=== PATIENT | male | born 1940 | race Caucasian/White ===

== ENCOUNTER → 2018-06-08 | Outpatient (CLI) | payer MEDICARE ==
--- NOTE | 2018-06-08 15:07 | US ---
EXAMINATION TYPE: US kidneys/renal and bladder DATE OF EXAM: 06/08/2018 COMPARISON: CT 07/08/2015 CLINICAL HISTORY: N18.3 Chronic Kidney Stage 3. EXAM MEASUREMENTS: Right Kidney: 11.4 x 4.5 x 4.3 cm Left Kidney: 11.0 x 5.7 x 4.8 cm Right Kidney: No hydronephrosis. Loss of corticomedullary differentiation Left Kidney: Echogenic foci visualized measuring 0.9 cm. This has posterior shadowing. A cystlike are a may be within the mid left kidney. Bladder: Hyperechoic area visualized measuring 1.3 x 1.5 x 1.6 cm with vascularity within Bilateral Jets seen: No, right jet visualized IMPRESSION: 1. Echogenic foci within the urinary bladder. Additional workup for polypoid lesion or neoplasm is re commended. 2. Mid left renal stone
== END ==
LOC: RADUSWWP 10:57
PROVIDERS: ATTEND Internal Medicine
DX: N20.0 Calculus of kidney (principal)
CPT/HCPCS: 76770

== ENCOUNTER → 2018-10-19 | Outpatient (CLI) | payer MEDICARE ==
[2018-10-19 14:16] LABS: Calcium 9.6 mg/dL (8.4-10.2); Potassium 4.6 mmol/L (3.5-5.1)
[2018-10-19 14:40] LABS: Anisocytosis Slight; Basophils % (A) 1 %; Eosinophils # (A) 0.7 k/uL (0-0.7); Eosinophils % (A) 12 %; HCT 35.4 % (39.0-53.0); HGB 11.5 gm/dL (13.0-17.5); Lymphocytes # (A) 0.9 k/uL (1.0-4.8); Lymphocytes % (A) 15 %; MCH 27.8 pg (25.0-35.0); MCHC 32.5 g/dL (31.0-37.0); MCV 85.6 fL (80.0-100.0); Mean Platelet Volume 10.3; Monocytes # (A) 0.9 k/uL (0-1.0); Monocytes % (A) 15 %; Neutrophils # (A) 3.2 k/uL (1.3-7.7); Neutrophils % (A) 54 %; Platelet Count 181 k/uL (150-450); RBC 4.14 m/uL (4.30-5.90); RDW 17.4 % (11.5-15.5)
== END ==
LOC: LABPAT 11:37
PROVIDERS: ATTEND Urology
DX: Z01.818 Encounter for other preprocedural examination (principal); Z01.812 Encounter for preprocedural laboratory examination; D49.4 Neoplasm of unspecified behavior of bladder; R53.83 Other fatigue
CPT/HCPCS: 80048; 85025; 93005

== ENCOUNTER 2018-11-01 07:34 | Day surgery (SDC) | payer MEDICARE ==
[2018-10-26 12:38] VITALS: BMI 40.3
--- NOTE | 2018-10-31 12:44 | P.GSHP ---
History of Present Illness H&P Date: 10/31/18 Chief Complaint: Gross hematuria The patient is a 78-year-old white male recently evaluated for gross hematuria. A computed tomography scan in June 2015 showed 2 left renal calculi. A renal ultrasound in May 2018 showed a 9 mm left renal calculus as well as a bladder mass. Cystoscopy was performed, confirming the presence of multiple papillary tumors. He now comes for resection. - Genitourinary (Female) Genitourinary: Reports hematuria, Reports kidney stones Past Medical History Past Medical History: Atrial Fibrillation, Heart Failure, COPD, CVA/TIA, Diabetes Mellitus, Eye Disorder, Hearing Disorder / Deafness, Hyperlipidemia, Hypertension, Memory Impairment, Musculoskeletal Disorder, Renal Disease, Thyroid Disorder Additional Past Medical History / Comment(s): CA BLADDER TUMORS CURRENTLY. HX MILD CVA, RECOVERED. EARLY GLAUCOMA ADELA. MILD MEMORY CHANGES. 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 LT DROPPED FOOT. HX GOUT. LEGS WRAPPED OCC D/T EDEMA, MINOR NOW. History of Any Multi-Drug Resistant Organisms: None Reported Additional Past Surgical History / Comment(s): Finger surgery - TRAUMATIC AMPUTATIONS LT 2 FINGERS. COLONOSCOPY. Hemorrhoidectomy Past Anesthesia/Blood Transfusion Reactions: Family History of Problems w/ Anesthesia Additional Past Anesthesia/Blood Transfusion Reaction / Comment(s): SON HAD FLUID IN LUNGS WITH 1 SURGERY. Smoking Status: Former smoker - Past Family History Daughter(s) Family Medical History: Cancer Medications and Allergies Home Medications Medication Instructions Recorded Confirmed Type Atenolol [Tenormin] 50 mg PO DAILY 02/18/15 10/26/18 History Levothyroxine Sodium [Synthroid] 75 mcg PO DAILY 02/18/15 10/26/18 History Simvastatin [Zocor] 20 mg PO DAILY 02/18/15 10/26/18 History Warfarin [Coumadin] 2 tab PO DIRECTED 02/18/15 10/26/18 History glipiZIDE [Glucotrol] 10 mg PO DAILY 02/18/15 10/26/18 History Acetaminophen Tab [Tylenol Tab] 325 - 650 mg PO Q6H PRN 10/26/18 10/26/18 History Allopurinol [Zyloprim] 100 mg PO DAILY 10/26/18 10/26/18 History Ergocalciferol [Vitamin D2] 50,000 unit PO Q7D 10/26/18 10/26/18 History Ferrous Sulfate [Feosol] 325 mg PO DAILY 10/26/18 10/26/18 History Furosemide [Lasix] 20 mg PO HS 10/26/18 10/26/18 History Furosemide [Lasix] 40 mg PO DAILY 10/26/18 10/26/18 History Oxybutynin Chloride [Ditropan] 5 mg PO BID 10/26/18 10/26/18 History Potassium Chloride [Klor-Con 20 20 meq PO DAILY 10/26/18 10/26/18 History Packets] Spironolactone [Aldactone] 25 mg PO DAILY 10/26/18 10/26/18 History sitaGLIPtin [Januvia] 50 mg PO DAILY 10/26/18 10/26/18 History Allergies Allergy/AdvReac Type Severity Reaction Status Date / Time strawberry Allergy Swelling Verified 10/26/18 12:13 Surgical - Exam - General well developed, well nourished, no distress - Neck no masses, trachea midline - Respiratory normal respiratory effort, clear to auscultation - Cardiovascular Rhythm: regular Abnormal Heart Sounds: no systolic murmur, no diastolic murmur, no rub, no S3 Gallop, no S4 Gallop, no click, no other - Abdomen Abdomen: soft, non tender, no guarding, no rigid, no rebound - Genitourinary normal penis with no external lesions - Psychiatric oriented to time, oriented to person, oriented to place, speech is normal, memory intact Assessment and Plan (1) Neoplasm of unspecified behavior of bladder Status: Acute Code(s): D49.4 - NEOPLASM OF UNSPECIFIED BEHAVIOR OF BLADDER SNOMED Code(s): 745289857 Plan: Cystoscopy, transurethral resection of bladder tumor. The procedure has been reviewed in detail with the patient and his son. Potential risks were reviewed, which include anesthesia, bleeding, infection, and bladder perforation. Mitomycin C will be instilled into the bladder post resection to decrease the likelihood of recurrent tumors. However, this will not be administered if there is any concern of bladder perforation.
[2018-11-01 08:23] LABS: Glucose,Whole Blood 178 mg/dL (75-99)
[2018-11-01] MEDS ORDERED: LACTATED RINGERS 1,000 ML IV ONE (08:24)
[2018-11-01] MEDS ORDERED: LIDOCAINE 1% 20 ML VIAL (10MG/ML) FOR IV START INTRADERMA ONE (08:25)
[2018-11-01] MEDS ORDERED: ONDANSETRON 4 MG/2 ML VIAL IVP ONE (08:29)
[2018-11-01 08:52] LABS: Partial Thromboplastin Time 22.4 sec (22.0-30.0); Prothrombin Time 10.8 sec (9.0-12.0)
[2018-11-01] MEDS ORDERED: mitoMYcin 20 MG in EMPTY SYRINGE 1 SYR INTRAVESIC ONE (09:00)
[2018-11-01] MEDS ORDERED: LIDOCAINE 1% INJ 10MG/ML (20 ML MDV) ONE (09:54)
[2018-11-01] MEDS ORDERED: GLYCOPYRROLATE 0.2 MG/ML 2 ML VIAL ONE (09:54)
[2018-11-01] MEDS ORDERED: SUCCINYLCHOLINE CHLORIDE 100 MG/5 ML SYR IV ONE (09:54)
[2018-11-01] MEDS ORDERED: NEOSTIGMINE 1 MG/ML 10 ML VIAL ONE (09:54)
[2018-11-01] MEDS ORDERED: PHENYLEPHRINE-0.9% NACL SYG 1 MG/10 ML SYRINGE ONE (09:54)
[2018-11-01] MEDS ORDERED: VECURONIUM 10 MG VIAL IV ONE (09:54)
[2018-11-01] MEDS ORDERED: PROPOFOL 10 MG/ML 20 ML VIAL IV ONE (09:54)
[2018-11-01] MEDS ORDERED: fentaNYL (PF) 50 MCG/ML 2 ML AMP ONE (09:54)
--- NOTE | 2018-11-01 11:23 | P.OP ---
Date of Procedure: 11/01/18 Preoperative Diagnosis: Bladder tumors Postoperative Diagnosis: Same Procedure(s) Performed: Cystoscopy, transurethral resection of bladder tumors (medium), instillation of intravesical Mitomycin C Anesthesia: GABRIELA Surgeon: Len Carpenter Estimated Blood Loss (ml): 10 IV fluids (ml): 250 Condition: stable Disposition: PACU Indications for Procedure: The patient is a 78-year-old white male recently evaluated for gross hematuria. A computed tomography scan in June 2015 showed 2 left renal calculi. A renal ultrasound in May 2018 showed a 9 mm left renal calculus as well as a bladder mass. Cystoscopy was performed, confirming the presence of multiple papillary tumors. He now comes for resection. Operative Findings: Multiple tumors located on anterior bladder wall, bladder dome, and bladder trigone. The largest tumor measures 3-4 cm in diameter and is located on the left lateral bladder wall. All tumors have a papillary appearance. Description of Procedure: The patient was taken in the operating room and placed in the dorsal lithotomy position, with his legs supported in Benigno stirrups. The external genitalia was prepped and draped sterilely. The 24-[place] [employer] resectoscope sheath was introduced into the bladder under direct vision. The bladder was inspected. Both ureteral orifices were of normal anatomic location and configuration, and clear urine effluxed from both. The entire bladder was examined, revealing a 3- 4 cm tumor located on the left lateral bladder wall. Several small tumors were identified on the anterior bladder wall and bladder dome. A small tumor was identified on the inter-trigonal ridge in the midline. All tumors have a papillary appearance. The prostate was partially occluded, with a bilobar configuration. No tumors were seen within the prostatic urethra. Using the cutting loop, the tumors were resected down to the muscle. The resected tissue was saved and sent for pathologic examination. The resectoscope was used to obtain a biopsy from the right posterior prostatic urethra. Excellent hemostasis was attained. There was no evidence of bladder perforation. An 18- [place] Fong catheter was inserted. The return was clear. 20 mg of Mitomycin C was instilled into the bladder. The Fong catheter was plugged. The patient tolerated the procedure well. He was taken to the recovery room in stable condition.
[2018-11-01 11:37] VITALS: TEMP 97
[2018-11-01 11:40] LABS: Glucose,Whole Blood 133 mg/dL (75-99)
[2018-11-01 12:29] VITALS: BP 129/68; PULSE 55; RESP 18
[2018-11-01] MEDS ORDERED: fentaNYL (PF) 50 MCG/ML 2 ML AMP IV ONE (12:42)
[2018-11-01] MEDS ORDERED: HYDROcodone/APAP 5-325MG 1 EACH TAB PO ONE (13:28)
[2018-11-01 14:22] LABS: Glucose,Whole Blood 152 mg/dL (75-99)
== END 2018-11-01 14:44 | disposition home or self-care (01) ==
LOC: OR 07:34
PROVIDERS: ATTEND Urology
DX: C67.1 Malignant neoplasm of dome of bladder (principal); C67.0 Malignant neoplasm of trigone of bladder; C67.3 Malignant neoplasm of anterior wall of bladder; C67.2 Malignant neoplasm of lateral wall of bladder; I48.91 Unspecified atrial fibrillation; J44.9 Chronic obstructive pulmonary disease, unspecified; I13.0 Hypertensive heart and chronic kidney disease with heart failure and stage 1 through stage 4 chronic kidney disease, or unspecified chronic kidney disease; E11.22 Type 2 diabetes mellitus with diabetic chronic kidney disease; N18.3 Chronic kidney disease, stage 3 (moderate); I50.9 Heart failure, unspecified; N20.0 Calculus of kidney; Z86.73 Personal history of transient ischemic attack (TIA), and cerebral infarction without residual deficits; R60.0 Localized edema; E78.5 Hyperlipidemia, unspecified; E07.9 Disorder of thyroid, unspecified; R41.3 Other amnesia; M21.372 Foot drop, left foot; Z87.891 Personal history of nicotine dependence; M10.9 Gout, unspecified; Z79.01 Long term (current) use of anticoagulants; Z79.84 Long term (current) use of oral hypoglycemic drugs; Z79.83 Long term (current) use of bisphosphonates; Z79.890 Hormone replacement therapy; Z79.899 Other long term (current) drug therapy; Z91.018 Allergy to other foods
CPT/HCPCS: 88305; 85610; 85730; 88307; 52235; J2710; J2405; J2001; J9280; J3010; J2370; J0330; J2704

== ENCOUNTER 2018-12-10 23:52 | Emergency (ER) | payer MEDICARE ==
[2018-12-11] VITALS: TEMP 97.9
--- NOTE | 2018-12-11 00:35 | ED ---
Chest Pain HPI - General Chief Complaint: Chest Pain Stated Complaint: Chest Pain Time Seen by Provider: 12/10/18 23:59 Source: EMS, RN notes reviewed, old records reviewed Mode of arrival: EMS Limitations: no limitations - History of Present Illness Initial Comments: This is a 78-year-old male the ER for evaluation. This patient resents today for evaluation of chest pain. Patient has history of A. fib no history of heart disease. No prior history of chest pain. Patient has some chest pain during the rollover on his left side severe pain in his left side left chest wall and he was lying out in bed. Denies any trauma. He was doing some gardening earlier in the day. Pain is also worse with left arm movement. When he is laying still patient has no pain MD Complaint: chest pain (Left-sided chest wall) -: hour(s) Onset: during rest Pain Location: left chest Severity scale (1-10): 3 Quality: aching Consistency: now resolved (Patient remains still pain is resolved) Improves With: nothing Worsens With: nothing Treatments Prior to Arrival: none - Related Data Home Medications Medication Instructions Recorded Confirmed Atenolol [Tenormin] 50 mg PO DAILY 02/18/15 11/01/18 Levothyroxine Sodium [Synthroid] 75 mcg PO DAILY 02/18/15 11/01/18 Simvastatin [Zocor] 20 mg PO DAILY 02/18/15 11/01/18 Warfarin [Coumadin] 2 tab PO DIRECTED 02/18/15 11/01/18 glipiZIDE [Glucotrol] 10 mg PO DAILY 02/18/15 11/01/18 Acetaminophen Tab [Tylenol Tab] 325 - 650 mg PO Q6H PRN 10/26/18 11/01/18 Allopurinol [Zyloprim] 100 mg PO DAILY 10/26/18 11/01/18 Ergocalciferol [Vitamin D2] 50,000 unit PO Q7D 10/26/18 11/01/18 Ferrous Sulfate [Feosol] 325 mg PO DAILY 10/26/18 11/01/18 Furosemide [Lasix] 20 mg PO HS 10/26/18 11/01/18 Furosemide [Lasix] 40 mg PO DAILY 10/26/18 11/01/18 Oxybutynin Chloride [Ditropan] 5 mg PO BID 10/26/18 11/01/18 Potassium Chloride [Klor-Con 20 20 meq PO DAILY 10/26/18 11/01/18 Packets] Spironolactone [Aldactone] 25 mg PO DAILY 10/26/18 11/01/18 sitaGLIPtin [Januvia] 50 mg PO DAILY 10/26/18 11/01/18 Allergies Allergy/AdvReac Type Severity Reaction Status Date / Time strawberry Allergy Swelling Verified 12/11/18 00:00 Review of Systems ROS Statement: Those systems with pertinent positive or pertinent negative responses have been documented in the HPI. ROS Other: All systems not noted in ROS Statement are negative. EKG Findings - EKG Comments: EKG Findings:: EKG shows A. fib rate of 64, QRS 80, QTC 447 Past Medical History Past Medical History: Atrial Fibrillation, Heart Failure, COPD, CVA/TIA, Diabetes Mellitus, Eye Disorder, Hearing Disorder / Deafness, Hyperlipidemia, Hypertension, Memory Impairment, Musculoskeletal Disorder, Renal Disease, Thyroid Disorder Additional Past Medical History / Comment(s): CA BLADDER TUMORS CURRENTLY. HX MILD CVA, RECOVERED. EARLY GLAUCOMA ADELA. MILD MEMORY CHANGES. 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 LT DROPPED FOOT. HX GOUT. LEGS WRAPPED OCC D/T EDEMA, MINOR NOW. History of Any Multi-Drug Resistant Organisms: None Reported Additional Past Surgical History / Comment(s): Finger surgery - TRAUMATIC AMPUTATIONS LT 2 FINGERS. COLONOSCOPY. Hemorrhoidectomy Past Anesthesia/Blood Transfusion Reactions: Family History of Problems w/ Anesthesia Additional Past Anesthesia/Blood Transfusion Reaction / Comment(s): SON HAD FLUID IN LUNGS WITH 1 SURGERY. Past Psychological History: No Psychological Hx Reported Smoking Status: Former smoker Past Alcohol Use History: None Reported Past Drug Use History: None Reported - Past Family History Daughter(s) Family Medical History: Cancer General Exam - General Exam Comments Initial Comments: Left chest wall pain and tenderness Limitations: no limitations General appearance: alert, in no apparent distress Head exam: Present: atraumatic, normocephalic, normal inspection Eye exam: Present: normal appearance, PERRL, EOMI. Absent: scleral icterus, conjunctival injection, periorbital swelling ENT exam: Present: normal exam, mucous membranes moist Neck exam: Present: normal inspection. Absent: tenderness, meningismus, lymphadenopathy Respiratory exam: Present: normal lung sounds bilaterally. Absent: respiratory distress, wheezes, rales, rhonchi, stridor Cardiovascular Exam: Present: regular rate, normal rhythm, normal heart sounds. Absent: systolic murmur, diastolic murmur, rubs, gallop, clicks GI/Abdominal exam: Present: soft, normal bowel sounds. Absent: distended, tenderness, guarding, rebound, rigid Extremities exam: Present: normal inspection, full ROM, normal capillary refill. Absent: tenderness, pedal edema, joint swelling, calf tenderness Back exam: Present: normal inspection Neurological exam: Present: alert, oriented X3, CN II-XII intact Psychiatric exam: Present: normal affect, normal mood Skin exam: Present: warm, dry, intact, normal color. Absent: rash Course Vital Signs 12/10/18 23:57 Temperature 97.9 F Pulse Rate 68 Respiratory 18 Rate Blood Pressure 105/58 O2 Sat by Pulse 95 Oximetry - Reevaluation(s) Reevaluation #1: 12/11/18 01:16 Medical record is reviewed Reevaluation #2: 12/11/18 01:16 Patient's feeling better with pain control, we'll obtain second troponin Chest Pain MDM - MDM 78 male the ER with muscle strain. Symptoms reproducible left chest wall pain. Patient has some pain will try to roll over in bed, no current chest pain while sitting still and again is reproducible. Troponin is mildly elevated with renal failure. Second troponin is negative and change. Patient can be discharged home Disposition Clinical Impression: Chest pain, Muscle strain Disposition: HOME SELF-CARE Condition: Good Instructions (If sedation given, give patient instructions): Costochondritis (ED) Is patient prescribed a controlled substance at d/c from ED?: No Referrals: Rogelio Mitchell DO [Primary Care Provider] - 1-2 days
[2018-12-11 00:37] LABS: Basophils # (A) 0.1 k/uL (0-0.2); Basophils % (A) 1 %; Eosinophils # (A) 0.6 k/uL (0-0.7); Eosinophils % (A) 8 %; HCT 31.9 % (39.0-53.0); HGB 10.6 gm/dL (13.0-17.5); Hypochromasia Slight; Lymphocytes # (A) 1.1 k/uL (1.0-4.8); Lymphocytes % (A) 16 %; MCH 28.8 pg (25.0-35.0); MCHC 33.2 g/dL (31.0-37.0); MCV 86.9 fL (80.0-100.0); Mean Platelet Volume 8.4; Monocytes # (A) 1.1 k/uL (0-1.0); Monocytes % (A) 15 %; Neutrophils % (A) 56 %; Platelet Count 185 k/uL (150-450); Poikilocytosis Slight; RBC 3.67 m/uL (4.30-5.90); RDW 15.4 % (11.5-15.5); WBC 7.1 k/uL (3.8-10.6)
[2018-12-11 00:46] LABS: INR 1.2 (<1.2); Partial Thromboplastin Time 22.5 sec (22.0-30.0); Prothrombin Time 12.3 sec (9.0-12.0)
[2018-12-11 00:53] LABS: Albumin 3.6 g/dL (3.5-5.0); Calcium 9.1 mg/dL (8.4-10.2); Magnesium 2.2 mg/dL (1.6-2.3); Potassium 4.9 mmol/L (3.5-5.1); Total Bilirubin 0.5 mg/dL (0.2-1.3); Total Protein 6.5 g/dL (6.3-8.2)
--- NOTE | 2018-12-11 01:09 | XR ---
INDICATION: Chest pain COMPARISON: None FINDINGS: Frontal and lateral views of the chest are obtained. The heart is enlarged. Pulmonary vascularity is normal. The right lung is clear. There is blunting of the left costophrenic angle which may represent atelectasis and/or small effusion. There is no pneumothorax. Regional skeleton appears intact. 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 IMPRESSION: 1. Blunting of the left costophrenic angle which may represent atelectasis and/or small effusion. 2. Cardiomegaly.
[2018-12-11] MEDS ORDERED: ACETAMINOPHEN TAB 325 MG TAB PO STA (01:13)
[2018-12-11] MEDS ORDERED: MORPHINE SULFATE 4 MG/ML SYRINGE IVP STA (01:13)
[2018-12-11] MEDS ORDERED: SODIUM CHLORIDE 0.9% 1,000 ML IV STA (01:14)
[2018-12-11 05:05] VITALS: BP 106/74; PULSE 63; RESP 18
== END 2018-12-11 05:05 | disposition home or self-care (01) ==
LOC: EC 23:52
DX: S29.011A Strain of muscle and tendon of front wall of thorax, initial encounter (principal); R79.89 Other specified abnormal findings of blood chemistry; N19 Unspecified kidney failure; C67.9 Malignant neoplasm of bladder, unspecified; I48.91 Unspecified atrial fibrillation; I11.0 Hypertensive heart disease with heart failure; I50.9 Heart failure, unspecified; E11.9 Type 2 diabetes mellitus without complications; E78.5 Hyperlipidemia, unspecified; M10.9 Gout, unspecified; E07.9 Disorder of thyroid, unspecified; Z87.891 Personal history of nicotine dependence; Z91.018 Allergy to other foods; Z79.01 Long term (current) use of anticoagulants; Z79.84 Long term (current) use of oral hypoglycemic drugs; Z79.890 Hormone replacement therapy; Z79.899 Other long term (current) drug therapy; Z86.73 Personal history of transient ischemic attack (TIA), and cerebral infarction without residual deficits; Z53.20 Procedure and treatment not carried out because of patient's decision for unspecified reasons; X58.XXXA Exposure to other specified factors, initial encounter
CPT/HCPCS: 36415; 71046; 80053; 83690; 83735; 83880; 84484; 85025; 85610; 85730; 93005; 96360; 96361; 99285

== ENCOUNTER → 2018-12-28 | Outpatient (CLI) | payer MEDICARE | END | disposition home or self-care (01) | LOC: LABPAT 10:01 | PROVIDERS: ATTEND Urology | DX: Z01.812 Encounter for preprocedural laboratory examination (principal); C67.9 Malignant neoplasm of bladder, unspecified | CPT/HCPCS: 87086 ==

== ENCOUNTER 2019-01-03 09:18 | Day surgery (SDC) | payer MEDICARE ==
--- NOTE | 2018-12-27 17:03 | P.GSHP ---
History of Present Illness H&P Date: 12/27/18 Chief Complaint: Bladder cancer The patient is a 78-year-old white male recently evaluated for gross hematuria. A computed tomography scan in June 2015 showed 2 left renal calculi. A renal ultrasound in May 2018 showed a 9 mm left renal calculus as well as a bladder mass. Cystoscopy revealed multiple tumors located on anterior bladder wall, bladder dome, and bladder trigone. The largest tumor measured 3-4 cm in diameter and was located on the left lateral bladder wall. All tumors had a papillary appearance. He underwent transurethral resection of these tumors on 11/01/2018 revealing T1 grade 3 urothelial carcinoma. He has recovered well from surgery. He now comes for re-resection. - Constitutional Constitutional: Denies chills, Denies fever - Genitourinary (Female) Genitourinary: Denies dysuria, Denies hematuria Past Medical History Past Medical History: Atrial Fibrillation, Heart Failure, COPD, CVA/TIA, Diabetes Mellitus, Eye Disorder, Hearing Disorder / Deafness, Hyperlipidemia, Hypertension, Memory Impairment, Musculoskeletal Disorder, Renal Disease, Thyroid Disorder Additional Past Medical History / Comment(s): CA BLADDER TUMORS CURRENTLY. HX MILD CVA, RECOVERED. EARLY GLAUCOMA ADELA. MILD MEMORY CHANGES. 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 LT DROPPED FOOT. HX GOUT. LEGS WRAPPED OCC D/T EDEMA, MINOR NOW. History of Any Multi-Drug Resistant Organisms: None Reported Additional Past Surgical History / Comment(s): Finger surgery - TRAUMATIC AMPUTA TIONS LT 2 FINGERS. COLONOSCOPY. Hemorrhoidectomy Past Anesthesia/Blood Transfusion Reactions: Family History of Problems w/ Anesthesia Additional Past Anesthesia/Blood Transfusion Reaction / Comment(s): SON HAD FLUID IN LUNGS WITH 1 SURGERY. Past Psychological History: No Psychological Hx Reported Smoking Status: Former smoker Past Alcohol Use History: None Reported Past Drug Use History: None Reported - Past Family History Daughter(s) Family Medical History: Cancer Medications and Allergies Home Medications Medication Instructions Recorded Confirmed Type Atenolol [Tenormin] 50 mg PO DAILY 02/18/15 11/01/18 History Levothyroxine Sodium [Synthroid] 75 mcg PO DAILY 02/18/15 11/01/18 History Simvastatin [Zocor] 20 mg PO DAILY 02/18/15 11/01/18 History Warfarin [Coumadin] 2 tab PO DIRECTED 02/18/15 11/01/18 History glipiZIDE [Glucotrol] 10 mg PO DAILY 02/18/15 11/01/18 History Acetaminophen Tab [Tylenol Tab] 325 - 650 mg PO Q6H PRN 10/26/18 11/01/18 History Allopurinol [Zyloprim] 100 mg PO DAILY 10/26/18 11/01/18 History Ergocalciferol [Vitamin D2] 50,000 unit PO Q7D 10/26/18 11/01/18 History Ferrous Sulfate [Feosol] 325 mg PO DAILY 10/26/18 11/01/18 History Furosemide [Lasix] 20 mg PO HS 10/26/18 11/01/18 History Furosemide [Lasix] 40 mg PO DAILY 10/26/18 11/01/18 History Oxybutynin Chloride [Ditropan] 5 mg PO BID 10/26/18 11/01/18 History Potassium Chloride [Klor-Con 20 20 meq PO DAILY 10/26/18 11/01/18 History Packets] Spironolactone [Aldactone] 25 mg PO DAILY 10/26/18 11/01/18 History sitaGLIPtin [Januvia] 50 mg PO DAILY 10/26/18 11/01/18 History Allergies Allergy/AdvReac Type Severity Reaction Status Date / Time strawberry Allergy Swelling Verified 12/11/18 00:00 Surgical - Exam - General well developed, well nourished, no distress - Respiratory normal respiratory effort - Abdomen Abdomen: soft, non tender, no guarding, no rigid, no rebound Assessment and Plan (1) Malignant neoplasm of bladder Status: Acute Code(s): C67.9 - MALIGNANT NEOPLASM OF BLADDER, UNSPECIFIED SNOMED Code(s): 973081033 Plan: Cystoscopy, transurethral resection of recurrent bladder tumors. If no tumors are identified, the prior resection sites will be resected to confirm the absence of persistent urothelial carcinoma. She now for this procedure was reviewed with the patient and his son. Potential risks were discussed, which include anesthesia, bleeding, infection, postoperative urinary retention, and bladder perforation.
[2019-01-02 08:45] VITALS: BMI 32.5
[~2019-01-03 09:18] MED LIST: DEXAMETHASONE SOD PHOSPHATE 10 MG/ML 1 ML VIAL IV ONE; HYDROmorphone 0.5 MG/0.5 ML SYRINGE IVP PRN; LACTATED RINGERS 1,000 ML IV SCH; LIDOCAINE 1% 20 ML VIAL (10MG/ML) FOR IV START INTRADERMA PRN; MIDAZOLAM 2 MG/2 ML VIAL IV PRN; ONDANSETRON 4 MG/2 ML VIAL IVP ONE; SCOPOLAMINE 1.5MG/72HR PATCH TRANSDERM ONE; ceFAZolin IN SWFI 2 GM/20 ML SYRINGE IVP ONE
[2019-01-03 09:57] LABS: Glucose,Whole Blood 153 mg/dL (75-99)
[2019-01-03] MEDS ORDERED: PROPOFOL 10 MG/ML 20 ML VIAL IV ONE (12:13)
[2019-01-03] MEDS ORDERED: fentaNYL (PF) 50 MCG/ML 2 ML AMP ONE (12:13)
[2019-01-03] MEDS ORDERED: SUCCINYLCHOLINE CHLORIDE 100 MG/5 ML SYR IV ONE (12:13)
[2019-01-03] MEDS ORDERED: ePHEDrine SULFATE/0.9% NACL/PF 50 MG/5 ML SYRINGE IV ONE (12:13)
[2019-01-03] MEDS ORDERED: LIDOCAINE 1% INJ 10MG/ML (20 ML MDV) ONE (12:13)
--- NOTE | 2019-01-03 13:36 | P.OP ---
Date of Procedure: 01/03/19 Preoperative Diagnosis: Urothelial carcinoma of the bladder Postoperative Diagnosis: Same Procedure(s) Performed: Cystoscopy, TURBT (Medium) Anesthesia: GABRIELA Surgeon: Len Carpenter Estimated Blood Loss (ml): 10 IV fluids (ml): 500 Pathology: other (Bladder tumor fragments) Condition: stable Disposition: PACU Indications for Procedure: The patient is a 78-year-old white male recently evaluated for gross hematuria. A computed tomography scan in June 2015 showed 2 left renal calculi. A renal ultrasound in May 2018 showed a 9 mm left renal calculus as well as a bladder mass. Cystoscopy revealed multiple tumors located on anterior bladder w all, bladder dome, and bladder trigone. The largest tumor measured 3-4 cm in diameter and was located on the left lateral bladder wall. All tumors had a papillary appearance. He underwent transurethral resection of these tumors on 11/01/2018 revealing T1 grade 3 urothelial carcinoma. He has recovered well from surgery. He now comes for re-resection. Operative Findings: No recurrent tumors seen. Description of Procedure: The patient was taken in the operating room and placed in the dorsal lithotomy position, with his legs supported in Benigno stirrups. The external genitalia was prepped and draped sterilely. The 25-[place]izen [place] [employer] resectoscope sheath was introduced into the bladder. The bladder was inspected. The right ureteral orifice appeared normal. The left ureteral orifice was gaping due to prior resection. Clear urine effluxed from both. The entire bladder was examined, revealing several areas of incomplete healing due to prior resection. The prostate did not appear to be obstructed, and there were no tumors seen within the prostatic urethra. Using the bipolar cutting loop, the areas of prior tumor resection were resected down to the muscle. Excellent hemostasis was attained. The resected tissue was saved and sent for pathologic examination. A small amount of fat was seen within the anterior bladder wall resection, though the resection was not deep and perforation is not suspected. An 18-Citizen [place] Fong catheter was inserted. The return was clear. The patient tolerated the procedure well. He was taken to the recovery room in stable condition.
[2019-01-03 13:53] VITALS: TEMP 97.7
[2019-01-03 14:02] LABS: Glucose,Whole Blood 210 mg/dL (75-99)
[2019-01-03] MEDS ORDERED: INSULIN ASPART (NovoLOG) 100 UNIT/ML VIAL SQ ONE (14:12)
[2019-01-03] MEDS ORDERED: BELLADONNA-OPIUM 16.2-60 MG 1 EACH SUPP RECTAL ONE (14:54)
[2019-01-03 16:58] VITALS: BP 138/79; PULSE 74; RESP 16
== END 2019-01-03 16:45 | disposition home or self-care (01) ==
LOC: OR 09:18
PROVIDERS: ATTEND Urology
DX: C67.9 Malignant neoplasm of bladder, unspecified (principal); N20.0 Calculus of kidney; I48.91 Unspecified atrial fibrillation; I13.0 Hypertensive heart and chronic kidney disease with heart failure and stage 1 through stage 4 chronic kidney disease, or unspecified chronic kidney disease; E11.22 Type 2 diabetes mellitus with diabetic chronic kidney disease; N18.3 Chronic kidney disease, stage 3 (moderate); I50.9 Heart failure, unspecified; Z79.84 Long term (current) use of oral hypoglycemic drugs; J44.9 Chronic obstructive pulmonary disease, unspecified; H91.90 Unspecified hearing loss, unspecified ear; M10.9 Gout, unspecified; E78.5 Hyperlipidemia, unspecified; R41.3 Other amnesia; H40.9 Unspecified glaucoma; E07.9 Disorder of thyroid, unspecified; Z86.73 Personal history of transient ischemic attack (TIA), and cerebral infarction without residual deficits; Z87.891 Personal history of nicotine dependence; Z89.022 Acquired absence of left finger(s); Z79.01 Long term (current) use of anticoagulants; Z79.890 Hormone replacement therapy; Z79.899 Other long term (current) drug therapy; Z91.018 Allergy to other foods
CPT/HCPCS: 88307; 52235; J1100; J2405; J2001; J3010; J0330; J2704; J0690

== ENCOUNTER → 2019-02-13 | Outpatient (CLI) | payer MEDICARE ==
--- NOTE | 2019-02-13 12:10 | XR ---
EXAMINATION TYPE: XR abdomen 2V DATE OF EXAM: 02/13/2019 COMPARISON: 08/20/2012 HISTORY: Constipation TECHNIQUE: Single frontal upright abdominal radiograph was obtained FINDINGS: Moderate multilevel degenerative changes of the spine are seen. Left mid abdominal 1 cm rou nded calcification is unchanged from 2012. No dilated large or small bowel although prominent loops o f air-filled small bowel are clustered in the left abdomen measuring up to 2.9 cm. Mild degree coloni c fecal stasis. Lung bases appear well aerated. No gross evidence of pneumoperitoneum. IMPRESSION: 1. Nonobstructive bowel gas pattern with mild degree colonic fecal stasis. Clustered loops of upper l imits normal size small bowel in the left mid abdomen are seen. Ileus is suspected. 2. Stable 1 cm left mid abdominal calculus from 2012, possible nephrolithiasis.
== END | disposition home or self-care (01) ==
LOC: RADXRYALE 10:59
PROVIDERS: ATTEND Physician Assistant Medical
DX: K59.8 Other specified functional intestinal disorders (principal)
CPT/HCPCS: 74019

== ENCOUNTER 2019-02-15 19:15 | Emergency (ER) | payer MEDICARE ==
[2019-02-15] MEDS ORDERED: SODIUM CHLORIDE 0.9% 500 ML 500 ML IV STA (20:16)
[2019-02-15] MEDS ORDERED: Magnesium Replacement Protocol 1 EACH MISC MISCELLANE PRN (20:16)
--- NOTE | 2019-02-15 20:44 | ED ---
General Adult HPI - General Chief complaint: Recheck/Abnormal Lab/Rx Stated complaint: no bowel movement/blood in urine Time Seen by Provider: 02/15/19 19:53 Source: family Mode of arrival: ambulatory Limitations: no limitations - History of Present Illness Initial comments: 78-year-old male patient presents to the emergency department today for evaluati on of constipation. Patient states his been 7 or 8 days since he has had a bowel movement. Patient states he is not having any stool output at all. Patient states he has been having some suprapubic abdominal discomfort. Patient denies any significant history of constipation. Patient states he has been taking MiraLAX, fiber supplement, and did do an enema today without relief of symptoms. He was in to see his primary care physician 2 days ago for this. Patient states today he did have some hematuria. He is status post transurethral resection of a bladder tumor a few weeks ago. He has been having intermittent hematuria. He denies any fever or chills. He is currently taking antibiotics for possible bladder infection. Denies any nausea or vomiting. States he does have an appetite. Patient denies any recent rash, shortness breath, chest pain, back pain, numbness, tingling, dizziness, weakness, hematuria, dysuria, urinary urgency, urinary frequency, headache, visual changes, or any other complaints. - Related Data Home Medications Medication Instructions Recorded Confirmed Atenolol [Tenormin] 50 mg PO DAILY 02/18/15 02/15/19 Levothyroxine Sodium [Synthroid] 75 mcg PO DAILY 02/18/15 02/15/19 Simvastatin [Zocor] 20 mg PO DAILY 02/18/15 02/15/19 Allopurinol [Zyloprim] 100 mg PO DAILY 10/26/18 02/15/19 Ergocalciferol [Vitamin D2] 50,000 unit PO WE 10/26/18 02/15/19 Oxybutynin Chloride [Ditropan] 5 mg PO BID 10/26/18 02/15/19 Spironolactone [Aldactone] 25 mg PO DAILY 10/26/18 02/15/19 sitaGLIPtin [Januvia] 50 mg PO DAILY 10/26/18 02/15/19 Docusate [Colace] 100 mg PO DAILY PRN 02/15/19 02/15/19 Furosemide [Lasix] 40 mg PO DAILY@00 02/15/19 02/15/19 Furosemide [Lasix] 40 mg PO TUTHSA@2100 02/15/19 02/15/19 Mupirocin 2% Oint [Bactroban 2% 1 applic TOPICAL BID 02/15/19 02/15/19 Oint] Na Phos,M-B/Na Phos,Di-Ba [Fleet 133 ml RECTAL ONCE 02/15/19 02/15/19 Adult] Nitrofurantoin Monohyd/M-Cryst 100 mg PO Q12HR 02/15/19 02/15/19 [Macrobid] Polyethylene Glycol 3350 [Miralax] 17 gm PO DAILY PRN 02/15/19 02/15/19 Psyllium Husk 100% [Metamucil 6 gm PO DAILY PRN 02/15/19 02/15/19 Packet] Tetrahydrozoline 0.05% Ophth 1 drop BOTH EYES QID PRN 02/15/19 02/15/19 [Visine Eye Drops] Triamcinolone 0.1% Ointment 1 applic TOPICAL TID 02/15/19 02/15/19 [Kenalog 0.1% Ointment] Warfarin [Coumadin] 4 mg PO SA 02/15/19 02/15/19 Warfarin [Coumadin] 6 mg PO SUMOTUWETHFR 02/15/19 02/15/19 glipiZIDE [Glucotrol] 10 mg PO AC-BID 02/15/19 02/15/19 Previous Rx's Medication Instructions Recorded Cephalexin [Keflex] 500 mg PO Q6HR #40 cap 02/16/19 Allergies Allergy/AdvReac Type Severity Reaction Status Date / Time strawberry Allergy Swelling Verified 02/15/19 20:05 Review of Systems ROS Statement: Those systems with pertinent positive or pertinent negative responses have been documented in the HPI. ROS Other: All systems not noted in ROS Statement are negative. Past Medical History Past Medical History: Atrial Fibrillation, Cancer, Heart Failure, CVA/TIA, Diabetes Mellitus, Eye Disorder, Hearing Disorder / Deafness, Hyperlipidemia, Hypertension, Memory Impairment, Musculoskeletal Disorder, Renal Disease, Thyroid Disorder Additional Past Medical History / Comment(s): CA BLADDER TUMORS . HX MILD CVA, EARLY GLAUCOMA ADELA. MILD MEMORY CHANGES. 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 LT DROPPED FOOT. HX GOUT. , OCCASIONAL SORES ON LEGS DUE TO EDEMA., SOB WITH ACTIVITY., HEMATURIA., URGENCY TO URINATE., PATIENTS SON TAKES CARE OF MEDICATIONS FOR HIM., HEARING AID, USES WALKER. History of Any Multi-Drug Resistant Organisms: None Reported Additional Past Surgical History / Comment(s): Finger surgery - TRAUMATIC AMPUTATIONS LT 2 FINGERS. COLONOSCOPY. Hemorrhoidectomy, REMOVAL BLADDER TUMORS (11/01/18) Past Anesthesia/Blood Transfusion Reactions: No Reported Reaction, Family History of Problems w/ Anesthesia Additional Past Anesthesia/Blood Transfusion Reaction / Comment(s): SON HAD FLUID IN LUNGS WITH 1 SURGERY. Past Psychological History: No Psychological Hx Reported Smoking Status: Former smoker Past Alcohol Use History: None Reported Past Drug Use History: None Reported - Past Family History Daughter(s) Family Medical History: Cancer General Exam Limitations: no limitations General appearance: alert, in no apparent distress, other (This is a well- developed, well-nourished elderly male patient in no acute distress. Vital signs upon presentation are temperature 97.9F, pulse 65, respirations 18, blood pressure 111/70, pulse ox 97% on room air.) Eye exam: Present: normal appearance, PERRL, EOMI. Absent: scleral icterus, conjunctival injection, periorbital swelling ENT exam: Present: normal exam, normal oropharynx, mucous membranes moist Respiratory exam: Present: normal lung sounds bilaterally. Absent: respiratory distress, wheezes, rales, rhonchi, stridor Cardiovascular Exam: Present: regular rate, normal rhythm, normal heart sounds. Absent: systolic murmur, diastolic murmur, rubs, gallop, clicks GI/Abdominal exam: Present: soft, tenderness (Suprapubic tenderness), normal bowel sounds. Absent: distended, guarding, rebound, rigid Neurological exam: Present: alert, oriented X3, CN II-XII intact Psychiatric exam: Present: normal affect, normal mood Skin exam: Present: warm, dry, intact, normal color. Absent: rash Course Vital Signs 02/15/19 02/15/19 02/16/19 19:23 21:26 00:16 Temperature 97.9 F 98 F 98 F Pulse Rate 65 69 52 L Respiratory 18 18 16 Rate Blood Pressure 111/70 120/75 125/80 O2 Sat by Pulse 97 94 L 97 Oximetry 02/16/19 01:51 Temperature 97.9 F Pulse Rate 55 L Respiratory 18 Rate Blood Pressure 122/78 O2 Sat by Pulse 97 Oximetry Medical Decision Making - Medical Decision Making 78-year-old male patient presented to the emergency department today for eval uation due to not having a bowel movement for the last 7-8 days. He is reporting some mild suprapubic abdominal pain. Physical examination did reveal some suprapubic tenderness. Labs reviewed and did reveal hemoglobin 11.2, sodium 131, potassium 5.5, BUN 84, creatinine 3.16, magnesium 2.4. He is given 500 mL of normal saline. Urinalysis showed evidence for UTI with trace protein, moderate blood, large leukocyte esterase, greater than 182 white blood cells, many white blood cell clumps, and many bacteria. X-ray was obtained and showed overall nonobstructive bowel gas pattern. Patient is currently taking Macrobid for urinary tract infection, he has been taking this for 3 days. We will switch this to Keflex and send urine for culture. We did administer enema. Patient had several large bowel movements. Upon reevaluation he does report improvement of symptoms and feels much better. He will be discharged home at this time to follow-up with his primary care physician. He has been given prescription for repeat CMP in 2-3 days. He is instructed to return immediately for any new, worsening, or concerning symptoms. He verbalizes understanding and agrees with this plan. - Lab Data Result diagrams: 02/15/19 21:25 02/15/19 21:25 Lab Results 02/15/19 02/15/19 02/15/19 Range/Units 21:25 21:25 23:47 WBC 10.3 (3.8-10.6) k/uL RBC 4.09 L (4.30-5.90) m/uL Hgb 11.2 L (13.0-17.5) gm/dL Hct 34.4 L (39.0-53.0) % MCV 84.2 (80.0-100.0) fL MCH 27.5 (25.0-35.0) pg MCHC 32.7 (31.0-37.0) g/dL RDW 17.8 H (11.5-15.5) % Plt Count 185 (150-450) k/uL Neutrophils % 73 % Lymphocytes % 10 % Monocytes % 9 % Eosinophils % 4 % Basophils % 1 % Neutrophils # 7.5 (1.3-7.7) k/uL Lymphocytes # 1.0 (1.0-4.8) k/uL Monocytes # 1.0 (0-1.0) k/uL Eosinophils # 0.4 (0-0.7) k/uL Basophils # 0.1 (0-0.2) k/uL Poikilocytosis Slight Anisocytosis Slight Sodium 131 L (137-145) mmol/L Potassium 5.5 H (3.5-5.1) mmol/L Chloride 93 L (98-107) mmol/L Carbon Dioxide 22 (22-30) mmol/L Anion Gap 16 mmol/L BUN 84 H (9-20) mg/dL Creatinine 3.16 H (0.66-1.25) mg/dL Est GFR (CKD-EPI)AfAm 21 (>60 ml/min/1.73 sqM) Est GFR (CKD-EPI)NonAf 18 (>60 ml/min/1.73 sqM) Glucose 106 H (74-99) mg/dL Calcium 9.1 (8.4-10.2) mg/dL Magnesium 2.4 H (1.6-2.3) mg/dL Total Bilirubin 0.6 (0.2-1.3) mg/dL AST 53 (17-59) U/L ALT 35 (21-72) U/L Alkaline Phosphatase 158 H (38-126) U/L Total Protein 7.2 (6.3-8.2) g/dL Albumin 4.0 (3.5-5.0) g/dL Amylase 58 (30-110) U/L Lipase 103 (23-300) U/L Urine Color Light Yellow Urine Appearance Cloudy (Clear) Urine pH 5.5 (5.0-8.0) Ur Specific [place] 1.003 (1.001-1.035) Urine Protein Trace H (Negative) Urine Glucose (UA) Negative (Negative) Urine Ketones Negative (Negative) Urine Blood Moderate H (Negative) Urine Nitrite Negative (Negative) Urine Bilirubin Negative (Negative) Urine Urobilinogen <2.0 (<2.0) mg/dL Ur Leukocyte Esterase Large H (Negative) Urine RBC 4 (0-5) /hpf Urine WBC >182 H (0-5) /hpf Urine WBC Clumps Many H (None) /hpf Urine Bacteria Many H (None) /hpf - Radiology Data Radiology results: report reviewed, image reviewed KUB x-ray was obtained. Report was reviewed in its entirety. Impression by Dr. Pickard shows nonobstructive bowel gas pattern. Similar calculus overlying the left renal shadow in comparison to the prior in 2013. Disposition Clinical Impression: Urinary tract infection, Abdominal pain Disposition: HOME SELF-CARE Condition: Good Instructions (If sedation given, give patient instructions): Constipation (ED), Urinary Tract Infection in Men (ED), Abdominal Pain (ED) Additional Instructions: Increase fluids. Complete antibiotic prescription in full. Follow-up with her primary care physician and her urologist for recheck as soon as possible. Return to the emergency department immediately for any new, worsening, or concerning symptoms. Prescriptions: Cephalexin [Keflex] 500 mg PO Q6HR #40 cap Is patient prescribed a controlled substance at d/c from ED?: No Referrals: Rogelio Mitchell DO [Primary Care Provider] - 1-2 days Time of Disposition: 01:39
[2019-02-15 21:31] LABS: Anisocytosis Slight; Basophils # (A) 0.1 k/uL (0-0.2); Basophils % (A) 1 %; Eosinophils # (A) 0.4 k/uL (0-0.7); Eosinophils % (A) 4 %; HCT 34.4 % (39.0-53.0); HGB 11.2 gm/dL (13.0-17.5); Lymphocytes % (A) 10 %; MCH 27.5 pg (25.0-35.0); MCHC 32.7 g/dL (31.0-37.0); MCV 84.2 fL (80.0-100.0); Monocytes % (A) 9 %; Neutrophils # (A) 7.5 k/uL (1.3-7.7); Neutrophils % (A) 73 %; Platelet Count 185 k/uL (150-450); Poikilocytosis Slight; RBC 4.09 m/uL (4.30-5.90); RDW 17.8 % (11.5-15.5); WBC 10.3 k/uL (3.8-10.6)
[2019-02-15 21:50] LABS: Calcium 9.1 mg/dL (8.4-10.2); Magnesium 2.4 mg/dL (1.6-2.3); Potassium 5.5 mmol/L (3.5-5.1); Total Bilirubin 0.6 mg/dL (0.2-1.3); Total Protein 7.2 g/dL (6.3-8.2)
--- NOTE | 2019-02-15 21:54 | XR ---
EXAMINATION TYPE: XR KUB DATE OF EXAM: 02/15/2019 9:40 PM CLINICAL HISTORY: Abdominal pain. Hematuria. TECHNIQUE: Single supine KUB image of the abdomen is obtained. COMPARISON: 08/20/2012. FINDINGS: Left renal calculus is similar to the prior 2012 measuring 9 mm. Multiple phleboliths are s een within the pelvis. Moderate degenerative changes of the spine. No dilated large or small bowel. N o gross evidence of pneumoperitoneum although this limited on supine imaging. Lung bases are well aer ated.. IMPRESSION: 1. Nonobstructive bowel gas pattern. 2. Similar calculus overlying the left renal shadow in comparison the prior 2012.
[2019-02-15 23:57] LABS: Appearance,Urine Cloudy (Clear); Bacteria,Urine Many /hpf; Bilirubin,Urine Negative (Negative); Blood,Urine Moderate (Negative); Color,Urine Light Yellow; Glucose,Urine (UA) Negative (Negative); Ketones,Urine Negative (Negative); Leukocyte Esterase,Urine Large (Negative); Nitrite,Urine Negative (Negative); PH, Urine 5.5 (5.0-8.0); Protein,Urine Trace (Negative); RBC,Urine 4 /hpf (0-5); Specific Gravity,Urine 1.003 (1.001-1.035); Urobilinogen,Urine <2.0 mg/dL (<2.0); WBC,Urine >182 /hpf (0-5)
[2019-02-16] MEDS ORDERED: cefTRIAXone IN SWFI 1,000 MG/10 ML SYRINGE IVP STA (01:38)
[2019-02-16] MEDS ORDERED: cefTRIAXone 1,000 MG VIAL (IM USE) IM STA (01:41)
[2019-02-16 01:52] VITALS: BP 122/78; PULSE 55; RESP 18; TEMP 97.9
== END 2019-02-16 02:12 | disposition home or self-care (01) ==
LOC: EC 19:15
DX: N39.0 Urinary tract infection, site not specified (principal); K59.00 Constipation, unspecified; I48.91 Unspecified atrial fibrillation; I13.0 Hypertensive heart and chronic kidney disease with heart failure and stage 1 through stage 4 chronic kidney disease, or unspecified chronic kidney disease; I50.9 Heart failure, unspecified; H91.90 Unspecified hearing loss, unspecified ear; E78.5 Hyperlipidemia, unspecified; E07.9 Disorder of thyroid, unspecified; H40.9 Unspecified glaucoma; M10.9 Gout, unspecified; N18.4 Chronic kidney disease, stage 4 (severe); E11.22 Type 2 diabetes mellitus with diabetic chronic kidney disease; Z87.891 Personal history of nicotine dependence; Z91.018 Allergy to other foods; Z79.01 Long term (current) use of anticoagulants; Z79.52 Long term (current) use of systemic steroids; Z79.84 Long term (current) use of oral hypoglycemic drugs; Z79.890 Hormone replacement therapy; Z79.899 Other long term (current) drug therapy; Z86.73 Personal history of transient ischemic attack (TIA), and cerebral infarction without residual deficits; Z97.4 Presence of external hearing-aid; Z85.51 Personal history of malignant neoplasm of bladder; Z98.890 Other specified postprocedural states; Z53.8 Procedure and treatment not carried out for other reasons
CPT/HCPCS: 36415; 74018; 80053; 81001; 82150; 83690; 83735; 85025; 87077; 87086; 87186; 99283

== ENCOUNTER 2019-02-18 17:07 | Emergency (ER) | payer MEDICARE ==
--- NOTE | 2019-02-18 17:32 | ED ---
General Adult HPI - General Source: patient, EMS, RN notes reviewed Mode of arrival: EMS Limitations: no limitations <James Baltazar - Last Filed: 02/18/19 21:11> <Stephane Vanessa - Last Filed: 02/18/19 23:54> - General Chief complaint: Abdominal Pain Stated complaint: Constipation Time Seen by Provider: 02/18/19 17:22 - History of Present Illness Initial comments: Patient is a pleasant 78-year-old male presenting to the emergency Department with complaints of constipation. Patient was in the emergency department 2 days ago with similar problems. Patient received an enema which made him feel better however has not had a bowel movement again since that time. Patient complains of some fullness of the abdomen, mild. No significant pain. No nausea vomiting. No fevers. Patient does have previous history of constipation and has previously had enemas. (James Baltazar) - Related Data Home Medications Medication Instructions Recorded Confirmed Atenolol [Tenormin] 50 mg PO DAILY 02/18/15 02/18/19 Levothyroxine Sodium [Synthroid] 75 mcg PO DAILY 02/18/15 02/18/19 Simvastatin [Zocor] 20 mg PO DAILY 02/18/15 02/18/19 Allopurinol [Zyloprim] 100 mg PO DAILY 10/26/18 02/18/19 Ergocalciferol [Vitamin D2] 50,000 unit PO WE 10/26/18 02/18/19 Oxybutynin Chloride [Ditropan] 5 mg PO BID 10/26/18 02/18/19 Spironolactone [Aldactone] 25 mg PO DAILY 10/26/18 02/18/19 sitaGLIPtin [Januvia] 50 mg PO DAILY 10/26/18 02/18/19 Docusate [Colace] 100 mg PO DAILY PRN 02/15/19 02/18/19 Furosemide [Lasix] 40 mg PO DAILY@0900 02/15/19 02/18/19 Furosemide [Lasix] 40 mg PO TUTHSA@2100 02/15/19 02/18/19 Mupirocin 2% Oint [Bactroban 2% 1 applic TOPICAL BID 02/15/19 02/18/19 Oint] Na Phos,M-B/Na Phos,Di-Ba [Fleet 133 ml RECTAL ONCE PRN 02/15/19 02/18/19 Adult] Polyethylene Glycol 3350 [Miralax] 17 gm PO DAILY PRN 02/15/19 02/18/19 Psyllium Husk 100% [Metamucil 6 gm PO DAILY PRN 02/15/19 02/18/19 Packet] Tetrahydrozoline 0.05% Ophth 1 drop BOTH EYES QID PRN 02/15/19 02/18/19 [Visine Eye Drops] Triamcinolone 0.1% Ointment 1 applic TOPICAL TID 02/15/19 02/18/19 [Kenalog 0.1% Ointment] Warfarin [Coumadin] 4 mg PO SA 02/15/19 02/18/19 Warfarin [Coumadin] 6 mg PO SUMOTUWETHFR 02/15/19 02/18/19 glipiZIDE [Glucotrol] 10 mg PO AC-BID 02/15/19 02/18/19 Previous Rx's Medication Instructions Recorded Cephalexin [Keflex] 500 mg PO Q6HR #40 cap 02/16/19 Allergies Allergy/AdvReac Type Severity Reaction Status Date / Time strawberry Allergy Swelling Verified 02/18/19 17:44 Review of Systems ROS Other: All systems not noted in ROS Statement are negative. Constitutional: Denies: fever Eyes: Denies: eye pain ENT: Denies: ear pain Respiratory: Denies: cough Cardiovascular: Denies: chest pain Endocrine: Denies: fatigue Gastrointestinal: Reports: as per HPI, constipation Genitourinary: Denies: dysuria Musculoskeletal: Denies: back pain Skin: Denies: rash Neurological: Denies: weakness <James Baltazar - Last Filed: 02/18/19 21:11> ROS Other: All systems not noted in ROS Statement are negative. <Stephane Vanessa - Last Filed: 02/18/19 23:54> ROS Statement: Those systems with pertinent positive or pertinent negative responses have been documented in the HPI. Past Medical History Past Medical History: Atrial Fibrillation, Cancer, Heart Failure, CVA/TIA, Diabetes Mellitus, Eye Disorder, Hearing Disorder / Deafness, Hyperlipidemia, Hypertension, Memory Impairment, Musculoskeletal Disorder, Renal Disease, Thyroid Disorder Additional Past Medical History / Comment(s): CA BLADDER TUMORS . HX MILD CVA, EARLY GLAUCOMA ADELA. MILD MEMORY CHANGES. 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 LT DROPPED FOOT. HX GOUT. , OCCASIONAL SORES ON LEGS DUE TO EDEMA., SOB WITH ACTIVITY., HEMATURIA., URGENCY TO URINATE., PATIENTS SON TAKES CARE OF MEDICATIONS FOR HIM., HEARING AID, USES WALKER. History of Any Multi-Drug Resistant Organisms: None Reported Additional Past Surgical History / Comment(s): Finger surgery - TRAUMATIC AMPUTATIONS LT 2 FINGERS. COLONOSCOPY. Hemorrhoidectomy, REMOVAL BLADDER TUMORS (11/01/18) Past Anesthesia/Blood Transfusion Reactions: No Reported Reaction, Family History of Problems w/ Anesthesia Additional Past Anesthesia/Blood Transfusion Reaction / Comment(s): SON HAD FLUID IN LUNGS WITH 1 SURGERY. Past Psychological History: No Psychological Hx Reported Smoking Status: Former smoker Past Alcohol Use History: None Reported Past Drug Use History: None Reported - Past Family History Daughter(s) Family Medical History: Cancer <James Baltazar - Last Filed: 02/18/19 21:11> General Exam Limitations: no limitations General appearance: alert, in no apparent distress Head exam: Present: atraumatic Eye exam: Present: normal appearance Neck exam: Present: normal inspection Respiratory exam: Present: normal lung sounds bilaterally Cardiovascular Exam: Present: regular rate, normal rhythm Expanded Peripheral pulses: 2+: Dorsalis Pedis (R), Dorsalis Pedis (L) GI/Abdominal exam: Present: soft. Absent: tenderness Rectal exam: Present: normal inspection Extremities exam: Present: pedal edema. Absent: calf tenderness Neurological exam: Present: alert Psychiatric exam: Present: normal affect, normal mood Skin exam: Present: normal color <James Baltazar - Last Filed: 02/18/19 21:11> Course Vital Signs 02/18/19 17:08 Temperature 96.5 F L Pulse Rate 60 Respiratory 17 Rate Blood Pressure 110/64 O2 Sat by Pulse 94 L Oximetry Medical Decision Making - Radiology Data Radiology results: image reviewed (X-ray findings consistent with constipation) <James Baltazar - Last Filed: 02/18/19 21:11> <Stephane Vanessa - Last Filed: 02/18/19 23:54> - Medical Decision Making Patient care sign out to me by previous shift physician. Briefly, patient is 78-year-old male with problems with constipation over the last several weeks. Multiple enemas were divided to the patient however he has not had significant relief. He did have some bowel movement with some improvement. Continues to endorse no vomiting or nausea. States that his abdominal pain is improved. Patient given some GoLYTELY he wants to be discharge. He is told that the GoLYTELY should help him clear his constipation. Advised follow-up with primary care physician. Return parameters discussed. Patient clear for discharge. (Stephane Vanessa) Disposition <James Baltazar - Last Filed: 02/18/19 21:11> Is patient prescribed a controlled substance at d/c from ED?: No Time of Disposition: 23:54 <Stephane Vanessa - Last Filed: 02/18/19 23:54> Clinical Impression: Constipation Disposition: HOME SELF-CARE Condition: Good Instructions (If sedation given, give patient instructions): Constipation (ED) Referrals: None,Stated [REFERRING] - 1-2 days
--- NOTE | 2019-02-18 19:44 | XR ---
EXAMINATION TYPE: XR abdomen 2V DATE OF EXAM: 02/18/2019 COMPARISON: 02/15/2019 HISTORY: Pain and constipation for several days TECHNIQUE: 2 supine views FINDINGS: There is a marked volume of stool throughout the colon, consistent with constipation. No bowel obstruction. No definite skeletal or soft tissue acute findings. Note: Supine radiography cannot exclude abnormal gas collections. IMPRESSION: CONSTIPATION PATTERN.
[2019-02-18] MEDS ORDERED: LACTULOSE 20 GM/30 ML CUP PO ONE (21:04)
[2019-02-19] MEDS ORDERED: PEG 3350-NA SULF,BICARB,CL/KCL 4,000 ML BOTTLE PO ONE
[2019-02-19 00:44] VITALS: BP 122/80; PULSE 70; RESP 18; TEMP 98
== END 2019-02-19 00:44 | disposition home or self-care (01) ==
LOC: EC 17:07
DX: K59.00 Constipation, unspecified (principal); I48.91 Unspecified atrial fibrillation; E11.22 Type 2 diabetes mellitus with diabetic chronic kidney disease; I13.0 Hypertensive heart and chronic kidney disease with heart failure and stage 1 through stage 4 chronic kidney disease, or unspecified chronic kidney disease; I50.9 Heart failure, unspecified; N18.4 Chronic kidney disease, stage 4 (severe); E78.5 Hyperlipidemia, unspecified; E07.9 Disorder of thyroid, unspecified; M10.9 Gout, unspecified; H40.9 Unspecified glaucoma; H91.90 Unspecified hearing loss, unspecified ear; Z79.890 Hormone replacement therapy; Z79.84 Long term (current) use of oral hypoglycemic drugs; Z79.01 Long term (current) use of anticoagulants; Z79.899 Other long term (current) drug therapy; Z91.018 Allergy to other foods; Z87.891 Personal history of nicotine dependence; Z90.49 Acquired absence of other specified parts of digestive tract; Z98.890 Other specified postprocedural states; Z85.51 Personal history of malignant neoplasm of bladder; Z86.73 Personal history of transient ischemic attack (TIA), and cerebral infarction without residual deficits; Z97.4 Presence of external hearing-aid; Z99.89 Dependence on other enabling machines and devices
CPT/HCPCS: 74018; 99284

== ENCOUNTER 2019-03-27 18:33 | Inpatient (IN) | payer MEDICARE ==
[2019-03-27] MEDS ORDERED: SODIUM CHLORIDE 0.9% 1,000 ML IV ONE (20:04)
--- NOTE | 2019-03-27 20:18 | ED ---
Altered Mental Status HPI - General Chief Complaint: Altered Mental Status Stated Complaint: Male /Altered Mental Time Seen by Provider: 03/27/19 19:04 Source: family, EMS, RN notes reviewed, old records reviewed Mode of arrival: EMS Limitations: altered mental status - History of Present Illness Initial Comments: This is a 78-year-old male presenting for evaluation under altered mental status. Patient is from home, EMS called by patient's home care nurse. Patient was noted to be altered today. Patient recently had a fall last night with some weakness unable to get up off for maybe around 7-8 hours. Today patient was amateur at which is having increasing altered mentation. Patient sent ER for evaluation. Patient's poor historian unable to answer questions questions are taken from EMS and patient's family. Patient himself denies any complaints MD Complaint: altered mental status, confusion, weakness -: days(s) Severity: moderate Consistency of Symptoms: getting worse Context: history of similar presentation, recent fever Associated Symptoms: denies other symptoms - Related Data Home Medications Medication Instructions Recorded Confirmed Atenolol [Tenormin] 50 mg PO DAILY 02/18/15 03/27/19 Levothyroxine Sodium [Synthroid] 75 mcg PO DAILY 02/18/15 03/27/19 Simvastatin [Zocor] 20 mg PO DAILY 02/18/15 03/27/19 Allopurinol [Zyloprim] 100 mg PO DAILY 10/26/18 03/27/19 Ergocalciferol [Vitamin D2] 50,000 unit PO WE 10/26/18 03/27/19 Oxybutynin Chloride [Ditropan] 5 mg PO BID 10/26/18 03/27/19 Spironolactone [Aldactone] 25 mg PO DAILY 10/26/18 03/27/19 sitaGLIPtin [Januvia] 50 mg PO DAILY 10/26/18 03/27/19 Mupirocin 2% Oint [Bactroban 2% 1 applic TOPICAL BID 02/15/19 03/27/19 Oint] Tetrahydrozoline 0.05% Ophth 1 drop BOTH EYES QID PRN 02/15/19 03/27/19 [Visine Eye Drops] Triamcinolone 0.1% Ointment 1 applic TOPICAL TID 02/15/19 03/27/19 [Kenalog 0.1% Ointment] Warfarin [Coumadin] 4 mg PO SUSA 02/15/19 03/27/19 Warfarin [Coumadin] 6 mg PO DIRECTED 02/15/19 03/27/19 glipiZIDE [Glucotrol] 10 mg PO AC-BID 02/15/19 03/27/19 Albuterol Sulfate [Proair Hfa] 2 puff INHALATION RT-Q4H PRN 03/27/19 03/27/19 Furosemide [Lasix] 20 mg PO HS 03/27/19 03/27/19 Furosemide [Lasix] 40 mg PO QAM 03/27/19 03/27/19 Previous Rx's Medication Instructions Recorded Cephalexin [Keflex] 500 mg PO Q6HR #40 cap 02/16/19 Allergies Allergy/AdvReac Type Severity Reaction Status Date / Time strawberry Allergy Swelling Verified 03/27/19 18:56 Review of Systems ROS Statement: Those systems with pertinent positive or pertinent negative responses have been documented in the HPI. ROS Other: All systems not noted in ROS Statement are negative. Past Medical History Past Medical History: Atrial Fibrillation, Cancer, Heart Failure, CVA/TIA, Diabetes Mellitus, Eye Disorder, Hearing Disorder / Deafness, Hyperlipidemia, Hypertension, Memory Impairment, Musculoskeletal Disorder, Renal Disease, Thyroid Disorder Additional Past Medical History / Comment(s): CA BLADDER TUMORS . HX MILD CVA, EARLY GLAUCOMA ADELA. MILD MEMORY CHANGES. 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 LT DROPPED FOOT. HX GOUT. , OCCASIONAL SORES ON LEGS DUE TO EDEMA., SOB WITH ACTIVITY., HEMATURIA., URGENCY TO URINATE., PATIENTS SON TAKES CARE OF MEDICATIONS FOR HIM., HEARING AID, USES WALKER. History of Any Multi-Drug Resistant Organisms: None Reported Additional Past Surgical History / Comment(s): Finger surgery - TRAUMATIC AMPUTATIONS LT 2 FINGERS. COLONOSCOPY. Hemorrhoidectomy, REMOVAL BLADDER TUMORS (11/01/18) Past Anesthesia/Blood Transfusion Reactions: No Reported Reaction, Family History of Problems w/ Anesthesia Additional Past Anesthesia/Blood Transfusion Reaction / Comment(s): SON HAD FLUID IN LUNGS WITH 1 SURGERY. Past Psychological History: No Psychological Hx Reported Smoking Status: Former smoker Past Alcohol Use History: None Reported Past Drug Use History: None Reported - Past Family History Daughter(s) Family Medical History: Cancer General Exam Limitations: altered mental status General appearance: alert, in no apparent distress Head exam: Present: atraumatic, normocephalic, normal inspection Eye exam: Present: normal appearance, PERRL, EOMI. Absent: scleral icterus, conjunctival injection, periorbital swelling ENT exam: Present: normal exam, mucous membranes moist Neck exam: Present: normal inspection. Absent: tenderness, meningismus, lymphadenopathy Respiratory exam: Present: normal lung sounds bilaterally. Absent: respiratory distress, wheezes, rales, rhonchi, stridor Cardiovascular Exam: Present: regular rate, normal rhythm, normal heart sounds. Absent: systolic murmur, diastolic murmur, rubs, gallop, clicks GI/Abdominal exam: Present: soft, normal bowel sounds. Absent: distended, tenderness, guarding, rebound, rigid Extremities exam: Present: normal inspection, full ROM, normal capillary refill. Absent: tenderness, pedal edema, joint swelling, calf tenderness Back exam: Present: normal inspection Neurological exam: Present: alert, oriented X3, CN II-XII intact Psychiatric exam: Present: normal affect, normal mood Skin exam: Present: warm, dry, intact, normal color. Absent: rash Course Vital Signs 03/27/19 03/27/19 18:35 21:27 Temperature 100.0 F H 98.6 F Pulse Rate 85 79 Respiratory 20 20 Rate Blood Pressure 133/63 144/97 O2 Sat by Pulse 100 95 Oximetry - Reevaluation(s) Reevaluation #1: 03/27/19 20:18 Medical records reviewed Medical Decision Making - Medical Decision Making 78 male the ER for evaluation. Patient coming in for evaluation of altered mental status, positive for fever. Patient is positive for UTI, will admit for hydration and fever control. - Lab Data Result diagrams: 03/28/19 07:48 03/28/19 07:48 Lab Results 03/27/19 03/27/19 03/27/19 Range/Units 20:17 20:17 20:17 WBC (3.8-10.6) k/uL RBC (4.30-5.90) m/uL Hgb (13.0-17.5) gm/dL Hct (39.0-53.0) % MCV (80.0-100.0) fL MCH (25.0-35.0) pg MCHC (31.0-37.0) g/dL RDW (11.5-15.5) % Plt Count (150-450) k/uL Neutrophils % % Lymphocytes % % Monocytes % % Eosinophils % % Basophils % % Neutrophils # (1.3-7.7) k/uL Lymphocytes # (1.0-4.8) k/uL Monocytes # (0-1.0) k/uL Eosinophils # (0-0.7) k/uL Basophils # (0-0.2) k/uL Anisocytosis PT 29.1 H (9.0-12.0) sec INR 3.0 H (<1.2) APTT 33.0 H (22.0-30.0) sec Sodium 133 L (137-145) mmol/L Potassium 5.2 H (3.5-5.1) mmol/L Chloride 96 L (98-107) mmol/L Carbon Dioxide 22 (22-30) mmol/L Anion Gap 15 mmol/L BUN 86 H (9-20) mg/dL Creatinine 4.13 H (0.66-1.25) mg/dL Est GFR (CKD-EPI)AfAm 15 (>60 ml/min/1.73 sqM) Est GFR (CKD-EPI)NonAf 13 (>60 ml/min/1.73 sqM) Glucose 89 (74-99) mg/dL POC Glucose (mg/dL) (75-99) mg/dL POC Glu Project Lead ID Plasma Lactic Acid Jitendra 1.1 (0.7-2.0) mmol/L Calcium 9.0 (8.4-10.2) mg/dL Total Bilirubin 0.8 (0.2-1.3) mg/dL AST 52 (17-59) U/L ALT 39 (21-72) U/L Alkaline Phosphatase 146 H (38-126) U/L Ammonia <9 (<30) umol/L Creatine Kinase 242 H (55-170) U/L Troponin I (0.000-0.034) ng/mL Total Protein 6.7 (6.3-8.2) g/dL Albumin 3.6 (3.5-5.0) g/dL Urine Color Urine Appearance Urine pH Ur Specific [place] Urine Protein Ur Protein Confirm Urine Glucose (UA) Urine Ketones Urine Blood Urine Nitrite Urine Bilirubin Ur Bilirubin Confirm Urine Urobilinogen Ur Leukocyte Esterase Urine RBC Urine Red Cell Clumps Urine WBC Urine WBC Clumps Ur Squamous Epith Cells Ur Transition Epith Cell Ur Renal Epithelial Cell Calcium Carbonate Cryst Calcium Phosphate Cryst Calcium Oxalate Crystal Leucine Crystals Cystine Crystals Uric Acid Crystals Triple Phos Crystals Tyrosine Crystals Other Crystals Amorphous Sediment Urine Bacteria Cellular Casts Epithelial Casts Fatty Casts Hyaline Casts Granular Casts Waxy Casts Broad Casts RBC Casts WBC Casts Other Casts Urine Mucus Urine Trichomonas Ur Yeast w Hyphae Urine Yeast (Budding) Urine Sperm Ur Oval Fat Bodies Urine Opiates Screen (NotDetected) Ur Oxycodone Screen (NotDetected) Urine Methadone Screen (NotDetected) Ur Propoxyphene Screen (NotDetected) Ur Barbiturates Screen (NotDetected) U Tricyclic Antidepress (NotDetected) Ur Phencyclidine Scrn (NotDetected) Ur Amphetamines Screen (NotDetected) U Methamphetamines Scrn (NotDetected) U Benzodiazepines Scrn (NotDetected) Urine Cocaine Screen (NotDetected) U Marijuana (THC) Screen (NotDetected) Influenza Type A RNA (Not Detectd) Influenza Type B (PCR) (Not Detectd) 03/27/19 03/27/19 03/27/19 Range/Units 20:17 20:25 20:30 WBC 8.7 (3.8-10.6) k/uL RBC 4.23 L (4.30-5.90) m/uL Hgb 11.6 L (13.0-17.5) gm/dL Hct 36.1 L (39.0-53.0) % MCV 85.4 (80.0-100.0) fL MCH 27.3 (25.0-35.0) pg MCHC 32.0 (31.0-37.0) g/dL RDW 17.4 H (11.5-15.5) % Plt Count 157 (150-450) k/uL Neutrophils % 70 % Lymphocytes % 7 % Monocytes % 15 % Eosinophils % 2 % Basophils % 2 % Neutrophils # 6.1 (1.3-7.7) k/uL Lymphocytes # 0.6 L (1.0-4.8) k/uL Monocytes # 1.3 H (0-1.0) k/uL Eosinophils # 0.2 (0-0.7) k/uL Basophils # 0.2 (0-0.2) k/uL Anisocytosis Slight PT (9.0-12.0) sec INR (<1.2) APTT (22.0-30.0) sec Sodium (137-145) mmol/L Potassium (3.5-5.1) mmol/L Chloride (98-107) mmol/L Carbon Dioxide (22-30) mmol/L Anion Gap mmol/L BUN (9-20) mg/dL Creatinine (0.66-1.25) mg/dL Est GFR (CKD-EPI)AfAm (>60 ml/min/1.73 sqM) Est GFR (CKD-EPI)NonAf (>60 ml/min/1.73 sqM) Glucose (74-99) mg/dL POC Glucose (mg/dL) (75-99) mg/dL POC Glu Project Lead ID Plasma Lactic Acid Jitendra (0.7-2.0) mmol/L Calcium (8.4-10.2) mg/dL Total Bilirubin (0.2-1.3) mg/dL AST (17-59) U/L ALT (21-72) U/L Alkaline Phosphatase (38-126) U/L Ammonia (<30) umol/L Creatine Kinase (55-170) U/L Troponin I 0.040 H* (0.000-0.034) ng/mL Total Protein (6.3-8.2) g/dL Albumin (3.5-5.0) g/dL Urine Color Urine Appearance Urine pH Ur Specific [place] Urine Protein Ur Protein Confirm Urine Glucose (UA) Urine Ketones Urine Blood Urine Nitrite Urine Bilirubin Ur Bilirubin Confirm Urine Urobilinogen Ur Leukocyte Esterase Urine RBC Urine Red Cell Clumps Urine WBC Urine WBC Clumps Ur Squamous Epith Cells Ur Transition Epith Cell Ur Renal Epithelial Cell Calcium Carbonate Cryst Calcium Phosphate Cryst Calcium Oxalate Crystal Leucine Crystals Cystine Crystals Uric Acid Crystals Triple Phos Crystals Tyrosine Crystals Other Crystals Amorphous Sediment Urine Bacteria Cellular Casts Epithelial Casts Fatty Casts Hyaline Casts Granular Casts Waxy Casts Broad Casts RBC Casts WBC Casts Other Casts Urine Mucus Urine Trichomonas Ur Yeast w Hyphae Urine Yeast (Budding) Urine Sperm Ur Oval Fat Bodies Urine Opiates Screen (NotDetected) Ur Oxycodone Screen (NotDetected) Urine Methadone Screen (NotDetected) Ur Propoxyphene Screen (NotDetected) Ur Barbiturates Screen (NotDetected) U Tricyclic Antidepress (NotDetected) Ur Phencyclidine Scrn (NotDetected) Ur Amphetamines Screen (NotDetected) U Methamphetamines Scrn (NotDetected) U Benzodiazepines Scrn (NotDetected) Urine Cocaine Screen (NotDetected) U Marijuana (THC) Screen (NotDetected) Influenza Type A RNA Not Detected (Not Detectd) Influenza Type B (PCR) Not Detected (Not Detectd) 03/27/19 03/27/19 03/27/19 Range/Units 20:46 21:21 21:21 WBC (3.8-10.6) k/uL RBC (4.30-5.90) m/uL Hgb (13.0-17.5) gm/dL Hct (39.0-53.0) % MCV (80.0-100.0) fL MCH (25.0-35.0) pg MCHC (31.0-37.0) g/dL RDW (11.5-15.5) % Plt Count (150-450) k/uL Neutrophils % % Lymphocytes % % Monocytes % % Eosinophils % % Basophils % % Neutrophils # (1.3-7.7) k/uL Lymphocytes # (1.0-4.8) k/uL Monocytes # (0-1.0) k/uL Eosinophils # (0-0.7) k/uL Basophils # (0-0.2) k/uL Anisocytosis PT (9.0-12.0) sec INR (<1.2) APTT (22.0-30.0) sec Sodium (137-145) mmol/L Potassium (3.5-5.1) mmol/L Chloride (98-107) mmol/L Carbon Dioxide (22-30) mmol/L Anion Gap mmol/L BUN (9-20) mg/dL Creatinine (0.66-1.25) mg/dL Est GFR (CKD-EPI)AfAm (>60 ml/min/1.73 sqM) Est GFR (CKD-EPI)NonAf (>60 ml/min/1.73 sqM) Glucose (74-99) mg/dL POC Glucose (mg/dL) 94 (75-99) mg/dL POC Glu Project Lead ID Lovely Roberts Plasma Lactic Acid Jitendra (0.7-2.0) mmol/L Calcium (8.4-10.2) mg/dL Total Bilirubin (0.2-1.3) mg/dL AST (17-59) U/L ALT (21-72) U/L Alkaline Phosphatase (38-126) U/L Ammonia (<30) umol/L Creatine Kinase (55-170) U/L Troponin I (0.000-0.034) ng/mL Total Protein (6.3-8.2) g/dL Albumin (3.5-5.0) g/dL Urine Color Cancelled Yellow Urine Appearance Cancelled Turbid Urine pH Cancelled 5.5 Ur Specific [place] Cancelled 1.017 Urine Protein Cancelled 1+ H Ur Protein Confirm Cancelled Urine Glucose (UA) Cancelled Negative Urine Ketones Cancelled Negative Urine Blood Cancelled Moderate H Urine Nitrite Cancelled Positive Urine Bilirubin Cancelled Negative Ur Bilirubin Confirm Cancelled Urine Urobilinogen Cancelled <2.0 Ur Leukocyte Esterase Cancelled Large H Urine RBC Cancelled 12 H Urine Red Cell Clumps Cancelled Urine WBC Cancelled >182 H Urine WBC Clumps Cancelled Many H Ur Squamous Epith Cells Cancelled Ur Transition Epith Cell Cancelled Ur Renal Epithelial Cell Cancelled Calcium Carbonate Cryst Cancelled Calcium Phosphate Cryst Cancelled Calcium Oxalate Crystal Cancelled Leucine Crystals Cancelled Cystine Crystals Cancelled Uric Acid Crystals Cancelled Triple Phos Crystals Cancelled Tyrosine Crystals Cancelled Other Crystals Cancelled Amorphous Sediment Cancelled Urine Bacteria Cancelled Cellular Casts Cancelled Epithelial Casts Cancelled Fatty Casts Cancelled Hyaline Casts Cancelled Granular Casts Cancelled Waxy Casts Cancelled Broad Casts Cancelled RBC Casts Cancelled WBC Casts Cancelled Other Casts Cancelled Urine Mucus Cancelled Urine Trichomonas Cancelled Ur Yeast w Hyphae Cancelled Urine Yeast (Budding) Cancelled Urine Sperm Cancelled Ur Oval Fat Bodies Cancelled Urine Opiates Screen Not Detected (NotDetected) Ur Oxycodone Screen Not Detected (NotDetected) Urine Methadone Screen Not Detected (NotDetected) Ur Propoxyphene Screen Not Detected (NotDetected) Ur Barbiturates Screen Not Detected (NotDetected) U Tricyclic Antidepress Not Detected (NotDetected) Ur Phencyclidine Scrn Not Detected (NotDetected) Ur Amphetamines Screen Not Detected (NotDetected) U Methamphetamines Scrn Not Detected (NotDetected) U Benzodiazepines Scrn Not Detected (NotDetected) Urine Cocaine Screen Not Detected (NotDetected) U Marijuana (THC) Screen Not Detected (NotDetected) Influenza Type A RNA (Not Detectd) Influenza Type B (PCR) (Not Detectd) - EKG Data -: EKG Interpreted by Me (EKG shows A. fib rate of 82, QRS 90, QTc 432) - Radiology Data Radiology results: report reviewed (CT brain and CXR is negative for acute disease), image reviewed Disposition Clinical Impression: UTI (urinary tract infection), Altered mental status, Fever, ARF (acute renal failure), Dehydration Disposition: ADMITTED IP TO THIS HOSP Condition: Fair Is patient prescribed a controlled substance at d/c from ED?: No
[2019-03-27 20:47] LABS: Glucose,Whole Blood 94 mg/dL (75-99)
[2019-03-27 20:54] LABS: Prothrombin Time 29.1 sec (9.0-12.0)
[2019-03-27 20:59] LABS: Albumin 3.6 g/dL (3.5-5.0); Ammonia <9 umol/L (<30); Lactic Acid, Venous 1.1 mmol/L (0.7-2.0); Potassium 5.2 mmol/L (3.5-5.1); Total Bilirubin 0.8 mg/dL (0.2-1.3); Total Protein 6.7 g/dL (6.3-8.2)
[2019-03-27 21:02] LABS: Anisocytosis Slight; Basophils # (A) 0.2 k/uL (0-0.2); Basophils % (A) 2 %; Eosinophils # (A) 0.2 k/uL (0-0.7); Eosinophils % (A) 2 %; HCT 36.1 % (39.0-53.0); HGB 11.6 gm/dL (13.0-17.5); Lymphocytes # (A) 0.6 k/uL (1.0-4.8); Lymphocytes % (A) 7 %; MCH 27.3 pg (25.0-35.0); MCV 85.4 fL (80.0-100.0); Mean Platelet Volume 8.2; Monocytes # (A) 1.3 k/uL (0-1.0); Monocytes % (A) 15 %; Neutrophils # (A) 6.1 k/uL (1.3-7.7); Neutrophils % (A) 70 %; Platelet Count 157 k/uL (150-450); RBC 4.23 m/uL (4.30-5.90); RDW 17.4 % (11.5-15.5); WBC 8.7 k/uL (3.8-10.6)
--- NOTE | 2019-03-27 21:16 | XR ---
EXAMINATION TYPE: XR chest 2V DATE OF EXAM: 03/27/2019 COMPARISON: 12/03/2018 HISTORY: Altered mental status. TECHNIQUE: Frontal and lateral views of the chest are obtained. FINDINGS: Heart is enlarged. There is no heart failure. Lungs are clear of consolidation. There are chest leads. IMPRESSION: Mild cardiomegaly. No acute lung disease. There is clearing of mild pleural reaction lef t lung base compared to old exam.
--- NOTE | 2019-03-27 21:17 | CT ---
EXAMINATION TYPE: CT brain wo con DATE OF EXAM: 03/27/2019 COMPARISON: None HISTORY: AMS CT DLP: 1142.4 mGycm Automated exposure control for dose reduction was used. FINDINGS: There is cerebral cortical atrophy. There is no mass effect nor midline shift. There is no sign of in tracranial hemorrhage. There is cortical hypodensity right posterior frontal lobe consistent with old infarct. Calvarium is intact. IMPRESSION: CEREBRAL ATROPHY. 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 NO ACUTE INTRACRANIAL ABNORMALITY.
[2019-03-27 21:35] LABS: Appearance,Urine Turbid (Clear); Bilirubin,Urine Negative (Negative); Blood,Urine Moderate (Negative); Color,Urine Yellow; Glucose,Urine (UA) Negative (Negative); Ketones,Urine Negative (Negative); Leukocyte Esterase,Urine Large (Negative); Nitrite,Urine Positive (Negative); PH, Urine 5.5 (5.0-8.0); Protein,Urine 1+ (Negative); RBC,Urine 12 /hpf (0-5); Specific Gravity,Urine 1.017 (1.001-1.035); Urobilinogen,Urine <2.0 mg/dL (<2.0)
[2019-03-27 21:40] LABS: Amphetamine Screen,Urine Not Detected (NotDetected); Barbiturate Screen,Urine Not Detected (NotDetected); Benzodiazepines Screen,Urine Not Detected (NotDetected); Cocaine Screen,Urine Not Detected (NotDetected); Methadone Screen, Urine Not Detected (NotDetected); Opiate Screen,Urine Not Detected (NotDetected); Oxycodone Screen, Urine Not Detected (NotDetected); Phencyclidine Screen,Urine Not Detected (NotDetected); Tricyclic Antidepressant,Urine Not Detected (NotDetected); Urn Cannabinoid Scrn Not Detected (NotDetected)
[2019-03-27] MEDS ORDERED: SODIUM CHLORIDE 0.9% 1,000 ML IV STA ×2 (21:46)
[2019-03-28 07:31] LABS: Glucose,Whole Blood 97 mg/dL (75-99)
[2019-03-28 09:05] LABS: Anisocytosis Slight; HCT 33.9 % (39.0-53.0); HGB 10.7 gm/dL (13.0-17.5); MCH 27.4 pg (25.0-35.0); MCHC 31.5 g/dL (31.0-37.0); MCV 87.1 fL (80.0-100.0); Mean Platelet Volume 8.1; Platelet Count 144 k/uL (150-450); RBC 3.89 m/uL (4.30-5.90); RDW 17.8 % (11.5-15.5); WBC 8.3 k/uL (3.8-10.6)
[2019-03-28 09:11] LABS: Albumin 2.9 g/dL (3.5-5.0); Calcium 8.4 mg/dL (8.4-10.2); Total Protein 5.9 g/dL (6.3-8.2)
[2019-03-28 09:33] LABS: Band Neutrophils % 1 %; Lymphocytes # (M) 0.33 k/uL (1.0-4.8); Monocytes # (M) 1.74 k/uL (0-1.0); Neutrophils % (M) 74 %; Nucleated Red Blood Cells 0 /100 WBC (0-0); Total Cells Counted 100
[2019-03-28] MEDS ORDERED: ALBUTEROL NEBULIZED 2.5 MG/3 ML INHALATION PRN (10:16)
[2019-03-28] MEDS ORDERED: TETRAHYDROZOLINE 0.05% OPHTH DROPS 15 ML BTL BOTH EYES PRN (10:16)
[2019-03-28 11:22] LABS: Glucose,Whole Blood 147 mg/dL (75-99)
[2019-03-28] MEDS ORDERED: POLYETHYLENE GLYCOL 3350 17 GM POWD.PACK PO PRN (12:07)
--- NOTE | 2019-03-28 12:12 | P.HPIM ---
History of Present Illness 78-year-old male was born with the family members because of fall to the status and delusions. Patient had a fall day before and the patient was not acting normal by home care nurse. Patient denied any dysuria patient is mildly doing much better patient is alert oriented 2. 3 today although he is unable to give me the exact date. Patient is found to have normal urine was admitted for urinary tract infection with Rocephin. Patient was treated for urinary tract infections in the past and the patient had E. coli in the recent past since 2 to multiple antibiotics patient will be can you on Rocephin. Patient had low-grade fever. There is no other appreciable source of infection because of which I'll consider this is urinary tract infection although infectious disease will be consultative as he is high risk for Clostridium difficile colitis patient had C. diff colitis last year after he was treated for urinary tract infection. Patient had stable and elevated troponin of 0.40 and 0.44 probably secondary to sepsis and acute renal failure although I believe patient's confusion and altered mental status is mostly metabolic secondary to acute renal failure severe intravascular depletion patient does have history of congestive heart failure and atrial fibrillation on Coumadin INR is 3.0 because of antibiotics on hold off Coumadin today will be resumed tomorrow on Coumadin and recheck the INR tomorrow. Patient is hyponatremic with hyperkalemia. Patient appears to have history of Diastolic dysfunction had a normal systolic function in the past patient has enlarged left atrium because of which patient is receiving diuretic therapy as an outpatient. Diuretic therapy will be dyspnea and patient was started on IV fluids. I'll also obtain urine tests looking for causes of acute renal failure which is most probably prerenal azotemia from intravascular depletion. Patient has a hyperchloremic acidosis non-anion gap metabolic acidosis secondary to IV fluids which presently will be continued.. Patient is an any chest pain or significant changes in the EKG. Review of Systems REVIEW OF SYSTEMS: CONSTITUTIONAL: no malaise, no fatigue. HEENT: No recent visual problems or hearing problems. Denied any sore throat. CARDIOVASCULAR: No chest pain, orthopnea, PND, no palpitations, no syncope. PULMONARY: No shortness of breath, no cough, no hemoptysis. GASTROINTESTINAL: No diarrhea, no nausea, no vomiting, no abdominal pain. NEUROLOGICAL: No headaches, no weakness, no numbness. HEMATOLOGICAL: Denies any bleeding or petechiae. GENITOURINARY: Denies any burning micturition, frequency, or urgency. MUSCULOSKELETAL/RHEUMATOLOGICAL: Denies any joint pain, swelling, or any muscle pain. ENDOCRINE: Denies any polyuria or polydipsia. The rest of the 14-point review of systems is negative. Past Medical History Past Medical History: Atrial Fibrillation, Cancer, Heart Failure, CVA/TIA, Diabetes Mellitus, Eye Disorder, Hearing Disorder / Deafness, Hyperlipidemia, Hypertension, Memory Impairment, Musculoskeletal Disorder, Renal Disease, Thyroid Disorder Additional Past Medical History / Comment(s): CA BLADDER TUMORS . HX MILD CVA, EARLY GLAUCOMA ADELA. MILD MEMORY CHANGES. 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 LT DROPPED FOOT. HX GOUT. , OCCASIONAL SORES ON LEGS DUE TO EDEMA., SOB WITH ACTIVITY., HEMATURIA., URGENCY TO URINATE., PATIENTS SON TAKES CARE OF MEDICATIONS FOR HIM., HEARING AID, USES WALKER. History of Any Multi-Drug Resistant Organisms: None Reported Additional Past Surgical History / Comment(s): Finger surgery - TRAUMATIC AMPUTATIONS LT 2 FINGERS. COLONOSCOPY. Hemorrhoidectomy, REMOVAL BLADDER TUMORS (11/01/18) Past Anesthesia/Blood Transfusion Reactions: No Reported Reaction, Family History of Problems w/ Anesthesia Additional Past Anesthesia/Blood Transfusion Reaction / Comment(s): SON HAD FLUID IN LUNGS WITH 1 SURGERY. Past Psychological History: No Psychological Hx Reported Smoking Status: Former smoker Past Alcohol Use History: None Reported Additional Past Alcohol Use History / Comment(s): former smoker.Quit 2001. Past Drug Use History: None Reported - Past Family History Daughter(s) Family Medical History: Cancer Medications and Allergies Home Medications Medication Instructions Recorded Confirmed Type Atenolol [Tenormin] 50 mg PO DAILY 02/18/15 03/27/19 History Levothyroxine Sodium [Synthroid] 75 mcg PO DAILY 02/18/15 03/27/19 History Simvastatin [Zocor] 20 mg PO DAILY 02/18/15 03/27/19 History Allopurinol [Zyloprim] 100 mg PO DAILY 10/26/18 03/27/19 History Ergocalciferol [Vitamin D2] 50,000 unit PO WE 10/26/18 03/27/19 History Oxybutynin Chloride [Ditropan] 5 mg PO BID 10/26/18 03/27/19 History Spironolactone [Aldactone] 25 mg PO DAILY 10/26/18 03/27/19 History sitaGLIPtin [Januvia] 50 mg PO DAILY 10/26/18 03/27/19 History Mupirocin 2% Oint [Bactroban 2% 1 applic TOPICAL BID 02/15/19 03/27/19 History Oint] Tetrahydrozoline 0.05% Ophth 1 drop BOTH EYES QID PRN 02/15/19 03/27/19 History [Visine Eye Drops] Triamcinolone 0.1% Ointment 1 applic TOPICAL TID 02/15/19 03/27/19 History [Kenalog 0.1% Ointment] Warfarin [Coumadin] 4 mg PO SUSA 02/15/19 03/27/19 History Warfarin [Coumadin] 6 mg PO DIRECTED 02/15/19 03/27/19 History glipiZIDE [Glucotrol] 10 mg PO AC-BID 02/15/19 03/27/19 History Cephalexin [Keflex] 500 mg PO Q6HR #40 cap 02/16/19 03/27/19 Rx Albuterol Sulfate [Proair Hfa] 2 puff INHALATION RT-Q4H PRN 03/27/19 03/27/19 History Furosemide [Lasix] 20 mg PO HS 03/27/19 03/27/19 History Furosemide [Lasix] 40 mg PO QAM 03/27/19 03/27/19 History Allergies Allergy/AdvReac Type Severity Reaction Status Date / Time strawberry Allergy Swelling Verified 03/27/19 18:56 Physical Exam Vitals: Vital Signs Temp Pulse Pulse Resp BP BP Pulse Ox 03/28/19 09:30 18 03/28/19 03:59 99.3 F 79 20 110/63 96 03/27/19 23:45 98.8 F 83 16 101/58 95 03/27/19 21:27 98.6 F 79 20 144/97 95 03/27/19 18:35 100.0 F H 85 20 133/63 100 Intake and Output 03/27/19 03/28/19 03/28/19 22:59 06:59 14:59 Intake Total 2900 Balance 2900 Intake: Amount of Fluid Infused ( 2100 ml) Intake, IV Titration 800 Amount Sodium Chloride 0.9% 1, 800 000 ml @ 100 mls/hr IV . Q10H STA Rx#:[id number] Other: Voiding Method Urinal Urinal Diaper Diaper Incontinent Incontinent Weight 113.398 kg PHYSICAL EXAMINATION: GENERAL: The patient is alert and oriented x3, not in any acute distress. Obese HEENT: Pupils are round and equally reacting to light. EOMI. No scleral icterus. No conjunctival pallor. Normocephalic, atraumatic. No pharyngeal erythema. No thyromegaly. CARDIOVASCULAR: S1 and S2 present. No murmurs, rubs, or gallops. PULMONARY: Chest is clear to auscultation, no wheezing or crackles. ABDOMEN: Soft, nontender, nondistended, normoactive bowel sounds. No palpable organomegaly. MUSCULOSKELETAL: No joint swelling or deformity. EXTREMITIES: No cyanosis, clubbing, or pedal edema. NEUROLOGICAL: Gross neurological examination did not reveal any focal deficits. SKIN: No rashes. Results CBC & Chem 7: 03/28/19 07:48 03/28/19 07:48 Labs: Abnormal Lab Results - Last 24 Hours (Table) 03/27/19 03/27/19 03/27/19 Range/Units 20:17 20:17 20:17 RBC (4.30-5.90) m/uL Hgb (13.0-17.5) gm/dL Hct (39.0-53.0) % RDW (11.5-15.5) % Plt Count (150-450) k/uL Lymphocytes # (1.0-4.8) k/uL Lymphocytes # (Manual) (1.0-4.8) k/uL Monocytes # (0-1.0) k/uL Monocytes # (Manual) (0-1.0) k/uL PT 29.1 H (9.0-12.0) sec INR 3.0 H (<1.2) APTT 33.0 H (22.0-30.0) sec Sodium 133 L (137-145) mmol/L Potassium 5.2 H (3.5-5.1) mmol/L Chloride 96 L (98-107) mmol/L Carbon Dioxide (22-30) mmol/L BUN 86 H (9-20) mg/dL Creatinine 4.13 H (0.66-1.25) mg/dL POC Glucose (mg/dL) (75-99) mg/dL Alkaline Phosphatase 146 H (38-126) U/L Creatine Kinase 242 H (55-170) U/L Troponin I 0.040 H* (0.000-0.034) ng/mL Total Protein (6.3-8.2) g/dL Albumin (3.5-5.0) g/dL Urine Protein (Negative) Urine Blood (Negative) Ur Leukocyte Esterase (Negative) Urine RBC (0-5) /hpf Urine WBC (0-5) /hpf Urine WBC Clumps (None) /hpf 03/27/19 03/27/19 03/28/19 Range/Units 20:25 21:21 07:48 RBC 4.23 L 3.89 L (4.30-5.90) m/uL Hgb 11.6 L 10.7 L (13.0-17.5) gm/dL Hct 36.1 L 33.9 L (39.0-53.0) % RDW 17.4 H 17.8 H (11.5-15.5) % Plt Count 144 L (150-450) k/uL Lymphocytes # 0.6 L (1.0-4.8) k/uL Lymphocytes # (Manual) 0.33 L (1.0-4.8) k/uL Monocytes # 1.3 H (0-1.0) k/uL Monocytes # (Manual) 1.74 H (0-1.0) k/uL PT (9.0-12.0) sec INR (<1.2) APTT (22.0-30.0) sec Sodium (137-145) mmol/L Potassium (3.5-5.1) mmol/L Chloride (98-107) mmol/L Carbon Dioxide (22-30) mmol/L BUN (9-20) mg/dL Creatinine (0.66-1.25) mg/dL POC Glucose (mg/dL) (75-99) mg/dL Alkaline Phosphatase (38-126) U/L Creatine Kinase (55-170) U/L Troponin I (0.000-0.034) ng/mL Total Protein (6.3-8.2) g/dL Albumin (3.5-5.0) g/dL Urine Protein 1+ H (Negative) Urine Blood Moderate H (Negative) Ur Leukocyte Esterase Large H (Negative) Urine RBC 12 H (0-5) /hpf Urine WBC >182 H (0-5) /hpf Urine WBC Clumps Many H (None) /hpf 03/28/19 03/28/19 03/28/19 Range/Units 07:48 07:48 11:21 RBC (4.30-5.90) m/uL Hgb (13.0-17.5) gm/dL Hct (39.0-53.0) % RDW (11.5-15.5) % Plt Count (150-450) k/uL Lymphocytes # (1.0-4.8) k/uL Lymphocytes # (Manual) (1.0-4.8) k/uL Monocytes # (0-1.0) k/uL Monocytes # (Manual) (0-1.0) k/uL PT (9.0-12.0) sec INR (<1.2) APTT (22.0-30.0) sec Sodium 134 L (137-145) mmol/L Potassium (3.5-5.1) mmol/L Chloride (98-107) mmol/L Carbon Dioxide 18 L (22-30) mmol/L BUN 81 H (9-20) mg/dL Creatinine 3.84 H (0.66-1.25) mg/dL POC Glucose (mg/dL) 147 H (75-99) mg/dL Alkaline Phosphatase (38-126) U/L Creatine Kinase (55-170) U/L Troponin I 0.044 H* (0.000-0.034) ng/mL Total Protein 5.9 L (6.3-8.2) g/dL Albumin 2.9 L (3.5-5.0) g/dL Urine Protein (Negative) Urine Blood (Negative) Ur Leukocyte Esterase (Negative) Urine RBC (0-5) /hpf Urine WBC (0-5) /hpf Urine WBC Clumps (None) /hpf Microbiology - Last 24 Hours (Table) 03/27/19 21:21 Urine Culture - Preliminary Urine,Voided Thrombosis Risk Factor Assmnt - Choose All That Apply Any of the Below Risk Factors Present?: Yes Each Factor Represents 1 point: Obesity (BMI >25), Swollen legs (current) Other Risk Factors: Yes Each Risk Factor Represents 3 Points: Age 75 years or older Other congenital or acquired thrombophilia - If yes, enter type in comment: No Thrombosis Risk Factor Assessment Total Risk Factor Score: 5 Thrombosis Risk Factor Assessment Level: High Risk Assessment and Plan Plan: -Altered mental status mostly metabolic metabolic encephalopathy is contributing to that from acute renal failure and severe intravascular depletion and dehydration and diuretic therapy. Although toxic encephalopathy from UTI cannot be ruled out crusting his fever. Possibly of urinary tract infection Rocephin will be continued infectious disease was counseled that -Acute renal failure due to secondary to intravascular depletion although nephrotoxic agents will be discontinued patient will continued on IV fluids to check the kidney function tomorrow -Atrial fibrillation rate controlled at this time patient will be started on Coumadin tomorrow hold off Coumadin today because of her antibiotics as his INR is already borderline high normal and concerned that it may go up again. -Hypoglycemia secondary to acute renal failure expected to improve with the improvement in kidney function -Type 2 diabetes mellitus sliding scale insulin will hold off on oral hypoglycemic agents because of his hypoglycemia at home -Generalized weakness secondary to H and multiple medical problems physical therapy and occupational therapy consultation -Congestive heart failure chronic diastolic dysfunction not in acute exacerbation patient is hypovolemic patient was started on IV fluids -Hypervolemic hyponatremia expected to improve with IV fluids -Elevated troponin secondary to acute renal failure Hyperkalemia secondary to acute renal failure -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 GI prophylaxis
[2019-03-28 17:23] LABS: Glucose,Whole Blood 144 mg/dL (75-99)
[2019-03-28] MEDS: TRIAMCINOLONE ACET 0.1% OINTMENT 15 GM TUBE TOPICAL SCH ×2 (17:24→20:09)
[2019-03-28] MEDS: SODIUM CHLORIDE 0.9% 1,000 ML IV SCH (17:25)
[2019-03-28] MEDS: MUPIROCIN 2% OINT 22 GM TUBE TOPICAL SCH (20:09)
[2019-03-28] MEDS: LACTOBACILLUS ACIDOPH & BULGAR 1 EACH PACKET PO SCH (20:10)
[2019-03-28] MEDS: OXYBUTYNIN CHLORIDE 5 MG TAB PO SCH (20:10)
[2019-03-28 20:17] LABS: Glucose,Whole Blood 173 mg/dL (75-99)
--- NOTE | 2019-03-29 00:21 | P.CONS ---
History of Present Illness - Reason for Consult Consult date: 03/28/19 Urinary tract infection Requesting physician: Macario Lopez - Chief Complaint Mental status changes 1 day - History of Present Illness Patient is a 78-year-old male who has been brought into the ER for evaluation of mental status changes 1 day currently the patient did have a fall and was on the ground from 78 hour unable to get up by himself patient was noticed to be confused and unaware of his surrounding on arrival to the ER the patient was noticed to have low fever 100 patient white count was normal, urine test was negative UA was positive chest x-ray was negative for any pneumonia the patient noticed to have elevated creatinine 3.48 he has been started on IV Rocephin however the patient did have a history of C. diff colitis after getting antibiotic for UTI about a year ago with no recurrences afterwards hence infectious disease was consulted today for further recommendation regarding antibiotics patient himself denies any headache he noted that his hospital no chest pain shortness of breath or cough no abdominal pain and he currently no diarrhea the patient himself denies having any urinary symptoms though family member did mention he did have problem with urinary retention and apparently the patient was supposed to be seen by Dr. Benjamin in the outpatient setting Review of Systems Positive points has been mentioned in HPI rest of the systems are negative Past Medical History Past Medical History: Atrial Fibrillation, Cancer, Heart Failure, CVA/TIA, Diabetes Mellitus, Eye Disorder, Hearing Disorder / Deafness, Hyperlipidemia, Hypertension, Memory Impairment, Musculoskeletal Disorder, Renal Disease, Thyroid Disorder Additional Past Medical History / Comment(s): CA BLADDER TUMORS . HX MILD CVA, EARLY GLAUCOMA ADELA. MILD MEMORY CHANGES. 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 LT DROPPED FOOT. HX GOUT. , OCCASIONAL SORES ON LEGS DUE TO EDEMA., SOB WITH ACTIVITY., HEMATURIA., URGENCY TO URINATE., PATIENTS SON TAKES CARE OF MEDICATIONS FOR HIM., HEARING AID, USES WALKER. History of Any Multi-Drug Resistant Organisms: None Reported Additional Past Surgical History / Comment(s): Finger surgery - TRAUMATIC AMPUTATIONS LT 2 FINGERS. COLONOSCOPY. Hemorrhoidectomy, REMOVAL BLADDER TUMOR S (11/01/18) Past Anesthesia/Blood Transfusion Reactions: No Reported Reaction, Family History of Problems w/ Anesthesia Additional Past Anesthesia/Blood Transfusion Reaction / Comm: SON HAD FLUID IN LUNGS WITH 1 SURGERY. Past Psychological History: No Psychological Hx Reported Smoking Status: Former smoker Past Alcohol Use History: None Reported Additional Past Alcohol Use History / Comment(s): former smoker.Quit 2001. Past Drug Use History: None Reported - Past Family History Daughter(s) Family Medical History: Cancer Medications and Allergies Home Medications Medication Instructions Recorded Confirmed Type Atenolol [Tenormin] 50 mg PO DAILY 02/18/15 03/27/19 History Levothyroxine Sodium [Synthroid] 75 mcg PO DAILY 02/18/15 03/27/19 History Simvastatin [Zocor] 20 mg PO DAILY 02/18/15 03/27/19 History Allopurinol [Zyloprim] 100 mg PO DAILY 10/26/18 03/27/19 History Ergocalciferol [Vitamin D2] 50,000 unit PO WE 10/26/18 03/27/19 History Oxybutynin Chloride [Ditropan] 5 mg PO BID 10/26/18 03/27/19 History Spironolactone [Aldactone] 25 mg PO DAILY 10/26/18 03/27/19 History sitaGLIPtin [Januvia] 50 mg PO DAILY 10/26/18 03/27/19 History Mupirocin 2% Oint [Bactroban 2% 1 applic TOPICAL BID 02/15/19 03/27/19 History Oint] Tetrahydrozoline 0.05% Ophth 1 drop BOTH EYES QID PRN 02/15/19 03/27/19 History [Visine Eye Drops] Triamcinolone 0.1% Ointment 1 applic TOPICAL TID 02/15/19 03/27/19 History [Kenalog 0.1% Ointment] Warfarin [Coumadin] 4 mg PO SUSA 02/15/19 03/27/19 History Warfarin [Coumadin] 6 mg PO DIRECTED 02/15/19 03/27/19 History glipiZIDE [Glucotrol] 10 mg PO AC-BID 02/15/19 03/27/19 History Cephalexin [Keflex] 500 mg PO Q6HR #40 cap 02/16/19 03/27/19 Rx Albuterol Sulfate [Proair Hfa] 2 puff INHALATION RT-Q4H PRN 03/27/19 03/27/19 History Furosemide [Lasix] 20 mg PO HS 03/27/19 03/27/19 History Furosemide [Lasix] 40 mg PO QAM 03/27/19 03/27/19 History Allergies Allergy/AdvReac Type Severity Reaction Status Date / Time strawberry Allergy Swelling Verified 03/27/19 18:56 Physical Exam Vitals: Vital Signs Temp Pulse Pulse Resp BP BP Pulse Ox 03/28/19 12:06 99.4 F 68 16 120/74 96 03/28/19 09:30 18 03/28/19 03:59 99.3 F 79 20 110/63 96 03/27/19 23:45 98.8 F 83 16 101/58 95 03/27/19 21:27 98.6 F 79 20 144/97 95 03/27/19 18:35 100.0 F H 85 20 133/63 100 Intake and Output 03/27/19 03/28/19 03/28/19 22:59 06:59 14:59 Intake Total 2900 Balance 2900 Intake: Amount of Fluid Infused ( 2100 ml) Intake, IV Titration 800 Amount Sodium Chloride 0.9% 1, 800 000 ml @ 100 mls/hr IV . Q10H STA Rx#:[id number] Other: Voiding Method Urinal Urinal Diaper Diaper Incontinent Incontinent Weight 113.398 kg GENERAL DESCRIPTION: Elderly male lying in bed, no distress. No tachypnea or accessory muscle of respiration use. HEENT: Shows Pallor , no scleral icterus. Oral mucous membrane is dry. No pharyngeal erythema or thrush NECK: Trachea central, no thyromegaly. LUNGS: Unlabored breathing. Clear to auscultation anteriorly. No wheeze or crackle. HEART: S1, S2, regular rate and rhythm. No loud murmur ABDOMEN: Soft, no tenderness , guarding or rigidity, no organomegaly EXTREMITIES: No edema of feet. SKIN: No rash, no masses palpable. NEUROLOGICAL: The patient is awake, alert, oriented x2, mood and affect normal. Results CBC & Chem 7: 03/28/19 07:48 03/28/19 07:48 Labs: Abnormal Lab Results - Last 24 Hours (Table) 03/27/19 03/27/19 03/27/19 Range/Units 20:17 20:17 20:17 RBC (4.30-5.90) m/uL Hgb (13.0-17.5) gm/dL Hct (39.0-53.0) % RDW (11.5-15.5) % Plt Count (150-450) k/uL Lymphocytes # (1.0-4.8) k/uL Lymphocytes # (Manual) (1.0-4.8) k/uL Monocytes # (0-1.0) k/uL Monocytes # (Manual) (0-1.0) k/uL PT 29.1 H (9.0-12.0) sec INR 3.0 H (<1.2) APTT 33.0 H (22.0-30.0) sec Sodium 133 L (137-145) mmol/L Potassium 5.2 H (3.5-5.1) mmol/L Chloride 96 L (98-107) mmol/L Carbon Dioxide (22-30) mmol/L BUN 86 H (9-20) mg/dL Creatinine 4.13 H (0.66-1.25) mg/dL POC Glucose (mg/dL) (75-99) mg/dL Alkaline Phosphatase 146 H (38-126) U/L Creatine Kinase 242 H (55-170) U/L Troponin I 0.040 H* (0.000-0.034) ng/mL Total Protein (6.3-8.2) g/dL Albumin (3.5-5.0) g/dL Urine Protein (Negative) Urine Blood (Negative) Ur Leukocyte Esterase (Negative) Urine RBC (0-5) /hpf Urine WBC (0-5) /hpf Urine WBC Clumps (None) /hpf 03/27/19 03/27/19 03/28/19 Range/Units 20:25 21:21 07:48 RBC 4.23 L 3.89 L (4.30-5.90) m/uL Hgb 11.6 L 10.7 L (13.0-17.5) gm/dL Hct 36.1 L 33.9 L (39.0-53.0) % RDW 17.4 H 17.8 H (11.5-15.5) % Plt Count 144 L (150-450) k/uL Lymphocytes # 0.6 L (1.0-4.8) k/uL Lymphocytes # (Manual) 0.33 L (1.0-4.8) k/uL Monocytes # 1.3 H (0-1.0) k/uL Monocytes # (Manual) 1.74 H (0-1.0) k/uL PT (9.0-12.0) sec INR (<1.2) APTT (22.0-30.0) sec Sodium (137-145) mmol/L Potassium (3.5-5.1) mmol/L Chloride (98-107) mmol/L Carbon Dioxide (22-30) mmol/L BUN (9-20) mg/dL Creatinine (0.66-1.25) mg/dL POC Glucose (mg/dL) (75-99) mg/dL Alkaline Phosphatase (38-126) U/L Creatine Kinase (55-170) U/L Troponin I (0.000-0.034) ng/mL Total Protein (6.3-8.2) g/dL Albumin (3.5-5.0) g/dL Urine Protein 1+ H (Negative) Urine Blood Moderate H (Negative) Ur Leukocyte Esterase Large H (Negative) Urine RBC 12 H (0-5) /hpf Urine WBC >182 H (0-5) /hpf Urine WBC Clumps Many H (None) /hpf 03/28/19 03/28/19 03/28/19 Range/Units 07:48 07:48 11:21 RBC (4.30-5.90) m/uL Hgb (13.0-17.5) gm/dL Hct (39.0-53.0) % RDW (11.5-15.5) % Plt Count (150-450) k/uL Lymphocytes # (1.0-4.8) k/uL Lymphocytes # (Manual) (1.0-4.8) k/uL Monocytes # (0-1.0) k/uL Monocytes # (Manual) (0-1.0) k/uL PT (9.0-12.0) sec INR (<1.2) APTT (22.0-30.0) sec Sodium 134 L (137-145) mmol/L Potassium (3.5-5.1) mmol/L Chloride (98-107) mmol/L Carbon Dioxide 18 L (22-30) mmol/L BUN 81 H (9-20) mg/dL Creatinine 3.84 H (0.66-1.25) mg/dL POC Glucose (mg/dL) 147 H (75-99) mg/dL Alkaline Phosphatase (38-126) U/L Creatine Kinase (55-170) U/L Troponin I 0.044 H* (0.000-0.034) ng/mL Total Protein 5.9 L (6.3-8.2) g/dL Albumin 2.9 L (3.5-5.0) g/dL Urine Protein (Negative) Urine Blood (Negative) Ur Leukocyte Esterase (Negative) Urine RBC (0-5) /hpf Urine WBC (0-5) /hpf Urine WBC Clumps (None) /hpf Microbiology - Last 24 Hours (Table) 03/27/19 21:21 Urine Culture - Preliminary Urine,Voided Assessment and Plan Assessment: 1-patient presented to hospital with mental status changes low-grade fever significantly positive UA and elevated creatinine likely concerning for a complicated UTI and possible urinary outflow obstruction leading to this elevated creatinine and incomplete emptying of the planter putting him at risk of further UTIs 2-patient with a previous history of C. diff colitis and concern for possible recurrence (1) UTI (urinary tract infection) Current Visit: Yes Status: Acute Code(s): N39.0 - URINARY TRACT INFECTION, SITE NOT SPECIFIED SNOMED Code(s): 17291674 Plan: 1-Rocephin 1 g daily while waiting for the cultures to finalize and will keep the antibiotic exposure to minimal 2-patient has been advised to eat yogurt with each meal and will add robotics twice a day 3-check ultrasound of the kidney and the bladder area Will follow on a clinical condition and cultures to further adjust medication if needed Thank you for this consultation will follow this patient along with you Time with Patient: Greater than 30
[2019-03-29] MEDS: SODIUM CHLORIDE 0.9% 1,000 ML IV SCH ×2 (01:03→17:28)
[2019-03-29] MEDS: LEVOTHYROXINE 75 MCG TAB PO SCH (06:09)
[2019-03-29 07:16] LABS: Glucose,Whole Blood 139 mg/dL (75-99)
[2019-03-29] MEDS: ATORVASTATIN 10 MG TAB PO SCH (08:05)
[2019-03-29] MEDS: OXYBUTYNIN CHLORIDE 5 MG TAB PO SCH ×2 (08:05→20:11)
[2019-03-29] MEDS: LACTOBACILLUS ACIDOPH & BULGAR 1 EACH PACKET PO SCH ×2 (08:05→20:11)
[2019-03-29] MEDS: MUPIROCIN 2% OINT 22 GM TUBE TOPICAL SCH ×2 (08:05→20:15)
[2019-03-29] MEDS: TRIAMCINOLONE ACET 0.1% OINTMENT 15 GM TUBE TOPICAL SCH ×3 (08:06→20:15)
--- NOTE | 2019-03-29 08:06 | US ---
EXAMINATION TYPE: US kidneys/renal and bladder DATE OF EXAM: 03/29/2019 COMPARISON: NONE CLINICAL HISTORY: Recurrent UTI and elevated creatinine. UTI elevated creatine. Exam limitations due to body habitus unable to roll on side. EXAM MEASUREMENTS: Right Kidney: 13.0 x 4.6 x 4.2 cm Left Kidney: 11.5 x 4.9 x 4.0 cm Right Kidney: No hydronephrosis or masses seen. Left Kidney: Mild left-sided hydronephrosis. Echogenic calculus in the lower pole measures 1.3cm. Bladder: Anechoic Bilateral Jets seen: No No suspicious renal masses are seen. Urinary bladder is anechoic. Bilateral urinary bladder jets are not visualized. IMPRESSION: Mild left-sided hydronephrosis and nonobstructing calculus in the lower pole measuring 1.3 cm.
[2019-03-29 09:00] LABS: Anisocytosis Slight; HCT 33.9 % (39.0-53.0); HGB 11.1 gm/dL (13.0-17.5); MCH 28.3 pg (25.0-35.0); MCHC 32.6 g/dL (31.0-37.0); MCV 86.7 fL (80.0-100.0); Mean Platelet Volume 8.1; Platelet Count 150 k/uL (150-450); RBC 3.92 m/uL (4.30-5.90); RDW 17.7 % (11.5-15.5); WBC 8.5 k/uL (3.8-10.6)
[2019-03-29 09:04] LABS: INR 2.8 (<1.2); Prothrombin Time 27.3 sec (9.0-12.0)
[2019-03-29 10:51] LABS: Calcium 8.4 mg/dL (8.4-10.2); Magnesium 2.4 mg/dL (1.6-2.3)
[2019-03-29 11:04] LABS: Glucose,Whole Blood 247 mg/dL (75-99)
--- NOTE | 2019-03-29 13:50 | CDI ---
Documentation Clarification Form Date: 03/29/2019 1:43:19 PM From: Altagracia ZamudioLaraONDINA conner, CCDS Admit Date: 03/27/2019 9:47:00 PM Patient Name: Artie Monterroso Visit Number: [id number] Discharge Date: ATTENTION: The Clinical Documentation Specialists (CDI) and [facility] Coding Staff appreciate your assistance in clarifying documentation. Please respond to the clarification below the line at the bottom and electronically sign. The CDI & [facility] Coding staff will review the response and follow-up if needed. Please note: Queries are made part of the Legal Health Record. If you have any questions, please contact the author of this message via ITS. Dr. Macario Lopez or Dr. Conrad Davidson: Per the 03/28 History & Physical: "Atrial fibrillation rate controlled at this time patient will be started on Coumadin tomorrow hold off Coumadin today because of her antibiotics as his INR is already borderline high normal and concerned that it may go up again." History/Risk Factors: Atrial fibrillation on Coumadin, Chronic diastolic CHF, Hypertension, CKD 2-3, Hyperlipidemia, Hypothyroidism, Prostate CA sp TURP. Clinical Indicators: Presented with altered mental status, diagnosed with UTI, acute renal failure & metabolic encephalopathy. EKG/telemetry: R 82 Atrial fibrillation with PVCs, Incomplete RBBB, nonspecific ST abnormality. Treatment: IV fluid bolus, IV Rocephin, IV fluid rate 75, INH Ventolin. In your professional opinion, can you please clarify the type of Atrial Fibrillation, if known? Chronic/Permanent Paroxysmal Persistent Other, please specify Unable to determine (Last Revision: October 2017) MTDD
--- NOTE | 2019-03-29 15:58 | PN ---
PROGRESS NOTE DATE OF SERVICE: 03/29/2019 REASON FOR FOLLOWUP: Urinary tract infection. INTERVAL HISTORY: The patient is currently afebrile. The patient is more awake and alert. He is breathing comfortably. Denies having any chest pain, shortness of breath or cough. No nausea, no vomiting, no abdominal pain or any diarrhea. PHYSICAL EXAMINATION: Blood pressure 122/80 with a pulse of 85, temperature 98. He is 99% on room air. General description is an elderly male up in the bed in no distress. RESPIRATORY SYSTEM: Unlabored breathing. Clear to auscultation anteriorly. HEART: S1, S2. Regular rate and rhythm. ABDOMEN: Soft. No tenderness. LABS/IMAGING: Creatinine is down to 3.5, hemoglobin 11.1, white count 8.5. Urine is showing a gram- negative with sensitivities pending. Ultrasound of the abdomen shows mild left-sided hydronephrosis. DIAGNOSTIC IMPRESSION AND PLAN: Patient admitted to hospital with mental status changes. Source is likely urinary tract infection, with urine showing a gram-negative. Patient to continue with the Rocephin while waiting to finalize has been encouraged to increase yogurt and probiotic intake. Will monitor his clinical course closely. MMODL / IJN: [id number] /
--- NOTE | 2019-03-29 16:36 | P.PN ---
Subjective Progress Note Date: 03/29/19 Principal diagnosis: 78-year-old male was born with the family members because of fall to the status and delusions. Patient had a fall day before and the patient was not acting no rmal by home care nurse. Patient denied any dysuria patient is mildly doing much better patient is alert oriented 2. 3 today although he is unable to give me the exact date. Patient is found to have normal urine was admitted for urinary tract infection with Rocephin. Patient was treated for urinary tract infections in the past and the patient had E. coli in the recent past since 2 to multiple antibiotics patient will be can you on Rocephin. Patient had low-grade fever. There is no other appreciable source of infection because of which I'll consider this is urinary tract infection although infectious disease will be consultative as he is high risk for Clostridium difficile colitis patient had C. diff colitis last year after he was treated for urinary tract infection. Patient had stable and elevated troponin of 0.40 and 0.44 probably secondary to sepsis and acute renal failure although I believe patient's confusion and altered mental status is mostly metabolic secondary to acute renal failure severe intravascular depletion patient does have history of congestive heart failure and atrial fibrillation on Coumadin INR is 3.0 because of antibiotics on hold off Coumadin today will be resumed tomorrow on Coumadin and recheck the INR tomorrow. Patient is hyponatremic with hyperkalemia. Patient appears to have history of Diastolic dysfunction had a normal systolic function in the past patient has enlarged left atrium because of which patient is receiving diuretic therapy as an outpatient. Diuretic therapy will be dyspnea and patient was started on IV fluids. I'll also obtain urine tests looking for causes of acute renal failure which is most probably prerenal azotemia from intravascular depletion. Patient has a hyperchloremic acidosis non-anion gap metabolic acidosis secondary to IV fluids which presently will be continued.. Patient denies any chest pain or significant changes in the EKG. 03/29/2019 Patient is sitting up in bed in no acute distress. Patient is able to respond appropriately to questions and commands. Will decrease IV hydration to 75 ML per hour. Denies any acute overnight issues. Patient states that he normally lives at home alone and Homecare visits and would like to go home. Currently awaiting urology and nephrology consults. Infectious disease is following. Patient denies any chest pain, shortness of breath, or palpitations at this time. Patient denies any nausea or vomiting and has been tolerating diet. Patient encouraged to work with PT/OT. Guarded prognosis. Objective - Vital Signs Vital signs: Vital Signs Temp 98 F 03/29/19 14:33 Pulse 85 03/29/19 14:33 Resp 20 03/29/19 14:33 BP 122/80 03/29/19 14:33 Pulse Ox 99 03/29/19 14:33 Intake & Output 03/28/19 03/29/19 03/29/19 18:59 06:59 18:59 Intake Total 1450 400 Balance 1450 400 Intake: Intake, IV Titration 800 400 Amount Sodium Chloride 0.9% 1, 800 400 000 ml @ 75 mls/hr IV . [id number] [facility] Rx#:[id number] Oral 650 Other: Voiding Method Urinal Diaper Diaper Diaper Incontinent Incontinent Incontinent # Voids 3 3 2 - Exam GENERAL: The patient is alert and oriented x3, not in any acute distress. Obese vital signs are stable. Temp is 98.9 oral, pulse is 88, respirations are 18, blood pressure is 119/65, oxygen saturation is 95% on room air. HEENT: Pupils are round and equally reacting to light. EOMI. No scleral icterus. No conjunctival pallor. Normocephalic, atraumatic. No pharyngeal erythema. No thyromegaly. CARDIOVASCULAR: S1 and S2 present. No murmurs, rubs, or gallops. PULMONARY: Chest is clear to auscultation, no wheezing or crackles. ABDOMEN: Soft, nontender, nondistended, normoactive bowel sounds. No palpable organomegaly. MUSCULOSKELETAL: No joint swelling or deformity. EXTREMITIES: No cyanosis, clubbing, or pedal edema. NEUROLOGICAL: Gross neurological examination did not reveal any focal deficits. SKIN: No rashes. - Labs CBC & Chem 7: 03/29/19 08:30 03/29/19 08:30 Labs: Abnormal Lab Results - Last 24 Hours (Table) 03/28/19 03/28/19 03/28/19 Range/Units 15:54 17:21 20:16 RBC (4.30-5.90) m/uL Hgb (13.0-17.5) gm/dL Hct (39.0-53.0) % RDW (11.5-15.5) % PT (9.0-12.0) sec INR (<1.2) Chloride (98-107) mmol/L Carbon Dioxide (22-30) mmol/L BUN (9-20) mg/dL Creatinine (0.66-1.25) mg/dL Glucose (74-99) mg/dL POC Glucose (mg/dL) 144 H 173 H (75-99) mg/dL Magnesium (1.6-2.3) mg/dL Troponin I 0.035 H* (0.000-0.034) ng/mL 03/29/19 03/29/19 03/29/19 Range/Units 07:04 08:30 08:30 RBC 3.92 L (4.30-5.90) m/uL Hgb 11.1 L (13.0-17.5) gm/dL Hct 33.9 L (39.0-53.0) % RDW 17.7 H (11.5-15.5) % PT (9.0-12.0) sec INR (<1.2) Chloride 110 H (98-107) mmol/L Carbon Dioxide 18 L (22-30) mmol/L BUN 70 H (9-20) mg/dL Creatinine 3.54 H (0.66-1.25) mg/dL Glucose 167 H (74-99) mg/dL POC Glucose (mg/dL) 139 H (75-99) mg/dL Magnesium 2.4 H (1.6-2.3) mg/dL Troponin I (0.000-0.034) ng/mL 03/29/19 03/29/19 Range/Units 08:30 11:03 RBC (4.30-5.90) m/uL Hgb (13.0-17.5) gm/dL Hct (39.0-53.0) % RDW (11.5-15.5) % PT 27.3 H (9.0-12.0) sec INR 2.8 H (<1.2) Chloride (98-107) mmol/L Carbon Dioxide (22-30) mmol/L BUN (9-20) mg/dL Creatinine (0.66-1.25) mg/dL Glucose (74-99) mg/dL POC Glucose (mg/dL) 247 H (75-99) mg/dL Magnesium (1.6-2.3) mg/dL Troponin I (0.000-0.034) ng/mL Microbiology - Last 24 Hours (Table) 03/27/19 21:21 Urine Culture - Preliminary Urine,Voided Gram Neg Bacilli 03/27/19 20:25 Blood Culture - Preliminary Blood No Growth after 24 hours Assessment and Plan Assessment: -Altered mental status mostly metabolic metabolic encephalopathy is contributing to that from acute renal failure and severe intravascular depletion and dehydration and diuretic therapy. Although toxic encephalopathy from UTI cannot be ruled out causing his fever. Possibly of urinary tract infection. Rocephin will be continued infectious disease was consulted -Mild left-sided hydronephrosis and nonobstructing calculus in the lower pole measuring 1.3 cm. Urology and nephrology were consulted -Acute renal failure secondary to intravascular depletion although nephrotoxic agents will be discontinued. patient will continued on IV fluids -Atrial fibrillation rate controlled at this time patient will be started on Coumadin tomorrow hold off Coumadin today because of his INR is already bor derline high normal and concerned that it may go up again. Today's INR is 2.8 -Hypoglycemia secondary to acute renal failure expected to improve with the improvement in kidney function -Type 2 diabetes mellitus sliding scale insulin will hold off on oral hypoglycemic agents because of his hypoglycemia at home -Generalized weakness secondary to age and multiple medical problems. 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 GI prophylaxis Recommendations and discussion: Recommend to continue current medications, management, and symptomatically treatment. Patient will continue on IV antibiotics in the form of Rocephin until cultures are finalized per infectious disease recommendations. Urology and nephrology have been consulted as the ultrasound of the abdomen and bladder shows a non-obstructing calculus as well as mild hydro-nephrosis of the left kidney. Will continue to monitor labs and vital signs closely. Guarded prognosis. Further recommendations to follow. Possible discharge in 24-48 hours.
[2019-03-29 17:16] LABS: Glucose,Whole Blood 202 mg/dL (75-99)
--- NOTE | 2019-03-29 17:20 | P.GSCN ---
History of Present Illness Consult date: 03/29/19 Reason for Consult: Left hydronephrosis and bladder cancer History of present illness: The patient is a 78-year-old male admitted through the emergency room on 03/27 for evaluation of weakness and altered mental status. The patient lives at home and apparently had fallen earlier in the day and was unable to get up. It's unclear how long the patient was down. He was taken to the emergency room where he was evaluated and noted to have evidence of a urinary tract infection associated with a fever. He was started on ceftriaxone and has remained afebrile since he was admitted. BUN/creatinine at the time of admission was 86/4.13. BUN/creatinine today have improved to 70/3.54. Patient's creatinine in 11/02 was 2.94 and 3.16 in 03/04. Due to the elevated creatinine renal ultrasound was obtained. This showed a 13 mm calculus in the lower pole left kidney and mild left hydronephrosis. The patient was discovered to have bladder cancer by Dr. Carpenter in October of this year following evaluation of gross hematuria and a bladder mass. Multiple tumors were noted and were resected at that time. The tumors were grade 3 stage TI. The patient underwent repeat transurethral resection on 01/03/2019 and at that time no residual cancer was noted. Dr. Carpenter discussed possible BCG or mitomycin C to reduce the likelihood of future tumors but due to the patient's or incontinence it was elected to not proceed with this. The patient is amanda eduled to undergo cystoscopy in the office on 04/19. It was treated for a E. coli urinary tract infection in mid January. Patient apparently wears depends due to intermittent urge incontinence. He says he usually voids every 2-3 hours during the day and 3 times at night. He has had no recent gross hematuria. Review of Systems - Constitutional Reports lethargy, Denies chills - Cardiovascular Denies chest pain, Denies shortness of breath - Respiratory Denies cough - Gastrointestinal Denies abdominal pain - Genitourinary Reports as per HPI Past Medical History Past Medical History: Atrial Fibrillation, Cancer, Heart Failure, CVA/TIA, Diabetes Mellitus, Eye Disorder, Hearing Disorder / Deafness, Hyperlipidemia, Hypertension, Memory Impairment, Musculoskeletal Disorder, Renal Disease, Thyroid Disorder Additional Past Medical History / Comment(s): CA BLADDER TUMORS . HX MILD CVA, EARLY GLAUCOMA ADELA. MILD MEMORY CHANGES. 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 LT DROPPED FOOT. HX GOUT. , OCCASIONAL SORES ON LEGS DUE TO EDEMA., SOB WITH ACTIVITY., HEMATURIA., URGENCY TO URINATE., PATIENTS SON TAKES CARE OF MEDICATIONS FOR HIM., HEARING AID, USES WALKER. History of Any Multi-Drug Resistant Organisms: None Reported Additional Past Surgical History / Comment(s): Finger surgery - TRAUMATIC AMPUTATIONS LT 2 FINGERS. COLONOSCOPY. Hemorrhoidectomy, transurethral resection of bladder tumors (11/01/18), TUR of bladder tumor scars 12/2018 Past Anesthesia/Blood Transfusion Reactions: No Reported Reaction, Family History of Problems w/ Anesthesia Additional Past Anesthesia/Blood Transfusion Reaction / Comm: SON HAD FLUID IN LUNGS WITH 1 SURGERY. Past Psychological History: No Psychological Hx Reported Smoking Status: Former smoker Past Alcohol Use History: None Reported Additional Past Alcohol Use History / Comment(s): former smoker.Quit 2001. Past Drug Use History: None Reported - Past Family History Daughter(s) Family Medical History: Cancer Medications and Allergies Home Medications Medication Instructions Recorded Confirmed Type Atenolol [Tenormin] 50 mg PO DAILY 02/18/15 03/27/19 History Levothyroxine Sodium [Synthroid] 75 mcg PO DAILY 02/18/15 03/27/19 History Simvastatin [Zocor] 20 mg PO DAILY 02/18/15 03/27/19 History Allopurinol [Zyloprim] 100 mg PO DAILY 10/26/18 03/27/19 History Ergocalciferol [Vitamin D2] 50,000 unit PO WE 10/26/18 03/27/19 History Oxybutynin Chloride [Ditropan] 5 mg PO BID 10/26/18 03/27/19 History Spironolactone [Aldactone] 25 mg PO DAILY 10/26/18 03/27/19 History sitaGLIPtin [Januvia] 50 mg PO DAILY 10/26/18 03/27/19 History Mupirocin 2% Oint [Bactroban 2% 1 applic TOPICAL BID 02/15/19 03/27/19 History Oint] Tetrahydrozoline 0.05% Ophth 1 drop BOTH EYES QID PRN 02/15/19 03/27/19 History [Visine Eye Drops] Triamcinolone 0.1% Ointment 1 applic TOPICAL TID 02/15/19 03/27/19 History [Kenalog 0.1% Ointment] Warfarin [Coumadin] 4 mg PO SUSA 02/15/19 03/27/19 History Warfarin [Coumadin] 6 mg PO DIRECTED 02/15/19 03/27/19 History glipiZIDE [Glucotrol] 10 mg PO AC-BID 02/15/19 03/27/19 History Cephalexin [Keflex] 500 mg PO Q6HR #40 cap 02/16/19 03/27/19 Rx Albuterol Sulfate [Proair Hfa] 2 puff INHALATION RT-Q4H PRN 03/27/19 03/27/19 History Furosemide [Lasix] 20 mg PO HS 03/27/19 03/27/19 History Furosemide [Lasix] 40 mg PO QAM 03/27/19 03/27/19 History Allergies Allergy/AdvReac Type Severity Reaction Status Date / Time strawberry Allergy Swelling Verified 03/27/19 18:56 Surgical - Exam Vital Signs Temp Pulse Resp BP Pulse Ox 100.0 F H 85 20 133/63 100 03/27/19 18:35 03/27/19 18:35 03/27/19 18:35 03/27/19 18:35 03/27/19 18:35 - General well developed, well nourished, no distress - Neck no masses, no lymphadectomy - Respiratory normal respiratory effort - Abdomen Abdomen: soft, non tender, no organomegaly - Genitourinary normal penis with no external lesions, testicles non-tender - Musculoskeletal other (Patient is unable to stand without assistance.) - Psychiatric oriented to time, oriented to person, oriented to place (Memory is relatively good), speech is normal, other Results - Labs 03/29/19 08:30 03/29/19 08:30 Abnormal Lab Results - Last 24 Hours (Table) 03/28/19 03/28/19 03/29/19 Range/Units 17:21 20:16 07:04 RBC (4.30-5.90) m/uL Hgb (13.0-17.5) gm/dL Hct (39.0-53.0) % RDW (11.5-15.5) % PT (9.0-12.0) sec INR (<1.2) Chloride (98-107) mmol/L Carbon Dioxide (22-30) mmol/L BUN (9-20) mg/dL Creatinine (0.66-1.25) mg/dL Glucose (74-99) mg/dL POC Glucose (mg/dL) 144 H 173 H 139 H (75-99) mg/dL Magnesium (1.6-2.3) mg/dL 03/29/19 03/29/19 03/29/19 Range/Units 08:30 08:30 08:30 RBC 3.92 L (4.30-5.90) m/uL Hgb 11.1 L (13.0-17.5) gm/dL Hct 33.9 L (39.0-53.0) % RDW 17.7 H (11.5-15.5) % PT 27.3 H (9.0-12.0) sec INR 2.8 H (<1.2) Chloride 110 H (98-107) mmol/L Carbon Dioxide 18 L (22-30) mmol/L BUN 70 H (9-20) mg/dL Creatinine 3.54 H (0.66-1.25) mg/dL Glucose 167 H (74-99) mg/dL POC Glucose (mg/dL) (75-99) mg/dL Magnesium 2.4 H (1.6-2.3) mg/dL 03/29/19 Range/Units 11:03 RBC (4.30-5.90) m/uL Hgb (13.0-17.5) gm/dL Hct (39.0-53.0) % RDW (11.5-15.5) % PT (9.0-12.0) sec INR (<1.2) Chloride (98-107) mmol/L Carbon Dioxide (22-30) mmol/L BUN (9-20) mg/dL Creatinine (0.66-1.25) mg/dL Glucose (74-99) mg/dL POC Glucose (mg/dL) 247 H (75-99) mg/dL Magnesium (1.6-2.3) mg/dL Microbiology - Last 24 Hours (Table) 03/27/19 21:21 Urine Culture - Preliminary Urine,Voided Gram Neg Bacilli 03/27/19 20:25 Blood Culture - Preliminary Blood No Growth after 24 hours Diabetes panel 03/29/19 Range/Units 08:30 Sodium 142 (137-145) mmol/L Potassium 5.0 (3.5-5.1) mmol/L Chloride 110 H (98-107) mmol/L Carbon Dioxide 18 L (22-30) mmol/L BUN 70 H (9-20) mg/dL Creatinine 3.54 H (0.66-1.25) mg/dL Glucose 167 H (74-99) mg/dL Calcium 8.4 (8.4-10.2) mg/dL Calcium panel 03/29/19 Range/Units 08:30 Calcium 8.4 (8.4-10.2) mg/dL Pituitary panel 03/29/19 Range/Units 08:30 Sodium 142 (137-145) mmol/L Potassium 5.0 (3.5-5.1) mmol/L Chloride 110 H (98-107) mmol/L Carbon Dioxide 18 L (22-30) mmol/L BUN 70 H (9-20) mg/dL Creatinine 3.54 H (0.66-1.25) mg/dL Glucose 167 H (74-99) mg/dL Calcium 8.4 (8.4-10.2) mg/dL Adrenal panel 03/29/19 Range/Units 08:30 Sodium 142 (137-145) mmol/L Potassium 5.0 (3.5-5.1) mmol/L Chloride 110 H (98-107) mmol/L Carbon Dioxide 18 L (22-30) mmol/L BUN 70 H (9-20) mg/dL Creatinine 3.54 H (0.66-1.25) mg/dL Glucose 167 H (74-99) mg/dL Calcium 8.4 (8.4-10.2) mg/dL Assessment and Plan (1) Hydronephrosis Narrative/Plan: I reviewed the patient's renal ultrasound and compared with a previous ultrasound from 06/08/2018. I'm not sure if there is any significant difference in the appearance of the left intrarenal collecting system. The patient does have an 11-13 mm nonobstructive calculus in the lower pole of the left kidney which had previously been noted on a computed tomography scan. His recent elevated BUN and creatinine may have been related to some element of hypovolemia on the date of admission as he was unable to eat or drink once he fell. It has improved with hydration and antibiotics. Bladder scan will be done to ensure the patient is emptying his bladder adequately. If his BUN and creatinine continued to improve back to his baseline level then no further evaluation will be necessary at this time. Renal ultrasound could be repeated in [address] Carpenter. The patient should keep his appointment in April for cystoscopy. Current Visit: Yes Status: Acute Code(s): N13.30 - UNSPECIFIED HYDRONEPHROSIS SNOMED Code(s): 44814380
[2019-03-29 20:39] LABS: Glucose,Whole Blood 192 mg/dL (75-99)
[2019-03-30] MEDS: SODIUM CHLORIDE 0.9% 1,000 ML IV SCH ×3 (01:15→17:21)
[2019-03-30] MEDS: LEVOTHYROXINE 75 MCG TAB PO SCH (05:42)
[2019-03-30 07:02] LABS: INR 2.7 (<1.2); Prothrombin Time 26.5 sec (9.0-12.0)
[2019-03-30 07:14] LABS: Glucose,Whole Blood 161 mg/dL (75-99)
[2019-03-30] MEDS: ATORVASTATIN 10 MG TAB PO SCH (07:29)
[2019-03-30] MEDS: TRIAMCINOLONE ACET 0.1% OINTMENT 15 GM TUBE TOPICAL SCH ×3 (07:30→20:36)
[2019-03-30] MEDS: LACTOBACILLUS ACIDOPH & BULGAR 1 EACH PACKET PO SCH ×2 (07:30→20:36)
[2019-03-30] MEDS: MUPIROCIN 2% OINT 22 GM TUBE TOPICAL SCH ×2 (07:30→20:36)
[2019-03-30] MEDS: OXYBUTYNIN CHLORIDE 5 MG TAB PO SCH ×2 (07:30→20:36)
[2019-03-30 11:14] LABS: Glucose,Whole Blood 191 mg/dL (75-99)
--- NOTE | 2019-03-30 12:40 | P.NPCON ---
History of Present Illness - Reason for Consult Consult date: 03/30/19 acute renal failure - Chief Complaint Acute kidney injury and chronic kidney disease - History of Present Illness This is 78-year-old male seen in consultation because of acute kidney injury and chronic kidney disease. He came in because of fall after tripping and unable to move for about 4-6 ho urs. He did not lose consciousness. Does not have any pain aches. He had generalized weakness for which reason he was unable to move. Denies any fever chills cough nausea vomiting shortness of breath no abdominal pain no dysuria frequency Past history significant for recurrent kidney stone the past. He does have an ultrasound of the suggestive of left hydronephrosis which is mild Past Medical History Past Medical History: Atrial Fibrillation, Cancer, Heart Failure, CVA/TIA, Diabetes Mellitus, Eye Disorder, Hearing Disorder / Deafness, Hyperlipidemia, Hypertension, Memory Impairment, Musculoskeletal Disorder, Renal Disease, Thyroid Disorder Additional Past Medical History / Comment(s): CA BLADDER TUMORS . HX MILD CVA, EARLY GLAUCOMA ADELA. MILD MEMORY CHANGES. 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 LT DROPPED FOOT. HX GOUT. , OCCASIONAL SORES ON LEGS DUE TO EDEMA., SOB WITH ACTIVITY., HEMATURIA., URGENCY TO URINATE., PATIENTS SON TAKES CARE OF MEDICATIONS FOR HIM., HEARING AID, USES WALKER. History of Any Multi-Drug Resistant Organisms: None Reported Additional Past Surgical History / Comment(s): Finger surgery - TRAUMATIC AMPUTATIONS LT 2 FINGERS. COLONOSCOPY. Hemorrhoidectomy, transurethral resection of bladder tumors (11/01/18), TUR of bladder tumor scars 12/2018 Past Anesthesia/Blood Transfusion Reactions: No Reported Reaction, Family Hi story of Problems w/ Anesthesia Additional Past Anesthesia/Blood Transfusion Reaction / Comment(s): SON HAD FLUID IN LUNGS WITH 1 SURGERY. Past Psychological History: No Psychological Hx Reported Smoking Status: Former smoker Past Alcohol Use History: None Reported Additional Past Alcohol Use History / Comment(s): former smoker.Quit 2001. Past Drug Use History: None Reported - Past Family History Daughter(s) Family Medical History: Cancer Medications and Allergies Home Medications Medication Instructions Recorded Confirmed Type Atenolol [Tenormin] 50 mg PO DAILY 02/18/15 03/27/19 History Levothyroxine Sodium [Synthroid] 75 mcg PO DAILY 02/18/15 03/27/19 History Simvastatin [Zocor] 20 mg PO DAILY 02/18/15 03/27/19 History Allopurinol [Zyloprim] 100 mg PO DAILY 10/26/18 03/27/19 History Ergocalciferol [Vitamin D2] 50,000 unit PO WE 10/26/18 03/27/19 History Oxybutynin Chloride [Ditropan] 5 mg PO BID 10/26/18 03/27/19 History Spironolactone [Aldactone] 25 mg PO DAILY 10/26/18 03/27/19 History sitaGLIPtin [Januvia] 50 mg PO DAILY 10/26/18 03/27/19 History Mupirocin 2% Oint [Bactroban 2% 1 applic TOPICAL BID 02/15/19 03/27/19 History Oint] Tetrahydrozoline 0.05% Ophth 1 drop BOTH EYES QID PRN 02/15/19 03/27/19 History [Visine Eye Drops] Triamcinolone 0.1% Ointment 1 applic TOPICAL TID 02/15/19 03/27/19 History [Kenalog 0.1% Ointment] Warfarin [Coumadin] 4 mg PO SUSA 02/15/19 03/27/19 History Warfarin [Coumadin] 6 mg PO DIRECTED 02/15/19 03/27/19 History glipiZIDE [Glucotrol] 10 mg PO AC-BID 02/15/19 03/27/19 History Cephalexin [Keflex] 500 mg PO Q6HR #40 cap 02/16/19 03/27/19 Rx Albuterol Sulfate [Proair Hfa] 2 puff INHALATION RT-Q4H PRN 03/27/19 03/27/19 History Furosemide [Lasix] 20 mg PO HS 03/27/19 03/27/19 History Furosemide [Lasix] 40 mg PO QAM 03/27/19 03/27/19 History Allergies Allergy/AdvReac Type Severity Reaction Status Date / Time strawberry Allergy Swelling Verified 03/27/19 18:56 Physical Exam Vitals: Vital Signs Temp Pulse Pulse Resp BP Pulse Ox 03/30/19 08:50 88 85 18 03/30/19 04:37 97.9 F 88 18 107/72 96 03/29/19 21:17 98.6 F 79 20 120/78 95 03/29/19 14:33 98 F 85 20 122/80 99 Intake and Output 03/29/19 03/30/19 03/30/19 22:59 06:59 14:59 Other: Voiding Method Diaper Diaper Incontinent Incontinent # Voids 1 3 On examination is awake alert oriented comfortable. HEENT exam no JVP neck is supple no facial asymmetry Lungs are clear to auscultation good air entry bilaterally Heart sounds are unremarkable for any murmur rub gallop Abdomen is soft nontender no organomegaly ascites masses Extremity exam mild edema more on the left than on the right which is chronic per patient Neurologically awake alert oriented. He does have generalized weakness Results - Lab Results Most recent lab results Calcium 8.4 mg/dL (8.4-10.2) 03/29/19 08:30 Magnesium 2.4 mg/dL (1.6-2.3) H 03/29/19 08:30 03/29/19 08:30 03/29/19 08:30 Assessment and Plan Plan: Impression 1. Acute kidney injury from prerenal. Outlet obstruction and hydronephrosis on the left seen on ultrasound. 2. Chronic kidney disease, stage III with GFR in the 30s secondary to nephrosclerosis, baseline creatinine is 2.94 as of 10/19/2018 3. Urinary tract infection with E. coli 4. Nonobstructive Was in the lower poor measuring 1.3 cm on the left side 5. Mild degree of non-gap acidosis with bicarb of 18 and gap of 14, etiology is chronic kidney disease 5. History of bladder CA with 2 surgeries in October 2018 in December 2018 possible involvement of ureteral orifices Recommendation 1. Continue IV fluids normal saline at 75 an hour. 2. start sodium bicarb 6 and 50 twice a day 3. Monitor labs and urine output 4. Urology is on the case regarding the mild left hydronephrosis 5. Later when he is stable needs workup for frequent and recurrent nephrolithiasis
--- NOTE | 2019-03-30 13:09 | P.PN ---
Subjective 78-year-old male was born with the family members because of fall to the status and delusions. Patient had a fall day before and the patient was not acting normal by home care nurse. Patient denied any dysuria patient is mildly doing much better patient is alert oriented 2. 3 today although he is unable to give me the exact date. Patient is found to have normal urine was admitted for urinary tract infection with Rocephin. Patient was treated for urinary tract infections in the past and the patient had E. coli in the recent past since 2 to multiple antibiotics patient will be can you on Rocephin. Patient had low-grade fever. There is no other appreciable source of infection because of which I'll consider this is urinary tract infection although infectious disease will be consultative as he is high risk for Clostridium difficile colitis patient had C. diff colitis last year after he was treated for urinary tract infection. Ct ent had stable and elevated troponin of 0.40 and 0.44 probably secondary to sepsis and acute renal failure although I believe patient's confusion and altered mental status is mostly metabolic secondary to acute renal failure severe intravascular depletion patient does have history of congestive heart failure and atrial fibrillation on Coumadin INR is 3.0 because of antibiotics on hold off Coumadin today will be resumed tomorrow on Coumadin and recheck the INR tomorrow. Patient is hyponatremic with hyperkalemia. Patient appears to have history of Diastolic dysfunction had a normal systolic function in the past patient has enlarged left atrium because of which patient is receiving diuretic therapy as an outpatient. Diuretic therapy will be dyspnea and patient was started on IV fluids. I'll also obtain urine tests looking for causes of acute renal failure which is most probably prerenal azotemia from intravascular depletion. Patient has a hyperchloremic acidosis non-anion gap metabolic acidosis secondary to IV fluids which presently will be continued.. Patient denies any chest pain or significant changes in the EKG. 03/29/2019 Patient is sitting up in bed in no acute distress. Patient is able to respond appropriately to questions and commands. Will decrease IV hydration to 75 ML per hour. Denies any acute overnight issues. Patient states that he normally lives at home alone and Homecare visits and would like to go home. Currently awaiting urology and nephrology consults. Infectious disease is following. Patient denies any chest pain, shortness of breath, or palpitations at this time. Patient denies any nausea or vomiting and has been tolerating diet. Patient encouraged to work with PT/OT. Guarded prognosis. 03/30/2019 Patient has a pansensitive E. coli continue with Rocephin patient creatinine minimally improved patient probably has acute tubular necrosis from sepsis. Nephrology is recommending continuation of IV fluids. Acute tubular necrosis can be from sepsis as well as hypotension which she had when he came in. Urology valid to the patient for because of nephrolithiasis intervention is being planned at this time but they're following the patient if needed intervention will be done if his kidney function doesn't improve patient has a 1.5 cm renal calculi. Constitutional: Denied any fatigue denied any fever. Cardio vascular: denied any chest pain, palpitations Gastrointestinal denied any nausea vomiting Pulmonary: Denied any shortness of breath cough Neurologic denied any new focal deficits All inpatient medications were reviewed and appropriate changes in these medications as dictated in the interval history and assessment and plan. Objective - Vital Signs Vital signs: Vital Signs Temp 97.4 F L 03/30/19 12:09 Pulse 72 03/30/19 12:09 Resp 16 03/30/19 12:09 BP 125/76 03/30/19 12:09 Pulse Ox 98 03/30/19 12:09 Intake & Output 03/29/19 03/30/19 03/30/19 18:59 06:59 18:59 Other: Voiding Method Diaper Diaper Diaper Incontinent Incontinent Incontinent # Voids 2 3 - Exam PHYSICAL EXAMINATION: GENERAL: The patient is alert and oriented x3, not in any acute distress. Well developed, well nourished. HEENT: Pupils are round and equally reacting to light. EOMI. No scleral icterus. No conjunctival pallor. Normocephalic, atraumatic. No pharyngeal erythema. No thyromegaly. CARDIOVASCULAR: S1 and S2 present. No murmurs, rubs, or gallops. PULMONARY: Chest is clear to auscultation, no wheezing or crackles. ABDOMEN: Soft, nontender, nondistended, normoactive bowel sounds. No palpable organomegaly. MUSCULOSKELETAL: No joint swelling or deformity. EXTREMITIES: No cyanosis, clubbing, or pedal edema. NEUROLOGICAL: Gross neurological examination did not reveal any focal deficits. SKIN: No rashes. - Labs CBC & Chem 7: 03/29/19 08:30 03/29/19 08:30 Labs: Abnormal Lab Results - Last 24 Hours (Table) 03/29/19 03/29/19 03/30/19 Range/Units 17:15 20:39 06:26 PT 26.5 H (9.0-12.0) sec INR 2.7 H (<1.2) POC Glucose (mg/dL) 202 H 192 H (75-99) mg/dL 03/30/19 03/30/19 Range/Units 07:13 11:13 PT (9.0-12.0) sec INR (<1.2) POC Glucose (mg/dL) 161 H 191 H (75-99) mg/dL Microbiology - Last 24 Hours (Table) 03/27/19 20:25 Blood Culture - Preliminary Blood No Growth after 48 hours 03/27/19 21:21 Urine Culture - Final Urine,Voided Escherichia coli Assessment and Plan Plan: -Altered mental status mostly metabolic metabolic encephalopathy is contributing to that from acute renal failure and severe intravascular depletion and dehydration and diuretic therapy. Although toxic encephalopathy from UTI the contributing factor to - urinary tract infection Rocephin , patient has pansensitive E. 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 GI prophylaxis
[2019-03-30 17:08] LABS: Glucose,Whole Blood 212 mg/dL (75-99)
[2019-03-30] MEDS: INSULIN ASPART (NovoLOG) 100 UNIT/ML VIAL SQ SCH ×2 (17:21→20:35)
[2019-03-30] MEDS ORDERED: WARFARIN 3 MG TAB PO ONE (18:00)
[2019-03-30 20:24] LABS: Glucose,Whole Blood 154 mg/dL (75-99)
--- NOTE | 2019-03-30 23:28 | PN ---
PROGRESS NOTE DATE OF SERVICE: 03/30/2019. REASON FOR FOLLOWUP: E. coli urinary tract infection. INTERVAL HISTORY: The patient is currently afebrile. The patient has been breathing comfortably. The patient already feeling better and is insisting on going home. No chest pain. No cough. No nausea, no vomiting. No abdominal pain. No diarrhea. PHYSICAL EXAMINATION: Blood pressure is 132/73 with a pulse of 67, temperature 98.2. He is 95% on room air. General description is an elderly male up in the room in no distress. Respiratory system: Unlabored breathing. Clear to auscultation anteriorly. Heart S1, S2. Regular rate and rhythm. Abdomen soft. No tenderness. LABS: No new labs have been obtained. has been finalized with E. coli that is sensitive pathogen. Blood culture has been negative. DIAGNOSTIC IMPRESSION AND PLAN: Patient with an E coli urinary tract infection in this patient clinically responding to the Rocephin. Plan for short course of amoxicillin on discharge. Questions and concerns were answered. MMODL / IJN: [id number] /
[2019-03-31] MEDS: LEVOTHYROXINE 75 MCG TAB PO SCH (05:44)
[2019-03-31 06:52] LABS: INR 2.6 (<1.2); Prothrombin Time 25.1 sec (9.0-12.0)
[2019-03-31 07:08] LABS: Albumin 2.8 g/dL (3.5-5.0); Calcium 8.7 mg/dL (8.4-10.2); Potassium 4.9 mmol/L (3.5-5.1); Total Bilirubin 0.8 mg/dL (0.2-1.3); Total Protein 5.9 g/dL (6.3-8.2)
[2019-03-31 07:11] LABS: Anisocytosis Slight; Basophils # (A) 0.1 k/uL (0-0.2); Basophils % (A) 1 %; Eosinophils # (A) 0.9 k/uL (0-0.7); Eosinophils % (A) 8 %; HGB 10.9 gm/dL (13.0-17.5); Lymphocytes # (A) 0.7 k/uL (1.0-4.8); Lymphocytes % (A) 6 %; MCH 28.3 pg (25.0-35.0); MCHC 32.1 g/dL (31.0-37.0); Mean Platelet Volume 7.9; Monocytes # (A) 0.7 k/uL (0-1.0); Monocytes % (A) 6 %; Neutrophils # (A) 8.2 k/uL (1.3-7.7); Neutrophils % (A) 75 %; Platelet Count 198 k/uL (150-450); RBC 3.86 m/uL (4.30-5.90); RDW 17.4 % (11.5-15.5); WBC 10.9 k/uL (3.8-10.6)
[2019-03-31 07:20] LABS: Glucose,Whole Blood 163 mg/dL (75-99)
[2019-03-31] MEDS: INSULIN ASPART (NovoLOG) 100 UNIT/ML VIAL SQ SCH ×4 (07:31→21:03)
[2019-03-31] MEDS: LACTOBACILLUS ACIDOPH & BULGAR 1 EACH PACKET PO SCH ×2 (07:32→20:47)
[2019-03-31] MEDS: ATORVASTATIN 10 MG TAB PO SCH (07:33)
[2019-03-31] MEDS: OXYBUTYNIN CHLORIDE 5 MG TAB PO SCH ×2 (07:34→20:47)
[2019-03-31] MEDS: TRIAMCINOLONE ACET 0.1% OINTMENT 15 GM TUBE TOPICAL SCH ×3 (07:35→20:58)
[2019-03-31] MEDS: MUPIROCIN 2% OINT 22 GM TUBE TOPICAL SCH ×2 (07:35→20:56)
[2019-03-31] MEDS: SODIUM CHLORIDE 0.9% 1,000 ML IV SCH (07:36)
[2019-03-31 11:19] LABS: Glucose,Whole Blood 179 mg/dL (75-99)
--- NOTE | 2019-03-31 11:52 | P.PN ---
Subjective 78-year-old male was born with the family members because of fall to the status and delusions. Patient had a fall day before and the patient was not acting normal by home care nurse. Patient denied any dysuria patient is mildly doing much better patient is alert oriented 2. 3 today although he is unable to give me the exact date. Patient is found to have normal urine was admitted for urinary tract infection with Rocephin. Patient was treated for urinary tract infections in the past and the patient had E. coli in the recent past since 2 to multiple antibiotics patient will be can you on Rocephin. Patient had low-grade fever. There is no other appreciable source of infection because of which I'll consider this is urinary tract infection although infectious disease will be consultative as he is high risk for Clostridium difficile colitis patient had C. diff colitis last year after he was treated for urinary tract infection. Ct ent had stable and elevated troponin of 0.40 and 0.44 probably secondary to sepsis and acute renal failure although I believe patient's confusion and altered mental status is mostly metabolic secondary to acute renal failure severe intravascular depletion patient does have history of congestive heart failure and atrial fibrillation on Coumadin INR is 3.0 because of antibiotics on hold off Coumadin today will be resumed tomorrow on Coumadin and recheck the INR tomorrow. Patient is hyponatremic with hyperkalemia. Patient appears to have history of Diastolic dysfunction had a normal systolic function in the past patient has enlarged left atrium because of which patient is receiving diuretic therapy as an outpatient. Diuretic therapy will be dyspnea and patient was started on IV fluids. I'll also obtain urine tests looking for causes of acute renal failure which is most probably prerenal azotemia from intravascular depletion. Patient has a hyperchloremic acidosis non-anion gap metabolic acidosis secondary to IV fluids which presently will be continued.. Patient denies any chest pain or significant changes in the EKG. 03/29/2019 Patient is sitting up in bed in no acute distress. Patient is able to respond appropriately to questions and commands. Will decrease IV hydration to 75 ML per hour. Denies any acute overnight issues. Patient states that he normally lives at home alone and Homecare visits and would like to go home. Currently awaiting urology and nephrology consults. Infectious disease is following. Patient denies any chest pain, shortness of breath, or palpitations at this time. Patient denies any nausea or vomiting and has been tolerating diet. Patient encouraged to work with PT/OT. Guarded prognosis. 03/30/2019 Patient has a pansensitive E. coli continue with Rocephin patient creatinine minimally improved patient probably has acute tubular necrosis from sepsis. Nephrology is recommending continuation of IV fluids. Acute tubular necrosis can be from sepsis as well as hypotension which she had when he came in. Urology valid to the patient for because of nephrolithiasis intervention is being planned at this time but they're following the patient if needed intervention will be done if his kidney function doesn't improve patient has a 1.5 cm renal calculi. 03/31/2019 Patient is doing better continue present antibiotics and the kidney function is improving presently 2.98 serum creatinine as opposed to 4.1. Patient remains on IV fluids and nephrology is managing these IV fluids. Constitutional: Denied any fatigue denied any fever. Cardio vascular: denied any chest pain, palpitations Gastrointestinal denied any nausea vomiting Pulmonary: Denied any shortness of breath cough Neurologic denied any new focal deficits All inpatient medications were reviewed and appropriate changes in these medications as dictated in the interval history and assessment and plan. Objective - Vital Signs Vital signs: Vital Signs Temp 98 F 03/31/19 04:51 Pulse 72 03/31/19 07:43 Resp 20 03/31/19 07:43 BP 145/88 03/31/19 04:51 Pulse Ox 97 03/31/19 04:51 Intake & Output 03/30/19 03/31/19 03/31/19 18:59 06:59 18:59 Intake Total 240 225 200 Balance 240 225 200 Intake: Intake, IV Titration 225 Amount Sodium Chloride 0.9% 1, 225 000 ml @ 75 mls/hr IV . [id number] [facility] Rx#:[id number] Oral 240 200 Other: Voiding Method Diaper Diaper Toilet Incontinent Incontinent # Voids 3 4 - Exam PHYSICAL EXAMINATION: GENERAL: The patient is alert and oriented x3, not in any acute distress. Well developed, well nourished. HEENT: Pupils are round and equally reacting to light. EOMI. No scleral icterus. No conjunctival pallor. Normocephalic, atraumatic. No pharyngeal erythema. No thyromegaly. CARDIOVASCULAR: S1 and S2 present. No murmurs, rubs, or gallops. PULMONARY: Chest is clear to auscultation, no wheezing or crackles. ABDOMEN: Soft, nontender, nondistended, normoactive bowel sounds. No palpable organomegaly. MUSCULOSKELETAL: No joint swelling or deformity. EXTREMITIES: No cyanosis, clubbing, or pedal edema. NEUROLOGICAL: Gross neurological examination did not reveal any focal deficits. SKIN: No rashes. - Labs CBC & Chem 7: 03/31/19 06:19 03/31/19 06:19 Labs: Abnormal Lab Results - Last 24 Hours (Table) 03/30/19 03/30/19 03/31/19 Range/Units 17:06 20:23 06:19 WBC (3.8-10.6) k/uL RBC (4.30-5.90) m/uL Hgb (13.0-17.5) gm/dL Hct (39.0-53.0) % RDW (11.5-15.5) % Neutrophils # (1.3-7.7) k/uL Lymphocytes # (1.0-4.8) k/uL Eosinophils # (0-0.7) k/uL PT 25.1 H (9.0-12.0) sec INR 2.6 H (<1.2) Carbon Dioxide (22-30) mmol/L BUN (9-20) mg/dL Creatinine (0.66-1.25) mg/dL Glucose (74-99) mg/dL POC Glucose (mg/dL) 212 H 154 H (75-99) mg/dL AST (17-59) U/L ALT (21-72) U/L Alkaline Phosphatase (38-126) U/L Total Protein (6.3-8.2) g/dL Albumin (3.5-5.0) g/dL 03/31/19 03/31/19 03/31/19 Range/Units 06:19 06:19 07:14 WBC 10.9 H (3.8-10.6) k/uL RBC 3.86 L (4.30-5.90) m/uL Hgb 10.9 L (13.0-17.5) gm/dL Hct 34.0 L (39.0-53.0) % RDW 17.4 H (11.5-15.5) % Neutrophils # 8.2 H (1.3-7.7) k/uL Lymphocytes # 0.7 L (1.0-4.8) k/uL Eosinophils # 0.9 H (0-0.7) k/uL PT (9.0-12.0) sec INR (<1.2) Carbon Dioxide 19 L (22-30) mmol/L BUN 61 H (9-20) mg/dL Creatinine 2.98 H (0.66-1.25) mg/dL Glucose 156 H (74-99) mg/dL POC Glucose (mg/dL) 163 H (75-99) mg/dL AST 105 H (17-59) U/L ALT 87 H (21-72) U/L Alkaline Phosphatase 262 H (38-126) U/L Total Protein 5.9 L (6.3-8.2) g/dL Albumin 2.8 L (3.5-5.0) g/dL 03/31/19 Range/Units 11:15 WBC (3.8-10.6) k/uL RBC (4.30-5.90) m/uL Hgb (13.0-17.5) gm/dL Hct (39.0-53.0) % RDW (11.5-15.5) % Neutrophils # (1.3-7.7) k/uL Lymphocytes # (1.0-4.8) k/uL Eosinophils # (0-0.7) k/uL PT (9.0-12.0) sec INR (<1.2) Carbon Dioxide (22-30) mmol/L BUN (9-20) mg/dL Creatinine (0.66-1.25) mg/dL Glucose (74-99) mg/dL POC Glucose (mg/dL) 179 H (75-99) mg/dL AST (17-59) U/L ALT (21-72) U/L Alkaline Phosphatase (38-126) U/L Total Protein (6.3-8.2) g/dL Albumin (3.5-5.0) g/dL Microbiology - Last 24 Hours (Table) 03/27/19 20:25 Blood Culture - Preliminary Blood No Growth after 72 hours Assessment and Plan Plan: -Altered mental status mostly metabolic metabolic encephalopathy is contributing to that from acute renal failure and severe intravascular depletion and dehydration and diuretic therapy. Although toxic encephalopathy from UTI the contributing factor to - urinary tract infection Rocephin , patient has pansensitive E. coli in the urine -acute renal failure due twas probably acute tubular necrosis from above- mentioned reasons, there may be a competent to prerenal azotemia as well patient is improving with IV fluids arial fibrillation rate controlled at this time patient will be started on Coumadin patient is on Coumadin at 4 mg , INR is therapeutic -HypoglycemiResolved nowType 2 diabetes mellitus sliding scale insulin will hold off on oral hypoglycemic agents because of his hypoglycemia at home -Generalized weakness secondary to H and multiple medical problems physical therapy and occupational therapy evaluated the patient is recommending subacute rehabilitation. 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 GI prophylaxis
--- NOTE | 2019-03-31 14:07 | P.PN ---
Subjective Progress Note Date: 03/31/19 Principal diagnosis: This is 78-year-old male seen in consultation because of acute kidney injury and chronic kidney disease. His acute kidney injury deemed to be from decreased intake and prerenal state. He was started on IV fluids. His creatinine was repeat that for 0.13 on 03/27/2019 and is down to 2.98 this morning. His baseline creatinine is about 2 dated 07/13/2018 He came in because of fall after tripping and unable to move for about 4-6 hours. He did not lose consciousness. Does not have any pain aches. He had generalized weakness for which reason he was unable to move. His total CK was Denies any fever chills cough nausea vomiting shortness of breath no abdominal pain no dysuria frequency Past history significant for recurrent kidney stone the past. He does have an ultrasound of the suggestive of left hydronephrosis which is mild Objective - Vital Signs Vital signs: Vital Signs Temp 98.2 F 03/31/19 13:00 Pulse 88 03/31/19 13:00 Resp 17 03/31/19 13:00 BP 127/74 03/31/19 13:00 Pulse Ox 98 03/31/19 13:00 Intake & Output 03/30/19 03/31/19 03/31/19 18:59 06:59 18:59 Intake Total 240 225 200 Balance 240 225 200 Intake: Intake, IV Titration 225 Amount Sodium Chloride 0.9% 1, 225 000 ml @ 75 mls/hr IV . [id number] [facility] Rx#:[id number] Oral 240 200 Other: Voiding Method Diaper Diaper Toilet Incontinent Incontinent # Voids 3 4 On examination is awake alert oriented comfortable. HEENT exam no JVP neck is supple no facial asymmetry Lungs are clear to auscultation good air entry bilaterally Heart sounds are unremarkable for any murmur rub gallop Abdomen is soft nontender no organomegaly ascites masses Extremity exam mild edema more on the left than on the right which is chronic per patient Neurologically awake alert oriented. He does have generalized weakness - Labs CBC & Chem 7: 03/31/19 06:19 03/31/19 06:19 Labs: Abnormal Lab Results - Last 24 Hours (Table) 03/30/19 03/30/19 03/31/19 Range/Units 17:06 20:23 06:19 WBC (3.8-10.6) k/uL RBC (4.30-5.90) m/uL Hgb (13.0-17.5) gm/dL Hct (39.0-53.0) % RDW (11.5-15.5) % Neutrophils # (1.3-7.7) k/uL Lymphocytes # (1.0-4.8) k/uL Eosinophils # (0-0.7) k/uL PT 25.1 H (9.0-12.0) sec INR 2.6 H (<1.2) Carbon Dioxide (22-30) mmol/L BUN (9-20) mg/dL Creatinine (0.66-1.25) mg/dL Glucose (74-99) mg/dL POC Glucose (mg/dL) 212 H 154 H (75-99) mg/dL AST (17-59) U/L ALT (21-72) U/L Alkaline Phosphatase (38-126) U/L Total Protein (6.3-8.2) g/dL Albumin (3.5-5.0) g/dL 03/31/19 03/31/19 03/31/19 Range/Units 06:19 06:19 07:14 WBC 10.9 H (3.8-10.6) k/uL RBC 3.86 L (4.30-5.90) m/uL Hgb 10.9 L (13.0-17.5) gm/dL Hct 34.0 L (39.0-53.0) % RDW 17.4 H (11.5-15.5) % Neutrophils # 8.2 H (1.3-7.7) k/uL Lymphocytes # 0.7 L (1.0-4.8) k/uL Eosinophils # 0.9 H (0-0.7) k/uL PT (9.0-12.0) sec INR (<1.2) Carbon Dioxide 19 L (22-30) mmol/L BUN 61 H (9-20) mg/dL Creatinine 2.98 H (0.66-1.25) mg/dL Glucose 156 H (74-99) mg/dL POC Glucose (mg/dL) 163 H (75-99) mg/dL AST 105 H (17-59) U/L ALT 87 H (21-72) U/L Alkaline Phosphatase 262 H (38-126) U/L Total Protein 5.9 L (6.3-8.2) g/dL Albumin 2.8 L (3.5-5.0) g/dL 03/31/19 Range/Units 11:15 WBC (3.8-10.6) k/uL RBC (4.30-5.90) m/uL Hgb (13.0-17.5) gm/dL Hct (39.0-53.0) % RDW (11.5-15.5) % Neutrophils # (1.3-7.7) k/uL Lymphocytes # (1.0-4.8) k/uL Eosinophils # (0-0.7) k/uL PT (9.0-12.0) sec INR (<1.2) Carbon Dioxide (22-30) mmol/L BUN (9-20) mg/dL Creatinine (0.66-1.25) mg/dL Glucose (74-99) mg/dL POC Glucose (mg/dL) 179 H (75-99) mg/dL AST (17-59) U/L ALT (21-72) U/L Alkaline Phosphatase (38-126) U/L Total Protein (6.3-8.2) g/dL Albumin (3.5-5.0) g/dL Microbiology - Last 24 Hours (Table) 03/27/19 20:25 Blood Culture - Preliminary Blood No Growth after 72 hours Assessment and Plan Plan: Impression 1. Acute kidney injury from prerenal. Creatinine improved from 4.1-2.9 with hydration. Additionally he has hydronephrosis on the left seen on ultrasound. 2. Chronic kidney disease, stage III with GFR in the 30s secondary to nephrosclerosis, baseline creatinine is 2.0 on 07/13/2018 and more recently 2.94 as of 10/19/2018. There may be an element of obstructive hydronephrosis which is seen on the left by ultrasound that's adding to the chronic kidney disease. 3. Urinary tract infection with E. coli 4. Nonobstructive Was in the lower poor measuring 1.3 cm on the left side 5. Mild degree of non-gap acidosis with bicarb of 18 and gap of 14, etiology is chronic kidney disease. Bicarb is 19 this morning with gap of 11 5. History of bladder CA with 2 surgeries in October 2018 in December 2018 possible involvement of ureteral orifices Recommendation 1. Continue IV fluids normal saline at 75 an hour. continueodium bicarb 6 and 50 twice a day 3. Monitor labs and urine output 4. Urology is on the case regarding the mild left hydronephrosis 5. Later when he is stable and in the outpatient, he needs needs workup for frequent and recurrent nephrolithiasis
[2019-03-31 17:16] LABS: Glucose,Whole Blood 215 mg/dL (75-99)
[2019-03-31] MEDS ORDERED: WARFARIN 3 MG TAB PO ONE (18:00)
[2019-03-31 21:00] LABS: Glucose,Whole Blood 136 mg/dL (75-99)
--- NOTE | 2019-03-31 23:16 | PN ---
PROGRESS NOTE DATE OF SERVICE: 03/31/2019. REASON FOR FOLLOWUP: E coli urinary tract infection. INTERVAL HISTORY: The patient is currently afebrile, has been breathing comfortably. Denies having any chest pain. No cough. No nausea, no vomiting. No abdominal pain. No diarrhea. PHYSICAL EXAMINATION: Blood pressure is 127/74 with a pulse of 88, temperature 98.2. He is 98% on room air. General description is an elderly male lying in bed in no distress. Respiratory system: Unlabored breathing. Clear to auscultation anteriorly. Heart S1, S2. Regular rate and rhythm. Abdomen soft, no tenderness. LABS: Hemoglobin is 10.8, white count 10.9, BUN of 61, creatinine is 2.98. DIAGNOSTIC IMPRESSION AND PLAN: Patient with E coli urinary tract infection currently responded to Rocephin, sensitive pathogen. Will finish therapy with short course of oral amoxicillin and monitor clinical course closely. Continue supportive care. MMODL / ALIYAN: [id number] /
[2019-04-01] MEDS: LEVOTHYROXINE 75 MCG TAB PO SCH (05:38)
[2019-04-01] MEDS: SODIUM CHLORIDE 0.9% 1,000 ML IV SCH ×2 (05:39→12:07)
[2019-04-01 07:11] LABS: Glucose,Whole Blood 148 mg/dL (75-99)
[2019-04-01 07:44] LABS: INR 2.9 (<1.2); Prothrombin Time 27.8 sec (9.0-12.0)
[2019-04-01] MEDS: INSULIN ASPART (NovoLOG) 100 UNIT/ML VIAL SQ SCH ×4 (07:49→21:24)
[2019-04-01] MEDS: LACTOBACILLUS ACIDOPH & BULGAR 1 EACH PACKET PO SCH ×2 (07:49→21:24)
[2019-04-01] MEDS: ATORVASTATIN 10 MG TAB PO SCH (07:49)
[2019-04-01] MEDS: OXYBUTYNIN CHLORIDE 5 MG TAB PO SCH ×2 (07:50→21:24)
[2019-04-01] MEDS: TRIAMCINOLONE ACET 0.1% OINTMENT 15 GM TUBE TOPICAL SCH ×3 (07:53→21:35)
[2019-04-01] MEDS: MUPIROCIN 2% OINT 22 GM TUBE TOPICAL SCH ×2 (07:53→21:35)
[2019-04-01 07:57] LABS: Calcium 8.7 mg/dL (8.4-10.2)
[2019-04-01 10:54] LABS: Glucose,Whole Blood 223 mg/dL (75-99)
--- NOTE | 2019-04-01 11:35 | P.PN ---
Subjective Patient is seen in follow-up for acute kidney injury on chronic kidney disease. Renal function is improved since admission. Creatinine 2.73 today. Currently maintained on normal saline at 75 mL an hour. Oral intake is good. No vomiting or diarrhea. Vital signs are stable. General: The patient appeared well nourished and normally developed. HEENT: Head exam is unremarkable. Neck is without jugular venous distension. LUNGS: Lungs are clear to auscultation and percussion. Breath sounds decreased. HEART: Rate and Rhythm are regular. First and second heart sounds normal. No murmurs, rubs or gallops. ABDOMEN: Abdominal exam reveals normal bowel sounds. Non-tender and non- distended. No evidence of peritonitis. EXTREMITITES: 1+ edema. Objective - Vital Signs Vital signs: Vital Signs Temp 97.7 F 04/01/19 05:00 Pulse 95 04/01/19 05:00 Resp 18 04/01/19 07:20 BP 117/71 04/01/19 05:00 Pulse Ox 96 04/01/19 05:00 Intake & Output 03/31/19 04/01/19 04/01/19 18:59 06:59 18:59 Intake Total 440 225 Balance 440 225 Intake: Intake, IV Titration 225 Amount Sodium Chloride 0.9% 1, 225 000 ml @ 75 mls/hr IV . [id number] [facility] Rx#:[id number] Oral 440 Other: Voiding Method Toilet Toilet Toilet Diaper Diaper # Voids 4 4 - Labs CBC & Chem 7: 03/31/19 06:19 04/01/19 07:28 Labs: Abnormal Lab Results - Last 24 Hours (Table) 03/31/19 03/31/19 04/01/19 Range/Units 17:13 20:59 07:07 PT (9.0-12.0) sec INR (<1.2) Chloride (98-107) mmol/L Carbon Dioxide (22-30) mmol/L BUN (9-20) mg/dL Creatinine (0.66-1.25) mg/dL Glucose (74-99) mg/dL POC Glucose (mg/dL) 215 H 136 H 148 H (75-99) mg/dL 04/01/19 04/01/19 04/01/19 Range/Units 07:27 07:28 10:53 PT 27.8 H (9.0-12.0) sec INR 2.9 H (<1.2) Chloride 111 H (98-107) mmol/L Carbon Dioxide 17 L (22-30) mmol/L BUN 57 H (9-20) mg/dL Creatinine 2.73 H (0.66-1.25) mg/dL Glucose 152 H (74-99) mg/dL POC Glucose (mg/dL) 223 H (75-99) mg/dL Microbiology - Last 24 Hours (Table) 03/27/19 20:25 Blood Culture - Preliminary Blood No Growth after 96 hours Assessment and Plan Plan: Assessment: 1. Acute kidney injury mostly prerenal improved with IV hydration. Creatinine 2.73 today. He is also noted to have left-sided hydronephrosis on kidney ultrasound. 2. Chronic kidney disease stage IIIB/4 secondary to nephrosclerosis. Patient's creatinine in June 2018 was 2 and was near 3 in November 2018. 3. E. coli UTI maintain on antibiotics. 4. Metabolic acidosis secondary to chronic kidney disease. Plan: Hep-Lock IV fluids.. Add oral sodium bicarbonate. Potential discharge today. Follow up outpatient in the next 2 weeks.
[2019-04-01] MEDS: SODIUM BICARBONATE TAB 650 MG TAB PO SCH ×2 (12:13→21:24)
[2019-04-01 17:03] LABS: Glucose,Whole Blood 222 mg/dL (75-99)
--- NOTE | 2019-04-01 17:53 | PN ---
PROGRESS NOTE DATE OF SERVICE: 04/01/2019 REASON FOR FOLLOWUP: E coli urinary tract infection. INTERVAL HISTORY: The patient is currently afebrile. The patient has been breathing comfortably. The patient denies having any chest pain or any cough. No nausea, no vomiting, no abdominal pain and no diarrhea. PHYSICAL EXAMINATION: Blood pressure 123/64 with a pulse of 82, temperature 97.7. He is 98% on room air. General description is an elderly male up in the chair in no distress. RESPIRATORY SYSTEM: Unlabored breathing. Clear to auscultation anteriorly. HEART: S1, S2. Regular rate and rhythm. ABDOMEN: Soft. No tenderness. LABS: BUN of 57, creatinine 2.73. INR of 2.9. DIAGNOSTIC IMPRESSION AND PLAN: Patient with Escherichia coli urinary tract infection. Patient is currently covered with Rocephin; to continue. Hopefully finish therapy with a short course of oral antibiotics. Continue supportive care. MMODL / IJN: [id number] /
[2019-04-01] MEDS ORDERED: WARFARIN 3 MG TAB PO ONE (18:00)
[2019-04-01 20:45] LABS: Glucose,Whole Blood 235 mg/dL (75-99)
[2019-04-02] MEDS: LEVOTHYROXINE 75 MCG TAB PO SCH (06:11)
[2019-04-02 07:05] LABS: Glucose,Whole Blood 143 mg/dL (75-99)
[2019-04-02 08:31] LABS: Prothrombin Time 28.6 sec (9.0-12.0)
[2019-04-02] MEDS: TRIAMCINOLONE ACET 0.1% OINTMENT 15 GM TUBE TOPICAL SCH ×2 (09:04→18:04)
[2019-04-02] MEDS: OXYBUTYNIN CHLORIDE 5 MG TAB PO SCH (09:04)
[2019-04-02] MEDS: ATORVASTATIN 10 MG TAB PO SCH (09:04)
[2019-04-02] MEDS: LACTOBACILLUS ACIDOPH & BULGAR 1 EACH PACKET PO SCH (09:04)
[2019-04-02] MEDS: MUPIROCIN 2% OINT 22 GM TUBE TOPICAL SCH (09:04)
[2019-04-02] MEDS: SODIUM BICARBONATE TAB 650 MG TAB PO SCH (09:04)
[2019-04-02] MEDS: INSULIN ASPART (NovoLOG) 100 UNIT/ML VIAL SQ SCH ×3 (09:05→18:06)
[2019-04-02 09:07] LABS: Calcium 9.2 mg/dL (8.4-10.2); Potassium 5.3 mmol/L (3.5-5.1)
[2019-04-02 11:44] LABS: Glucose,Whole Blood 241 mg/dL (75-99)
--- NOTE | 2019-04-02 11:44 | P.PN ---
Subjective Patient is seen in follow-up for acute kidney injury on chronic kidney disease. Renal function is improved since admission. Creatinine 2.55 today. Off IVFs. Oral intake is good. No vomiting or diarrhea. Wants to go home. Vital signs are stable. General: The patient appeared well nourished and normally developed. HEENT: Head exam is unremarkable. Neck is without jugular venous distension. LUNGS: Lungs are clear to auscultation and percussion. Breath sounds decreased. HEART: Rate and Rhythm are regular. First and second heart sounds normal. No murmurs, rubs or gallops. ABDOMEN: Abdominal exam reveals normal bowel sounds. Non-tender and non- distended. No evidence of peritonitis. EXTREMITITES: 1+ edema. Objective - Vital Signs Vital signs: Vital Signs Temp 98 F 04/02/19 05:00 Pulse 81 04/02/19 05:00 Resp 18 04/02/19 08:23 BP 107/73 04/02/19 05:00 Pulse Ox 98 04/02/19 05:00 Intake & Output 04/01/19 04/02/19 04/02/19 18:59 06:59 18:59 Intake Total 750 110 Balance 750 110 Intake: Intake, IV Titration 150 50 Amount Sodium Chloride 0.9% 1, 150 000 ml @ 75 mls/hr IV . [id number] [facility] Rx#:[id number] cefTRIAXone 1 gm In 50 Sodium Chloride 0.9% 50 ml @ 100 mls/hr IVPB Q24H [facility] Rx#:[id number] Oral 600 60 Other: Voiding Method Toilet Toilet Toilet Diaper Diaper Diaper Incontinent Incontinent # Voids 3 4 1 - Labs CBC & Chem 7: 03/31/19 06:19 04/02/19 07:38 Labs: Abnormal Lab Results - Last 24 Hours (Table) 04/01/19 04/01/19 04/02/19 Range/Units 17:00 20:44 07:02 PT (9.0-12.0) sec INR (<1.2) Potassium (3.5-5.1) mmol/L Chloride (98-107) mmol/L Carbon Dioxide (22-30) mmol/L BUN (9-20) mg/dL Creatinine (0.66-1.25) mg/dL Glucose (74-99) mg/dL POC Glucose (mg/dL) 222 H 235 H 143 H (75-99) mg/dL 04/02/19 04/02/19 Range/Units 07:38 07:38 PT 28.6 H (9.0-12.0) sec INR 3.0 H (<1.2) Potassium 5.3 H (3.5-5.1) mmol/L Chloride 111 H (98-107) mmol/L Carbon Dioxide 18 L (22-30) mmol/L BUN 54 H (9-20) mg/dL Creatinine 2.55 H (0.66-1.25) mg/dL Glucose 146 H (74-99) mg/dL POC Glucose (mg/dL) (75-99) mg/dL Microbiology - Last 24 Hours (Table) 03/27/19 20:25 Blood Culture - Preliminary Blood No Growth after 120 hours Assessment and Plan Plan: Assessment: 1. Acute kidney injury mostly prerenal improved with IV hydration. Creatinine 2.55 today. He is also noted to have left-sided hydronephrosis on kidney ultrasound. 2. Chronic kidney disease stage IIIB/4 secondary to nephrosclerosis. Patient's creatinine in June 2018 was 2 and was near 3 in November 2018. 3. E. coli UTI maintain on antibiotics. 4. Metabolic acidosis secondary to chronic kidney disease. Plan: Maintain oral sodium bicarbonate. Potential discharge today. Follow up outpatient in the next 2 weeks.
[2019-04-02 14:07] VITALS: BP 117/63; PULSE 84; TEMP 97.9
--- NOTE | 2019-04-02 15:01 | P.DS ---
Providers Date of admission: 03/27/19 21:47 Expected date of discharge: 04/02/19 Attending physician: Terry Muñoz Consults: 03/28/19 11:49 Consult Physician Routine Consulting Provider: Omar Gotti Consult Reason/Comments: cellulitis Do you want consulting provider notified?: Already Contacted 03/29/19 12:11 Consult Physician Stat Consulting Provider: Ani Eldridge Consult Reason/Comments: left hydronephrosis, non-obstructing calculus Do you want consulting provider notified?: Yes 03/29/19 12:13 Consult Physician Stat Consulting Provider: Efrem Ji Consult Reason/Comments: hydronephrosis, non-obstructing calculus, uti Do you want consulting provider notified?: Yes Primary care physician: Rogelio Mitchell Hospital Course: Discharge diagnosis -Altered mental status mostly metabolic metabolic encephalopathy is contributing to that from acute renal failure and severe intravascular depletion and dehydration and diuretic therapy. Although toxic encephalopathy from UTI the contributing factor too. Improving at this time back to baseline. Currently awake alert and oriented 3. - urinary tract infection Rocephin , patient has pansensitive E. coli in the u rine. Complete with oral antibiotic course with Ceftin. -acute renal failure due twas probably acute tubular necrosis from above- mentioned reasons, there may be a competent to prerenal azotemia as well patient is improving with IV fluids arial fibrillation rate controlled at this time patient will be started on Coumadin patient is on Coumadin at 4 mg , INR is therapeutic -HypoglycemiResolved nowType 2 diabetes mellitus sliding scale insulin will hold off on oral hypoglycemic agents because of his hypoglycemia at home -Generalized weakness secondary to H and multiple medical problems physical therapy and occupational therapy evaluated the patient is recommending subacute rehabilitation. -Congestive heart failure chronic diastolic dysfunction not in acute exacerbation patient is hypovolemic patien on IV fluids -hypovolemic hyponatremia improved with IV fluids Elevated troponin secondary to acute renal failure -Unilateral 1.5 cm nephrolithiasis urology evaluated the patient no further i mpression is being planus his creatinine is improving and this appears to be nonobstructive -Chronic kidney disease stage 3 from type 2 diabetes mellitus -Hypertension -Hyperlipidemia -Hypothyroidism -History of prostate cancer status post transurethral resection of prostate. GI prophylaxis Hospital course 78-year-old male was born with the family members because of fall to the status and delusions. Patient had a fall day before and the patient was not acting normal by home care nurse. Patient denied any dysuria patient is mildly doing much better patient is alert oriented 2. 3 today although he is unable to give me the exact date. Patient is found to have normal urine was admitted for urinary tract infection with Rocephin. Patient was treated for urinary tract infections in the past and the patient had E. coli in the recent past since 2 to multiple antibiotics patient will be can you on Rocephin. Patient had low-grade fever. There is no other appreciable source of infection because of which I'll consider this is urinary tract infection although infectious disease will be consultative as he is high risk for Clostridium difficile colitis patient had C. diff colitis last year after he was treated for urinary tract infection. Patient had stable and elevated troponin of 0.40 and 0.44 probably secondary to sepsis and acute renal failure although I believe patient's confusion and altered mental status is mostly metabolic secondary to acute renal failure severe intravascular depletion patient does have history of congestive heart failure and atrial fibrillation on Coumadin INR is 3.0 because of antibiotics on hold off Coumadin today will be resumed tomorrow on Coumadin and recheck the INR tomorrow. Patient is hyponatremic with hyperkalemia. Patient appears to have history of Diastolic dysfunction had a normal systolic function in the past patient has enlarged left atrium because of which patient is receiving diuretic therapy as an outpatient. Diuretic therapy will be dyspnea and patient was started on IV fluids. I'll also obtain urine tests looking for causes of acute renal failure which is most probably prerenal azotemia from intravascular depletion. Patient has a hyperchloremic acidosis non-anion gap metabolic acidosis secondary to IV fluids which presently will be continued.. Patient denies any chest pain or significant changes in the EKG. 03/29/2019 Patient is sitting up in bed in no acute distress. Patient is able to respond appropriately to questions and commands. Will decrease IV hydration to 75 ML per hour. Denies any acute overnight issues. Patient states that he normally lives at home alone and Homecare visits and would like to go home. Currently awaiting urology and nephrology consults. Infectious disease is following. Holly chase denies any chest pain, shortness of breath, or palpitations at this time. Patient denies any nausea or vomiting and has been tolerating diet. Patient encouraged to work with PT/OT. Guarded prognosis. 03/30/2019 Patient has a pansensitive E. coli continue with Rocephin patient creatinine minimally improved patient probably has acute tubular necrosis from sepsis. Nephrology is recommending continuation of IV fluids. Acute tubular necrosis can be from sepsis as well as hypotension which she had when he came in. Urology valid to the patient for because of nephrolithiasis intervention is being planned at this time but they're following the patient if needed intervention will be done if his kidney function doesn't improve patient has a 1.5 cm renal calculi. 03/31/2019 Patient is doing better continue present antibiotics and the kidney function is improving presently 2.98 serum creatinine as opposed to 4.1. Patient remains on IV fluids and nephrology is managing these IV fluids. 04/01/2019 Patient is being continued on antibiotics in the form of ceftriaxone. Renal function is stable. No continence abdominal pain. No nausea vomiting or diarrhea. No fever no chills. Patient wants to be discharged. Awaiting authorization at this time. 04/02/2019 Patient is able to sit in the chair comfortably. No commerce of fever or chills. No nausea vomiting or abdominal pain. No chest pain or shortness of breath. Patient is being discharged to rehab today. Patient will complete antibiotic course for urinary tract infection with E. coli. Otherwise patient is stable to be discharged. Vital Signs 04/02/19 04/02/19 08:23 11:33 Temperature 97.9 F Pulse Rate [ 84 Pulse Oximetery ] Respiratory 18 16 Rate Blood Pressure 117/63 [Left Arm] O2 Sat by Pulse 96 Oximetry PHYSICAL EXAMINATION: GENERAL: The patient is alert and oriented x3, not in any acute distress. Well developed, well nourished. HEENT: Pupils are round and equally reacting to light. EOMI. No scleral icterus. No conjunctival pallor. Normocephalic, atraumatic. No pharyngeal erythema. No thyromegaly. CARDIOVASCULAR: S1 and S2 present. No murmurs, rubs, or gallops. PULMONARY: Chest is clear to auscultation, no wheezing or crackles. ABDOMEN: Soft, nontender, nondistended, normoactive bowel sounds. No palpable organomegaly. MUSCULOSKELETAL: No joint swelling or deformity. EXTREMITIES: No cyanosis, clubbing, or pedal edema. NEUROLOGICAL: Gross neurological examination did not reveal any focal deficits. SKIN: No rashes. Total time taken greater than 35 minutes including 18 minutes for counseling and coordination of care. Patient Condition at Discharge: Fair Plan - Discharge Summary Discharge Rx Participant: No New Discharge Prescriptions: New Sodium Bicarbonate Tab 650 mg PO BID 14 Days #28 tab Cefuroxime Axetil [Ceftin] 500 mg PO BID 3 Days #6 tab Furosemide [Lasix] 20 mg PO DAILY #30 tab Continue Levothyroxine Sodium [Synthroid] 75 mcg PO DAILY Simvastatin [Zocor] 20 mg PO DAILY Atenolol [Tenormin] 50 mg PO DAILY sitaGLIPtin [Januvia] 50 mg PO DAILY Oxybutynin Chloride [Ditropan] 5 mg PO BID Ergocalciferol [Vitamin D2 (DRISDOL)] 50,000 unit PO WE Allopurinol [Zyloprim] 100 mg PO DAILY Warfarin [Coumadin] 6 mg PO DIRECTED Warfarin [Coumadin] 4 mg PO SUSA Triamcinolone 0.1% Ointment [Kenalog 0.1% Ointment] 1 applic TOPICAL TID Mupirocin 2% Oint [Bactroban 2% Oint] 1 applic TOPICAL BID glipiZIDE [Glucotrol] 10 mg PO AC-BID Tetrahydrozoline 0.05% Ophth [Visine Eye Drops] 1 drop BOTH EYES QID PRN PRN Reason: Dry Eye(S) Albuterol Sulfate [Proair Hfa] 2 puff INHALATION RT-Q4H PRN PRN Reason: Shortness Of Breath Discontinued Spironolactone [Aldactone] 25 mg PO DAILY Cephalexin [Keflex] 500 mg PO Q6HR #40 cap Furosemide [Lasix] 20 mg PO HS Furosemide [Lasix] 40 mg PO QAM Discharge Medication List Atenolol [Tenormin] 50 mg PO DAILY 02/18/15 [History] Levothyroxine Sodium [Synthroid] 75 mcg PO DAILY 02/18/15 [History] Simvastatin [Zocor] 20 mg PO DAILY 02/18/15 [History] Allopurinol [Zyloprim] 100 mg PO DAILY 10/26/18 [History] Ergocalciferol [Vitamin D2 (DRISDOL)] 50,000 unit PO WE 10/26/18 [History] Oxybutynin Chloride [Ditropan] 5 mg PO BID 10/26/18 [History] sitaGLIPtin [Januvia] 50 mg PO DAILY 10/26/18 [History] Mupirocin 2% Oint [Bactroban 2% Oint] 1 applic TOPICAL BID 02/15/19 [History] Tetrahydrozoline 0.05% Ophth [Visine Eye Drops] 1 drop BOTH EYES QID PRN 02/15/19 [History] Triamcinolone 0.1% Ointment [Kenalog 0.1% Ointment] 1 applic TOPICAL TID 02/15/19 [History] Warfarin [Coumadin] 4 mg PO SUSA 02/15/19 [History] Warfarin [Coumadin] 6 mg PO DIRECTED 02/15/19 [History] glipiZIDE [Glucotrol] 10 mg PO AC-BID 02/15/19 [History] Albuterol Sulfate [Proair Hfa] 2 puff INHALATION RT-Q4H PRN 03/27/19 [History] Cefuroxime Axetil [Ceftin] 500 mg PO BID 3 Days #6 tab 04/01/19 [Rx] Furosemide [Lasix] 20 mg PO DAILY #30 tab 04/01/19 [Rx] Sodium Bicarbonate Tab 650 mg PO BID 14 Days #28 tab 04/01/19 [Rx] Follow up Appointment(s)/Referral(s): Rogelio Mitchell DO [Primary Care Provider] - 1-2 days Omar Gotti MD [STAFF PHYSICIAN] - 1 Week Discharge Disposition: HOME WITH HOME HEALTH SERVICES
--- NOTE | 2019-04-02 15:01 | P.PN ---
Subjective Progress Note Date: 04/01/19 Principal diagnosis: Altered mental status Acute urinary tract infection with E. coli 78-year-old male was born with the family members because of fall to the status and delusions. Patient had a fall day before and the patient was not acting normal by home care nurse. Patient denied any dysuria patient is mildly doing much better patient is alert oriented 2. 3 today although he is unable to give me the exact date. Patient is found to have normal urine was admitted for u rinary tract infection with Rocephin. Patient was treated for urinary tract infections in the past and the patient had E. coli in the recent past since 2 to multiple antibiotics patient will be can you on Rocephin. Patient had low-grade fever. There is no other appreciable source of infection because of which I'll consider this is urinary tract infection although infectious disease will be consultative as he is high risk for Clostridium difficile colitis patient had C. diff colitis last year after he was treated for urinary tract infection. Patient had stable and elevated troponin of 0.40 and 0.44 probably secondary to sepsis and acute renal failure although I believe patient's confusion and altered mental status is mostly metabolic secondary to acute renal failure severe intravascular depletion patient does have history of congestive heart failure and atrial fibrillation on Coumadin INR is 3.0 because of antibiotics on hold off Coumadin today will be resumed tomorrow on Coumadin and recheck the INR tomorrow. Patient is hyponatremic with hyperkalemia. Patient appears to have history of Diastolic dysfunction had a normal systolic function in the past patient has enlarged left atrium because of which patient is receiving diuretic therapy as an outpatient. Diuretic therapy will be dyspnea and patient was started on IV fluids. I'll also obtain urine tests looking for causes of acute renal failure which is most probably prerenal azotemia from intravascular depletion. Patient has a hyperchloremic acidosis non-anion gap metabolic acidosis secondary to IV fluids which presently will be continued.. Patient denies any chest pain or significant changes in the EKG. 03/29/2019 Patient is sitting up in bed in no acute distress. Patient is able to respond appropriately to questions and commands. Will decrease IV hydration to 75 ML per hour. Denies any acute overnight issues. Patient states that he normally lives at home alone and Homecare visits and would like to go home. Currently awaiting urology and nephrology consults. Infectious disease is following. Patient denies any chest pain, shortness of breath, or palpitations at this time. Patient denies any nausea or vomiting and has been tolerating diet. Patient encouraged to work with PT/OT. Guarded prognosis. 03/30/2019 Patient has a pansensitive E. coli continue with Rocephin patient creatinine minimally improved patient probably has acute tubular necrosis from sepsis. Nephrology is recommending continuation of IV fluids. Acute tubular necrosis can be from sepsis as well as hypotension which she had when he came in. Urology valid to the patient for because of nephrolithiasis intervention is b eing planned at this time but they're following the patient if needed intervention will be done if his kidney function doesn't improve patient has a 1.5 cm renal calculi. 03/31/2019 Patient is doing better continue present antibiotics and the kidney function is improving presently 2.98 serum creatinine as opposed to 4.1. Patient remains on IV fluids and nephrology is managing these IV fluids. 04/01/2019 Patient is being continued on antibiotics in the form of ceftriaxone. Renal function is stable. No continence abdominal pain. No nausea vomiting or diarrhea. No fever no chills. Patient wants to be discharged. Awaiting authorization at this time. Constitutional: Denied any fatigue denied any fever. Cardio vascular: denied any chest pain, palpitations Gastrointestinal denied any nausea vomiting Pulmonary: Denied any shortness of breath cough Neurologic denied any new focal deficits All inpatient medications were reviewed and appropriate changes in these medications as dictated in the interval history and assessment and plan. Objective - Vital Signs Vital signs: Vital Signs Temp 98 F 04/01/19 21:00 Pulse 84 04/01/19 21:00 Resp 18 04/01/19 21:00 BP 120/79 04/01/19 21:00 Pulse Ox 97 04/01/19 21:00 Intake & Output 04/01/19 04/01/19 04/02/19 06:59 18:59 06:59 Intake Total 225 750 Balance 225 750 Intake: Intake, IV Titration 225 150 Amount Sodium Chloride 0.9% 1, 225 150 000 ml @ 75 mls/hr IV . [id number] [facility] Rx#:[id number] Oral 600 Other: Voiding Method Toilet Toilet Diaper Diaper # Voids 4 3 - Exam PHYSICAL EXAMINATION: GENERAL: The patient is alert and oriented x3, not in any acute distress. Well developed, well nourished. HEENT: Pupils are round and equally reacting to light. EOMI. No scleral icterus. No conjunctival pallor. Normocephalic, atraumatic. No pharyngeal erythema. No thyromegaly. CARDIOVASCULAR: S1 and S2 present. No murmurs, rubs, or gallops. PULMONARY: Chest is clear to auscultation, no wheezing or crackles. ABDOMEN: Soft, nontender, nondistended, normoactive bowel sounds. No palpable organomegaly. MUSCULOSKELETAL: No joint swelling or deformity. EXTREMITIES: No cyanosis, clubbing, or pedal edema. NEUROLOGICAL: Gross neurological examination did not reveal any focal deficits. SKIN: No rashes. - Labs CBC & Chem 7: 03/31/19 06:19 04/02/19 07:38 Labs: Abnormal Lab Results - Last 24 Hours (Table) 04/01/19 04/01/19 04/01/19 Range/Units 07:07 07:27 07:28 PT 27.8 H (9.0-12.0) sec INR 2.9 H (<1.2) Chloride 111 H (98-107) mmol/L Carbon Dioxide 17 L (22-30) mmol/L BUN 57 H (9-20) mg/dL Creatinine 2.73 H (0.66-1.25) mg/dL Glucose 152 H (74-99) mg/dL POC Glucose (mg/dL) 148 H (75-99) mg/dL 04/01/19 04/01/19 04/01/19 Range/Units 10:53 17:00 20:44 PT (9.0-12.0) sec INR (<1.2) Chloride (98-107) mmol/L Carbon Dioxide (22-30) mmol/L BUN (9-20) mg/dL Creatinine (0.66-1.25) mg/dL Glucose (74-99) mg/dL POC Glucose (mg/dL) 223 H 222 H 235 H (75-99) mg/dL Microbiology - Last 24 Hours (Table) 03/27/19 20:25 Blood Culture - Preliminary Blood No Growth after 120 hours Assessment and Plan Assessment: -Altered mental status mostly metabolic metabolic encephalopathy is contributing to that from acute renal failure and severe intravascular depletion and de hydration and diuretic therapy. Although toxic encephalopathy from UTI the contributing factor to - urinary tract infection Rocephin , patient has pansensitive E. coli in the urine -acute renal failure due twas probably acute tubular necrosis from above- mentioned reasons, there may be a competent to prerenal azotemia as well patient is improving with IV fluids arial fibrillation rate controlled at this time patient will be started on Coumadin patient is on Coumadin at 4 mg , INR is therapeutic -HypoglycemiResolved nowType 2 diabetes mellitus sliding scale insulin will hold off on oral hypoglycemic agents because of his hypoglycemia at home -Generalized weakness secondary to H and multiple medical problems physical therapy and occupational therapy evaluated the patient is recommending subacute rehabilitation. 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 GI prophylaxis Time with Patient: Greater than 30
[2019-04-02 16:42] VITALS: RESP 17
[2019-04-02 17:02] LABS: Glucose,Whole Blood 234 mg/dL (75-99)
[2019-04-02] MEDS ORDERED: WARFARIN 1 MG TAB PO ONE (18:00)
--- NOTE | 2019-04-02 19:42 | PN ---
PROGRESS NOTE DATE OF SERVICE: 04/02/2019 REASON FOR FOLLOWUP: Urinary tract infection, E coli. INTERVAL HISTORY: The patient is currently afebrile. The patient has been breathing comfortably. The patient denies having any chest pain or cough. No nausea or vomiting has been reported, or any diarrhea. PHYSICAL EXAMINATION: Blood pressure is 117/63 with a pulse of 84, temperature 97.9. He is 96% on room air. General description is an elderly male up in the chair in no distress. RESPIRATORY SYSTEM: Unlabored breathing. Clear to auscultation anteriorly. HEART: S1, S2. Regular rate and rhythm. ABDOMEN: Soft. No tenderness. LABS: BUN of 54, creatinine 2.55. Blood culture has been negative. DIAGNOSTIC IMPRESSION AND PLAN: Patient with Escherichia coli urinary tract infection. The patient's underlying UTI has been adequately treated. Rocephin to be discontinued on discharge. No need for antibiotic on discharge. He has been instructed to continue with increased yogurt and probiotic intake to prevent development of C difficile colitis. Continue with supportive care. MMODL / IJN: [id number] /
[2019-04-02 20:00] LABS: Hemoglobin A1C 6.8 % (4.0-6.0)
== END 2019-04-02 18:25 | DRG 871 ==
LOC: EC 18:33 → 3NMEDONC 21:47
PROVIDERS: ADMIT Hospitalist; ATTEND Hospitalist
DX: A41.9 Sepsis, unspecified organism (principal); G92 Toxic encephalopathy; N17.0 Acute kidney failure with tubular necrosis; E87.1 Hypo-osmolality and hyponatremia; E87.2 Acidosis; I13.0 Hypertensive heart and chronic kidney disease with heart failure and stage 1 through stage 4 chronic kidney disease, or unspecified chronic kidney disease; I50.32 Chronic diastolic (congestive) heart failure; N13.6 Pyonephrosis; B96.20 Unspecified Escherichia coli [E. coli] as the cause of diseases classified elsewhere; C67.9 Malignant neoplasm of bladder, unspecified; E03.9 Hypothyroidism, unspecified; E11.22 Type 2 diabetes mellitus with diabetic chronic kidney disease; E11.649 Type 2 diabetes mellitus with hypoglycemia without coma; E78.5 Hyperlipidemia, unspecified; E86.0 Dehydration; E86.1 Hypovolemia; E87.5 Hyperkalemia; F22 Delusional disorders; H40.9 Unspecified glaucoma; H91.90 Unspecified hearing loss, unspecified ear; I48.91 Unspecified atrial fibrillation; N18.3 Chronic kidney disease, stage 3 (moderate); N39.41 Urge incontinence; W01.0XXA Fall on same level from slipping, tripping and stumbling without subsequent striking against object, initial encounter; Z79.01 Long term (current) use of anticoagulants; Z79.84 Long term (current) use of oral hypoglycemic drugs; Z79.890 Hormone replacement therapy; Z79.899 Other long term (current) drug therapy; Z85.46 Personal history of malignant neoplasm of prostate; Z85.51 Personal history of malignant neoplasm of bladder; Z86.19 Personal history of other infectious and parasitic diseases; Z86.73 Personal history of transient ischemic attack (TIA), and cerebral infarction without residual deficits; Z87.440 Personal history of urinary (tract) infections; Z87.442 Personal history of urinary calculi; Z87.891 Personal history of nicotine dependence; Z90.79 Acquired absence of other genital organ(s); Z91.018 Allergy to other foods
CPT/HCPCS: 36415; 70450; 71046; 76770; 80048; 80053; 80306; 81001; 82140; 82550; 83036; 83605; 83735; 84484; 85025; 85027; 85610; 85730; 87040; 87077; 87086; 87186; 87502; 93005; 94640; 96365; 99285

== ENCOUNTER 2019-04-30 22:09 | Inpatient (IN) | payer MEDICARE ==
[2019-04-30] MEDS ORDERED: IBUPROFEN 600 MG TAB PO STA (22:28)
[2019-04-30] MEDS ORDERED: SODIUM CHLORIDE 0.9% 1,000 ML IV STA (22:28)
[2019-04-30] MEDS ORDERED: ACETAMINOPHEN TAB 500 MG TAB PO STA (22:28)
[2019-04-30] MEDS ORDERED: SODIUM CHLORIDE 0.9% 500 ML 500 ML IV STA (22:28)
--- NOTE | 2019-04-30 22:35 | ED ---
Extremity Problem HPI - General Chief complaint: Extremity Problem,Nontraumatic Stated complaint: Poss Sepsis Time Seen by Provider: 04/30/19 22:19 Source: EMS, RN notes reviewed, old records reviewed Mode of arrival: EMS Limitations: no limitations - History of Present Illness Initial comments: This is a 78-year-old male presenting from home for evaluation. Patient's today for evaluation of fever weakness and per EMS increasing lower extremity with redness and erythema, concern for sialitis and sepsis. Patient was sent in by home care. Patient himself is poor strain unable to give history but really has no complaints currently. MD Complaint: extremity swelling (BL LE), other (erema, erythema) Location: left, right, lower extremity, bilateral lower extremity History of Same: Yes -: Yes fever Radiation: proximal Severity scale (1-10): 7 Quality: aching Consistency: constant Improves with: nothing Worsens with: nothing Associated Symptoms: fever - Related Data Home Medications Medication Instructions Recorded Confirmed Atenolol [Tenormin] 50 mg PO DAILY 02/18/15 05/01/19 Levothyroxine Sodium [Synthroid] 75 mcg PO DAILY 02/18/15 05/01/19 Simvastatin [Zocor] 20 mg PO HS 02/18/15 05/01/19 Allopurinol [Zyloprim] 100 mg PO HS 10/26/18 05/01/19 Ergocalciferol [Vitamin D2 50,000 unit PO WE 10/26/18 05/01/19 (DRISDOL)] Oxybutynin Chloride [Ditropan] 5 mg PO BID 10/26/18 05/01/19 sitaGLIPtin [Januvia] 50 mg PO HS 10/26/18 05/01/19 Triamcinolone 0.1% Ointment 1 applic TOPICAL TID 02/15/19 05/01/19 [Kenalog 0.1% Ointment] Warfarin [Coumadin] 4 - 6 mg PO DIRECTED 02/15/19 05/01/19 glipiZIDE [Glucotrol] 10 mg PO AC-BID 02/15/19 05/01/19 Albuterol Sulfate [Proair Hfa] 2 puff INHALATION RT-Q4H PRN 03/27/19 05/01/19 Furosemide [Lasix] 40 mg PO BID 05/01/19 05/01/19 Polyethylene Glycol 3350 [Miralax] 17 gm PO DAILY@1200 05/01/19 05/01/19 Potassium Chloride [Klor-Con 20 20 meq PO TID 05/01/19 05/01/19 Packets] Allergies Allergy/AdvReac Type Severity Reaction Status Date / Time strawberry Allergy Swelling Verified 05/01/19 07:56 Review of Systems ROS Statement: Those systems with pertinent positive or pertinent negative responses have been documented in the HPI. ROS Other: All systems not noted in ROS Statement are negative. Past Medical History Past Medical History: Atrial Fibrillation, Cancer, Heart Failure, CVA/TIA, Diabetes Mellitus, Eye Disorder, Hearing Disorder / Deafness, Hyperlipidemia, Hypertension, Memory Impairment, Musculoskeletal Disorder, Renal Disease, Thyroid Disorder Additional Past Medical History / Comment(s): CA BLADDER TUMORS . HX MILD CVA, EARLY GLAUCOMA ADELA. MILD MEMORY CHANGES. 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 LT DROPPED FOOT. HX GOUT. , OCCASIONAL SORES ON LEGS DUE TO EDEMA., SOB WITH ACTIVITY., HEMATURIA., URGENCY TO URINATE., PATIENTS SON TAKES CARE OF MEDICATIONS FOR HIM., HEARING AID, USES WALKER. History of Any Multi-Drug Resistant Organisms: None Reported Additional Past Surgical History / Comment(s): Finger surgery - TRAUMATIC AMPUTATIONS LT 2 FINGERS. COLONOSCOPY. Hemorrhoidectomy, transurethral resection of bladder tumors (11/01/18), TUR of bladder tumor scars 12/2018 Past Anesthesia/Blood Transfusion Reactions: No Reported Reaction, Family History of Problems w/ Anesthesia Additional Past Anesthesia/Blood Transfusion Reaction / Comment(s): SON HAD FLUID IN LUNGS WITH 1 SURGERY. Past Psychological History: No Psychological Hx Reported Smoking Status: Former smoker Past Alcohol Use History: None Reported Past Drug Use History: None Reported - Past Family History Daughter(s) Family Medical History: Cancer General Exam Limitations: no limitations General appearance: alert, lethargic, in distress, obese Head exam: Present: atraumatic, normocephalic, normal inspection Eye exam: Present: normal appearance, PERRL, EOMI. Absent: scleral icterus, conjunctival injection, periorbital swelling ENT exam: Present: normal exam, mucous membranes moist Neck exam: Present: normal inspection. Absent: tenderness, meningismus, lymphadenopathy Respiratory exam: Present: normal lung sounds bilaterally. Absent: respiratory distress, wheezes, rales, rhonchi, stridor Cardiovascular Exam: Present: regular rate, normal rhythm, normal heart sounds. Absent: systolic murmur, diastolic murmur, rubs, gallop, clicks GI/Abdominal exam: Present: soft, normal bowel sounds. Absent: distended, tenderness, guarding, rebound, rigid Extremities exam: Present: other (BL LE edema, Cellulitis, warmth). Absent: tenderness, pedal edema, joint swelling, calf tenderness Back exam: Present: normal inspection Neurological exam: Present: alert, oriented X3, CN II-XII intact Psychiatric exam: Present: normal affect, normal mood Skin exam: Present: warm, dry, intact, normal color. Absent: rash Course Vital Signs 04/30/19 22:19 Temperature 102.7 F H Pulse Rate 97 Respiratory 20 Rate Blood Pressure 121/69 O2 Sat by Pulse 97 Oximetry - Reevaluation(s) Reevaluation #1: 04/30/19 22:33 Medical record is reviewed Reevaluation #2: 04/30/19 22:33 Symptoms improving with fever control [id number] 23:33 patient continuing to deteriorate re BP control, central line placed and will be started on levophed - Consultations Consultation #1: Spoke with Dr. Stuart olvera for admission Procedures - Central Line Placement Right IJ Consent Obtained: verbal consent Patient Placed on Monitor/Pulse Ox: Yes MD Prep: mask, gown, gloves Central Line Prep: Chlorhexidine scrub, sterile drapes applied Local Anesthesia Used: Lidocaine 1% Ultrasound Used for Placement: Yes Central Line Lumen Inserted: triple Central Line Position: good blood return, all ports aspirated, flushed, capped Dressing Applied: Tegaderm Post Procedure X-Ray: tip of catheter in good position (RA) Patient Tolerated Procedure: well Complications: none - Sepsis Sepsis Focused Exam #1 Time Sepsis Criteria Met: 01:00 Sepsis Focused Exam Date: 04/30/19 Sepsis Focused Exam Time: 02:15 Sepsis Focused Exam Complete: Yes Vital Signs & RN Notes Reviewed: Yes Capillary Refill: > 2 Seconds: Fingers, Toes Peripheral Pulses: Normal: Radial (R), Radial (L), Posterior Tibialis (R), Posterior Tibialis (L), Dorsalis Pedis (R), Dorsalis Pedis (L) Skin Color: Flushed Respiratory Exam: rales, decreased breath sounds Cardiovascular Exam: regular rate Medical Decision Making - Medical Decision Making 78 male the ER for evaluation comes from home with 103 fever. Patient is increasing swelling of bilateral lower extremities on Coumadin, patient has significant erythema and warmth those both legs. Patient be admitted for IV antibiotics - Lab Data Result diagrams: 05/02/19 04:35 05/02/19 04:35 Lab Results 04/30/19 04/30/19 04/30/19 Range/Units 22:12 22:12 22:12 WBC 7.3 (3.8-10.6) k/uL RBC 3.28 L (4.30-5.90) m/uL Hgb 9.6 L (13.0-17.5) gm/dL Hct 29.3 L (39.0-53.0) % MCV 89.4 (80.0-100.0) fL MCH 29.1 (25.0-35.0) pg MCHC 32.6 (31.0-37.0) g/dL RDW 16.2 H (11.5-15.5) % Plt Count 157 (150-450) k/uL Neutrophils % 86 % Lymphocytes % 6 % Monocytes % 5 % Eosinophils % 0 % Basophils % 1 % Neutrophils # 6.3 (1.3-7.7) k/uL Lymphocytes # 0.4 L (1.0-4.8) k/uL Monocytes # 0.4 (0-1.0) k/uL Eosinophils # 0.0 (0-0.7) k/uL Basophils # 0.1 (0-0.2) k/uL Hypochromasia Slight Anisocytosis Slight PT (9.0-12.0) sec INR (<1.2) APTT (22.0-30.0) sec Sodium 136 L (137-145) mmol/L Potassium 4.9 (3.5-5.1) mmol/L Chloride 103 (98-107) mmol/L Carbon Dioxide 24 (22-30) mmol/L Anion Gap 9 mmol/L BUN 47 H (9-20) mg/dL Creatinine 3.19 H (0.66-1.25) mg/dL Est GFR (CKD-EPI)AfAm 21 (>60 ml/min/1.73 sqM) Est GFR (CKD-EPI)NonAf 18 (>60 ml/min/1.73 sqM) Glucose 72 L (74-99) mg/dL Plasma Lactic Acid Jitendra 1.2 (0.7-2.0) mmol/L Calcium 8.4 (8.4-10.2) mg/dL Phosphorus 3.0 (2.5-4.5) mg/dL Magnesium 1.9 (1.6-2.3) mg/dL Total Bilirubin 1.6 H (0.2-1.3) mg/dL AST 34 (17-59) U/L ALT 28 (21-72) U/L Alkaline Phosphatase 105 (38-126) U/L Creatine Kinase 102 (55-170) U/L Troponin I (0.000-0.034) ng/mL Total Protein 5.9 L (6.3-8.2) g/dL Albumin 3.0 L (3.5-5.0) g/dL 04/30/19 04/30/19 Range/Units 22:12 22:12 WBC (3.8-10.6) k/uL RBC (4.30-5.90) m/uL Hgb (13.0-17.5) gm/dL Hct (39.0-53.0) % MCV (80.0-100.0) fL MCH (25.0-35.0) pg MCHC (31.0-37.0) g/dL RDW (11.5-15.5) % Plt Count (150-450) k/uL Neutrophils % % Lymphocytes % % Monocytes % % Eosinophils % % Basophils % % Neutrophils # (1.3-7.7) k/uL Lymphocytes # (1.0-4.8) k/uL Monocytes # (0-1.0) k/uL Eosinophils # (0-0.7) k/uL Basophils # (0-0.2) k/uL Hypochromasia Anisocytosis PT 22.2 H (9.0-12.0) sec INR 2.3 H (<1.2) APTT 30.2 H (22.0-30.0) sec Sodium (137-145) mmol/L Potassium (3.5-5.1) mmol/L Chloride (98-107) mmol/L Carbon Dioxide (22-30) mmol/L Anion Gap mmol/L BUN (9-20) mg/dL Creatinine (0.66-1.25) mg/dL Est GFR (CKD-EPI)AfAm (>60 ml/min/1.73 sqM) Est GFR (CKD-EPI)NonAf (>60 ml/min/1.73 sqM) Glucose (74-99) mg/dL Plasma Lactic Acid Jitendra (0.7-2.0) mmol/L Calcium (8.4-10.2) mg/dL Phosphorus (2.5-4.5) mg/dL Magnesium (1.6-2.3) mg/dL Total Bilirubin (0.2-1.3) mg/dL AST (17-59) U/L ALT (21-72) U/L Alkaline Phosphatase (38-126) U/L Creatine Kinase (55-170) U/L Troponin I 0.049 H* (0.000-0.034) ng/mL Total Protein (6.3-8.2) g/dL Albumin (3.5-5.0) g/dL - Radiology Data Radiology results: report reviewed (Chest x-ray shows superinposed CHF), image reviewed Critical Care Time Critical Care Time: Yes Total Critical Care Time: 31 Disposition Clinical Impression: Altered mental status, Fever, Bilateral lower leg cellulitis, Sepsis, ARF (acute renal failure), Neoplasm of unspecified behavior of bladder Disposition: ADMITTED IP TO THIS HOSP Condition: Fair Is patient prescribed a controlled substance at d/c from ED?: No
[2019-04-30 22:51] LABS: INR 2.3 (<1.2); Partial Thromboplastin Time 30.2 sec (22.0-30.0); Prothrombin Time 22.2 sec (9.0-12.0)
[2019-04-30 22:55] LABS: Anisocytosis Slight; Basophils # (A) 0.1 k/uL (0-0.2); Basophils % (A) 1 %; Eosinophils % (A) 0 %; HCT 29.3 % (39.0-53.0); HGB 9.6 gm/dL (13.0-17.5); Hypochromasia Slight; Lymphocytes # (A) 0.4 k/uL (1.0-4.8); Lymphocytes % (A) 6 %; MCH 29.1 pg (25.0-35.0); MCHC 32.6 g/dL (31.0-37.0); MCV 89.4 fL (80.0-100.0); Mean Platelet Volume 6.8; Monocytes # (A) 0.4 k/uL (0-1.0); Monocytes % (A) 5 %; Neutrophils # (A) 6.3 k/uL (1.3-7.7); Neutrophils % (A) 86 %; Platelet Count 157 k/uL (150-450); RBC 3.28 m/uL (4.30-5.90); RDW 16.2 % (11.5-15.5); WBC 7.3 k/uL (3.8-10.6)
[2019-04-30 23:00] LABS: Calcium 8.4 mg/dL (8.4-10.2); Magnesium 1.9 mg/dL (1.6-2.3); Potassium 4.9 mmol/L (3.5-5.1); Total Bilirubin 1.6 mg/dL (0.2-1.3); Total Protein 5.9 g/dL (6.3-8.2)
[2019-05-01] MEDS ORDERED: SODIUM CHLORIDE 0.9% 250 ML BAG ONE (01:28)
[2019-05-01] MEDS ORDERED: SODIUM CHLORIDE 0.9% 100 ML BAG ONE (01:28)
[2019-05-01] MEDS ORDERED: VANCOMYCIN 1,000 MG VIAL ONE (01:28)
[2019-05-01] MEDS ORDERED: DEXTROSE 5% IN WATER 250 ML BAG IV ONE (01:28)
[2019-05-01] MEDS ORDERED: LORazepam 2 MG/ML INJ ONE (01:28)
[2019-05-01] MEDS ORDERED: VANCOMYCIN 500 MG VIAL IVPB ONE (01:28)
[2019-05-01] MEDS ORDERED: NOREPINEPHRINE 1 MG/ML 4 ML VIAL IV ONE (01:28)
[2019-05-01] MEDS ORDERED: fentaNYL (PF) 50 MCG/ML 2 ML AMP ONE (01:28)
[2019-05-01] MEDS ORDERED: cefTRIAXone 2 GM VIAL ONE (01:28)
[2019-05-01] MEDS ORDERED: MIDAZOLAM 1 MG/ML 5 ML VIAL ONE (01:28)
[2019-05-01] MEDS ORDERED: SODIUM CHLORIDE 0.9% 1,000 ML BAG ONE ×2 (01:28)
[2019-05-01] MEDS ORDERED: SUCCINYLCHOLINE CHLORIDE VIAL 200 MG/10 ML VIAL IV ONE (03:00)
[2019-05-01] MEDS ORDERED: CHLORHEXIDINE GLUCONATE 15 ML CUP MUCOUS MEM ONE (03:00)
[2019-05-01] MEDS ORDERED: ETOMIDATE 2 MG/ML 10 ML VIAL ONE (03:00)
[2019-05-01] MEDS ORDERED: fentaNYL (PF) 50 MCG/ML 2 ML AMP IVP PRN (04:00)
[2019-05-01] MEDS ORDERED: CISATRACURIUM 200 MG in SODIUM CHLORIDE 0.9% 180 ML IV ONE (04:30)
[2019-05-01] MEDS: NOREPINEPHRINE 32 MG in SODIUM CHLORIDE 0.9% 218 ML IV SCH ×2 (05:07→10:33)
[2019-05-01] MEDS: PROPOFOL 1,000 MG in EMPTY BAG 1 BAG IV SCH ×3 (05:10→21:39)
[2019-05-01 07:18] LABS: Glucose,Whole Blood 96 mg/dL (75-99)
[2019-05-01] MEDS ORDERED: IPRATROPIUM-ALBUTEROL 3 ML NEB INHALATION PRN (07:57)
[2019-05-01] MEDS ORDERED: NALOXONE 0.4 MG/ML 1 ML VIAL IV PRN (07:57)
[2019-05-01] MEDS ORDERED: ACETAMINOPHEN TAB 325 MG TAB PO PRN (07:57)
[2019-05-01] MEDS ORDERED: IPRATROPIUM-ALBUTEROL 3 ML NEB INHALATION SCH (08:00)
[2019-05-01] MEDS ORDERED: SODIUM CHLORIDE 0.9% 2,000 ML IV ONE (08:14)
--- NOTE | 2019-05-01 08:14 | P.CNPUL ---
History of Present Illness Consult date: 05/01/19 Chief complaint: Altered mentation, acute respiratory failure History of present illness: This is a 78-year-old male patient who was brought into the hospital because of an altered mental status. The patient was in the hospital back in March 2019 he came in for altered mentation and ultimately was diagnosed having an E. coli urinary tract infection. During his last admission he was treated with IV Rocephin and he was treated for an acute on top of chronic renal failure and he gradually improved and he was sent to [facility] for further rehabilitation. According to the son, the patient had an excellent recovery and he was in the point where he was ambulating a walk-in and he was becoming independent. He has a visiting nurse comes and checks on him on a daily basis. Yesterday, the patient was having altered mentation. He was found naked in his house and feces and based on his altered mentation he was brought into the hospital. Initial concern was her lites of the lower extremities and the patient was started on IV fluids and antibiotics. Subsequently, the patient became hypotensive. He was started on norepinephrine infusion in the emergency department. Unfortunately megadoses was given and the patient was having runs of V. tach. At that point was decided to intubate the patient and put him on a mechanical ventilator. He got transferred to the intensive care unit and he was restarted on pressors and norepinephrine infusion currently is running at 0.35 g per KG per minute. He received a total of 2.5 L of IV fluids and currently is on a maintenance of 100 mL an hour of normal saline. He is currently sedated with propofol at 50 g per KG per minute. His urine output is order of 10 mL an hour. His CVP is around 18 and the patient has a right IJ triple-lumen catheter in place and not like B also inserted. His urine output is diminished in its very dirty and cloudy and purulent. Note that the patient has history of bladder cancer. He has some erythema in lower extremities however according to the family this was chronic. There is also some swelling lower extremity is bilaterally which has been a chr onic finding. The patient has also history of stage III chronic kidney disease, the patient also has Nephrolithiasis 1.5 cm kidney stone followed up by urology, nonobstructive, he has hypertension and hyperlipidemia hypothyroidism and previous history of bladder cancer post resection. His previous ultrasound of the kidneys at shown a mild left-sided hydronephrosis and nonobstructive calculus in the lower pole of the kidney measuring 1.3 cm. As far as his bladder tumor,t he patient was discovered to have bladder cancer by Dr. Carpenter in October of this year following evaluation of gross hematuria and a bladder mass. Multiple tumors were noted and were resected at that time. The tumors were grade 3 stage TI. The patient underwent repeat transurethral resection on 01/03/2019 and at that time no residual cancer was noted. Dr. Carpenter discussed possible BCG or mitomycin C to reduce the likelihood of future tumors but due to the patient's or incontinence it was elected to not proceed with this. The patient is scheduled to undergo cystoscopy in the office on 04/19. It was treated for a E. coli urinary tract infection in mid January. Patient apparently wears depends due to intermittent urge incontinence. He says he usually voids every 2-3 hours during the day and 3 times at night. He has had no recent gross hematuria. He also has history of chronic atrial fibrillation maintained on long-term articulation with warfarin. INR was 2.3 Review of Systems Constitutional: Reports fever (The patient a fever of 103), Reports poor appetite, Reports weakness Eyes: denies blurred vision, denies bulging eye, denies decreased vision Ears: bilateral: decreased hearing, deny: ear discharge, earache, tinnitus Ears, nose, mouth and throat: Denies headache, Denies sore throat Cardiovascular: Reports decreased exercise tolerance, Reports dyspnea on exe rtion Respiratory: Reports dyspnea Gastrointestinal: Denies abdominal pain, Denies diarrhea, Denies nausea, Denies vomiting Genitourinary: Reports as per HPI (Previous history of hematuria. Previous history of recurrent UTIs), Reports incontinence Musculoskeletal: Reports muscle weakness (The patient has a left foot drop) Musculoskeletal: bilateral: ankle swelling, absent: ankle pain, ankle stiffness Integumentary: Reports color changes, Reports darkening of skin Neurological: Reports confusion, Reports gait dysfunction, Reports weakness Psychiatric: Reports as per HPI Endocrine: Reports as per HPI Hematologic/Lymphatic: Reports as per HPI Allergic/Immunologic: Reports as per HPI Past Medical History Past Medical History: Atrial Fibrillation, Cancer, Heart Failure, CVA/TIA, Diabetes Mellitus, Eye Disorder, Hearing Disorder / Deafness, Hyperlipidemia, Hypertension, Memory Impairment, Musculoskeletal Disorder, Renal Disease, Thyroid Disorder Additional Past Medical History / Comment(s): Chronic stage III kidney disease, history of bladder cancer stage III underwent transurethral resection on 01/03/2019 with subsequent intravesicular chemotherapy, recurrent UTIs with E. coli, gout, chronic atrial fibrillation hypertension, hyperlipidemia, diabetes mellitus, CVA, congestion heart failure, glaucoma, chronic lower extremity edema, moves around without walker and he has also used hearing aids. History of left drop foot History of Any Multi-Drug Resistant Organisms: None Reported Additional Past Surgical History / Comment(s): Finger surgery - TRAUMATIC AMPUTATIONS LT 2 FINGERS. COLONOSCOPY. Hemorrhoidectomy, transurethral resection of bladder tumors (11/01/18), TUR of bladder tumor scars 12/2018 Past Anesthesia/Blood Transfusion Reactions: No Reported Reaction, Family History of Problems w/ Anesthesia Additional Past Anesthesia/Blood Transfusion Reaction / Comment(s): SON HAD FLUID IN LUNGS WITH 1 SURGERY. Past Psychological History: No Psychological Hx Reported Smoking Status: Former smoker Past Alcohol Use History: None Reported Past Drug Use History: None Reported - Past Family History Daughter(s) Family Medical History: Cancer Medications and Allergies Home Medications Medication Instructions Recorded Confirmed Type Atenolol [Tenormin] 50 mg PO DAILY 02/18/15 03/27/19 History Levothyroxine Sodium [Synthroid] 75 mcg PO DAILY 02/18/15 03/27/19 History Simvastatin [Zocor] 20 mg PO DAILY 02/18/15 03/27/19 History Allopurinol [Zyloprim] 100 mg PO DAILY 10/26/18 03/27/19 History Ergocalciferol [Vitamin D2 50,000 unit PO WE 10/26/18 03/27/19 History (DRISDOL)] Oxybutynin Chloride [Ditropan] 5 mg PO BID 10/26/18 03/27/19 History sitaGLIPtin [Januvia] 50 mg PO DAILY 10/26/18 03/27/19 History Triamcinolone 0.1% Ointment 1 applic TOPICAL TID 02/15/19 03/27/19 History [Kenalog 0.1% Ointment] Warfarin [Coumadin] 4 mg PO SUSA 02/15/19 03/27/19 History glipiZIDE [Glucotrol] 10 mg PO AC-BID 02/15/19 03/27/19 History Albuterol Sulfate [Proair Hfa] 2 puff INHALATION RT-Q4H PRN 03/27/19 03/27/19 History Furosemide [Lasix] 40 mg PO BID 05/01/19 05/01/19 History Polyethylene Glycol 3350 [Miralax] 17 gm PO DAILY@1200 05/01/19 05/01/19 History Potassium Chloride [Klor-Con 20 20 meq PO TID 05/01/19 05/01/19 History Packets] Allergies Allergy/AdvReac Type Severity Reaction Status Date / Time strawberry Allergy Swelling Verified 05/01/19 07:56 Physical Exam Vitals: Vital Signs Temp Pulse Resp BP Pulse Ox 04/30/19 22:19 102.7 F H 97 20 121/69 97 Intake and Output 04/30/19 05/01/19 05/01/19 22:59 06:59 14:59 Other: Weight 113.398 kg Gen. appearance, comfortable sedated nonacute distress intubated on a mechanical ventilator. Head exam was generally normal. There was no scleral icterus or corneal arcus. Mucous membranes were moist Neck was supple and without jugular venous distension, thyromegaly, or carotid bruits. Carotids were easily palpable bilaterally. There was no adenopathy. The patient has a right IJ triple lumen catheter in place and the patient has an orogastric and orotracheal tube are both in place Lungs were clear to auscultation and percussion, and with normal diaphragmatic excursion. No wheezes or rales were noted. Cardiac exam revealed the PMI to be normally situated and sized. The rhythm was regular consistent with atrial fibrillation and no extrasystoles were noted during several minutes of auscultation. The first and second heart sounds were normal and physiologic splitting of the second heart sound was noted. There were no murmurs, rubs, clicks, or gallops. Abdominal exam revealed normal bowel sounds. The abdomen was soft, non-tender, and without masses, organomegaly, or appreciable enlargement of the abdominal aorta. Extremities are swollen and the patient is +1 pitting edema bilaterally and the edema is left more than right. No warmth. There is some limited erythema. There is apparently chronic. No open wounds or sores. No cyanosis or clubbing. Examination of the skin revealed no evidence of significant rashes, suspicious appearing nevi or other concerning lesions. For the lower extremity description please refer to above Neurologically the patient is sedated and he withdraws to painful establish all 4 extremities. Results - Laboratory Findings CBC and BMP: 04/30/19 22:12 04/30/19 22:12 PT/INR, D-dimer PT 22.2 sec (9.0-12.0) H 04/30/19 22:12 INR 2.3 (<1.2) H 04/30/19 22:12 Abnormal lab findings: Abnormal Labs 04/30/19 04/30/19 04/30/19 22:12 22:12 22:12 RBC 3.28 L Hgb 9.6 L Hct 29.3 L RDW 16.2 H Lymphocytes # 0.4 L PT 22.2 H INR 2.3 H APTT 30.2 H Sodium 136 L BUN 47 H Creatinine 3.19 H Glucose 72 L Total Bilirubin 1.6 H Total Protein 5.9 L Albumin 3.0 L - Diagnostic Findings Chest x-ray: image reviewed Assessment and Plan Plan: 1 septic shock likely secondary to a urine infection. Cellulitis is felt to be less likely. Superimposed pneumonia cannot be completely ruled out. The patient is in profound shock and the patient's hypotensive resuscitated IV fluids and pressors and antibiotics. Cultures have been sent and results are still pending. The patient was febrile at time of admission currently he is afebrile. He is requiring pressors and levo fed is running at 0.35 g per KG per minute. He has triple lumen catheter in place. 2 hypotension secondary to above 3 acute respiratory failure secondary to septic shock. The patient was in acute hypoxic respiratory failure and the patient developed some vague bilateral pulmonary infiltrates. Superimposed pneumonia cannot be completely excluded. 4 history of bladder cancer 5 chronic atrial fibrillation again is therapeutic and the patient rates under good control 6 history of congestion heart failure with systolic dysfunction 7 history of recurrent UTIs and recent hospitalization for a gram-negative UTI secondary to E. coli 8 chronic stage III kidney disease 9 hypertension 10 hyperlipidemia 11 diabetes mellitus 12 history of CVA 13 glucoma 14 chronic low-dose of edema 15 difficulty with mobility and the patient walks around with output a walker and the patient has also a left foot drop 16 nephrolithiasis with a nonobstructive circumflex disease involving the left kidney lower pole and the patient has mild chronic left-sided hydronephrosis Plan Continue vent support. Drop the FiO2 down to 80% and gradually wean down the FiO2 to maintain a saturation above 90%. Obtain sputum Gram stain and culture. Obtain urine culture. Obtain blood culture. Give the patient another bolus of normal saline 1 L and continue the maintenance at 100 mL an hour. Continue pressors and gradually wean it off. Maintain mean artery pressure above 65. Cover the patient with a combination of Zosyn and vancomycin. His antibiotic coverage will be continued until cultures are available. Check serum cortisol level. Obtain echocardiogram. This will be needed to assess the patient's LV function. Monitor the renal function. Obtain another ultrasound of the kidneys to reevaluate the left-sided hydronephrosis and nephrolithiasis. Hold Coumadin for now and monitor daily PT/INR's. Keep the patient sedated. Keep the patient on a mechanical ventilator. Monitor CVP. Condition is critical. An arterial line Catheter will be inserted. We'll continue to follow. Family has been discussed and updated on his condition.
[2019-05-01] MEDS: PHENYLEPHRINE 40 MG in SODIUM CHLORIDE 0.9% 250 ML IV SCH ×4 (08:22→20:31)
[2019-05-01] MEDS ORDERED: VANCOMYCIN IV PER PHARMACY 1 EACH MISC MISCELLANE PRN (08:23)
--- NOTE | 2019-05-01 08:43 | XR ---
EXAMINATION TYPE: XR chest 1V portable DATE OF EXAM: 05/01/2019 COMPARISON: 04/30/2019 INDICATION: Tube placement, difficulty breathing TECHNIQUE: Single frontal view of the chest is obtained. FINDINGS: The heart size is enlarged. The pulmonary vasculature is normal. The lungs are clear. There is interval placement of an endotracheal tube with the tip above cece. Nasogastric tube trans verses the thorax. Right central venous catheter is been placed with tip in the proximal right atrium . No pneumothorax is evident. Note is made of degenerative changes at the left shoulder. Milder degenerative changes are at the rig ht shoulder. IMPRESSION: 1. Lines and catheters discussed above. 2. Right central venous catheter tip is in the proximal right atrium. No pneumothorax is evident. 3. Cardiomegaly
[2019-05-01] MEDS ORDERED: FAMOTIDINE 20 MG TAB PO SCH (09:00)
[2019-05-01] MEDS: CHLORHEXIDINE GLUCONATE 15 ML CUP MUCOUS MEM SCH ×2 (09:07→21:38)
[2019-05-01] MEDS: PIPERACILLIN-TAZOBACTAM 3.375 GM in SODIUM CHLORIDE 0.9% 100 ML IVPB SCH ×2 (09:07→21:38)
[2019-05-01] MEDS: OXYBUTYNIN CHLORIDE 5 MG TAB PO SCH ×2 (09:08→21:38)
--- NOTE | 2019-05-01 09:58 | XR ---
EXAM: XR Chest, 2 Views CLINICAL HISTORY: Weakness. TECHNIQUE: Frontal and lateral views of the chest. COMPARISON: 03/27/2019. FINDINGS: Lungs: There is prominence of central pulmonary vasculature. There is minimal interstitial prominence. Pleural space: No pneumothorax. No pleural effusions. Heart: There is cardiomegaly. Mediastinum: Unremarkable. Bones/joints: Osteopenia. Other findings: There is hypoaeration. IMPRESSION: Cardiomegaly. Clinical correlation is advised to assess for the possibility of incipient congestive heart failure.
[2019-05-01] MEDS ORDERED: SODIUM CHLORIDE 0.9% 150 ML with VASOPRESSIN 60 UNIT IV SCH ×2 (10:00)
--- NOTE | 2019-05-01 10:25 | XR ---
EXAM: XR Chest, 1 View CLINICAL HISTORY: central line placement TECHNIQUE: Frontal view of the chest. COMPARISON: 04/30/19 IMPRESSION: Right central line terminates in the atrium.
--- NOTE | 2019-05-01 10:27 | XR ---
EXAM: XR Chest, 1 View CLINICAL HISTORY: central line placement TECHNIQUE: Frontal view of the chest. COMPARISON: 04/30/19 IMPRESSION: Right central line terminates in the cavoatrial junction. ET tube terminates 4.3 cm from the cece. Tip of the NG tube is not well characterized after the mid esophagus due to overlapping structures.
[2019-05-01 10:54] LABS: Anisocytosis Slight; Basophils # (A) 0.1 k/uL (0-0.2); Basophils % (A) 1 %; Eosinophils # (A) 0.1 k/uL (0-0.7); Eosinophils % (A) 0 %; HCT 34.6 % (39.0-53.0); HGB 10.7 gm/dL (13.0-17.5); Hypochromasia Marked; Lymphocytes # (A) 1.6 k/uL (1.0-4.8); Lymphocytes % (A) 9 %; MCV 93.4 fL (80.0-100.0); Mean Platelet Volume 6.8; Monocytes # (A) 1.6 k/uL (0-1.0); Monocytes % (A) 10 %; Neutrophils # (A) 12.7 k/uL (1.3-7.7); Neutrophils % (A) 76 %; Platelet Count 235 k/uL (150-450); Poikilocytosis Slight; RDW 16.2 % (11.5-15.5); WBC 16.7 k/uL (3.8-10.6)
[2019-05-01 10:59] LABS: Albumin 2.4 g/dL (3.5-5.0); Calcium 7.1 mg/dL (8.4-10.2); Potassium 5.6 mmol/L (3.5-5.1); Total Bilirubin 1.7 mg/dL (0.2-1.3); Total Protein 5.1 g/dL (6.3-8.2)
[2019-05-01 11:30] LABS: Glucose,Whole Blood 102 mg/dL (75-99)
[2019-05-01] MEDS: IPRATROPIUM-ALBUTEROL 3 ML NEB INHALATION SCH ×3 (11:41→20:00)
[2019-05-01 12:14] LABS: Bacteria,Urine Occasional /hpf; RBC,Urine >182 /hpf (0-5); WBC,Urine >182 /hpf (0-5)
[2019-05-01 12:16] LABS: Appearance,Urine Turbid (Clear); Color,Urine Red
[2019-05-01] MEDS: INSULIN ASPART (NovoLOG) 100 UNIT/ML VIAL SQ SCH ×3 (12:16→19:07)
[2019-05-01] MEDS: SODIUM CHLORIDE 0.9% 1,000 ML IV SCH ×3 (12:33→21:39)
[2019-05-01 14:20] LABS: ABG Base Excess -7.5 mmol/L; ABG HCO3 19 mmol/L (21-25); ABG Oxygen Saturation 98.8 % (94-97); ABG PCO2 39 mmHg (35-45); ABG PO2 136 mmHg (83-108); ABG TCO2 20 mmol/L (19-24); Allen Test Performed? Yes
--- NOTE | 2019-05-01 15:54 | P.HPIM ---
History of Present Illness 78-year-old male was brought to the hospital with the altered mental status found to be septic with possible source of infection being urinary tract infection patient was treated with the cephalosporins in the past for the same urinary tract infection where he had E. coli which was pansensitive to multiple antibiotics. Patient had chronic kidney disease with baseline creatinine around 0.8-3 patient had minimal urine output which is improving at this time patient is presently intubated sedated and is on 2 pressers norepinephrine and vasopressin. Patient is in septic shock. Patient is on broad-spectrum antibiotics Zosyn and vancomycin urine cultures were obtained a chest x-ray not clearly evident for pneumonia. Although as per pulmonology pneumonia cannot be ruled out. Patient is presently receiving IV fluids had a triple lumen IJ now patient previous ultrasound of the kidney showed mild left-sided hydronephrosis nonobstructive renal calculus patient was diagnosed with bladder cancer in October of this year multiple tumors were resected at that time patient had TURP procedure in month of December this year and is scheduled to undergo cystoscopy this month. Patient's INR is 2.3 patient does have atrial fibrillation and is on long-term anti-correlation for that and the patient will be resumed and continued on 40 mg of Coumadin. Review of Systems Unable to obtain due to his clinical condition. Past Medical History Past Medical History: Atrial Fibrillation, Cancer, Heart Failure, CVA/TIA, Diabetes Mellitus, Eye Disorder, Hearing Disorder / Deafness, Hyperlipidemia, Hypertension, Memory Impairment, Musculoskeletal Disorder, Renal Disease, Thyr oid Disorder Additional Past Medical History / Comment(s): Chronic stage III kidney disease, history of bladder cancer stage III underwent transurethral resection on 01/03/2019 with subsequent intravesicular chemotherapy, recurrent UTIs with E. coli, gout, chronic atrial fibrillation hypertension, hyperlipidemia, diabetes mellitus, CVA, congestion heart failure, glaucoma, chronic lower extremity edema, moves around without walker and he has also used hearing aids. History of left drop foot History of Any Multi-Drug Resistant Organisms: None Reported Date of last positivie culture/infection: 2017 MDRO Source:: stool Additional Past Surgical History / Comment(s): Finger surgery - TRAUMATIC AMPUTATIONS LT 2 FINGERS. COLONOSCOPY. Hemorrhoidectomy, transurethral rese ction of bladder tumors (11/01/18), TUR of bladder tumor scars 12/2018 Past Anesthesia/Blood Transfusion Reactions: No Reported Reaction, Family History of Problems w/ Anesthesia Additional Past Anesthesia/Blood Transfusion Reaction / Comment(s): SON HAD FLUID IN LUNGS WITH 1 SURGERY. Past Psychological History: No Psychological Hx Reported Smoking Status: Former smoker Past Alcohol Use History: None Reported Past Drug Use History: None Reported - Past Family History Daughter(s) Family Medical History: Cancer Medications and Allergies Home Medications Medication Instructions Recorded Confirmed Type Atenolol [Tenormin] 50 mg PO DAILY 02/18/15 05/01/19 History Levothyroxine Sodium [Synthroid] 75 mcg PO DAILY 02/18/15 05/01/19 History Simvastatin [Zocor] 20 mg PO HS 02/18/15 05/01/19 History Allopurinol [Zyloprim] 100 mg PO HS 10/26/18 05/01/19 History Ergocalciferol [Vitamin D2 50,000 unit PO WE 10/26/18 05/01/19 History (DRISDOL)] Oxybutynin Chloride [Ditropan] 5 mg PO BID 10/26/18 05/01/19 History sitaGLIPtin [Januvia] 50 mg PO HS 10/26/18 05/01/19 History Triamcinolone 0.1% Ointment 1 applic TOPICAL TID 02/15/19 05/01/19 History [Kenalog 0.1% Ointment] Warfarin [Coumadin] 4 - 6 mg PO DIRECTED 02/15/19 05/01/19 History glipiZIDE [Glucotrol] 10 mg PO AC-BID 02/15/19 05/01/19 History Albuterol Sulfate [Proair Hfa] 2 puff INHALATION RT-Q4H PRN 03/27/19 05/01/19 History Furosemide [Lasix] 40 mg PO BID 05/01/19 05/01/19 History Polyethylene Glycol 3350 [Miralax] 17 gm PO DAILY@1200 05/01/19 05/01/19 History Potassium Chloride [Klor-Con 20 20 meq PO TID 05/01/19 05/01/19 History Packets] Allergies Allergy/AdvReac Type Severity Reaction Status Date / Time strawberry Allergy Swelling Verified 05/01/19 07:56 Physical Exam Vitals: Vital Signs Temp Pulse Resp BP Pulse Ox 05/01/19 15:40 83 05/01/19 15:25 76 05/01/19 14:45 79 20 123/86 98 05/01/19 14:30 75 19 126/93 98 05/01/19 14:15 79 23 128/90 98 05/01/19 14:00 69 10 L 122/86 98 05/01/19 13:45 72 12 127/84 98 05/01/19 13:30 73 12 131/95 98 05/01/19 13:15 75 11 L 131/96 98 05/01/19 13:00 74 16 124/95 98 05/01/19 12:45 73 9 L 129/95 97 05/01/19 12:30 76 11 L 130/96 05/01/19 12:15 73 19 125/81 05/01/19 12:00 97.5 F L 70 17 126/85 98 05/01/19 11:51 66 05/01/19 11:45 71 14 125/87 05/01/19 11:41 74 05/01/19 11:30 69 19 127/90 95 05/01/19 11:15 71 19 121/79 98 05/01/19 11:00 66 16 126/69 05/01/19 10:45 68 15 109/72 05/01/19 10:30 71 30 H 108/83 98 05/01/19 10:15 70 11 L 100/54 05/01/19 10:00 66 19 107/84 98 05/01/19 09:45 71 20 107/84 97 05/01/19 09:30 75 19 108/61 93 L 05/01/19 09:15 68 18 113/82 93 L 05/01/19 09:00 74 21 97/63 97 05/01/19 08:45 71 14 98/72 05/01/19 08:30 75 19 96/73 05/01/19 08:15 73 21 95/71 99 05/01/19 08:00 97.3 F L 82 16 100/64 99 05/01/19 07:45 75 21 92/57 99 05/01/19 07:30 76 21 99/57 97 05/01/19 07:15 77 18 98/61 97 05/01/19 07:00 77 19 102/67 89 L 05/01/19 06:45 76 20 102/67 97 05/01/19 06:30 73 20 92/68 97 05/01/19 06:15 80 20 104/68 100 05/01/19 06:00 75 19 111/77 99 05/01/19 05:45 73 19 114/78 100 05/01/19 05:30 77 14 107/80 99 05/01/19 05:15 98.1 F 72 20 111/74 100 04/30/19 22:19 102.7 F H 97 20 121/69 97 Intake and Output 05/01/19 05/01/19 05/01/19 06:59 14:59 22:59 Intake Total 168.384 7878.353 150 Output Total 65 170 35 Balance 114.680 2176.353 115 Intake: IV 200 1000 150 Sodium Chloride 0.9% 1, 200 1000 150 000 ml @ 100 mls/hr IV . Q10H [facility] Rx#:[id number] Intake, IV Titration 20.819 263.353 Amount Norepinephrine 32 mg In 20.819 163.353 Sodium Chloride 0.9% 218 ml @ 0.05 MCG/KG/MIN 2. 658 mls/hr IV .Q24H [facility] Rx#:[id number] Piperacillin-Tazobactam 3 100 .375 gm In Sodium Chloride 0.9% 100 ml @ 25 mls/hr IVPB Q12HR [facility] Rx #:[id number] Output: Urine 65 170 35 Other: Voiding Method Indwelling Catheter Indwelling Catheter PHYSICAL EXAMINATION: GENERAL: The patient is alert and oriented x3, not in any acute distress. Intubated sedated, on pressor support HEENT: Pupils are round and equally reacting to light. EOMI. No scleral icterus. No conjunctival pallor. Normocephalic, atraumatic. No pharyngeal erythema. No thyromegaly. CARDIOVASCULAR: S1 and S2 present. No murmurs, rubs, or gallops. PULMONARY: Chest is clear to auscultation, no wheezing or crackles. ABDOMEN: Soft, nontender, nondistended, normoactive bowel sounds. No palpable organomegaly. MUSCULOSKELETAL: No joint swelling or deformity. EXTREMITIES: No cyanosis, clubbing, or pedal edema. NEUROLOGICAL: Patient's RASS score -1-2 SKIN: No rashes. Results CBC & Chem 7: 05/01/19 10:25 05/01/19 10:25 Labs: Abnormal Lab Results - Last 24 Hours (Table) 04/30/19 04/30/19 04/30/19 Range/Units 22:12 22:12 22:12 WBC (3.8-10.6) k/uL RBC 3.28 L (4.30-5.90) m/uL Hgb 9.6 L (13.0-17.5) gm/dL Hct 29.3 L (39.0-53.0) % RDW 16.2 H (11.5-15.5) % Neutrophils # (1.3-7.7) k/uL Lymphocytes # 0.4 L (1.0-4.8) k/uL Monocytes # (0-1.0) k/uL PT 22.2 H (9.0-12.0) sec INR 2.3 H (<1.2) APTT 30.2 H (22.0-30.0) sec ABG pH (7.35-7.45) ABG pO2 (83-108) mmHg ABG HCO3 (21-25) mmol/L ABG O2 Saturation (94-97) % Sodium 136 L (137-145) mmol/L Potassium (3.5-5.1) mmol/L Chloride (98-107) mmol/L Carbon Dioxide (22-30) mmol/L BUN 47 H (9-20) mg/dL Creatinine 3.19 H (0.66-1.25) mg/dL Glucose 72 L (74-99) mg/dL POC Glucose (mg/dL) (75-99) mg/dL Calcium (8.4-10.2) mg/dL Total Bilirubin 1.6 H (0.2-1.3) mg/dL Troponin I (0.000-0.034) ng/mL Total Protein 5.9 L (6.3-8.2) g/dL Albumin 3.0 L (3.5-5.0) g/dL Urine RBC (0-5) /hpf Urine WBC (0-5) /hpf Urine WBC Clumps (None) /hpf Urine Bacteria (None) /hpf 04/30/19 05/01/19 05/01/19 Range/Units 22:12 04:26 06:45 WBC (3.8-10.6) k/uL RBC (4.30-5.90) m/uL Hgb (13.0-17.5) gm/dL Hct (39.0-53.0) % RDW (11.5-15.5) % Neutrophils # (1.3-7.7) k/uL Lymphocytes # (1.0-4.8) k/uL Monocytes # (0-1.0) k/uL PT (9.0-12.0) sec INR (<1.2) APTT (22.0-30.0) sec ABG pH 7.30 L (7.35-7.45) ABG pO2 136 H (83-108) mmHg ABG HCO3 19 L (21-25) mmol/L ABG O2 Saturation 98.8 H (94-97) % Sodium (137-145) mmol/L Potassium (3.5-5.1) mmol/L Chloride (98-107) mmol/L Carbon Dioxide (22-30) mmol/L BUN (9-20) mg/dL Creatinine (0.66-1.25) mg/dL Glucose (74-99) mg/dL POC Glucose (mg/dL) (75-99) mg/dL Calcium (8.4-10.2) mg/dL Total Bilirubin (0.2-1.3) mg/dL Troponin I 0.049 H* (0.000-0.034) ng/mL Total Protein (6.3-8.2) g/dL Albumin (3.5-5.0) g/dL Urine RBC >182 H (0-5) /hpf Urine WBC >182 H (0-5) /hpf Urine WBC Clumps Many H (None) /hpf Urine Bacteria Occasional H (None) /hpf 05/01/19 05/01/19 05/01/19 Range/Units 10:25 10:25 11:16 WBC 16.7 H (3.8-10.6) k/uL RBC 3.70 L (4.30-5.90) m/uL Hgb 10.7 L (13.0-17.5) gm/dL Hct 34.6 L (39.0-53.0) % RDW 16.2 H (11.5-15.5) % Neutrophils # 12.7 H (1.3-7.7) k/uL Lymphocytes # (1.0-4.8) k/uL Monocytes # 1.6 H (0-1.0) k/uL PT (9.0-12.0) sec INR (<1.2) APTT (22.0-30.0) sec ABG pH (7.35-7.45) ABG pO2 (83-108) mmHg ABG HCO3 (21-25) mmol/L ABG O2 Saturation (94-97) % Sodium (137-145) mmol/L Potassium 5.6 H (3.5-5.1) mmol/L Chloride 109 H (98-107) mmol/L Carbon Dioxide 17 L (22-30) mmol/L BUN 48 H (9-20) mg/dL Creatinine 3.49 H (0.66-1.25) mg/dL Glucose 109 H (74-99) mg/dL POC Glucose (mg/dL) 102 H (75-99) mg/dL Calcium 7.1 L (8.4-10.2) mg/dL Total Bilirubin 1.7 H (0.2-1.3) mg/dL Troponin I (0.000-0.034) ng/mL Total Protein 5.1 L (6.3-8.2) g/dL Albumin 2.4 L (3.5-5.0) g/dL Urine RBC (0-5) /hpf Urine WBC (0-5) /hpf Urine WBC Clumps (None) /hpf Urine Bacteria (None) /hpf Thrombosis Risk Factor Assmnt - Choose All That Apply Each Factor Represents 1 point: Heart failure (<1month), Obesity (BMI >25), Sepsis (< 1month), Swollen legs (current) Other Risk Factors: Yes Each Risk Factor Represents 2 Points: Central venous access Each Risk Factor Represents 3 Points: Age 75 years or older Other congenital or acquired thrombophilia - If yes, enter type in comment: No Thrombosis Risk Factor Assessment Total Risk Factor Score: 9 Thrombosis Risk Factor Assessment Level: High Risk Assessment and Plan Plan: -Septic shock: Possible source of infection being urinary tract infection patient is on pressor support IV fluids marginal urine output -Acute renal failure probably secondary to acute tubular necrosis continue with IV fluids and pressor support -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 -History of bladder cancer -Chronic A. fib ration is presently rate controlled continue with Coumadin INR of 2. 3 repeat INR tomorrow -Congestive heart failure chronic diastolic dysfunction without any acute exacerbation at this time -Hypertension -Hyperlipidemia -Type 2 diabetes mellitus -History of CVA in the past -Generalized deconditioning at baseline. Patient will need GI prophylaxis patient is already on Coumadin will not require any additional DVT prophylaxis
[2019-05-01 16:02] LABS: Glucose,Whole Blood 113 mg/dL (75-99)
--- NOTE | 2019-05-01 17:02 | US ---
EXAMINATION TYPE: US kidneys/renal and bladder DATE OF EXAM: 05/01/2019 COMPARISON: NONE CLINICAL HISTORY: hydronephrosis. History of hydronephrosis EXAM MEASUREMENTS: Right Kidney: 11.8 x 5.1 x 5.0 cm Left Kidney: 11.3 x 5.2 x 4.7 cm Technical limitations - unresponsive ICU patient with large amount of overlying bowel content Right Kidney: no evidence of hydronephrosis Left Kidney: possible stone mid = 1.1cm Bladder: Fong Catheter IMPRESSION: Bladder was empty during the exam. Fong catheter present. There is possible 1 cm calculus at the lef t renal hilum. No hydronephrosis. No evidence of a solid renal mass.
--- NOTE | 2019-05-01 17:45 | CT ---
EXAMINATION TYPE: CT brain wo con DATE OF EXAM: 05/01/2019 COMPARISON: None HISTORY: Altered mental staus. CT DLP: 1261.4 mGycm Automated exposure control for dose reduction was used. FINDINGS: There is cerebral and diffuse cortical atrophy. There is no mass effect nor midline shift. There is n o evidence of intracranial hemorrhage. There is old right parietal cortical ischemic infarct. There i s mucosal thickening in the posterior ethmoid air cells. IMPRESSION: ETHMOID MILD SINUSITIS APPEARS NEW COMPARED TO OLD EXAM. . 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 DIFFUSE CEREBRAL ATROPHY. NO CHANGE COMPARED TO LAST EXAM.
--- NOTE | 2019-05-01 19:04 | ECHOF ---
Referral Reason:shock MEASUREMENTS -------- HEIGHT: 167.6 cm WEIGHT: 113.4 kg BP: 121/69 RVIDd: 4.5 cm (< 3.3) IVSd: 1.7 cm (0.6 - 1.1) LVIDd: 4.3 cm (3.9 - 5.3) LVPWd: 2.0 cm (0.6 - 1.1) IVSs: 2.8 cm LVIDs: 3.0 cm LVPWs: 2.0 cm LAESV Index (A-L): 90.16 ml/m Ao Diam: 3.5 cm (2.0 - 3.7) AV Cusp: 1.9 cm (1.5 - 2.6) LA Diam: 5.8 cm (2.7 - 3.8) RAP: 15.00 mmHg RVSP: 48.98 mmHg FINDINGS -------- Atrial fibrillation. This was a technically difficult study with suboptimal views. Pt. on a vent. This was a techncall y difficult study with suboptimal views, Lumason utilized for enhancement of images. The left ventricular size is normal. There is severe concentric left ventricular hypertrophy. Ove rall left ventricular systolic function is mildly impaired with, an EF between 45 - 50 %. Left vent ricular fillimg pressure cannot be estimated due to Atrial fibrillation.Difficult to assess segmental wall motion defects, because of suboptimal study The right ventricle is severely enlarged. LA is severely dilated >40 ml/m2 The right atrium is moderately enlarged. Interatrial and interventricular septum intact. There is moderate aortic valve sclerosis. There is no evidence of aortic regurgitation. There is no evidence of aortic stenosis. The mitral valve was not well visualized. Mild mitral annular calcification present. Jfba-iv-jwcv rate mitral regurgitation is present. The tricuspid valve was not well visualized. Moderate to severe tricuspid regurgitation present. There is moderate pulmonary hypertension. The right ventricular systolic pressure, as measured by D oppler, is 48.98mmHg. The pulmonic valve was not well visualized. There is no pulmonic regurgitation present. The aortic root size is normal. IVC Not well visulized. There is no pericardial effusion. CONCLUSIONS -------- 1. Atrial fibrillation. 2. This was a technically difficult study with suboptimal views. 3. Pt. on a vent. 4. This was a techncally difficult study with suboptimal views, Lumason utilized for enhancement of i mages. 5. The left ventricular size is normal. 6. There is severe concentric left ventricular hypertrophy. 7. Left ventricular fillimg pressure cannot be estimated due to Atrial fibrillation. 8. The right ventricle is severely enlarged. 9. LA is severely dilated >40 ml/m2 10. The right atrium is moderately enlarged. 11. Interatrial and interventricular septum intact. 12. There is moderate aortic valve sclerosis. 13. There is no evidence of aortic regurgitation. 14. There is no evidence of aortic stenosis. 15. The mitral valve was not well visualized. 16. Mild mitral annular calcification present. 17. Ralu-pq-[id number] mitral regurgitation is present. 18. The tricuspid valve was not well visualized. 19. Moderate to severe tricuspid regurgitation present. 20. There is moderate pulmonary hypertension. 21. The right ventricular systolic pressure, as measured by Doppler, is 48.98mmHg. 22. The pulmonic valve was not well visualized. 23. There is no pulmonic regurgitation present. 24. The aortic root size is normal. 25. IVC Not well visulized. 26. There is no pericardial effusion. SKEIN STRAIGHTENER: Nena Nieto RDCS
[2019-05-01 19:16] LABS: Glucose,Whole Blood 139 mg/dL (75-99)
--- NOTE | 2019-05-01 19:42 | PCN ---
PROCEDURE NOTE ARTERIAL LINE PLACEMENT: PREOP DIAGNOSIS: Septic shock. POSTOP DIAGNOSIS: Septic shock. Indications: Hemodynamic monitoring. A time-out was completed verifying correct patient, procedure, site, positioning, and implant(s) or special equipment if applicable. Benigno's test was performed to ensure adequate perfusion. The patient's left wrist was prepped and draped in sterile fashion. 1% Lidocaine was used to anesthetize the area. An 18G Arrow arterial line was introduced into the radial artery. The catheter was threaded over the guide wire and the needle was removed with appropriate pulsatile blood return. Blood loss was minimal. The catheter was then sutured in place to the skin and a sterile dressing applied. Perfusion to the extremity distal to the point of catheter insertion was checked and found to be adequate. The patient tolerated the procedure well and there were no complications. No bedside complications or bleeding. MMODL / IJN: [id number] /
[2019-05-01] MEDS: ATORVASTATIN 10 MG TAB PO SCH (21:38)
[2019-05-01] MEDS: ALLOPURINOL 100 MG TAB PO SCH (21:38)
[2019-05-02] MEDS: SODIUM CHLORIDE 0.9% 150 ML with VASOPRESSIN 60 UNIT IV SCH ×2 (00:23)
[2019-05-02] MEDS: INSULIN ASPART (NovoLOG) 100 UNIT/ML VIAL SQ SCH ×7 (00:38→23:33)
[2019-05-02 00:42] LABS: Glucose,Whole Blood 163 mg/dL (75-99)
[2019-05-02 04:40] LABS: ABG HCO3 14 mmol/L (21-25); ABG Oxygen Saturation 96.9 % (94-97); ABG PCO2 27 mmHg (35-45); ABG PH 7.32 (7.35-7.45); ABG PO2 91 mmHg (83-108); ABG TCO2 15 mmol/L (19-24); Allen Test Performed? Yes
[2019-05-02 04:47] LABS: Glucose,Whole Blood 180 mg/dL (75-99)
[2019-05-02] MEDS: SODIUM CHLORIDE 0.9% 1,000 ML IV SCH ×2 (04:49→12:46)
[2019-05-02 04:56] LABS: Anisocytosis Slight; Basophils # (A) 0.1 k/uL (0-0.2); Basophils % (A) 1 %; Eosinophils # (A) 0.1 k/uL (0-0.7); Eosinophils % (A) 1 %; HCT 34.3 % (39.0-53.0); HGB 10.4 gm/dL (13.0-17.5); Hypochromasia Moderate; Lymphocytes % (A) 7 %; MCH 27.7 pg (25.0-35.0); MCHC 30.2 g/dL (31.0-37.0); MCV 91.8 fL (80.0-100.0); Mean Platelet Volume 8.1; Monocytes # (A) 1.2 k/uL (0-1.0); Monocytes % (A) 9 %; Neutrophils # (A) 10.9 k/uL (1.3-7.7); Neutrophils % (A) 79 %; Platelet Count 200 k/uL (150-450); Poikilocytosis Slight; RBC 3.74 m/uL (4.30-5.90); RDW 16.6 % (11.5-15.5); WBC 13.8 k/uL (3.8-10.6)
[2019-05-02 05:00] LABS: INR 4.2 (<1.2); Prothrombin Time 40.9 sec (9.0-12.0)
[2019-05-02 05:36] LABS: Calcium 7.2 mg/dL (8.4-10.2)
[2019-05-02] MEDS: LEVOTHYROXINE 75 MCG TAB PO SCH (05:40)
[2019-05-02] MEDS: PROPOFOL 1,000 MG in EMPTY BAG 1 BAG IV SCH ×2 (05:42→23:33)
[2019-05-02] MEDS ORDERED: VANCOMYCIN 1,750 MG in SODIUM CHLORIDE 0.9% 500 ML 500 ML IVPB ONE (06:00)
[2019-05-02] MEDS: NOREPINEPHRINE 32 MG in SODIUM CHLORIDE 0.9% 218 ML IV SCH (07:04)
--- NOTE | 2019-05-02 07:08 | XR ---
EXAMINATION TYPE: XR chest 1V portable DATE OF EXAM: 05/02/2019 COMPARISON: 05/01/2019 HISTORY: Ventilatory dependent respiratory failure. Shortness of breath. TECHNIQUE: Single frontal view of the chest is obtained. FINDINGS: Right internal jugular central venous catheter is appropriately placed in the cavoatrial j unction. Enteric and endotracheal tube are similar in position to the prior. There are new bilateral pleural effusions, right greater than left. Small with associated bibasilar airspace disease. New mil d pulmonary vascular congestion. Cardiomediastinal silhouette remains enlarged. The osseous structure s are intact. IMPRESSION: New fluid overload with small pleural effusions and bibasilar airspace disease, likely a telectasis as well as pulmonary vascular congestion.
[2019-05-02] MEDS: IPRATROPIUM-ALBUTEROL 3 ML NEB INHALATION SCH ×4 (07:37→19:24)
[2019-05-02] MEDS: PIPERACILLIN-TAZOBACTAM 3.375 GM in SODIUM CHLORIDE 0.9% 100 ML IVPB SCH ×2 (08:16→20:00)
[2019-05-02] MEDS: CHLORHEXIDINE GLUCONATE 15 ML CUP MUCOUS MEM SCH ×2 (08:16→20:00)
[2019-05-02] MEDS: OXYBUTYNIN CHLORIDE 5 MG TAB PO SCH ×2 (08:17→20:00)
[2019-05-02] MEDS: FAMOTIDINE 20 MG TAB PO SCH (08:17)
--- NOTE | 2019-05-02 10:40 | CDI ---
Documentation Clarification Form Date: 05/02/2019 10:16:27 AM From: Blanca Parson RN CCDS Admit Date: 04/30/2019 10:32:00 PM Patient Name: Artie Monterroso Visit Number: [id number] Discharge Date: ATTENTION: The Clinical Documentation Specialists (CDI) and [facility] Coding Staff appreciate your assistance in clarifying documentation. Please respond to the clarification below the line at the bottom and electronically sign. The CDI & [facility] Coding staff will review the response and follow-up if needed. Please note: Queries are made part of the Legal Health Record. If you have any questions, please contact the author of this message via ITS. 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 From you H & P 05/01/2019 History/Risk Factors: 78-year-old male presents to the ED for Altered Mental Status. Medical History Atrial Fib; Bladder Ca, Heart Failure; CVA/ Tia; DM; Deafness; Hyperlipidemia, Renal disease stage 3; Clinical Indicators: HP 05/01/2019 diagnosis septic shock: possible source of infection being urinary tract infection Labs: 04/30/2019 Wbc 7.3 05/01/19 increased to 16.7; Hbg 9.6; INR 22.2; Na 136; cr 3.19; Troponin -0.049; UA Wbc> 182. ; bacteria occasional H UA culture pending Sputum pending Troponin -0.049; UA Wbc> CX Ray:04/30/19 possibility of incipient congestive heart failure CT Brain 05/01/2019 Old right frontal cortical infarct diffuse cerebral atrophy. Treatment: Vancomycin ivpb; Zosyn ivp In your professional opinion, please clarify the etiology of the Altered Mental Status, if known. * Acute Metabolic Encephalopathy due to Septic shock and possible urinary infection. * Acute Metabolic Encephalopathy due to * Other condition (please specify) * Unable to determine (Last Revision: October 2017) Toxic encephalopathy from sepsis MTDD
[2019-05-02 12:33] LABS: Glucose,Whole Blood 146 mg/dL (75-99)
[2019-05-02] MEDS: DEXTROSE 5% IN WATER 1,000 ML with SODIUM BICARB (1 MEQ/ML) 150 ML IV SCH ×2 (12:42→23:40)
--- NOTE | 2019-05-02 14:21 | P.PN ---
Subjective Patient is admitted with septic shock possibly possible source being urinary tract infection. Patient is still on norepinephrine still intubated. Patient is almost off of vasopressin. Patient's vancomycin probably can be discontinued. Patient has gram-negative bacilli in the urine patient is presently receiving Zosyn. Infectious disease will be consulted to de-escalate antibiotic therapy. Objective - Vital Signs Vital signs: Vital Signs Temp 98.3 F 05/02/19 12:00 Pulse 92 05/02/19 12:15 Resp 22 05/02/19 12:15 BP 90/64 05/02/19 12:15 Pulse Ox 97 05/02/19 12:15 Intake & Output 05/01/19 05/02/19 05/02/19 18:59 06:59 18:59 Intake Total 9650.160 7449.323 936.543 Output Total 310 965 465 Balance 5420.717 9783.323 471.543 Weight 113.398 kg Intake: IV 1600 2550 Piperacillin-Tazobactam 3 100 .375 gm In Sodium Chloride 0.9% 100 ml @ 25 mls/hr IVPB Q12HR [facility] Rx #:[id number] Sodium Chloride 0.9% 1, 1600 1950 000 ml @ 100 mls/hr IV . Q10H [facility] Rx#:[id number] Vancomycin 1,750 mg In 500 Sodium Chloride 0.9% 500 ml 500 ml @ 167 mls/hr IVPB ONCE ONE Rx#: [id number] Intake, IV Titration 363.353 321.323 936.543 Amount Norepinephrine 32 mg In 163.353 171.295 25.665 Sodium Chloride 0.9% 218 ml @ 0.05 MCG/KG/MIN 2. 658 mls/hr IV .Q24H [facility] Rx#:[id number] Piperacillin-Tazobactam 3 100 .375 gm In Sodium Chloride 0.9% 100 ml @ 25 mls/hr IVPB Q12HR [facility] Rx #:[id number] Propofol 1,000 mg In 100 150.028 30.278 Empty Bag 1 bag @ Titrate IV .Q0M [facility] Rx#: [id number] Sodium Chloride 0.9% 150 750 ml @ 0.03 UNITS/MIN 4.59 mls/hr IV .Q24H [facility] with Vasopressin 60 unit Rx#: [id number] Sodium Chloride 0.9% 150 30.6 ml @ 0.03 UNITS/MIN 4.59 mls/hr IV .Q24H [facility] with Vasopressin 60 unit Rx#: [id number] Sodium Chloride 0.9% 2, 100 000 ml @ 999 mls/hr IV . Q2H1M [facility] Rx#:[id number] Output: Urine 310 965 465 Other: Voiding Method Indwelling Catheter Indwelling Catheter Indwelling Catheter # Bowel Movements 1 1 ABP, PAP, CO, CI - Last Documented Arterial Blood Pressure 123/61 - Exam PHYSICAL EXAMINATION: GENERAL: The patient is alert and oriented x3, not in any acute distress. Intubated sedated, on pressor support HEENT: Pupils are round and equally reacting to light. EOMI. No scleral icterus. No conjunctival pallor. Normocephalic, atraumatic. No pharyngeal erythema. No th yromegaly. CARDIOVASCULAR: S1 and S2 present. No murmurs, rubs, or gallops. PULMONARY: Chest is clear to auscultation, no wheezing or crackles. ABDOMEN: Soft, nontender, nondistended, normoactive bowel sounds. No palpable organomegaly. MUSCULOSKELETAL: No joint swelling or deformity. EXTREMITIES: No cyanosis, clubbing, or pedal edema. NEUROLOGICAL: Patient's RASS score 0 to -1 SKIN: No rashes. - Labs CBC & Chem 7: 05/02/19 04:35 05/02/19 04:35 Labs: Abnormal Lab Results - Last 24 Hours (Table) 05/01/19 05/01/19 05/01/19 Range/Units 04:26 15:50 19:05 WBC (3.8-10.6) k/uL RBC (4.30-5.90) m/uL Hgb (13.0-17.5) gm/dL Hct (39.0-53.0) % MCHC (31.0-37.0) g/dL RDW (11.5-15.5) % Neutrophils # (1.3-7.7) k/uL Monocytes # (0-1.0) k/uL PT (9.0-12.0) sec INR (<1.2) ABG pH 7.30 L (7.35-7.45) ABG pCO2 (35-45) mmHg ABG pO2 136 H (83-108) mmHg ABG HCO3 19 L (21-25) mmol/L ABG Total CO2 (19-24) mmol/L ABG O2 Saturation 98.8 H (94-97) % Sodium (137-145) mmol/L Chloride (98-107) mmol/L Carbon Dioxide (22-30) mmol/L BUN (9-20) mg/dL Creatinine (0.66-1.25) mg/dL Glucose (74-99) mg/dL POC Glucose (mg/dL) 113 H 139 H (75-99) mg/dL Calcium (8.4-10.2) mg/dL 05/02/19 05/02/19 05/02/19 Range/Units 00:29 04:35 04:35 WBC (3.8-10.6) k/uL RBC (4.30-5.90) m/uL Hgb (13.0-17.5) gm/dL Hct (39.0-53.0) % MCHC (31.0-37.0) g/dL RDW (11.5-15.5) % Neutrophils # (1.3-7.7) k/uL Monocytes # (0-1.0) k/uL PT 40.9 H (9.0-12.0) sec INR 4.2 H (<1.2) ABG pH (7.35-7.45) ABG pCO2 (35-45) mmHg ABG pO2 (83-108) mmHg ABG HCO3 (21-25) mmol/L ABG Total CO2 (19-24) mmol/L ABG O2 Saturation (94-97) % Sodium 136 L (137-145) mmol/L Chloride 110 H (98-107) mmol/L Carbon Dioxide 14 L (22-30) mmol/L BUN 53 H (9-20) mg/dL Creatinine 3.27 H (0.66-1.25) mg/dL Glucose 176 H (74-99) mg/dL POC Glucose (mg/dL) 163 H (75-99) mg/dL Calcium 7.2 L (8.4-10.2) mg/dL 05/02/19 05/02/19 05/02/19 Range/Units 04:35 04:36 04:37 WBC 13.8 H (3.8-10.6) k/uL RBC 3.74 L (4.30-5.90) m/uL Hgb 10.4 L (13.0-17.5) gm/dL Hct 34.3 L (39.0-53.0) % MCHC 30.2 L (31.0-37.0) g/dL RDW 16.6 H (11.5-15.5) % Neutrophils # 10.9 H (1.3-7.7) k/uL Monocytes # 1.2 H (0-1.0) k/uL PT (9.0-12.0) sec INR (<1.2) ABG pH 7.32 L (7.35-7.45) ABG pCO2 27 L (35-45) mmHg ABG pO2 (83-108) mmHg ABG HCO3 14 L (21-25) mmol/L ABG Total CO2 15 L (19-24) mmol/L ABG O2 Saturation (94-97) % Sodium (137-145) mmol/L Chloride (98-107) mmol/L Carbon Dioxide (22-30) mmol/L BUN (9-20) mg/dL Creatinine (0.66-1.25) mg/dL Glucose (74-99) mg/dL POC Glucose (mg/dL) 180 H (75-99) mg/dL Calcium (8.4-10.2) mg/dL 05/02/19 Range/Units 12:21 WBC (3.8-10.6) k/uL RBC (4.30-5.90) m/uL Hgb (13.0-17.5) gm/dL Hct (39.0-53.0) % MCHC (31.0-37.0) g/dL RDW (11.5-15.5) % Neutrophils # (1.3-7.7) k/uL Monocytes # (0-1.0) k/uL PT (9.0-12.0) sec INR (<1.2) ABG pH (7.35-7.45) ABG pCO2 (35-45) mmHg ABG pO2 (83-108) mmHg ABG HCO3 (21-25) mmol/L ABG Total CO2 (19-24) mmol/L ABG O2 Saturation (94-97) % Sodium (137-145) mmol/L Chloride (98-107) mmol/L Carbon Dioxide (22-30) mmol/L BUN (9-20) mg/dL Creatinine (0.66-1.25) mg/dL Glucose (74-99) mg/dL POC Glucose (mg/dL) 146 H (75-99) mg/dL Calcium (8.4-10.2) mg/dL Microbiology - Last 24 Hours (Table) 05/01/19 06:45 Urine Culture - Preliminary Urine,Voided Gram Neg Bacilli 04/30/19 22:12 Blood Culture - Preliminary Blood No Growth after 24 hours 05/01/19 08:35 Gram Stain - Preliminary Sputum Sputum Culture - Preliminary Assessment and Plan Plan: -Septic shock: Possible source of infection being urinary tract infection patient is on pressor support IV fluids, urine output improved -Acute renal failure probably secondary to acute tubular necrosis continue with IV fluids and pressor support -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 Patient's urine cultures are showing gram-negative bacilli although less than 100,000 infections disease was consulted -History of bladder cancer -Chronic A. fib ration is presently rate controlled continue with Coumadin INR is therapeutic repeat INR tomorrow -Congestive heart failure chronic diastolic dysfunction without any acute exacerbation at this time -Hypertension -Hyperlipidemia -Type 2 diabetes mellitus -History of CVA in the past -Generalized deconditioning at baseline. Patient will need GI prophylaxis patient is already on Coumadin will not require any additional DVT prophylaxis
--- NOTE | 2019-05-02 15:14 | P.PN ---
Subjective Progress Note Date: 05/02/19 This is a 78-year-old male patient who was brought into the hospital because of an altered mental status. The patient was in the hospital back in March 2019 he came in for altered mentation and ultimately was diagnosed having an E. coli urinary tract infection. During his last admission he was treated with IV Rocephin and he was treated for an acute on top of chronic renal failure and he gradually improved and he was sent to [facility] for further rehabilitation. According to the son, the patient had an excellent recovery and he was in the point where he was ambulating a walk-in and he was becoming independent. He has a visiting nurse comes and checks on him on a daily basis. Yesterday, the patient was having altered mentation. He was found naked in his house and feces and based on his altered mentation he was brought into the hospital. Initial concern was her lites of the lower extremities and the patient was started on IV fluids and antibiotics. Subsequently, the patient became hypotensive. He was started on norepinephrine infusion in the emergency department. Unfortunately megadoses was given and the patient was having runs of V. tach. At that point was decided to intubate the patient and put him on a mechanical ventilator. He got transferred to the intensive care unit and he was restarted on pressors and norepinephrine infusion currently is running at 0.35 g per KG per minute. He received a total of 2.5 L of IV fluids and currently is on a maintenance of 100 mL an hour of normal saline. He is currently sedated with propofol at 50 g per KG per minute. His urine output is order of 10 mL an hour. His CVP is around 18 and the patient has a right IJ triple-lumen catheter in place and not like B also inserted. His urine output is diminished in its very dirty and cloudy and purulent. Note that the patient has history of bladder cancer. He has some erythema in lower extremities however according to the family this was chronic. There is also some swelling lower extremity is bilaterally which has been a chronic finding. The patient has also history of stage III chronic kidney disease, the patient also has Nephrolithiasis 1.5 cm kidney stone followed up by urology, nonobstructive, he has hypertension and hyperlipidemia hypothyroidism and previous history of bladder cancer post resection. His previous ultrasound of the kidneys at shown a mild left-sided hydronephrosis and nonobstructive calculus in the lower pole of the kidney measuring 1.3 cm. As far as his bladder tumor,t he patient was discovered to have bladder cancer by Dr. Carpenter in October of this year following evaluation of gross hematuria and a bladder mass. Multiple tumors were noted and were resected at that time. The tumors were grade 3 stage TI. The patient underwent repeat transurethral resection on 01/03/2019 and at that time no residual cancer was noted. Dr. Carpenter discussed possible BCG or mitomycin C to reduce the likelihood of future tumors but due to the patient's or incontinence it was elected to not proceed with this. The patient is scheduled to undergo cystoscopy in the office on 04/19. It was treated for a E. coli urinary tract infection in mid January. Patient apparently wears depends due to intermittent urge incontinence. He says he usually voids every 2-3 hours during the day and 3 times at night. He has had no recent gross hematuria. He also has history of chronic atrial fibrillation maintained on long-term articulation with warfarin. INR was 2.3 On 05/02/2019 I'm seeing this patient for a follow-up in the intensive care unit. The patient is admitted to the hospital because of a septic shock and hemodynamic instability. The source is felt to be the urine. On today's evaluation urine output is adequate and the urine color has normalized. Noted the previous urine infections related to E. coli. The patient is covered with broad-spectrum antibiotics and is currently receiving a combination of Zosyn and vancomycin. No concerns for lower extremity cellulitis in the legs are wrapped with Aris wraps for now. He remains on a mechanical ventilator. This morning, the patient is an assist-control mode of ventilation with an FiO2 of 40% and the fever 5 and a tidal volume of 450 and the rate of 16. He has developed a component of non-anion gap metabolic acidosis and based on that his meds ventilation is noted to be elevated compared to yesterday. His morning blood gases showed a pH of 7.32 with a pCO2 of 27 and pO2 of 91. Chest x-ray from this morning shows some small bilateral pleural effusion and bibasilar airspace disease/atelectasis along with a component of pulmonary vessel congestion. The patient has a right IJ triple catheter in place. Hemodynamically, he is still being resuscitated IV fluids. He is also on examination a vasopressin physiologic dose of 0.03 units per minute and the patient is also on propofol at 0.15 g per KG per minute. Echocardiogram showed severe concentric LVH, moderate aortic sclerosis, no regurgitation or stenosis and moderate degree of pulmonary hypertension with a PA pressure of 49. His ejection fraction is estimated to be around 45-50%. CAT scan of the brain was done and showed old cortical stroke and [employer] atrophy. There is no acute abnormalities. The patient's INR today is at 4.2 and the Coumadin is on hold. He remains in atrial fibrillation. Ultrasound the kidneys was done and showed no evidence of an hydronephrosis.. He described kidney stone was again described on the current ultrasound. Objective - Vital Signs Vital signs: Vital Signs Temp 98.3 F 05/02/19 12:00 Pulse 92 05/02/19 12:15 Resp 22 05/02/19 12:15 BP 90/64 05/02/19 12:15 Pulse Ox 97 05/02/19 12:15 Intake & Output 05/01/19 05/02/19 05/02/19 18:59 06:59 18:59 Intake Total 8200.150 3795.323 936.543 Output Total 310 965 465 Balance 8052.642 2902.323 471.543 Weight 113.398 kg Intake: IV 1600 2550 Piperacillin-Tazobactam 3 100 .375 gm In Sodium Chloride 0.9% 100 ml @ 25 mls/hr IVPB Q12HR [facility] Rx #:[id number] Sodium Chloride 0.9% 1, 1600 1950 000 ml @ 100 mls/hr IV . Q10H [facility] Rx#:[id number] Vancomycin 1,750 mg In 500 Sodium Chloride 0.9% 500 ml 500 ml @ 167 mls/hr IVPB ONCE ONE Rx#: [id number] Intake, IV Titration 363.353 321.323 936.543 Amount Norepinephrine 32 mg In 163.353 171.295 25.665 Sodium Chloride 0.9% 218 ml @ 0.05 MCG/KG/MIN 2. 658 mls/hr IV .Q24H [facility] Rx#:[id number] Piperacillin-Tazobactam 3 100 .375 gm In Sodium Chloride 0.9% 100 ml @ 25 mls/hr IVPB Q12HR [facility] Rx #:[id number] Propofol 1,000 mg In 100 150.028 30.278 Empty Bag 1 bag @ Titrate IV .Q0M [facility] Rx#: [id number] Sodium Chloride 0.9% 150 750 ml @ 0.03 UNITS/MIN 4.59 mls/hr IV .Q24H [facility] with Vasopressin 60 unit Rx#: [id number] Sodium Chloride 0.9% 150 30.6 ml @ 0.03 UNITS/MIN 4.59 mls/hr IV .Q24H [facility] with Vasopressin 60 unit Rx#: [id number] Sodium Chloride 0.9% 2, 100 000 ml @ 999 mls/hr IV . Q2H1M [facility] Rx#:[id number] Output: Urine 310 965 465 Other: Voiding Method Indwelling Catheter Indwelling Catheter Indwelling Catheter # Bowel Movements 1 1 ABP, PAP, CO, CI - Last Documented Arterial Blood Pressure 123/61 - Exam Gen. appearance, comfortable sedated nonacute distress intubated on a mechanical ventilator. Head exam was generally normal. There was no scleral icterus or corneal arcus. Mucous membranes were moist Neck was supple and without jugular venous distension, thyromegaly, or carotid bruits. Carotids were easily palpable bilaterally. There was no adenopathy. The patient has a right IJ triple lumen catheter in place and the patient has an orogastric and orotracheal tube are both in place Lungs were clear to auscultation and percussion, and with normal diaphragmatic excursion. No wheezes or rales were noted. Cardiac exam revealed the PMI to be normally situated and sized. The rhythm was regular consistent with atrial fibrillation and no extrasystoles were noted during several minutes of auscultation. The first and second heart sounds were normal and physiologic splitting of the second heart sound was noted. There were no murmurs, rubs, clicks, or gallops. Abdominal exam revealed normal bowel sounds. The abdomen was soft, non-tender, and without masses, organomegaly, or appreciable enlargement of the abdominal aorta. Extremities are swollen and the patient is +1 pitting edema bilaterally and the edema is left more than right. No warmth. There is some limited erythema. There is apparently chronic. No open wounds or sores. No cyanosis or clubbing. Examination of the skin revealed no evidence of significant rashes, suspicious appearing nevi or other concerning lesions. For the lower extremity description please refer to above Neurologically the patient is sedated and he withdraws to painful establish all 4 extremities. - Labs CBC & Chem 7: 05/02/19 04:35 05/02/19 04:35 Labs: Abnormal Lab Results - Last 24 Hours (Table) 05/01/19 05/01/19 05/02/19 Range/Units 15:50 19:05 00:29 WBC (3.8-10.6) k/uL RBC (4.30-5.90) m/uL Hgb (13.0-17.5) gm/dL Hct (39.0-53.0) % MCHC (31.0-37.0) g/dL RDW (11.5-15.5) % Neutrophils # (1.3-7.7) k/uL Monocytes # (0-1.0) k/uL PT (9.0-12.0) sec INR (<1.2) ABG pH (7.35-7.45) ABG pCO2 (35-45) mmHg ABG HCO3 (21-25) mmol/L ABG Total CO2 (19-24) mmol/L Sodium (137-145) mmol/L Chloride (98-107) mmol/L Carbon Dioxide (22-30) mmol/L BUN (9-20) mg/dL Creatinine (0.66-1.25) mg/dL Glucose (74-99) mg/dL POC Glucose (mg/dL) 113 H 139 H 163 H (75-99) mg/dL Calcium (8.4-10.2) mg/dL 05/02/19 05/02/19 05/02/19 Range/Units 04:35 04:35 04:35 WBC 13.8 H (3.8-10.6) k/uL RBC 3.74 L (4.30-5.90) m/uL Hgb 10.4 L (13.0-17.5) gm/dL Hct 34.3 L (39.0-53.0) % MCHC 30.2 L (31.0-37.0) g/dL RDW 16.6 H (11.5-15.5) % Neutrophils # 10.9 H (1.3-7.7) k/uL Monocytes # 1.2 H (0-1.0) k/uL PT 40.9 H (9.0-12.0) sec INR 4.2 H (<1.2) ABG pH (7.35-7.45) ABG pCO2 (35-45) mmHg ABG HCO3 (21-25) mmol/L ABG Total CO2 (19-24) mmol/L Sodium 136 L (137-145) mmol/L Chloride 110 H (98-107) mmol/L Carbon Dioxide 14 L (22-30) mmol/L BUN 53 H (9-20) mg/dL Creatinine 3.27 H (0.66-1.25) mg/dL Glucose 176 H (74-99) mg/dL POC Glucose (mg/dL) (75-99) mg/dL Calcium 7.2 L (8.4-10.2) mg/dL 05/02/19 05/02/19 05/02/19 Range/Units 04:36 04:37 12:21 WBC (3.8-10.6) k/uL RBC (4.30-5.90) m/uL Hgb (13.0-17.5) gm/dL Hct (39.0-53.0) % MCHC (31.0-37.0) g/dL RDW (11.5-15.5) % Neutrophils # (1.3-7.7) k/uL Monocytes # (0-1.0) k/uL PT (9.0-12.0) sec INR (<1.2) ABG pH 7.32 L (7.35-7.45) ABG pCO2 27 L (35-45) mmHg ABG HCO3 14 L (21-25) mmol/L ABG Total CO2 15 L (19-24) mmol/L Sodium (137-145) mmol/L Chloride (98-107) mmol/L Carbon Dioxide (22-30) mmol/L BUN (9-20) mg/dL Creatinine (0.66-1.25) mg/dL Glucose (74-99) mg/dL POC Glucose (mg/dL) 180 H 146 H (75-99) mg/dL Calcium (8.4-10.2) mg/dL Microbiology - Last 24 Hours (Table) 05/01/19 06:45 Urine Culture - Preliminary Urine,Voided Gram Neg Bacilli 04/30/19 22:12 Blood Culture - Preliminary Blood No Growth after 24 hours 05/01/19 08:35 Gram Stain - Preliminary Sputum Sputum Culture - Preliminary Assessment and Plan Plan: 1 septic shock likely secondary to a urine infection. Cellulitis is felt to be less likely. The patient has a gram-negative bacillus growing in the urine and the blood cultures still pending for now. Meanwhile the patient and accommodation of Zosyn and vancomycin. He remains pressor dependent. He is on accommodation vasopressin and norepinephrine infusion regarding septic shock. He is been in a significant positive fluid balance. He is to IV fluids with normal saline at the rate of 150 mL an hour. 2 hypotension secondary to above 3 acute respiratory failure secondary to septic shock. The patient was in acute hypoxic respiratory failure and the patient developed some vague bilateral pulmonary infiltrates. Superimposed pneumonia cannot be completely excluded. 4 history of bladder cancer 5 chronic atrial fibrillation again is therapeutic and the patient rates under good control 6 history of congestion heart failure with systolic dysfunction 7 history of recurrent UTIs and recent hospitalization for a gram-negative UTI secondary to E. 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 Continue fluids. Continue pressors. Continue same antibiotic coverage. Awaiting final cultures and sensitivities. Meanwhile, the patient will be started on a bicarb infusion. The patient has developed a component of non-anion gap metabolic acidosis and he is having increased minute ventilation and correction of his metabolic alkalosis will be helpful as the patient may wean within next 24-48 hours. Renal function is stable. This will be monitored. Ultrasound the kidneys was noted. Echo was noted. Hold Coumadin as the patient's PT/INR is supratherapeutic at this stage. Daily PT/INR monitoring. Continue to follow and make further recommendations based on his progress. His condition is critical and this evaluation was done and more than 30 minutes. Family was updated on his condition. Time with Patient: Greater than 30
[2019-05-02 16:20] LABS: Glucose,Whole Blood 199 mg/dL (75-99)
[2019-05-02 19:23] LABS: Glucose,Whole Blood 207 mg/dL (75-99)
[2019-05-02] MEDS: ATORVASTATIN 10 MG TAB PO SCH (20:00)
[2019-05-02] MEDS: ALLOPURINOL 100 MG TAB PO SCH (20:00)
--- NOTE | 2019-05-02 23:19 | P.CONS ---
History of Present Illness - Reason for Consult Consult date: 05/02/19 Possible sepsis and antibiotic combination Requesting physician: Macario Lopez - Chief Complaint Mental status changes and weakness x 1 day - History of Present Illness Patient is a 78-year-old male who was sent to the ER by the home care nurse the day of admission to the hospital after the patient was noticed to be confused make it and covered in feces at his home by the home care nurse patient was brought into the ER on arrival to the ER the patient was febrile with temperature 102 100 Fahrenheit patient initial white count was normal subsequent white count of 16,000 patient chest x-ray with mostly congestion and fluid overload but no different constellation while in the ER the patient become hypotensive requiring pressor support subsequently did have a ventricular tachycardia patient has been intubated and has been transferred to the ICU currently being treated with the vancomycin and Zosyn the patient did have a chronic swelling in lower extremity currently did have Aris wraps on however on admission there are no wounds or any redness on his legs the patient did not have any purulence drainage through his CT as per the nursing staff patient is currently nothing by mouth and to be started on tube feeds and no diarrhea has been noticed most of this information has been obtained from review the chart and talking to the nursing staff as the patient is currently intubated on the vent and unable to provide any history no family member at the bedside Review of Systems Positive points has been mentioned in HPI complete review could not be obtained because of his underlying mental status Past Medical History Past Medical History: Atrial Fibrillation, Cancer, Heart Failure, CVA/TIA, Diabetes Mellitus, Eye Disorder, Hearing Disorder / Deafness, Hyperlipidemia, Hypertension, Memory Impairment, Musculoskeletal Disorder, Renal Disease, Thyroid Disorder Additional Past Medical History / Comment(s): Chronic stage III kidney disease, history of bladder cancer stage III underwent transurethral resection on 01/03/2019 with subsequent intravesicular chemotherapy, recurrent UTIs with E. coli, gout, chronic atrial fibrillation hypertension, hyperlipidemia, diabetes mellitus, CVA, congestion heart failure, glaucoma, chronic lower extremity edema , moves around without walker and he has also used hearing aids. History of left drop foot History of Any Multi-Drug Resistant Organisms: None Reported Year Discovered:: 2018 MDRO Source:: stool Additional Past Surgical History / Comment(s): Finger surgery - TRAUMATIC AMPUTATIONS LT 2 FINGERS. COLONOSCOPY. Hemorrhoidectomy, transurethral resection of bladder tumors (11/01/18), TUR of bladder tumor scars 12/2018 Past Anesthesia/Blood Transfusion Reactions: No Reported Reaction, Family History of Problems w/ Anesthesia Additional Past Anesthesia/Blood Transfusion Reaction / Comm: SON HAD FLUID IN LUNGS WITH 1 SURGERY. Past Psychological History: No Psychological Hx Reported Smoking Status: Former smoker Past Alcohol Use History: None Reported Past Drug Use History: None Reported - Past Family History Daughter(s) Family Medical History: Cancer Medications and Allergies Home Medications Medication Instructions Recorded Confirmed Type Atenolol [Tenormin] 50 mg PO DAILY 02/18/15 05/01/19 History Levothyroxine Sodium [Synthroid] 75 mcg PO DAILY 02/18/15 05/01/19 History Simvastatin [Zocor] 20 mg PO HS 02/18/15 05/01/19 History Allopurinol [Zyloprim] 100 mg PO HS 10/26/18 05/01/19 History Ergocalciferol [Vitamin D2 50,000 unit PO WE 10/26/18 05/01/19 History (DRISDOL)] Oxybutynin Chloride [Ditropan] 5 mg PO BID 10/26/18 05/01/19 History sitaGLIPtin [Januvia] 50 mg PO HS 10/26/18 05/01/19 History Triamcinolone 0.1% Ointment 1 applic TOPICAL TID 02/15/19 05/01/19 History [Kenalog 0.1% Ointment] Warfarin [Coumadin] 4 - 6 mg PO DIRECTED 02/15/19 05/01/19 History glipiZIDE [Glucotrol] 10 mg PO AC-BID 02/15/19 05/01/19 History Albuterol Sulfate [Proair Hfa] 2 puff INHALATION RT-Q4H PRN 03/27/19 05/01/19 History Furosemide [Lasix] 40 mg PO BID 05/01/19 05/01/19 History Polyethylene Glycol 3350 [Miralax] 17 gm PO DAILY@1200 05/01/19 05/01/19 History Potassium Chloride [Klor-Con 20 20 meq PO TID 05/01/19 05/01/19 History Packets] Allergies Allergy/AdvReac Type Severity Reaction Status Date / Time strawberry Allergy Swelling Verified 05/01/19 07:56 Physical Exam Vitals: Vital Signs Temp Pulse Resp BP Pulse Ox 05/02/19 15:38 85 05/02/19 15:30 81 6 L 90/64 97 05/02/19 15:29 82 05/02/19 15:15 80 14 90/64 97 05/02/19 15:00 83 5 L 90/64 96 05/02/19 14:45 82 11 L 90/64 97 05/02/19 14:30 85 7 L 90/64 97 05/02/19 14:15 78 0 L 90/64 97 05/02/19 14:00 83 0 L 90/64 97 05/02/19 13:45 81 7 L 97 05/02/19 13:30 83 10 L 97 05/02/19 13:15 86 6 L 97 05/02/19 13:00 85 13 97 05/02/19 12:45 86 8 L 96 05/02/19 12:30 81 15 97 05/02/19 12:15 92 22 90/64 97 05/02/19 12:00 98.3 F 101 H 22 90/64 96 05/02/19 11:45 89 23 90/64 96 05/02/19 11:40 85 05/02/19 11:30 78 14 90/64 96 05/02/19 11:15 81 19 90/64 97 05/02/19 11:00 86 12 90/64 97 05/02/19 10:45 81 23 97 05/02/19 10:30 96 24 90/64 97 05/02/19 10:15 91 15 90/64 97 05/02/19 10:00 87 25 H 90/64 97 05/02/19 09:45 94 23 90/64 95 05/02/19 09:30 85 26 H 90/64 95 05/02/19 09:15 92 25 H 90/64 95 05/02/19 09:00 88 25 H 90/64 95 05/02/19 08:45 82 10 L 96 05/02/19 08:30 79 7 L 96 05/02/19 08:15 85 25 H 94 L 05/02/19 08:00 98.0 F 73 20 98 05/02/19 07:45 80 9 L 97 05/02/19 07:43 81 05/02/19 07:30 84 9 L 96 05/02/19 07:15 81 13 95 05/02/19 07:00 78 25 H 96 05/02/19 06:45 78 21 96 05/02/19 06:30 77 24 95 05/02/19 06:15 79 25 H 96 05/02/19 06:00 79 26 H 94 L 05/02/19 05:45 76 28 H 95 05/02/19 05:30 74 26 H 94 L 05/02/19 05:15 79 26 H 94 L 05/02/19 05:00 84 26 H 114/77 97 05/02/19 04:45 74 25 H 116/79 95 05/02/19 04:30 83 27 H 95 05/02/19 04:15 82 26 H 113/76 95 05/02/19 04:00 98.6 F 75 24 113/77 95 05/02/19 03:45 77 25 H 111/68 96 05/02/19 03:30 86 25 H 95 05/02/19 03:15 86 24 114/78 95 05/02/19 03:00 80 25 H 110/76 96 05/02/19 02:45 84 25 H 108/71 96 05/02/19 02:30 81 24 114/71 96 05/02/19 02:15 84 21 115/80 96 05/02/19 02:00 77 24 111/78 96 05/02/19 01:45 89 23 108/81 95 05/02/19 01:30 81 23 116/73 95 05/02/19 01:15 74 22 115/78 95 05/02/19 01:00 79 25 H 113/72 96 05/02/19 00:45 89 24 95 05/02/19 00:30 98.5 F 82 26 H 96 05/02/19 00:15 85 26 H 114/71 95 05/02/19 00:00 97.9 F 75 24 113/75 97 05/01/19 23:45 80 24 117/86 97 05/01/19 23:30 79 27 H 108/82 97 05/01/19 23:15 82 24 98/66 97 05/01/19 23:00 88 24 107/74 97 05/01/19 22:45 84 24 114/80 97 05/01/19 22:30 80 25 H 112/86 96 05/01/19 22:15 78 24 120/82 95 05/01/19 22:00 90 23 110/77 96 05/01/19 21:45 86 24 94/66 97 05/01/19 21:30 84 25 H 131/97 96 05/01/19 21:15 89 24 125/88 97 05/01/19 21:00 86 25 H 123/90 97 05/01/19 20:45 80 24 127/95 98 05/01/19 20:30 87 24 116/77 05/01/19 20:15 97 24 117/86 98 05/01/19 20:12 82 05/01/19 20:00 98.1 F 78 24 118/84 97 05/01/19 19:45 82 23 123/84 97 05/01/19 19:30 83 17 115/82 05/01/19 19:00 84 24 113/77 97 05/01/19 18:45 84 24 115/74 97 05/01/19 18:30 80 19 127/87 97 05/01/19 18:15 80 16 133/74 97 05/01/19 18:00 75 23 130/92 93 L 05/01/19 17:45 87 23 109/78 92 L 05/01/19 17:30 123/91 05/01/19 17:15 74 19 128/90 98 05/01/19 17:00 81 24 126/95 98 05/01/19 16:45 82 24 122/87 98 05/01/19 16:30 91 24 124/89 99 Intake and Output 05/02/19 05/02/19 05/02/19 06:59 14:59 22:59 Intake Total 2104.283 936.543 Output Total 735 465 Balance 1369.283 471.543 Intake: IV 1950 Piperacillin-Tazobactam 3 100 .375 gm In Sodium Chloride 0.9% 100 ml @ 25 mls/hr IVPB Q12HR [facility] Rx #:[id number] Sodium Chloride 0.9% 1, 1350 000 ml @ 100 mls/hr IV . Q10H STA Rx#:[id number] Vancomycin 1,750 mg In 500 Sodium Chloride 0.9% 500 ml 500 ml @ 167 mls/hr IVPB ONCE ONE Rx#: [id number] Intake, IV Titration 154.283 936.543 Amount Norepinephrine 32 mg In 72.125 25.665 Sodium Chloride 0.9% 218 ml @ 0.05 MCG/KG/MIN 2. 658 mls/hr IV .Q24H [facility] Rx#:[id number] Propofol 1,000 mg In 82.158 30.278 Empty Bag 1 bag @ Titrate IV .Q0M [facility] Rx#: [id number] Sodium Chloride 0.9% 150 750 ml @ 0.03 UNITS/MIN 4.59 mls/hr IV .Q24H [facility] with Vasopressin 60 unit Rx#: [id number] Sodium Chloride 0.9% 150 30.6 ml @ 0.03 UNITS/MIN 4.59 mls/hr IV .Q24H [facility] with Vasopressin 60 unit Rx#: [id number] Sodium Chloride 0.9% 2, 100 000 ml @ 999 mls/hr IV . Q2H1M ONE Rx#:[id number] Output: Urine 735 465 Other: Voiding Method Indwelling Catheter Indwelling Catheter # Bowel Movements 1 1 Weight 113.398 kg ABP, PAP, CO, CI - Last 8 Hours Arterial Blood Pressure 116/57 Arterial Blood Pressure 116/59 Arterial Blood Pressure 115/58 Arterial Blood Pressure 114/58 Arterial Blood Pressure 115/60 Arterial Blood Pressure 121/59 Arterial Blood Pressure 115/60 Arterial Blood Pressure 118/60 Arterial Blood Pressure 114/57 Arterial Blood Pressure 120/60 Arterial Blood Pressure 116/58 Arterial Blood Pressure 121/60 Arterial Blood Pressure 123/60 Arterial Blood Pressure 123/61 Arterial Blood Pressure 122/60 Arterial Blood Pressure 119/60 Arterial Blood Pressure 122/58 Arterial Blood Pressure 118/58 Arterial Blood Pressure 112/56 Arterial Blood Pressure 107/58 Arterial Blood Pressure 107/58 Arterial Blood Pressure 118/61 Arterial Blood Pressure 122/60 Arterial Blood Pressure 116/62 Arterial Blood Pressure 148/85 Arterial Blood Pressure 132/64 Arterial Blood Pressure 127/64 Arterial Blood Pressure 85/47 Arterial Blood Pressure 119/57 GENERAL DESCRIPTION: An daily male lying in bed, intubated on the vent No tachypnea or accessory muscle of respiration use. HEENT: Shows Pallor , no scleral icterus. Oral mucous membrane is dry. Patient is orally intubated NECK: Trachea central, no thyromegaly. LUNGS: Unlabored breathing. Decreased present at the base. No wheeze or crackle. HEART: S1, S2, regular rate and rhythm. No loud murmur ABDOMEN: Soft, no tenderness , guarding or rigidity, no organomegaly EXTREMITIES: Diffuse swelling of the legs but no redness no open wound or any drainage SKIN: No rash, no masses palpable. NEUROLOGICAL: The patient is sedated on the vent Results CBC & Chem 7: 05/02/19 04:35 05/02/19 04:35 Labs: Abnormal Lab Results - Last 24 Hours (Table) 05/01/19 05/02/19 05/02/19 Range/Units 19:05 00:29 04:35 WBC (3.8-10.6) k/uL RBC (4.30-5.90) m/uL Hgb (13.0-17.5) gm/dL Hct (39.0-53.0) % MCHC (31.0-37.0) g/dL RDW (11.5-15.5) % Neutrophils # (1.3-7.7) k/uL Monocytes # (0-1.0) k/uL PT 40.9 H (9.0-12.0) sec INR 4.2 H (<1.2) ABG pH (7.35-7.45) ABG pCO2 (35-45) mmHg ABG HCO3 (21-25) mmol/L ABG Total CO2 (19-24) mmol/L Sodium (137-145) mmol/L Chloride (98-107) mmol/L Carbon Dioxide (22-30) mmol/L BUN (9-20) mg/dL Creatinine (0.66-1.25) mg/dL Glucose (74-99) mg/dL POC Glucose (mg/dL) 139 H 163 H (75-99) mg/dL Calcium (8.4-10.2) mg/dL 05/02/19 05/02/19 05/02/19 Range/Units 04:35 04:35 04:36 WBC 13.8 H (3.8-10.6) k/uL RBC 3.74 L (4.30-5.90) m/uL Hgb 10.4 L (13.0-17.5) gm/dL Hct 34.3 L (39.0-53.0) % MCHC 30.2 L (31.0-37.0) g/dL RDW 16.6 H (11.5-15.5) % Neutrophils # 10.9 H (1.3-7.7) k/uL Monocytes # 1.2 H (0-1.0) k/uL PT (9.0-12.0) sec INR (<1.2) ABG pH (7.35-7.45) ABG pCO2 (35-45) mmHg ABG HCO3 (21-25) mmol/L ABG Total CO2 (19-24) mmol/L Sodium 136 L (137-145) mmol/L Chloride 110 H (98-107) mmol/L Carbon Dioxide 14 L (22-30) mmol/L BUN 53 H (9-20) mg/dL Creatinine 3.27 H (0.66-1.25) mg/dL Glucose 176 H (74-99) mg/dL POC Glucose (mg/dL) 180 H (75-99) mg/dL Calcium 7.2 L (8.4-10.2) mg/dL 05/02/19 05/02/19 Range/Units 04:37 12:21 WBC (3.8-10.6) k/uL RBC (4.30-5.90) m/uL Hgb (13.0-17.5) gm/dL Hct (39.0-53.0) % MCHC (31.0-37.0) g/dL RDW (11.5-15.5) % Neutrophils # (1.3-7.7) k/uL Monocytes # (0-1.0) k/uL PT (9.0-12.0) sec INR (<1.2) ABG pH 7.32 L (7.35-7.45) ABG pCO2 27 L (35-45) mmHg ABG HCO3 14 L (21-25) mmol/L ABG Total CO2 15 L (19-24) mmol/L Sodium (137-145) mmol/L Chloride (98-107) mmol/L Carbon Dioxide (22-30) mmol/L BUN (9-20) mg/dL Creatinine (0.66-1.25) mg/dL Glucose (74-99) mg/dL POC Glucose (mg/dL) 146 H (75-99) mg/dL Calcium (8.4-10.2) mg/dL Microbiology - Last 24 Hours (Table) 05/01/19 06:45 Urine Culture - Preliminary Urine,Voided Gram Neg Bacilli 04/30/19 22:12 Blood Culture - Preliminary Blood No Growth after 24 hours 05/01/19 08:35 Gram Stain - Preliminary Sputum Sputum Culture - Preliminary Assessment and Plan Assessment: 1-patient admitted to hospital with sepsis in this patient who did have a fever tachycardia hypotension source is likely urinary tract infection, and this p atient presented to hospital with mental status changes, clinical suspicious flu for pneumonia and no evidence of any cellulitis 2-patient with renal insufficiency and high discomfort nephrotoxicity from the vancomycin (1) Sepsis Current Visit: Yes Status: Acute Code(s): A41.9 - SEPSIS, UNSPECIFIED ORGANISM SNOMED Code(s): 06614763 (2) UTI (urinary tract infection) Current Visit: No Status: Acute Code(s): N39.0 - URINARY TRACT INFECTION, SITE NOT SPECIFIED SNOMED Code(s): 78174745 Plan: 1-Zosyn 3.75 mg every 12 hours dose has been adjusted in his kidney function 2-discontinue the vancomycin clinical suspicious low for gram-positive infection 3-obtain ultrasound of the kidneys and bladder area 4-gentle IV fluid We will follow on clinical condition and cultures to further adjust medication if needed Thank you for this consultation will follow this patient with you Time with Patient: Greater than 30
[2019-05-02 23:51] LABS: Glucose,Whole Blood 202 mg/dL (75-99)
[2019-05-03] MEDS: SODIUM CHLORIDE 0.9% 150 ML with VASOPRESSIN 60 UNIT IV SCH ×4 (01:50→21:45)
[2019-05-03] MEDS: INSULIN ASPART (NovoLOG) 100 UNIT/ML VIAL SQ SCH ×5 (03:14→21:44)
[2019-05-03 03:24] LABS: Glucose,Whole Blood 215 mg/dL (75-99)
[2019-05-03 05:06] LABS: Anisocytosis Slight; Basophils % (A) 0 %; Eosinophils # (A) 0.4 k/uL (0-0.7); Eosinophils % (A) 6 %; HCT 27.6 % (39.0-53.0); Hypochromasia Slight; Lymphocytes # (A) 0.6 k/uL (1.0-4.8); Lymphocytes % (A) 8 %; MCH 29.1 pg (25.0-35.0); MCHC 32.5 g/dL (31.0-37.0); MCV 89.4 fL (80.0-100.0); Mean Platelet Volume 7.3; Monocytes # (A) 0.6 k/uL (0-1.0); Monocytes % (A) 8 %; Neutrophils # (A) 5.5 k/uL (1.3-7.7); Neutrophils % (A) 75 %; Platelet Count 152 k/uL (150-450); Poikilocytosis Slight; RBC 3.09 m/uL (4.30-5.90); RDW 16.3 % (11.5-15.5); WBC 7.4 k/uL (3.8-10.6)
[2019-05-03 05:13] LABS: Prothrombin Time 56.3 sec (9.0-12.0)
[2019-05-03 05:24] LABS: INR 5.8 (<1.2)
[2019-05-03 05:27] LABS: Calcium 7.6 mg/dL (8.4-10.2); Potassium 3.8 mmol/L (3.5-5.1)
[2019-05-03 05:31] LABS: ABG Base Excess -4.1 mmol/L; ABG HCO3 21 mmol/L (21-25); ABG Oxygen Saturation 99.4 % (94-97); ABG PCO2 33 mmHg (35-45); ABG PH 7.41 (7.35-7.45); ABG PO2 140 mmHg (83-108); ABG TCO2 22 mmol/L (19-24); Allen Test Performed? Yes
[2019-05-03 05:33] LABS: Vancomycin,Random 11.5 ug/mL
[2019-05-03] MEDS: LEVOTHYROXINE 75 MCG TAB PO SCH (05:41)
[2019-05-03] MEDS ORDERED: PHYTONADIONE 5 MG in SODIUM CHLORIDE 0.9% 50 ML IVPB ONE (05:45)
[2019-05-03 07:12] LABS: Glucose,Whole Blood 212 mg/dL (75-99)
[2019-05-03] MEDS: IPRATROPIUM-ALBUTEROL 3 ML NEB INHALATION SCH ×4 (07:36→19:38)
--- NOTE | 2019-05-03 07:38 | XR ---
EXAMINATION TYPE: XR chest 1V portable DATE OF EXAM: 05/03/2019 COMPARISON: 05/02/2019 HISTORY: Ventilatory dependent respiratory failure TECHNIQUE: Single frontal view of the chest is obtained. FINDINGS: There is similar-appearing bilateral pleural effusions, overall small with bibasilar airsp chevy disease. Endotracheal tube, enteric tube and right internal jugular central venous catheter are s imilar in position. Cardiomediastinal silhouette is again enlarged. No acute osseous pathology. IMPRESSION: Similar small layering bilateral pleural effusions and bibasilar airspace disease, consi chinmay congestive heart failure.
[2019-05-03 08:59] LABS: Glucose,Whole Blood 218 mg/dL (75-99)
[2019-05-03] MEDS: OXYBUTYNIN CHLORIDE 5 MG TAB PO SCH ×2 (10:06→21:47)
[2019-05-03] MEDS: CHLORHEXIDINE GLUCONATE 15 ML CUP MUCOUS MEM SCH (10:06)
[2019-05-03] MEDS: FAMOTIDINE 20 MG TAB PO SCH (10:06)
[2019-05-03] MEDS: PIPERACILLIN-TAZOBACTAM 3.375 GM in SODIUM CHLORIDE 0.9% 100 ML IVPB SCH ×2 (10:06→17:18)
[2019-05-03] MEDS ORDERED: FUROSEMIDE 10 MG/ML 10 ML VIAL IV STA (10:38)
[2019-05-03 11:21] LABS: Glucose,Whole Blood 227 mg/dL (75-99)
--- NOTE | 2019-05-03 14:02 | PN ---
PROGRESS NOTE DATE OF SERVICE: 05/03/2019 This is a 78-year-old gentleman admitted with UTI with sepsis, also had hypotension, multiple other medical problems. Patient mechanically intubated, E coli grown from the cultures. Patient on broad spectrum IV antibiotics. The patient also had multiple urology issues previously, 2D echo showed ejection fraction 40%-45%. Patient has some evidence of CHF on chest x-ray today. CT scan showed old right frontal cortical infarct with some diffuse cerebral atrophy also. The patient also had Coumadin coagulopathy and vitamin K 5 mg IV has been given. PAST MEDICAL HISTORY: Reviewed. REVIEW OF SYSTEMS: Could not be taken, the patient mechanically intubated. Current medications are reviewed and include: 1. Tylenol 650 q.4 p.r.n. 2. DuoNeb q.i.d. and p.r.n. 3. Zyloprim 100 mg p.o. q.h.s. 4. Lipitor 10 mg q.h.s. 5. Peridex 15 mg. 6. Pepcid 20 mg daily. 7. Ventolin 50 mcg IV q.24 hours. 8. NovoLog scale. 9. Synthroid. 10.Norepinephrine. 11.Zosyn. 12.Flomax. PHYSICAL EXAM: Patient is mechanically ventilated and sedated, pulse is 91, blood pressure is 108/53, respiration 19, temperature is normal, pulse ox 98% on 50% FiO2. HEENT: Conjunctivae normal. NECK: No jugular venous distention. CARDIOVASCULAR SYSTEM: S1, S2. muffled. RESPIRATORY SYSTEM: Breath sounds diminished at the bases, a few scattered rhonchi, no crackles. ABDOMEN: Soft, nontender. No mass palpable. LEGS: No edema, no swelling. NERVOUS SYSTEM: Patient mechanically sedated. LABS: WBC 7.9, hemoglobin is 9 and INR is 5.8. ABGs noted, sodium 130, potassium 3.8, creatinine 2.62. ASSESSMENT: 1. Acute urinary tract infection with severe sepsis with hypotension secondary to sepsis with E coli sensitive. 2. Acute hypoxic respiratory failure on mechanical ventilation. 3. Change in mental status, acute metabolic encephalopathy, multifactorial. 4. Coumadin coagulopathy. 5. 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 6. Chronic renal failure stage III with possible acute component. 7. Acute renal failure with acute tubular necrosis. 8. Troponin 0.049, indeterminate. 9. Anemia, normocytic anemia of chronic disease. 10.Atrial fibrillation, chronic, persistent. 11.Congestive heart failure acute exacerbation with acute on chronic systolic dysfunction, ejection fraction 40% to 45%. 12.History of cerebrovascular accident, transient ischemic attack. 13.Diabetes mellitus type 2. 14.Hypertension. 15.Hyperlipidemia. 16.History of bladder cancer, stage III, underwent TURP and subsequent intravascular chemotherapy. 17.History of recurrent urinary tract infection with Escherichia coli. 18.History of gout. 19.History of cerebrovascular accident. 20.History of glaucoma. 21.Obesity with body mass index 47.5. 22.FULL CODE. RECOMMENDATION: In this 78-year-old gentleman who presented with multiple complex medical issues, will monitor the patient closely, continue with the current management. Continue with the mechanical ventilation, closely follow with Dr. Curry. Otherwise, ensure oxygenation. Continue with the antibiotics. Cultures have been noted. Closely follow with Infectious Disease, otherwise Flomax. Patient has seen Urology previously in the outpatient setting. I had a detailed discussion with the family at length and recommend outpatient followup with Urology regarding the recurrent UTIs. Otherwise, vitamin K, hold Coumadin today, monitor PT, INR closely. The prognosis is extremely guarded because of multiple complex medical issues. Further recommendations to follow. MMODL / IJN: [id number] /
[2019-05-03] MEDS: DEXTROSE 5% IN WATER 1,000 ML with SODIUM BICARB (1 MEQ/ML) 150 ML IV SCH ×2 (14:05→21:45)
[2019-05-03 15:05] LABS: ABG Base Excess -2.4 mmol/L; ABG HCO3 23 mmol/L (21-25); ABG PCO2 39 mmHg (35-45); ABG PH 7.38 (7.35-7.45); ABG PO2 120 mmHg (83-108); ABG TCO2 24 mmol/L (19-24); Allen Test Performed? Yes
[2019-05-03 15:35] LABS: Glucose,Whole Blood 175 mg/dL (75-99)
--- NOTE | 2019-05-03 15:53 | P.PN ---
Subjective Progress Note Date: 05/03/19 On 05/03/2019 I'm seeing this patient for a follow-up. The patient is being treated for a gram-negative UTI and sepsis. The patient was massively a shock state and he was aggressively resuscitated IV fluids and pressors. He remains on IV Zosyn. Urine cultures are still pending at showing gram-negative bacillus. The patient is on norepinephrine infusion at 0.05 mg per KG per minute. The patient is also on a vasopressin maintenance. Urine output is adequate for now. The patient is receiving bicarb infusion at the rate of 100 mL an hour. He remains on a mechanical ventilator. Sedated with propofol at the rate of 50 g per KG per minute. He remains on a mechanical ventilation with assist control mode at a rate of 14 with a tidal volume of 550 and FiO2 of 40% and a PEEP of 5. The morning blood gases showed a pH of 1.41 with a pCO2 of 33 and pO2 of 140. Chest x-ray was showing small bilateral pleural effusions. The patient is a bicarb infusion and his serum bicarbonate is up to 18. Creatinine is down to 2.6 as the patient is recovering from his acute kidney injury. No fever. No chills. No other significant events overnight. The patient's INR today was measured to be at 5.8 and the patient was given a dose of vitamin K 5 mg. Echo showed severe LVH, moderate aortic sclerosis without stenosis. There was a moderate degree of pulmonary hypertension. Ejection fraction was 45-50%. CAT scan of the brain was done and showed old cortical stroke and BI REPORT DEVELOPER atrophy. There is no acute abnormalities. The patient's INR today is at 4.2 and the Coumadin is on hold. He remains in atrial fibrillation. Ultrasound the kidneys was done and showed no evidence of an hydronephrosis.. He described kidney stone was again described on the current ultrasound. Objective - Vital Signs Vital signs: Vital Signs Temp 98 F 05/03/19 12:00 Pulse 98 05/03/19 15:37 Resp 17 05/03/19 15:00 BP 105/70 05/03/19 15:00 Pulse Ox 95 05/03/19 15:10 Intake & Output 05/02/19 05/03/19 05/03/19 18:59 06:59 18:59 Intake Total 0015.409 6674.374 273.402 Output Total 885 810 40 Balance 774.587 992.374 233.402 Weight 113.398 kg 133.538 kg 133.538 kg Intake: IV 1250 100 Dextrose 5% in Water 1, 1100 100 000 ml @ 100 mls/hr IV . [id number] ROMERO with Sodium Bicarb (1 Meq/ml) 150 ml Rx#:[id number] Piperacillin-Tazobactam 3 100 .375 gm In Sodium Chloride 0.9% 100 ml @ 25 mls/hr IVPB Q12HR ROMERO Rx #:[id number] vitamin K 50 Intake, IV Titration 1659.587 175.374 133.402 Amount Dextrose 5% in Water 1, 600 100 000 ml @ 100 mls/hr IV . [id number] ROMERO with Sodium Bicarb (1 Meq/ml) 150 ml Rx#:[id number] Norepinephrine 32 mg In 78.987 17.897 33.402 Sodium Chloride 0.9% 218 ml @ 0.05 MCG/KG/MIN 2. 658 mls/hr IV .Q24H ROMERO Rx#:[id number] Propofol 1,000 mg In 100.000 100 Empty Bag 1 bag @ Titrate IV .Q0M ROMERO Rx#: [id number] Sodium Chloride 0.9% 150 750 ml @ 0.03 UNITS/MIN 4.59 mls/hr IV .Q24H ROMERO with Vasopressin 60 unit Rx#: [id number] Sodium Chloride 0.9% 150 30.6 57.477 ml @ 0.03 UNITS/MIN 4.59 mls/hr IV .Q24H ROMERO with Vasopressin 60 unit Rx#: [id number] Sodium Chloride 0.9% 2, 100 000 ml @ 999 mls/hr IV . Q2H1M ONE Rx#:[id number] Tube Feeding 280 40 Lipid 7 vitamin K 7 Other 90 Output: Urine 885 810 40 Other: Voiding Method Indwelling Catheter Indwelling Catheter # Bowel Movements 1 ABP, PAP, CO, CI - Last Documented Arterial Blood Pressure 125/61 - Exam Gen. appearance, comfortable sedated nonacute distress intubated on a mechanical ventilator. Head exam was generally normal. There was no scleral icterus or corneal arcus. Mucous membranes were moist Neck was supple and without jugular venous distension, thyromegaly, or carotid bruits. Carotids were easily palpable bilaterally. There was no adenopathy. The patient has a right IJ triple lumen catheter in place and the patient has an orogastric and orotracheal tube are both in place Lungs were clear to auscultation and percussion, and with normal diaphragmatic excursion. No wheezes or rales were noted. Cardiac exam revealed the PMI to be normally situated and sized. The rhythm was regular consistent with atrial fibrillation and no extrasystoles were noted during several minutes of auscultation. The first and second heart sounds were normal and physiologic splitting of the second heart sound was noted. There were no murmurs, rubs, clicks, or gallops. Abdominal exam revealed normal bowel sounds. The abdomen was soft, non-tender, and without masses, organomegaly, or appreciable enlargement of the abdominal aorta. Extremities are swollen and the patient is +1 pitting edema bilaterally and the edema is left more than right. No warmth. There is some limited erythema. There is apparently chronic. No open wounds or sores. No cyanosis or clubbing. Examination of the skin revealed no evidence of significant rashes, suspicious appearing nevi or other concerning lesions. For the lower extremity description please refer to above Neurologically the patient is sedated and he withdraws to painful establish all 4 extremities. - Labs CBC & Chem 7: 05/03/19 04:50 05/03/19 04:50 Labs: Abnormal Lab Results - Last 24 Hours (Table) 05/02/19 05/02/19 05/02/19 Range/Units 16:09 19:11 23:29 RBC (4.30-5.90) m/uL Hgb (13.0-17.5) gm/dL Hct (39.0-53.0) % RDW (11.5-15.5) % Lymphocytes # (1.0-4.8) k/uL PT (9.0-12.0) sec INR (<1.2) ABG pCO2 (35-45) mmHg ABG pO2 (83-108) mmHg ABG O2 Saturation (94-97) % Sodium (137-145) mmol/L Chloride (98-107) mmol/L Carbon Dioxide (22-30) mmol/L BUN (9-20) mg/dL Creatinine (0.66-1.25) mg/dL Glucose (74-99) mg/dL POC Glucose (mg/dL) 199 H 207 H 202 H (75-99) mg/dL Calcium (8.4-10.2) mg/dL 05/03/19 05/03/19 05/03/19 Range/Units 03:10 04:50 04:50 RBC (4.30-5.90) m/uL Hgb (13.0-17.5) gm/dL Hct (39.0-53.0) % RDW (11.5-15.5) % Lymphocytes # (1.0-4.8) k/uL PT 56.3 H (9.0-12.0) sec INR 5.8 H* (<1.2) ABG pCO2 (35-45) mmHg ABG pO2 (83-108) mmHg ABG O2 Saturation (94-97) % Sodium 136 L (137-145) mmol/L Chloride 110 H (98-107) mmol/L Carbon Dioxide 18 L (22-30) mmol/L BUN 53 H (9-20) mg/dL Creatinine 2.62 H (0.66-1.25) mg/dL Glucose 205 H (74-99) mg/dL POC Glucose (mg/dL) 215 H (75-99) mg/dL Calcium 7.6 L (8.4-10.2) mg/dL 05/03/19 05/03/19 05/03/19 Range/Units 04:50 05:29 06:50 RBC 3.09 L (4.30-5.90) m/uL Hgb 9.0 L (13.0-17.5) gm/dL Hct 27.6 L (39.0-53.0) % RDW 16.3 H (11.5-15.5) % Lymphocytes # 0.6 L (1.0-4.8) k/uL PT (9.0-12.0) sec INR (<1.2) ABG pCO2 33 L (35-45) mmHg ABG pO2 140 H (83-108) mmHg ABG O2 Saturation 99.4 H (94-97) % Sodium (137-145) mmol/L Chloride (98-107) mmol/L Carbon Dioxide (22-30) mmol/L BUN (9-20) mg/dL Creatinine (0.66-1.25) mg/dL Glucose (74-99) mg/dL POC Glucose (mg/dL) 212 H (75-99) mg/dL Calcium (8.4-10.2) mg/dL 05/03/19 05/03/19 05/03/19 Range/Units 08:46 11:10 15:03 RBC (4.30-5.90) m/uL Hgb (13.0-17.5) gm/dL Hct (39.0-53.0) % RDW (11.5-15.5) % Lymphocytes # (1.0-4.8) k/uL PT (9.0-12.0) sec INR (<1.2) ABG pCO2 (35-45) mmHg ABG pO2 120 H (83-108) mmHg ABG O2 Saturation 99.0 H (94-97) % Sodium (137-145) mmol/L Chloride (98-107) mmol/L Carbon Dioxide (22-30) mmol/L BUN (9-20) mg/dL Creatinine (0.66-1.25) mg/dL Glucose (74-99) mg/dL POC Glucose (mg/dL) 218 H 227 H (75-99) mg/dL Calcium (8.4-10.2) mg/dL 05/03/19 Range/Units 15:23 RBC (4.30-5.90) m/uL Hgb (13.0-17.5) gm/dL Hct (39.0-53.0) % RDW (11.5-15.5) % Lymphocytes # (1.0-4.8) k/uL PT (9.0-12.0) sec INR (<1.2) ABG pCO2 (35-45) mmHg ABG pO2 (83-108) mmHg ABG O2 Saturation (94-97) % Sodium (137-145) mmol/L Chloride (98-107) mmol/L Carbon Dioxide (22-30) mmol/L BUN (9-20) mg/dL Creatinine (0.66-1.25) mg/dL Glucose (74-99) mg/dL POC Glucose (mg/dL) 175 H (75-99) mg/dL Calcium (8.4-10.2) mg/dL Microbiology - Last 24 Hours (Table) 05/01/19 08:35 Gram Stain - Final Sputum Sputum Culture - Final 05/01/19 06:45 Urine Culture - Final Urine,Voided Escherichia coli 04/30/19 22:12 Blood Culture - Preliminary Blood No Growth after 48 hours Assessment and Plan Plan: 1 septic shock likely secondary to a urine infection. Cellulitis is felt to be less likely. The cultures are showing E. coli which is sensitive to various antibiotics including Zosyn. 2 hypotension secondary to above him aggressively resuscitated IV fluids and pressors and antibiotics. 3 acute respiratory failure secondary to septic shock. The patient was in acute hypoxic respiratory failure and the patient developed some vague bilateral pulmonary infiltrates/effusion 4 history of bladder cancer 5 chronic atrial fibrillation again is therapeutic and the patient rates under good control, PT/INR was supratherapeutic and this was adjusted 6 history of congestion heart failure with systolic dysfunction 7 history of recurrent UTIs and recent hospitalization for a gram-negative UTI secondary to E. 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 I'm going to give the patient is so's of 60 mg of Lasix IV push. We'll stop the sedation and we'll check the underlying mental status. Check weaning parameters. Spontaneous breathing trial. Possibly activation this afternoon if the patient is able to wake up appropriately and passes point is breathing trial. Continue Zosyn. Wean off pressors. Keep the vasopressin for now. Rest of the medication will be continued and left unchanged. We'll continue to follow make further recommendations based on his progress. There is a critically care evaluation that was done and more than 30 minutes.
--- NOTE | 2019-05-03 16:25 | PN ---
PROGRESS NOTE DATE OF SERVICE: 05/03/2019 REASON FOR FOLLOWUP: Urinary tract infection with sepsis. INTERVAL HISTORY: The patient is currently afebrile. The patient has been breathing comfortably. The patient is more awake and alert, still intubated on the vent, and has been pointing towards the endotracheal no diarrhea has been reported. PHYSICAL EXAMINATION: Blood pressure is 108/53 with a pulse of 72, temperature 98. He is 99% on 50% FiO2. General description is an elderly male lying in bed in no distress. RESPIRATORY SYSTEM: Unlabored breathing with decreased breath sounds at the base. No wheeze. HEART: S1, S2. Regular rate and rhythm. ABDOMEN: Soft. No tenderness. LABS: Hemoglobin 9, white count normalized to 7.4, BUN of 53, creatinine 2.32. DIAGNOSTIC IMPRESSION AND PLAN: Patient admitted to hospital with sepsis. Source is likely urinary, with urine showing an Escherichia coli sensitive pathogen. Blood culture has been negative so far. Currently on Zosyn; can be transitioned to oral antibiotic on discharge to finish his course of therapy. Family at the bedside. Questions were answered. MMODL / IJN: [id number] /
[2019-05-03 16:51] LABS: Glucose,Whole Blood 178 mg/dL (75-99)
[2019-05-03] MEDS: WARFARIN 2 MG TAB PO SCH (19:39)
[2019-05-03 20:17] LABS: Glucose,Whole Blood 167 mg/dL (75-99)
[2019-05-03 21:42] LABS: Glucose,Whole Blood 174 mg/dL (75-99)
[2019-05-03] MEDS: ALLOPURINOL 100 MG TAB PO SCH (21:47)
[2019-05-03] MEDS: ATORVASTATIN 10 MG TAB PO SCH (21:47)
[2019-05-04] MEDS: INSULIN ASPART (NovoLOG) 100 UNIT/ML VIAL SQ SCH ×7 (02:05→23:40)
[2019-05-04] MEDS: PIPERACILLIN-TAZOBACTAM 3.375 GM in SODIUM CHLORIDE 0.9% 100 ML IVPB SCH ×3 (02:06→17:50)
[2019-05-04 02:07] LABS: Glucose,Whole Blood 193 mg/dL (75-99)
[2019-05-04 04:55] LABS: Ionized Calcium 4.6 mg/dL (4.5-5.3)
[2019-05-04 04:56] LABS: INR 1.2 (<1.2); Prothrombin Time 12.7 sec (9.0-12.0)
[2019-05-04 05:00] LABS: Anisocytosis Slight; Basophils # (A) 0.2 k/uL (0-0.2); Basophils % (A) 2 %; Eosinophils # (A) 0.2 k/uL (0-0.7); Eosinophils % (A) 3 %; HCT 30.7 % (39.0-53.0); HGB 9.3 gm/dL (13.0-17.5); Hypochromasia Slight; Lymphocytes # (A) 0.5 k/uL (1.0-4.8); Lymphocytes % (A) 8 %; MCH 27.5 pg (25.0-35.0); MCHC 30.2 g/dL (31.0-37.0); MCV 90.9 fL (80.0-100.0); Mean Platelet Volume 7.5; Monocytes # (A) 0.7 k/uL (0-1.0); Monocytes % (A) 11 %; Neutrophils # (A) 4.7 k/uL (1.3-7.7); Neutrophils % (A) 72 %; Platelet Count 126 k/uL (150-450); RBC 3.37 m/uL (4.30-5.90); RDW 16.1 % (11.5-15.5); WBC 6.5 k/uL (3.8-10.6)
[2019-05-04 05:04] LABS: Calcium 7.6 mg/dL (8.4-10.2); Potassium 3.5 mmol/L (3.5-5.1)
[2019-05-04 05:08] LABS: Glucose,Whole Blood 166 mg/dL (75-99)
[2019-05-04] MEDS: LEVOTHYROXINE 75 MCG TAB PO SCH (05:45)
--- NOTE | 2019-05-04 06:15 | XR ---
EXAMINATION TYPE: XR chest 1V portable DATE OF EXAM: 05/04/2019 HISTORY: Tube placement. REFERENCE: Previous study dated 05/03/2019. FINDINGS: The patient has been extubated. The patient's NG tube is been removed. A right internal jug ular catheter remains in place. Its tip is in the superior vena cava. There is bibasilar airspace disease. There are bilateral effusions. There is cardiomegaly present. Th ere is mild vascular congestion. IMPRESSION: CONTINUING CHANGES OF HEART FAILURE.
[2019-05-04] MEDS: IPRATROPIUM-ALBUTEROL 3 ML NEB INHALATION SCH ×4 (07:58→19:32)
[2019-05-04] MEDS: NOREPINEPHRINE 32 MG in SODIUM CHLORIDE 0.9% 218 ML IV SCH (08:43)
[2019-05-04] MEDS: FAMOTIDINE 20 MG TAB PO SCH (08:43)
[2019-05-04] MEDS: TAMSULOSIN 0.4 MG CAP.ER.24H PO SCH (08:43)
[2019-05-04] MEDS: OXYBUTYNIN CHLORIDE 5 MG TAB PO SCH ×2 (08:43→20:53)
[2019-05-04 08:47] LABS: Glucose,Whole Blood 156 mg/dL (75-99)
--- NOTE | 2019-05-04 09:21 | P.PN ---
Subjective Progress Note Date: 05/04/19 On today's evaluation of 05/04/2019 I'm seeing the patient for a follow-up. As mentioned earlier the patient has a UTI which do not to be related to E. coli and secondary sepsis. The patient was weaned off the mechanical ventilator and the patient was extubated. This morning he is on oxygen at 3 L per minute nasal cannula. He is still on IV antibiotics. Levo fed infusion was discontinued. Vasopressin was discontinued. He remains on IV Zosyn. No fever. No chills. Awake and confused and restless at times. He has a triple lumen catheter in his right IJ. His cardiac rhythm is atrial fibrillation. Legs are wrapped in the urine output is adequate for now and the fluids are in the form of bicarb infusion at the rate of 50 mL an hour. No fever or chills. INR from today is at 1.2.Echo showed severe LVH, moderate aortic sclerosis without stenosis. There was a moderate degree of pulmonary hypertension. Ejection fraction was 45-50%. CAT scan of the brain was done and showed old cortical stroke and IMAGE SCIENTIST atrophy. The patient's serum bicarb is at 25. The white cell count is at 6.5 and stable. INR is down to 1.2. Chest x-ray from today shows stable bilateral pleural effusions. He got a dose of 60 mg of IV Lasix yesterday. His net fluid balance since yesterday is -1.2 L. His urine output is in order of 50 mL an hour. Objective - Vital Signs Vital signs: Vital Signs Temp 97.9 F 05/04/19 08:00 Pulse 98 05/04/19 09:00 Resp 22 05/04/19 09:00 BP 109/67 05/03/19 20:01 Pulse Ox 96 05/04/19 09:00 Intake & Output 05/03/19 05/04/19 05/04/19 18:59 06:59 18:59 Intake Total 1048.402 828.005 159.942 Output Total 1975 1175 210 Balance -926.598 -346.995 -50.058 Weight 133.538 kg Intake: IV 875 700 150 Dextrose 5% in Water 1, 775 600 150 000 ml @ 50 mls/hr IV . Q23H ROMERO with Sodium Bicarb (1 Meq/ml) 150 ml Rx#:[id number] Piperacillin-Tazobactam 3 100 100 .375 gm In Sodium Chloride 0.9% 100 ml @ 25 mls/hr IVPB Q12HR ROMERO Rx #:[id number] Intake, IV Titration 133.402 128.005 9.942 Amount Norepinephrine 32 mg In 33.402 44.518 6.627 Sodium Chloride 0.9% 218 ml @ 0.05 MCG/KG/MIN 2. 658 mls/hr IV .Q24H ROMERO Rx#:[id number] Propofol 1,000 mg In 100 Empty Bag 1 bag @ Titrate IV .Q0M ROMERO Rx#: [id number] Sodium Chloride 0.9% 150 83.487 3.315 ml @ 0.03 UNITS/MIN 4.59 mls/hr IV .Q24H ROMERO with Vasopressin 60 unit Rx#: [id number] Tube Feeding 40 Output: Urine 1975 1175 210 Other: Voiding Method Indwelling Catheter Indwelling Catheter Indwelling Catheter ABP, PAP, CO, CI - Last Documented Arterial Blood Pressure 107/52 - Exam Gen. appearance, comfortable sedated nonacute distress, extubated, and the patient is currently on 3 L per minute nasal cannula, comfortable not having any respiratory distress. Head exam was generally normal. There was no scleral icterus or corneal arcus. Mucous membranes were moist Neck was supple and without jugular venous distension, thyromegaly, or carotid bruits. Carotids were easily palpable bilaterally. There was no adenopathy. The patient has a right IJ triple lumen catheter in place and the patient has an orogastric and orotracheal tube are both in place Lungs were clear to auscultation and percussion, and with normal diaphragmatic excursion. No wheezes or rales were noted. Cardiac exam revealed the PMI to be normally situated and sized. The rhythm was regular consistent with atrial fibrillation and no extrasystoles were noted during several minutes of auscultation. The first and second heart sounds were normal and physiologic splitting of the second heart sound was noted. There were no murmurs, rubs, clicks, or gallops. Abdominal exam revealed normal bowel sounds. The abdomen was soft, non-tender, and without masses, organomegaly, or appreciable enlargement of the abdominal aorta. Extremities are swollen and the patient is +1 pitting edema bilaterally and the edema is left more than right. No warmth. There is some limited erythema. There is apparently chronic. No open wounds or sores. No cyanosis or clubbing. Examination of the skin revealed no evidence of significant rashes, suspicious appearing nevi or other concerning lesions. For the lower extremity description please refer to above Neurologically the patient is sedated and he withdraws to painful establish all 4 extremities. - Labs CBC & Chem 7: 05/04/19 04:25 05/04/19 04:25 Labs: Abnormal Lab Results - Last 24 Hours (Table) 05/03/19 05/03/19 05/03/19 Range/Units 11:10 15:03 15:23 RBC (4.30-5.90) m/uL Hgb (13.0-17.5) gm/dL Hct (39.0-53.0) % MCHC (31.0-37.0) g/dL RDW (11.5-15.5) % Plt Count (150-450) k/uL Lymphocytes # (1.0-4.8) k/uL PT (9.0-12.0) sec INR (<1.2) ABG pO2 120 H (83-108) mmHg ABG O2 Saturation 99.0 H (94-97) % BUN (9-20) mg/dL Creatinine (0.66-1.25) mg/dL Glucose (74-99) mg/dL POC Glucose (mg/dL) 227 H 175 H (75-99) mg/dL Calcium (8.4-10.2) mg/dL 05/03/19 05/03/19 05/03/19 Range/Units 16:39 20:06 21:30 RBC (4.30-5.90) m/uL Hgb (13.0-17.5) gm/dL Hct (39.0-53.0) % MCHC (31.0-37.0) g/dL RDW (11.5-15.5) % Plt Count (150-450) k/uL Lymphocytes # (1.0-4.8) k/uL PT (9.0-12.0) sec INR (<1.2) ABG pO2 (83-108) mmHg ABG O2 Saturation (94-97) % BUN (9-20) mg/dL Creatinine (0.66-1.25) mg/dL Glucose (74-99) mg/dL POC Glucose (mg/dL) 178 H 167 H 174 H (75-99) mg/dL Calcium (8.4-10.2) mg/dL 05/04/19 05/04/19 05/04/19 Range/Units 01:55 04:25 04:25 RBC 3.37 L (4.30-5.90) m/uL Hgb 9.3 L (13.0-17.5) gm/dL Hct 30.7 L (39.0-53.0) % MCHC 30.2 L (31.0-37.0) g/dL RDW 16.1 H (11.5-15.5) % Plt Count 126 L (150-450) k/uL Lymphocytes # 0.5 L (1.0-4.8) k/uL PT 12.7 H (9.0-12.0) sec INR 1.2 H (<1.2) ABG pO2 (83-108) mmHg ABG O2 Saturation (94-97) % BUN (9-20) mg/dL Creatinine (0.66-1.25) mg/dL Glucose (74-99) mg/dL POC Glucose (mg/dL) 193 H (75-99) mg/dL Calcium (8.4-10.2) mg/dL 05/04/19 05/04/19 05/04/19 Range/Units 04:25 04:56 08:36 RBC (4.30-5.90) m/uL Hgb (13.0-17.5) gm/dL Hct (39.0-53.0) % MCHC (31.0-37.0) g/dL RDW (11.5-15.5) % Plt Count (150-450) k/uL Lymphocytes # (1.0-4.8) k/uL PT (9.0-12.0) sec INR (<1.2) ABG pO2 (83-108) mmHg ABG O2 Saturation (94-97) % BUN 48 H (9-20) mg/dL Creatinine 2.33 H (0.66-1.25) mg/dL Glucose 171 H (74-99) mg/dL POC Glucose (mg/dL) 166 H 156 H (75-99) mg/dL Calcium 7.6 L (8.4-10.2) mg/dL Microbiology - Last 24 Hours (Table) 04/30/19 22:12 Blood Culture - Preliminary Blood No Growth after 72 hours 05/01/19 08:35 Gram Stain - Final Sputum Sputum Culture - Final 05/01/19 06:45 Urine Culture - Final Urine,Voided Escherichia coli Assessment and Plan Plan: 1 septic shock secondary to a urine infection. The cultures are showing E. coli which is sensitive to various antibiotics including Zosyn. 2 hypotension secondary to above, recovered 3 acute respiratory failure secondary to septic shock. The patient was extubated yesterday currently on 3 L. He does have bilateral pleural effusions probably from laying down and reactive effusions and aggressive resuscitation with fluids. 4 history of bladder cancer 5 chronic atrial fibrillation again is therapeutic and the patient rates under good control, PT/INR is subtherapeutic after being given vitamin K 5 mg. 6 history of congestion heart failure with systolic dysfunction 7 history of recurrent UTIs and recent hospitalization for a gram-negative UTI secondary to E. 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 Plan The patient is doing well. The patient's been extubated. Currently off these of oxygen by nasal cannula. IS a been discontinued. Continue IV Zosyn. Start the patient on Lasix 40 mg IV push every 12 hours. Monitor the pleural effusion. Monitor the creatinine. He'll be placed on 0.9 saline at rate of 20 mL an hour. Discontinue the bicarb infusion. May start IV heparin if the patient fails a swallow evaluation regarding his chronic atrial fibrillation. Mother the patient was on warfarin earlier and he was given vitamin K for Coumadin toxicity and a PT/INR normalized. When he to gradually build and back on warfarin once is able to swallow. He did have a brief swallow evaluation yesterday and he failed. This will be rechecked again at a later stage today. We'll continue to follow. He'll be staying in ICU for now.
[2019-05-04] MEDS: SODIUM CHLORIDE 0.9% 500 ML 500 ML IV SCH (09:51)
[2019-05-04] MEDS: FUROSEMIDE 10 MG/ML 4 ML VIAL IV SCH ×2 (09:51→20:55)
[2019-05-04] MEDS: POTASSIUM CHLORIDE 20 MEQ in WATER FOR INJECTION 1 100ML.BAG IVPB SCH ×2 (09:51→13:55)
[2019-05-04 12:35] LABS: Glucose,Whole Blood 146 mg/dL (75-99)
--- NOTE | 2019-05-04 15:05 | PN ---
PROGRESS NOTE DATE OF SERVICE: 05/04/2019 This 78 -year-old gentleman who was admitted with acute UTI with severe sepsis and hypotension also had E coli grown from the culture. Patient also had features of CHF. The patient was started on a Lasix drip. Patient is extubated. Patient is slightly confused, closely monitored at this time. There is no chest pain or palpitation. Past medical history reviewed. Review of systems could not be taken; the patient is still slightly confused. CURRENT MEDICATIONS: 1. Tylenol p.r.n. 2. DuoNeb q.i.d. and p.r.n. 3. Zyloprim 100 mg at bedtime. 4. Lipitor 10 mg daily. 5. Pepcid. 7. Lasix. 8. NovoLog. 9. Synthroid. 10.Narcan. 11.Ditropan. 12.Zosyn IV. 13.Flomax. 14.Coumadin 5 mg p.o. once, given today. PHYSICAL EXAMINATION: Patient is alert, oriented x2. Pulse is 98, blood pressure 122/55, respiration 18, temperature 98 degrees, pulse ox 99% on 3 L. HEENT: Conjunctivae normal. NECK: No jugular venous distention. CARDIOVASCULAR SYSTEM: S1, S2 muffled. RESPIRATORY SYSTEM: Breath sounds diminished at the bases. A few scattered rhonchi and crackles. ABDOMEN: Soft, non-tender. LEGS: No edema. No swelling. NERVOUS SYSTEM: Diffusely weak. LABS: WBC 6.5, hemoglobin 9.3. Otherwise, creatinine is 2.33. ASSESSMENT: 1. Acute urinary tract infection with severe sepsis with hypotension secondary to sepsis and Escherichia coli, polysensitive. 2. Acute hypoxic respiratory failure, status post mechanical ventilation secondary to above. 3. Change in mental status, acute metabolic encephalopathy, multifactorial. 4. Coumadin coagulopathy. 5. 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 6. Congestive heart failure, acute exacerbation, with acute on chronic systolic dysfunction, ejection fraction 40% to 45%. 7. Chronic renal failure, stage III, with possible acute renal failure, prerenal renal failure with acute tubular necrosis component. 8. Troponin 0.049, indeterminate. 9. Anemia, normocytic; anemia of chronic disease. 10.Atrial fibrillation, chronic, persistent. 11.History of cerebrovascular accident, transient ischemic attack. 12.Diabetes mellitus, type 2. 13.Hypertension. 14.Hyperlipidemia. 15.History of bladder cancer, stage III. Underwent TURP and subsequent intravesicular chemotherapy. 16.History of recurrent urinary tract infection with Escherichia coli. 17.History of gout. 18.History of cerebrovascular accident. 19.History of glaucoma. 20.Obesity with body mass index of 47.5. 21.FULL CODE. RECOMMENDATIONS AND DISCUSSION: I recommend to continue current medications, continue with the monitoring, symptomatic treatment. Continue with antibiotics. Continue with diuretics. Monitor fluid/electrolyte balance closely. Repeat labs. Monitor creatinine closely. Creatinine has improved significantly from 3.19 to 2.33. Closely follow with multiple consultants. PT/OT evaluation. Guarded prognosis. Further recommendations to follow. MMODL / IJN: [id number] / [id number]
[2019-05-04 16:47] LABS: Glucose,Whole Blood 127 mg/dL (75-99)
[2019-05-04] MEDS ORDERED: WARFARIN 5 MG TAB PO ONE (18:00)
[2019-05-04 20:50] LABS: Glucose,Whole Blood 162 mg/dL (75-99)
[2019-05-04] MEDS: ALLOPURINOL 100 MG TAB PO SCH (20:53)
[2019-05-04] MEDS: ATORVASTATIN 10 MG TAB PO SCH (21:02)
[2019-05-04 23:44] LABS: Glucose,Whole Blood 176 mg/dL (75-99)
[2019-05-05] MEDS: SODIUM CHLORIDE 0.9% 150 ML with VASOPRESSIN 60 UNIT IV SCH ×2 (00:49)
[2019-05-05] MEDS: PIPERACILLIN-TAZOBACTAM 3.375 GM in SODIUM CHLORIDE 0.9% 100 ML IVPB SCH ×3 (02:35→17:35)
[2019-05-05] MEDS: NOREPINEPHRINE 32 MG in SODIUM CHLORIDE 0.9% 218 ML IV SCH (02:35)
[2019-05-05 05:03] LABS: Glucose,Whole Blood 140 mg/dL (75-99)
[2019-05-05 05:13] LABS: Anisocytosis Slight; Basophils # (A) 0.1 k/uL (0-0.2); Basophils % (A) 2 %; Eosinophils # (A) 0.3 k/uL (0-0.7); Eosinophils % (A) 5 %; HCT 27.4 % (39.0-53.0); HGB 8.5 gm/dL (13.0-17.5); Hypochromasia Slight; Lymphocytes # (A) 0.4 k/uL (1.0-4.8); Lymphocytes % (A) 7 %; MCH 27.9 pg (25.0-35.0); MCHC 30.8 g/dL (31.0-37.0); MCV 90.6 fL (80.0-100.0); Mean Platelet Volume 7.8; Monocytes # (A) 0.6 k/uL (0-1.0); Monocytes % (A) 9 %; Neutrophils # (A) 4.5 k/uL (1.3-7.7); Neutrophils % (A) 74 %; Platelet Count 117 k/uL (150-450); RBC 3.03 m/uL (4.30-5.90); RDW 16.2 % (11.5-15.5); WBC 6.2 k/uL (3.8-10.6)
[2019-05-05 05:25] LABS: Calcium 7.9 mg/dL (8.4-10.2); Potassium 3.8 mmol/L (3.5-5.1)
[2019-05-05 05:30] LABS: INR 1.7 (<1.2); Prothrombin Time 16.8 sec (9.0-12.0)
[2019-05-05] MEDS: INSULIN ASPART (NovoLOG) 100 UNIT/ML VIAL SQ SCH ×5 (07:54→21:46)
[2019-05-05] MEDS: IPRATROPIUM-ALBUTEROL 3 ML NEB INHALATION SCH ×4 (07:56→20:54)
[2019-05-05] MEDS: TAMSULOSIN 0.4 MG CAP.ER.24H PO SCH (09:33)
[2019-05-05] MEDS: LEVOTHYROXINE 75 MCG TAB PO SCH (09:34)
[2019-05-05] MEDS: OXYBUTYNIN CHLORIDE 5 MG TAB PO SCH ×2 (09:34→20:39)
[2019-05-05] MEDS: FAMOTIDINE 20 MG TAB PO SCH (09:34)
[2019-05-05] MEDS: FUROSEMIDE 10 MG/ML 4 ML VIAL IV SCH ×2 (09:34→20:38)
[2019-05-05] MEDS: SODIUM CHLORIDE 0.9% 500 ML 500 ML IV SCH (09:35)
--- NOTE | 2019-05-05 10:17 | P.PN ---
Subjective Progress Note Date: 05/05/19 On today's evaluation of current 22,019 the patient is still extubated on room air oxygen. Doing extremely well. Hemodynamically stable. All pressors have been discontinued. He had an E. coli UTI and secondary sepsis and he was a massive shock at the time of admission and his course was further complicated with acute hypoxic respiratory failure. He recovered from all those. Currently is on IV Zosyn. His kidney function shows a creatinine of 2.2. The patient was given a dose of Lasix yesterday as his chest x-ray showed evidence of pulmonary congestion/edema/effusions. The neck fluid balance has been -1.7 L over the past 24 hours. The chest x-ray from today is showing cardiomegaly and bilateral pleural effusion right more than left. I think the findings are essentially stable. The patient is a triple lumen catheter in his right IJ. We will also initiated anticoagulation with warfarin. He was given a dose of Coumadin yesterday and his INR is up to 1.7. He is tolerating his diet. No dyspnea. No cough or sputum production. His altered mentation and confusion also improving and seems to be much more appropriate on today's evaluation. Objective - Vital Signs Vital signs: Vital Signs Temp 98.2 F 05/05/19 08:00 Pulse 124 H 05/05/19 10:00 Resp 21 05/05/19 10:00 BP 109/67 05/03/19 20:01 Pulse Ox 92 L 05/05/19 10:00 Intake & Output 05/04/19 05/05/19 05/05/19 18:59 06:59 18:59 Intake Total 615.847 4441 160 Output Total 1975 1575 375 Balance -1185.058 -545 -215 Weight 129.8 kg Intake: IV 300 240 60 Dextrose 5% in Water 1, 200 000 ml @ 50 mls/hr IV . Q23H [facility] with Sodium Bicarb (1 Meq/ml) 150 ml Rx#:[id number] Piperacillin-Tazobactam 3 100 .375 gm In Sodium Chloride 0.9% 100 ml @ 25 mls/hr IVPB Q12HR [facility] Rx #:[id number] Sodium Chloride 0.9% 500 240 60 ml 500 ml @ 20 mls/hr IV .Q24H [facility] Rx#:[id number] Intake, IV Titration 369.942 100 Amount Norepinephrine 32 mg In 6.627 Sodium Chloride 0.9% 218 ml @ 0.05 MCG/KG/MIN 2. 658 mls/hr IV .Q24H [facility] Rx#:[id number] Piperacillin-Tazobactam 3 100 100 .375 gm In Sodium Chloride 0.9% 100 ml @ 25 mls/hr IVPB Q8H [facility] Rx#: [id number] Potassium Chloride 20 meq 100 In Water For Injection 1 100ml.bag @ 50 mls/hr IVPB Q2H [facility] Rx#: [id number] Sodium Chloride 0.9% 150 3.315 ml @ 0.03 UNITS/MIN 4.59 mls/hr IV .Q24H [facility] with Vasopressin 60 unit Rx#: [id number] Sodium Chloride 0.9% 500 160 ml 500 ml @ 20 mls/hr IV .Q24H [facility] Rx#:[id number] Oral 120 1420 Output: Urine 1975 2205 375 Other: Voiding Method Indwelling Catheter Indwelling Catheter ABP, PAP, CO, CI - Last Documented Arterial Blood Pressure 133/54 - Exam Gen. appearance, comfortable sedated nonacute distress, extubated, and the patient is currently on room air oxygen Head exam was generally normal. There was no scleral icterus or corneal arcus. Mucous membranes were moist Neck was supple and without jugular venous distension, thyromegaly, or carotid bruits. Carotids were easily palpable bilaterally. There was no adenopathy. The patient has a right IJ triple lumen catheter in place Lungs were clear to auscultation and percussion, and with normal diaphragmatic excursion. No wheezes or rales were noted. The breath sounds are diminished in lung bases right more than left. Cardiac exam revealed the PMI to be normally situated and sized. The rhythm was regular consistent with atrial fibrillation and no extrasystoles were noted during several minutes of auscultation. The first and second heart sounds were normal and physiologic splitting of the second heart sound was noted. There were no murmurs, rubs, clicks, or gallops. Abdominal exam revealed normal bowel sounds. The abdomen was soft, non-tender, and without masses, organomegaly, or appreciable enlargement of the abdominal aorta. Extremities are swollen and the patient is +1 pitting edema bilaterally and the edema is left more than right. No warmth. There is some limited erythema. There is apparently chronic. No open wounds or sores. No cyanosis or clubbing. Examination of the skin revealed no evidence of significant rashes, suspicious appearing nevi or other concerning lesions. For the lower extremity description please refer to above Neurologically the patient is awake and alert and is following commands and answering questions appropriately - Labs CBC & Chem 7: 05/05/19 04:55 05/05/19 04:55 Labs: Abnormal Lab Results - Last 24 Hours (Table) 05/04/19 05/04/19 05/04/19 Range/Units 12:23 16:36 20:38 RBC (4.30-5.90) m/uL Hgb (13.0-17.5) gm/dL Hct (39.0-53.0) % MCHC (31.0-37.0) g/dL RDW (11.5-15.5) % Plt Count (150-450) k/uL Lymphocytes # (1.0-4.8) k/uL PT (9.0-12.0) sec INR (<1.2) BUN (9-20) mg/dL Creatinine (0.66-1.25) mg/dL Glucose (74-99) mg/dL POC Glucose (mg/dL) 146 H 127 H 162 H (75-99) mg/dL Calcium (8.4-10.2) mg/dL 05/04/19 05/05/19 05/05/19 Range/Units 23:32 04:52 04:55 RBC (4.30-5.90) m/uL Hgb (13.0-17.5) gm/dL Hct (39.0-53.0) % MCHC (31.0-37.0) g/dL RDW (11.5-15.5) % Plt Count (150-450) k/uL Lymphocytes # (1.0-4.8) k/uL PT 16.8 H (9.0-12.0) sec INR 1.7 H (<1.2) BUN (9-20) mg/dL Creatinine (0.66-1.25) mg/dL Glucose (74-99) mg/dL POC Glucose (mg/dL) 176 H 140 H (75-99) mg/dL Calcium (8.4-10.2) mg/dL 05/05/19 05/05/19 Range/Units 04:55 04:55 RBC 3.03 L (4.30-5.90) m/uL Hgb 8.5 L (13.0-17.5) gm/dL Hct 27.4 L (39.0-53.0) % MCHC 30.8 L (31.0-37.0) g/dL RDW 16.2 H (11.5-15.5) % Plt Count 117 L (150-450) k/uL Lymphocytes # 0.4 L (1.0-4.8) k/uL PT (9.0-12.0) sec INR (<1.2) BUN 42 H (9-20) mg/dL Creatinine 2.20 H (0.66-1.25) mg/dL Glucose 138 H (74-99) mg/dL POC Glucose (mg/dL) (75-99) mg/dL Calcium 7.9 L (8.4-10.2) mg/dL Microbiology - Last 24 Hours (Table) 04/30/19 22:12 Blood Culture - Preliminary Blood No Growth after 96 hours Assessment and Plan Plan: 1 septic shock secondary to a urine infection. The cultures are showing E. coli which is sensitive to various antibiotics including Zosyn. 2 hypotension secondary to above, recovered 3 acute respiratory failure secondary to septic shock. The patient is currently on room air. The patient has small bilateral pleural effusion right more than left. 4 history of bladder cancer 5 chronic atrial fibrillation again is therapeutic and the patient rates under good control, PT/INR is subtherapeutic after being given vitamin K 5 mg. the patient was restarted on anticoagulation. Today's INR is 1.7 after being given 5 mg of Coumadin. 6 history of congestion heart failure with systolic dysfunction 7 history of recurrent UTIs and recent hospitalization for a gram-negative UTI secondary to E. 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 Plan The patient will be restarted back on his atenolol at a dose of 50 mg on a daily basis. He is in atrial fibrillation and is slightly tachycardic and his to be restarted. We'll given 4 mg of Coumadin. Continue IV Zosyn. Continue the IV Lasix 40 mg every 12 hours. This will be continued follow 24 hours as the patient has bilateral pleural effusions. He is currently on room air oxygen. Monitor creatinine. Monitor PT/INR. The patient can be transferred to a medical surgical floor with telemetry monitoring.
[2019-05-05] MEDS: ATENOLOL 50 MG TAB PO SCH (11:18)
[2019-05-05 17:13] LABS: Glucose,Whole Blood 210 mg/dL (75-99)
[2019-05-05] MEDS ORDERED: WARFARIN 2 MG TAB PO ONE (18:00)
[2019-05-05] MEDS ORDERED: HYDROcodone/APAP 10-325MG 1 EACH TAB PO PRN (19:51)
--- NOTE | 2019-05-05 19:57 | PN ---
PROGRESS NOTE DATE OF SERVICE: 05/05/2019 This 78-year-old gentleman who was admitted with acute urinary tract infection with sepsis secondary to E coli is being closely monitored at this time. The patient is mildly confused and possibly related to delirium and the patient also is on broad- spectrum IV antibiotics. The most recent chest x-ray which was personally reviewed by me showed some continued changes of CHF. The patient is still on IV Lasix at this time. PAST MEDICAL HISTORY: Reviewed. REVIEW OF SYSTEMS: CARDIOVASCULAR SYSTEM: No angina or palpitations. RESPIRATION: Occasional cough. GI mentioned earlier. no dysuria. CENTRAL NERVOUS SYSTEM: No numbness or weakness. CURRENT MEDICATIONS: Reviewed and include: 1. Tylenol 650 q.4 p.r.n. 2. DuoNeb q.i.d. and p.r.n. 3. Zyloprim 100 mg q.h.s. 4. Tenormin 50 mg p.o. daily. 5. Lipitor 10 mg q.h.s. 6. Pepcid 20 mg p.o. daily. 7. Fentanyl 50 mcg q.4 hours. 8. Lasix 40 mg IV b.i.d. 9. Synthroid 75 mcg p.o. daily. 10.Narcan. 11.Ditropan. 12.Zosyn 3.375 IV q.8. 13.Flomax 0.4 daily. 14.Coumadin 4 mg 1 time. PHYSICAL EXAM: Patient is alert, oriented x3. Pulse is 125, regular. Blood pressure is 109/70, respiration 21, temperature normal, pulse ox 96% on room air. HEENT: Conjunctivae normal. Oral mucosa moist. NECK: No jugular venous distention. No carotid bruit. No lymph node enlargement. CARDIOVASCULAR: S1, S2 muffled. Tachycardic. RESPIRATIONS: Breath sounds diminished in the bases. A few scattered rhonchi and crackles. ABDOMEN: Soft, obese. LEGS: No edema. No swelling. CENTRAL NERVOUS SYSTEM: No focal deficits. LABS: WBC 6.2, hemoglobin is 8.5, platelets are 117. Creatinine is 2.20. Yesterday it was 2.33. ASSESSMENT: 1. Acute urinary tract infection with severe sepsis with hypotension secondary to sepsis and E coli poly sensitive present on admission. 2. Acute hypoxic respiratory failure status post mechanical ventilation secondary to above. 3. Change in mental status, acute metabolic encephalopathy multifactorial. 4. Delirium, possibly related to ICU treatment. 5. Coumadin coagulopathy. 6. 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 7. Congestive heart failure, acute exacerbation with acute on chronic systolic dysfunction, ejection fraction 40-45 percent. 8. Chronic renal failure stage 3 with possible acute renal failure, prerenal renal failure with acute tubular necrosis component. 9. Troponin 0.049, indeterminate. 10.Anemia, normocytic anemia of chronic disease. 11.Atrial fibrillation, chronic persistent. 12.History of cerebrovascular accident, transient ischemic attack. 13.Diabetes mellitus type 2. 14.Hypertension. 15.History of hyperlipidemia. 16.History of bladder cancer, stage III, underwent TURP and subsequent intravascular chemotherapy. 17.History of recurrent urinary tract infection with E coli. 18.History of gout. 19.History of cerebrovascular accident. 20.History of glaucoma. 21.Obesity with body mass index of 47.5. 22.FULL CODE. RECOMMENDATIONS AND DISCUSSION: In this 78-year-old gentleman who presented with multiple medical issues, we will monitor the patient closely, continue the current medications, management and symptomatic treatment. Otherwise at this time, continue with antibiotics. Monitor creatinine closely. We will continue to monitor. See orders for details. Guarded prognosis. Further recommendations to follow. MMODL / IJN: [id number] /
[2019-05-05 20:33] LABS: Glucose,Whole Blood 168 mg/dL (75-99)
[2019-05-05] MEDS: ALLOPURINOL 100 MG TAB PO SCH (20:39)
[2019-05-05] MEDS: ATORVASTATIN 10 MG TAB PO SCH (20:39)
[2019-05-05] MEDS: HYDROmorphone 0.5 MG/0.5 ML SYRINGE IVP PRN (20:40)
--- NOTE | 2019-05-05 23:03 | PN ---
PROGRESS NOTE DATE OF SERVICE: 05/05/2019. REASON FOR FOLLOWUP: E coli UTI with sepsis. INTERVAL HISTORY: The patient is currently afebrile. Patient has been transferred out of the ICU. He has been breathing comfortably on 2 L nasal cannula. Denies having any chest pain, cough. No abdominal pain and no diarrhea. PHYSICAL EXAMINATION: Blood pressure 119/47 with a pulse of 90, temperature 98. He is 92% on room air. General description is an elderly male lying in bed in no distress. Respiratory system: Unlabored breathing. Decreased breath sounds at the bases. No wheeze. Heart S1, S2. Regular rate and rhythm. Abdomen soft. No tenderness. LABS: Hemoglobin 8.5, white count 6.2 with a BUN of 42, creatinine is 2.20. DIAGNOSTIC IMPRESSION AND PLAN: Patient admitted to the hospital with sepsis secondary to E coli urinary tract infection. The patient's blood cultures have been negative E coli sensitive pathogen. Antibiotic will be switched to Rocephin with the plan to finish therapy with oral Cipro. Continue supportive care. MMODL / ALIYAN: [id number] /
[2019-05-06] MEDS: HYDROmorphone 0.5 MG/0.5 ML SYRINGE IVP PRN (02:30)
[2019-05-06] MEDS: LEVOTHYROXINE 75 MCG TAB PO SCH (06:21)
[2019-05-06 06:55] LABS: Glucose,Whole Blood 126 mg/dL (75-99)
[2019-05-06] MEDS: INSULIN ASPART (NovoLOG) 100 UNIT/ML VIAL SQ SCH ×4 (07:12→20:39)
[2019-05-06] MEDS: IPRATROPIUM-ALBUTEROL 3 ML NEB INHALATION SCH ×4 (08:11→20:01)
[2019-05-06 08:22] LABS: INR 2.5 (<1.2); Prothrombin Time 23.8 sec (9.0-12.0)
[2019-05-06 08:23] LABS: Basophils # (A) 0.1 k/uL (0-0.2); Basophils % (A) 1 %; Eosinophils # (A) 0.4 k/uL (0-0.7); Eosinophils % (A) 7 %; HCT 27.7 % (39.0-53.0); HGB 8.4 gm/dL (13.0-17.5); Hypochromasia Marked; Lymphocytes # (A) 0.5 k/uL (1.0-4.8); Lymphocytes % (A) 10 %; MCH 28.1 pg (25.0-35.0); MCHC 30.2 g/dL (31.0-37.0); MCV 93.1 fL (80.0-100.0); Mean Platelet Volume 7.9; Monocytes # (A) 0.4 k/uL (0-1.0); Monocytes % (A) 7 %; Neutrophils % (A) 73 %; Platelet Count 142 k/uL (150-450); RBC 2.98 m/uL (4.30-5.90); RDW 15.9 % (11.5-15.5); WBC 5.5 k/uL (3.8-10.6)
[2019-05-06] MEDS: PANTOPRAZOLE 40 MG TABLET PO SCH (08:30)
[2019-05-06] MEDS: ATENOLOL 50 MG TAB PO SCH (08:30)
[2019-05-06] MEDS: FUROSEMIDE 10 MG/ML 4 ML VIAL IV SCH ×2 (08:30→20:39)
[2019-05-06] MEDS: OXYBUTYNIN CHLORIDE 5 MG TAB PO SCH ×2 (08:30→20:39)
[2019-05-06] MEDS: MULTIVITAMINS, THERA 1 EACH TAB PO SCH (08:31)
[2019-05-06] MEDS: THIAMINE 100 MG TAB PO SCH (08:31)
[2019-05-06] MEDS: TAMSULOSIN 0.4 MG CAP.ER.24H PO SCH (08:31)
[2019-05-06] MEDS: FOLIC ACID 1 MG TAB PO SCH (08:31)
[2019-05-06 08:32] LABS: Calcium 7.9 mg/dL (8.4-10.2); Potassium 3.9 mmol/L (3.5-5.1)
--- NOTE | 2019-05-06 11:50 | P.PN ---
Subjective This is a pleasant 78 years old male with past medical history of heart failure, atrial fibrillation, CVA/TIA, diabetes mellitus, hearing disorders, hyperlipidemia, hypertension, chronic kidney disease stage III, history of bladder cancer stage III underwent transurethral resection on 01/03/2019, recurrent UTI. He admits this time with severe infection and septic shock secondary to complicated UTI. Urine culture is growing E. coli which is se nsitive to antibiotics. Patient is currently on ceftriaxone. Patient was transferred to the general medical floor yesterday, yesterday he was more confused compared today is more awake and oriented however he is a little bit confused compared to his baseline as per daughter at bedside. He is breathing quietly with no chest pain or abdominal pain. He has no urinary symptoms this morning like dysuria or change in frequency. But he has some small redness is about on the left second carpometacarpal joint Vital signs stable and his creatinine today is 2.1 which is close to his baseline, INR is 2.5. No leukocytosis and rest of labs are unremarkable. Objective - Vital Signs Vital signs: Vital Signs Temp 98.1 F 05/06/19 07:30 Pulse 88 05/06/19 11:30 Resp 18 05/06/19 07:30 BP 105/60 05/06/19 07:30 Pulse Ox 97 05/06/19 07:30 Intake & Output 05/05/19 05/06/19 05/06/19 18:59 06:59 18:59 Intake Total 660 240 Output Total 1700 400 Balance -1040 -400 240 Weight 128.9 kg Intake: IV 60 Sodium Chloride 0.9% 500 60 ml 500 ml @ 20 mls/hr IV .Q24H [facility] Rx#:[id number] Intake, IV Titration 100 Amount Piperacillin-Tazobactam 3 100 .375 gm In Sodium Chloride 0.9% 100 ml @ 25 mls/hr IVPB Q8H [facility] Rx#: [id number] Oral 500 240 Output: Urine 1700 400 Other: Voiding Method Indwelling Catheter Indwelling Catheter Indwelling Catheter ABP, PAP, CO, CI - Last Documented Arterial Blood Pressure 119/47 - Exam -GENERAL: The patient is alert and oriented x1-2, not in any acute distress. Obese HEENT: Pupils are round and equally reacting to light. EOMI. No scleral icterus. No conjunctival pallor. Normocephalic, atraumatic. No pharyngeal erythema. No thyromegaly. CARDIOVASCULAR: S1 and S2 present. No murmurs, rubs, or gallops. -PULMONARY: Chest is clear to auscultation, bilateral basal crepitation ABDOMEN: Soft, nontender, nondistended, normoactive bowel sounds. No palpable organomegaly. MUSCULOSKELETAL: No joint swelling or deformity. -EXTREMITIES: No cyanosis, clubbing, or pedal edema. Small area of redness and tenderness over the left second tarsometatarsal joint mild restriction of flexion secondary to pain NEUROLOGICAL: Gross neurological examination did not reveal any focal deficits. SKIN: No rashes. no petechiae. - Labs CBC & Chem 7: 05/06/19 07:17 05/06/19 07:17 Labs: Abnormal Lab Results - Last 24 Hours (Table) 05/05/19 05/05/19 05/06/19 Range/Units 16:58 20:21 06:53 RBC (4.30-5.90) m/uL Hgb (13.0-17.5) gm/dL Hct (39.0-53.0) % MCHC (31.0-37.0) g/dL RDW (11.5-15.5) % Plt Count (150-450) k/uL Lymphocytes # (1.0-4.8) k/uL PT (9.0-12.0) sec INR (<1.2) BUN (9-20) mg/dL Creatinine (0.66-1.25) mg/dL Glucose (74-99) mg/dL POC Glucose (mg/dL) 210 H 168 H 126 H (75-99) mg/dL Calcium (8.4-10.2) mg/dL 05/06/19 05/06/19 05/06/19 Range/Units 07:17 07:17 07:17 RBC 2.98 L (4.30-5.90) m/uL Hgb 8.4 L (13.0-17.5) gm/dL Hct 27.7 L (39.0-53.0) % MCHC 30.2 L (31.0-37.0) g/dL RDW 15.9 H (11.5-15.5) % Plt Count 142 L (150-450) k/uL Lymphocytes # 0.5 L (1.0-4.8) k/uL PT 23.8 H (9.0-12.0) sec INR 2.5 H (<1.2) BUN 44 H (9-20) mg/dL Creatinine 2.17 H (0.66-1.25) mg/dL Glucose 122 H (74-99) mg/dL POC Glucose (mg/dL) (75-99) mg/dL Calcium 7.9 L (8.4-10.2) mg/dL Microbiology - Last 24 Hours (Table) 04/30/19 22:12 Blood Culture - Preliminary Blood No Growth after 120 hours Assessment and Plan Assessment: Acute urinary tract infection with severe sepsis and hypotension secondary to E. coli sensitive to antibiotics Acute hypoxemic respiratory failure status post intubation/extubation. Currently on oxygen 2 L via nasal cannula Metabolic encephalopathy, secondary to above Atrial fibrillation, chronic. 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 and computed tomography scan Congestive heart failure with acute on chronic systolic dysfunction with ejection fraction 40-45% Chronic kidney disease stage III Normochromic normocytic anemia History of CVA/transient ischemic attack Type 2 Diabetes mellitus Hypertension Hyperlipidemia History of bladder cancer, stage III, underwent TURP and subsequent intravesicular chemotherapy History of gout History of CVA History of glaucoma Obesity with body mass index of 47.5 Plan: This is a pleasant 78 years old male who presents with severe infection sec ondary to UTI. Continue with antibiotics. Follow-up infectious disease and pulmonary recommendation. Labs and medication were reviewed.. Continue same treatment. Continue with symptomatic treatment. Resume home medication. Monitor lytes and vitals. DVT and GI prophylaxis. Further recommendations of the clinical course of the patient DVT prophylaxis: On Coumadin GI Prophylaxis: Ppi PT/OT: Recommended subacute rehab Prognosis is guarded
[2019-05-06 11:57] LABS: Glucose,Whole Blood 149 mg/dL (75-99)
--- NOTE | 2019-05-06 12:13 | P.PN ---
Subjective Progress Note Date: 05/06/19 Principal diagnosis: Septic shock secondary to a urinary tract infection, acute respiratory failure secondary to septic shock, recovered On 05/06/2019 patient seen in follow-up on medical surgical floor. She is quite confused, he is only oriented 1, he is disoriented to place and time, he keeps asking to be pulled up in bed although he is at the top of the bed. Does not appear to be in any acute distress, lung sounds reveal bibasilar rales, no significant cough or congestion, he remains on 2 L the pulse ox of 97%, he is afebrile, remains on ceftriaxone, for E. coli in the urine culture, sputum and blood cultures have been negative. No fever or chills, patient remains on IV Lasix at 40 mg every 12 hours, he is in negative fluid balance, -1440 ML, less swelling in his lower extremities, his last chest x-ray from Monday showed bilateral pleural effusions, and bilateral airspace disease and mild vascular congestion, on the basis of fluid overload. Patient has been extremely weak, and physical therapy has been using a mechanical lift to get him up out of bed. Otherwise no acute distress, just remains confused, but fairly cooperative, and weak. Objective - Vital Signs Vital signs: Vital Signs Temp 98.1 F 05/06/19 07:30 Pulse 88 05/06/19 11:30 Resp 18 05/06/19 07:30 BP 105/60 05/06/19 07:30 Pulse Ox 97 05/06/19 07:30 Intake & Output 05/05/19 05/06/19 05/06/19 18:59 06:59 18:59 Intake Total 660 240 Output Total 1700 400 Balance -1040 -400 240 Weight 128.9 kg Intake: IV 60 Sodium Chloride 0.9% 500 60 ml 500 ml @ 20 mls/hr IV .Q24H [facility] Rx#:[id number] Intake, IV Titration 100 Amount Piperacillin-Tazobactam 3 100 .375 gm In Sodium Chloride 0.9% 100 ml @ 25 mls/hr IVPB Q8H [facility] Rx#: [id number] Oral 500 240 Output: Urine 1700 400 Other: Voiding Method Indwelling Catheter Indwelling Catheter Indwelling Catheter ABP, PAP, CO, CI - Last Documented Arterial Blood Pressure 119/47 - Exam GENERAL EXAM: Alert, confused, 78-year-old white male, on 2 L of oxygen with a pulse ox of 97%, comfortable in no apparent distress. HEAD: Normocephalic/atraumatic. EYES: Normal reaction of pupils, equal size. Conjunctiva pink, sclera white. NOSE: Clear with pink turbinates. THROAT: No erythema or exudates. NECK: No masses, no JVD, no thyroid enlargement, no adenopathy. CHEST: No chest wall deformity. Symmetrical expansion. LUNGS: Equal air entry with bibasilar crackles, but no wheeze, rhonchi or dullness. CVS: Regular rate and rhythm, normal S1 and S2, no gallops, no murmurs, no rubs ABDOMEN: Soft, nontender. No hepatosplenomegaly, normal bowel sounds, no guarding or rigidity. EXTREMITIES: No clubbing, 1+ lower extremity edema, no cyanosis, 2+ pulses and upper and lower extremities. MUSCULOSKELETAL: Muscle strength and tone normal. SPINE: No scoliosis or deformity SKIN: No rashes CENTRAL NERVOUS SYSTEM: Alert and oriented -3. No focal deficits, tone is normal in all 4 extremities. PSYCHIATRIC: Alert and oriented -3. Appropriate affect. Intact judgment and insight. - Labs CBC & Chem 7: 05/06/19 07:17 05/06/19 07:17 Labs: Abnormal Lab Results - Last 24 Hours (Table) 05/05/19 05/05/19 05/06/19 Range/Units 16:58 20:21 06:53 RBC (4.30-5.90) m/uL Hgb (13.0-17.5) gm/dL Hct (39.0-53.0) % MCHC (31.0-37.0) g/dL RDW (11.5-15.5) % Plt Count (150-450) k/uL Lymphocytes # (1.0-4.8) k/uL PT (9.0-12.0) sec INR (<1.2) BUN (9-20) mg/dL Creatinine (0.66-1.25) mg/dL Glucose (74-99) mg/dL POC Glucose (mg/dL) 210 H 168 H 126 H (75-99) mg/dL Calcium (8.4-10.2) mg/dL 05/06/19 05/06/19 05/06/19 Range/Units 07:17 07:17 07:17 RBC 2.98 L (4.30-5.90) m/uL Hgb 8.4 L (13.0-17.5) gm/dL Hct 27.7 L (39.0-53.0) % MCHC 30.2 L (31.0-37.0) g/dL RDW 15.9 H (11.5-15.5) % Plt Count 142 L (150-450) k/uL Lymphocytes # 0.5 L (1.0-4.8) k/uL PT 23.8 H (9.0-12.0) sec INR 2.5 H (<1.2) BUN 44 H (9-20) mg/dL Creatinine 2.17 H (0.66-1.25) mg/dL Glucose 122 H (74-99) mg/dL POC Glucose (mg/dL) (75-99) mg/dL Calcium 7.9 L (8.4-10.2) mg/dL 05/06/19 Range/Units 11:54 RBC (4.30-5.90) m/uL Hgb (13.0-17.5) gm/dL Hct (39.0-53.0) % MCHC (31.0-37.0) g/dL RDW (11.5-15.5) % Plt Count (150-450) k/uL Lymphocytes # (1.0-4.8) k/uL PT (9.0-12.0) sec INR (<1.2) BUN (9-20) mg/dL Creatinine (0.66-1.25) mg/dL Glucose (74-99) mg/dL POC Glucose (mg/dL) 149 H (75-99) mg/dL Calcium (8.4-10.2) mg/dL Microbiology - Last 24 Hours (Table) 04/30/19 22:12 Blood Culture - Preliminary Blood No Growth after 120 hours Assessment and Plan Plan: Assessment: 1 septic shock secondary to a urine infection. The cultures are showing E. coli which is sensitive to various antibiotics including Zosyn. 2 hypotension secondary to above, recovered 3 acute respiratory failure secondary to septic shock. The patient is currently on room air. The patient has small bilateral pleural effusion right more than left. 4 history of bladder cancer 5 chronic atrial fibrillation again is therapeutic and the patient rates under good control, PT/INR is subtherapeutic after being given vitamin K 5 mg. the patient was restarted on anticoagulation. Today's INR is 1.7 after being given 5 mg of Coumadin. 6 history of congestion heart failure with systolic dysfunction 7 history of recurrent UTIs and recent hospitalization for a gram-negative UTI secondary to E. 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 Plan: Continue the IV Lasix, repeat chest x-ray in the morning, accurate intake and output, daily weights, monitor renal profile and electrolytes, patient remains confused, but overall his mentation is improving, encourage deep breathing and coughing, patient is profoundly weak, and he requires a mechanical lift to get him out of bed. PT and OT are consulted and are working with the patient. No difficulty breathing, vital signs are stable, patient is on Rocephin for evidence of E. coli in the urine. Sputum culture came back negative. ID service is following, I performed a history & physical examination of the patient and discussed their management with my nurse practitioner, Shoshana Nieto. I reviewed the nurse pr actitioner's note and agree with the documented findings and plan of care. Lung sounds are positive for clear breath sounds throughout the lung sanchez. The findings and the impression was discussed with the patient. I attest to the documentation by the nurse practitioner. Time with Patient: Less than 30
[2019-05-06 14:21] VITALS: BMI 45.8
[2019-05-06 16:34] LABS: Glucose,Whole Blood 170 mg/dL (75-99)
[2019-05-06] MEDS ORDERED: WARFARIN 3 MG TAB PO ONE (18:00)
[2019-05-06 20:31] LABS: Glucose,Whole Blood 191 mg/dL (75-99)
[2019-05-06] MEDS: ALLOPURINOL 100 MG TAB PO SCH (20:39)
[2019-05-06] MEDS: ATORVASTATIN 10 MG TAB PO SCH (20:39)
[2019-05-06] MEDS: SODIUM CHLORIDE 0.9% 500 ML 500 ML IV SCH (20:41)
--- NOTE | 2019-05-06 22:51 | PN ---
PROGRESS NOTE DATE OF SERVICE: 05/06/2019 REASON FOR FOLLOWUP: E coli urinary tract infection with sepsis. INTERVAL HISTORY: The patient is currently afebrile. The patient is breathing comfortably. Denies having any chest pain, shortness of breath or cough. No nausea, vomiting or abdominal pain or diarrhea. PHYSICAL EXAMINATION: Blood pressure 98/68 with a pulse of 90. Temperature 98.4. General description is an elderly male lying in bed in no distress. RESPIRATORY SYSTEM: Unlabored breathing. Clear to auscultation anteriorly. HEART: S1, S2. Regular rate and rhythm. ABDOMEN: Soft. No tenderness. LABS: Hemoglobin 8.4, white count 5.5. Creatinine is 2.17. Blood culture has been negative. Sputum is negative. DIAGNOSTIC IMPRESSION AND PLAN: Patient with an Escherichia coli urinary tract infection with sepsis. Blood culture has been negative sensitive pathogen. Recommend finishing therapy with amoxicillin on discharge. Continue with Rocephin while inpatient. Continue with supportive care. MMODL / IJN: [id number] /
[2019-05-07] MEDS: LEVOTHYROXINE 75 MCG TAB PO SCH (05:26)
[2019-05-07 07:03] LABS: Glucose,Whole Blood 187 mg/dL (75-99)
[2019-05-07] MEDS: OXYBUTYNIN CHLORIDE 5 MG TAB PO SCH ×2 (07:47→20:02)
[2019-05-07] MEDS: FUROSEMIDE 10 MG/ML 4 ML VIAL IV SCH ×2 (07:47→20:02)
[2019-05-07] MEDS: ATENOLOL 50 MG TAB PO SCH (07:47)
[2019-05-07] MEDS: INSULIN ASPART (NovoLOG) 100 UNIT/ML VIAL SQ SCH ×4 (07:47→20:02)
[2019-05-07] MEDS: PANTOPRAZOLE 40 MG TABLET PO SCH (07:47)
[2019-05-07] MEDS: MULTIVITAMINS, THERA 1 EACH TAB PO SCH (07:47)
[2019-05-07] MEDS: THIAMINE 100 MG TAB PO SCH (07:47)
[2019-05-07] MEDS: FOLIC ACID 1 MG TAB PO SCH (07:47)
[2019-05-07] MEDS: TAMSULOSIN 0.4 MG CAP.ER.24H PO SCH (07:47)
[2019-05-07] MEDS: IPRATROPIUM-ALBUTEROL 3 ML NEB INHALATION SCH ×4 (08:03→20:50)
--- NOTE | 2019-05-07 08:37 | XR ---
EXAMINATION TYPE: XR chest 1V portable DATE OF EXAM: 05/07/2019 COMPARISON: 05/04/2019 HISTORY: Follow-up for congestive heart failure. Shortness of breath. TECHNIQUE: Single frontal view of the chest is obtained. FINDINGS: Right internal jugular central venous catheter, cardiomegaly, small layering right pleural effusion and trace left pleural effusion, and mild pulmonary vascular congestion as well as bibasila r airspace disease are similar to the prior with only mild decrease in left pleural effusion. Extensi ve degenerative changes of the left glenohumeral joint. No new sizable pneumothorax. IMPRESSION: Improving sequela of congestive heart failure with improved left pleural effusion.
[2019-05-07 10:01] LABS: INR 3.7 (<1.2); Prothrombin Time 35.6 sec (9.0-12.0)
[2019-05-07 10:15] LABS: Basophils # (A) 0.2 k/uL (0-0.2); Basophils % (A) 2 %; Eosinophils # (A) 0.4 k/uL (0-0.7); Eosinophils % (A) 6 %; HCT 27.4 % (39.0-53.0); HGB 8.6 gm/dL (13.0-17.5); Hypochromasia Moderate; Lymphocytes # (A) 0.4 k/uL (1.0-4.8); Lymphocytes % (A) 6 %; MCH 28.4 pg (25.0-35.0); MCHC 31.3 g/dL (31.0-37.0); MCV 90.8 fL (80.0-100.0); Mean Platelet Volume 7.5; Monocytes # (A) 0.4 k/uL (0-1.0); Monocytes % (A) 6 %; Neutrophils # (A) 5.1 k/uL (1.3-7.7); Neutrophils % (A) 77 %; Platelet Count 194 k/uL (150-450); RBC 3.01 m/uL (4.30-5.90); RDW 15.6 % (11.5-15.5); WBC 6.6 k/uL (3.8-10.6)
[2019-05-07 10:27] LABS: Calcium 8.1 mg/dL (8.4-10.2); Potassium 3.6 mmol/L (3.5-5.1)
[2019-05-07] MEDS: SODIUM CHLORIDE 0.9% 500 ML 500 ML IV SCH (11:25)
[2019-05-07 11:59] LABS: Glucose,Whole Blood 155 mg/dL (75-99)
--- NOTE | 2019-05-07 13:23 | PN ---
PROGRESS NOTE DATE OF SERVICE: 05/07/2019 REASON FOR FOLLOWUP: E. Coli urinary tract infection. INTERVAL HISTORY: The patient is currently afebrile. The patient is breathing comfortably. No chest pain. No cough. Denies having any abdominal pain and no diarrhea. PHYSICAL EXAMINATION: Blood pressure is 103/60 with a pulse of 70, temperature 98.2. He is 100% on 2 L nasal cannula. General description is an elderly male up in the chair in no distress. RESPIRATORY SYSTEM: Unlabored breathing, clear to auscultation anteriorly. HEART: S1, S2. Regular rate and rhythm. ABDOMEN: Soft, no tenderness. EXTREMITIES: No edema of the feet. LABS: Hemoglobin is 8.6, white count 6.6 with a creatinine of 2.2. Creatinine clearance is 51. DIAGNOSTIC IMPRESSION AND PLAN: Patient admitted to the hospital with sepsis, source is urine in this patient who did have Escherichia coli that is a sensitive pathogen. Blood culture negative. Plan will be to finish therapy with oral amoxicillin 500 mg t.i.d. for 7 days. Monitor clinical course closely. Continue supportive care. MMODL / IJN: [id number] /
[2019-05-07 16:00] VITALS: RESP 16
[2019-05-07 16:59] LABS: Glucose,Whole Blood 175 mg/dL (75-99)
[2019-05-07] MEDS ORDERED: WARFARIN 0.5 MG TAB PO ONE (18:00)
[2019-05-07 19:38] LABS: Glucose,Whole Blood 216 mg/dL (75-99)
[2019-05-07] MEDS: ATORVASTATIN 10 MG TAB PO SCH (20:02)
[2019-05-07] MEDS: ALLOPURINOL 100 MG TAB PO SCH (20:02)
--- NOTE | 2019-05-07 21:53 | P.PN ---
Subjective This is a pleasant 78 years old male with past medical history of heart failure, atrial fibrillation, CVA/TIA, diabetes mellitus, hearing disorders, hyperlipidemia, hypertension, chronic kidney disease stage III, history of bladder cancer stage III underwent transurethral resection on 01/03/2019, recurrent UTI. He admits this time with severe infection and septic shock secondary to complicated UTI. Urine culture is growing E. coli which is se nsitive to antibiotics. Patient is currently on ceftriaxone. Patient was transferred to the general medical floor yesterday, yesterday he was more confused compared today is more awake and oriented however he is a little bit confused compared to his baseline as per daughter at bedside. He is breathing quietly with no chest pain or abdominal pain. He has no urinary symptoms this morning like dysuria or change in frequency. But he has some small redness is about on the left second carpometacarpal joint Vital signs stable and his creatinine today is 2.1 which is close to his baseline, INR is 2.5. No leukocytosis and rest of labs are unremarkable. 05/07/2019 Patient still confused to time and person, he knows he is in [facility]. He is confused also about his illness. Patient lying on chair not in distress. He is not in pain. He has a Fong catheter and he has significant bilateral leg swelling. Vitals are stable. His creatinine 2.1 which is improved, sugar controlled. Platelets was 142. Labs from today showing no significant change. INR is 2.5. Patient remains on ceftriaxone with plan to be changed to oral Cipro upon discharge, he is on Lasix 40 mg IV twice daily as well as warfarin. However his blood pressure significantly improved compared to yesterday went up from 98/68 to 137/61 with heart rate in 90s Possible discharge in 24-48 hours Objective - Vital Signs Vital signs: Vital Signs Temp 98.1 F 05/07/19 01:20 Pulse 98 05/07/19 01:20 Resp 15 05/07/19 01:20 BP 137/61 05/07/19 01:20 Pulse Ox 94 L 05/07/19 01:20 Intake & Output 05/06/19 05/07/19 05/07/19 18:59 06:59 18:59 Intake Total 776 390 Output Total 700 850 Balance 76 -460 Weight 128.9 kg Intake: Intake, IV Titration 240 Amount Sodium Chloride 0.9% 500 240 ml 500 ml @ 20 mls/hr IV .Q24H [facility] Rx#:[id number] Oral 776 150 Output: Urine 700 850 Other: Voiding Method Indwelling Catheter Indwelling Catheter ABP, PAP, CO, CI - Last Documented Arterial Blood Pressure 119/47 - Exam -GENERAL: The patient is alert and oriented x1-2, not in any acute distress. Obese HEENT: Pupils are round and equally reacting to light. EOMI. No scleral icterus. No conjunctival pallor. Normocephalic, atraumatic. No pharyngeal erythema. No thyromegaly. CARDIOVASCULAR: S1 and S2 present. No murmurs, rubs, or gallops. -PULMONARY: Chest is clear to auscultation, bilateral basal crepitation ABDOMEN: Soft, nontender, nondistended, normoactive bowel sounds. No palpable organomegaly. MUSCULOSKELETAL: No joint swelling or deformity. -EXTREMITIES: No cyanosis, clubbing, or pedal edema. Small area of redness and tenderness over the left second tarsometatarsal joint mild restriction of flexion secondary to pain NEUROLOGICAL: Gross neurological examination did not reveal any focal deficits. SKIN: No rashes. no petechiae. - Labs CBC & Chem 7: 05/07/19 08:52 05/07/19 08:52 Labs: Abnormal Lab Results - Last 24 Hours (Table) 05/06/19 05/06/19 05/06/19 Range/Units 07:17 07:17 07:17 RBC 2.98 L (4.30-5.90) m/uL Hgb 8.4 L (13.0-17.5) gm/dL Hct 27.7 L (39.0-53.0) % MCHC 30.2 L (31.0-37.0) g/dL RDW 15.9 H (11.5-15.5) % Plt Count 142 L (150-450) k/uL Lymphocytes # 0.5 L (1.0-4.8) k/uL PT 23.8 H (9.0-12.0) sec INR 2.5 H (<1.2) BUN 44 H (9-20) mg/dL Creatinine 2.17 H (0.66-1.25) mg/dL Glucose 122 H (74-99) mg/dL POC Glucose (mg/dL) (75-99) mg/dL Calcium 7.9 L (8.4-10.2) mg/dL 05/06/19 05/06/19 05/06/19 Range/Units 11:54 16:33 20:27 RBC (4.30-5.90) m/uL Hgb (13.0-17.5) gm/dL Hct (39.0-53.0) % MCHC (31.0-37.0) g/dL RDW (11.5-15.5) % Plt Count (150-450) k/uL Lymphocytes # (1.0-4.8) k/uL PT (9.0-12.0) sec INR (<1.2) BUN (9-20) mg/dL Creatinine (0.66-1.25) mg/dL Glucose (74-99) mg/dL POC Glucose (mg/dL) 149 H 170 H 191 H (75-99) mg/dL Calcium (8.4-10.2) mg/dL 05/07/19 Range/Units 06:51 RBC (4.30-5.90) m/uL Hgb (13.0-17.5) gm/dL Hct (39.0-53.0) % MCHC (31.0-37.0) g/dL RDW (11.5-15.5) % Plt Count (150-450) k/uL Lymphocytes # (1.0-4.8) k/uL PT (9.0-12.0) sec INR (<1.2) BUN (9-20) mg/dL Creatinine (0.66-1.25) mg/dL Glucose (74-99) mg/dL POC Glucose (mg/dL) 187 H (75-99) mg/dL Calcium (8.4-10.2) mg/dL Microbiology - Last 24 Hours (Table) 04/30/19 22:12 Blood Culture - Final Blood No Growth after 144 hours Assessment and Plan Assessment: Acute urinary tract infection with severe sepsis and hypotension secondary to E. coli sensitive to antibiotics Acute hypoxemic respiratory failure status post intubation/extubation. Currently on oxygen 2 L via nasal cannula Metabolic encephalopathy, secondary to above Atrial fibrillation, chronic. 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 Continue with antibiotics. Follow-up infectious disease and pulmonary recommendation. Labs and medication were reviewed.. Continue same treatment. Continue with symptomatic treatment. Resume home medication. Monitor lytes and vitals. DVT and GI prophylaxis. Further recommendations of the clinical course of the patie nt DVT prophylaxis: On Coumadin GI Prophylaxis: Ppi PT/OT: Recommended subacute rehab Prognosis is guarded
[2019-05-08] MEDS: LEVOTHYROXINE 75 MCG TAB PO SCH (05:39)
[2019-05-08 07:00] LABS: Glucose,Whole Blood 139 mg/dL (75-99)
[2019-05-08] MEDS: IPRATROPIUM-ALBUTEROL 3 ML NEB INHALATION SCH ×2 (08:11)
[2019-05-08 08:20] VITALS: BP 114/73; PULSE 76; TEMP 97.6
[2019-05-08] MEDS: INSULIN ASPART (NovoLOG) 100 UNIT/ML VIAL SQ SCH (09:20)
[2019-05-08] MEDS: FUROSEMIDE 10 MG/ML 4 ML VIAL IV SCH (09:21)
[2019-05-08] MEDS: TAMSULOSIN 0.4 MG CAP.ER.24H PO SCH (09:21)
[2019-05-08] MEDS: ATENOLOL 50 MG TAB PO SCH (09:21)
[2019-05-08] MEDS: MULTIVITAMINS, THERA 1 EACH TAB PO SCH (09:21)
[2019-05-08] MEDS: FOLIC ACID 1 MG TAB PO SCH (09:21)
[2019-05-08] MEDS: PANTOPRAZOLE 40 MG TABLET PO SCH (09:21)
[2019-05-08] MEDS: THIAMINE 100 MG TAB PO SCH (09:21)
[2019-05-08] MEDS: OXYBUTYNIN CHLORIDE 5 MG TAB PO SCH (09:21)
[2019-05-08 09:31] LABS: INR 3.4 (<1.2); Prothrombin Time 32.3 sec (9.0-12.0)
--- NOTE | 2019-05-08 09:51 | P.DS ---
Providers Date of admission: 04/30/19 22:32 Attending physician: Terry Muñoz Consults: 05/02/19 12:04 Consult Physician Routine Consulting Provider: Omar Gotti Consult Reason/Comments: sepsis Do you want consulting provider notified?: Yes Primary care physician[facility] Course: Diagnoses: Acute urinary tract infection with severe sepsis and hypotension secondary to E. coli sensitive to antibiotics Acute hypoxemic respiratory failure status post intubation/extubation. Currently on oxygen 2 L via nasal cannula Metabolic encephalopathy, secondary to above, improving significantly Atrial fibrillation, chronic. 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 and computed tomography scan Possible left kidney stone on ultrasound about 1.1 cm Congestive heart failure with acute on chronic systolic dysfunction with ejection fraction 40-45% Chronic kidney disease stage III Normochromic normocytic anemia History of CVA/transient ischemic attack Type 2 Diabetes mellitus Hypertension Hyperlipidemia History of bladder cancer, stage III, underwent TURP and subsequent intravesicular chemotherapy History of gout History of CVA History of glaucoma Obesity with body mass index of 47.5 Hospital course: This is a pleasant 78 years old male with past medical history of heart failure, atrial fibrillation, CVA/TIA, diabetes mellitus, hearing disorders, hyperlipidemia, hypertension, chronic kidney disease stage III, history of bladder cancer stage III underwent transurethral resection on 01/03/2019, recurrent UTI. He admits this time with severe infection and septic shock secondary to complicated UTI. Urine culture is growing E. coli which is sensitive to antibiotics. Patient is currently is treated on ceftriaxone, and he will be discharged on 7 more days of amoxicillin as per ID team recommendation. He has confusions secondary to his sepsis, improving gradually, on the day of discharge he is still a little confused regarding time however is oriented to place and person and his conversations and answers are more than once and appropriate compared to yesterday. He is assisted to his wishes to be discharged today if possible. He is breathing quietly with no chest pain or abdominal pain. He has no urinary symptoms this morning like dysuria or change in frequency. Vital signs stable and his creatinine improved to 2.1 to 2.2 which is close to his baseline. No leukocytosis and rest of labs are unremarkable. INR is 3.7 and 3.4 respectively. hold coumadin on 05/08/2019 and resume it on 05/09/2019, as per INR level and when it is therapeutic at 2-3 (target). we recommend checking INR daily till therapeutic. Patient was cleared for discharge on short course of antibiotics by both instructional technology director/critical care team and infectious diseases specialist Problems and management plan were discussed with the patient and he verbalized understanding and acceptance Patient was found stable and can be discharged home however he needs follow-up as an outpatient. Patient was instructed to follow up with PCP within one week and patient agrees. Patient also was instructed to follow up with his urologist as an outpatient for his recurrent infections and kidney stone. Appointment is made for the patient with Dr. Carpenter on 05/31 Gen: patient is a AAOx2, not to time, no distress. Obese CVS: S1-S2, RRR, no murmur Lungs: B/L CTA, no wheezing Abdomen: soft, no distention, no tenderness, positive bowel sounds Extremity: Bilateral leg edema Time spent more than 35 minutes Patient Condition at Discharge: Fair Plan - Discharge Summary Discharge Rx Participant: No New Discharge Prescriptions: New Amoxicillin 500 mg PO Q8H #21 capsule Tamsulosin [Flomax] 0.4 mg PO PC-BRKFST #30 cap.er.24h Folic Acid 1 mg PO DAILY@1200 #21 tab Multivitamins, Thera [Multivitamin (formulary)] 1 each PO DAILY@1200 #21 tab Pantoprazole [Protonix] 20 mg PO AC-BRKFST #20 tablet. Thiamine [Vitamin B-1] 100 mg PO DAILY@1200 #20 tab Continue Levothyroxine Sodium [Synthroid] 75 mcg PO DAILY Simvastatin [Zocor] 20 mg PO HS Atenolol [Tenormin] 50 mg PO DAILY sitaGLIPtin [Januvia] 50 mg PO HS Oxybutynin Chloride [Ditropan] 5 mg PO BID Ergocalciferol [Vitamin D2 (DRISDOL)] 50,000 unit PO WE Allopurinol [Zyloprim] 100 mg PO HS Triamcinolone 0.1% Ointment [Kenalog 0.1% Ointment] 1 applic TOPICAL TID glipiZIDE [Glucotrol] 10 mg PO AC-BID Furosemide [Lasix] 40 mg PO BID Polyethylene Glycol 3350 [Miralax] 17 gm PO DAILY@1200 Potassium Chloride [Klor-Con 20 Packets] 20 meq PO TID Albuterol Sulfate [Proair Hfa] 2 puff INHALATION RT-Q4H PRN #1 inhaler PRN Reason: Shortness Of Breath Warfarin [Coumadin] 4 - 6 mg PO DIRECTED #0 Discharge Medication List Atenolol [Tenormin] 50 mg PO DAILY 02/18/15 [History] Levothyroxine Sodium [Synthroid] 75 mcg PO DAILY 02/18/15 [History] Simvastatin [Zocor] 20 mg PO HS 02/18/15 [History] Allopurinol [Zyloprim] 100 mg PO HS 10/26/18 [History] Ergocalciferol [Vitamin D2 (DRISDOL)] 50,000 unit PO WE 10/26/18 [History] Oxybutynin Chloride [Ditropan] 5 mg PO BID 10/26/18 [History] sitaGLIPtin [Januvia] 50 mg PO HS 10/26/18 [History] Triamcinolone 0.1% Ointment [Kenalog 0.1% Ointment] 1 applic TOPICAL TID 02/15/19 [History] glipiZIDE [Glucotrol] 10 mg PO AC-BID 02/15/19 [History] Furosemide [Lasix] 40 mg PO BID 05/01/19 [History] Polyethylene Glycol 3350 [Miralax] 17 gm PO DAILY@1200 05/01/19 [History] Potassium Chloride [Klor-Con 20 Packets] 20 meq PO TID 05/01/19 [History] Amoxicillin 500 mg PO Q8H #21 capsule 05/07/19 [Rx] Albuterol Sulfate [Proair Hfa] 2 puff INHALATION RT-Q4H PRN #1 inhaler 05/08/19 [Rx] Folic Acid 1 mg PO DAILY@1200 #21 tab 05/08/19 [Rx] Multivitamins, Thera [Multivitamin (formulary)] 1 each PO DAILY@1200 #21 tab 05/08/19 [Rx] Pantoprazole [Protonix] 20 mg PO AC-BRKFST #20 tablet.dr 05/08/19 [Rx] Tamsulosin [Flomax] 0.4 mg PO PC-BRKFST #30 cap.er.24h 05/08/19 [Rx] Thiamine [Vitamin B-1] 100 mg PO DAILY@1200 #20 tab 05/08/19 [Rx] Warfarin [Coumadin] 4 - 6 mg PO DIRECTED #0 05/08/19 [Rx] Follow up Appointment(s)/Referral(s): Len Carpenter MD [STAFF PHYSICIAN] - 05/31/19 10:00 am Rogelio Mitchell DO [Primary Care Provider] - 1-2 days Activity/Diet/Wound Care/Special Instructions: Diabetic and heart healthy diet Activity is limited till you see your doctor Hold coumadine tongiht for INR is elevated at 3.4, recheck INR tomorrow till therapeutic (target INR: 2-3) and resume coumadin tomorrow or according to the INR level We're comment to monitor INR and other labs every 2-3 days, follow-up with the physician at the [facility] (target INR: 2-3)
--- NOTE | 2019-05-08 12:22 | PN ---
PROGRESS NOTE DATE OF SERVICE: 05/08/2019 REASON FOR FOLLOWUP: E. coli urinary tract infection. INTERVAL HISTORY: The patient was seen on rounds this morning. Patient has been afebrile. Breathing comfortably. Right IJ has been discontinued. No chest pain. No cough. No abdominal pain. No diarrhea. Still has a Fong catheter in. PHYSICAL EXAMINATION: Blood pressure is 114/73 with a pulse of 76, temperature is 97.6. He is 99% on 2 L nasal cannula. General description is an elderly male up in the chair in no distress. RESPIRATORY SYSTEM: Unlabored breathing, clear to auscultation anteriorly. HEART: S1, S2. Regular rate and rhythm, ABDOMEN: Soft, no tenderness. LABS: The patient's INR was slightly elevated today at 3.4, though better than yesterday at 3.7. DIAGNOSTIC IMPRESSION AND PLAN: Patient with an Escherichia coli urinary tract infection with sensitive pathogen. Will be given a short course of oral amoxicillin to finish course of therapy. Plan is to monitor closely while on antibiotics. Continue supportive care. MMODL / ALIYAN: [id number] /
[2019-05-08] MEDS ORDERED: WARFARIN 0.5 MG TAB PO ONE (18:00)
== END 2019-05-08 11:26 | DRG 871 ==
LOC: EC 22:09 → 2SICU 22:32 → 4SSUR 05-05 13:07
PROVIDERS: ADMIT Hospitalist; ATTEND Hospitalist
PROC: 02H633Z Insertion of Infusion Device into Right Atrium, Percutaneous Approach (ICD-10-PCS; principal; 2019-04-30)
PROC: 03HY32Z Insertion of Monitoring Device into Upper Artery, Percutaneous Approach (ICD-10-PCS; 2019-05-01)
PROC: 4A133B1 Monitoring of Arterial Pressure, Peripheral, Percutaneous Approach (ICD-10-PCS; 2019-05-01)
PROC: 4A133J1 Monitoring of Arterial Pulse, Peripheral, Percutaneous Approach (ICD-10-PCS; 2019-05-01)
PROC: 0BH17EZ Insertion of Endotracheal Airway into Trachea, Via Natural or Artificial Opening (ICD-10-PCS; 2019-05-01)
PROC: 5A1945Z Respiratory Ventilation, 24-96 Consecutive Hours (ICD-10-PCS; 2019-05-01)
PROC: 3E0G76Z Introduction of Nutritional Substance into Upper GI, Via Natural or Artificial Opening (ICD-10-PCS; 2019-05-02)
DX: A41.51 Sepsis due to Escherichia coli [E. coli] (principal); R65.21 Severe sepsis with septic shock; N17.0 Acute kidney failure with tubular necrosis; J96.01 Acute respiratory failure with hypoxia; G92 Toxic encephalopathy; J18.9 Pneumonia, unspecified organism; I50.23 Acute on chronic systolic (congestive) heart failure; I13.0 Hypertensive heart and chronic kidney disease with heart failure and stage 1 through stage 4 chronic kidney disease, or unspecified chronic kidney disease; L03.115 Cellulitis of right lower limb; L03.116 Cellulitis of left lower limb; I48.20 Chronic atrial fibrillation, unspecified; I47.2 Ventricular tachycardia; N13.6 Pyonephrosis; E87.2 Acidosis; Z68.42 Body mass index [BMI] 45.0-49.9, adult; J98.11 Atelectasis; E66.9 Obesity, unspecified; N18.3 Chronic kidney disease, stage 3 (moderate); I27.20 Pulmonary hypertension, unspecified; E11.22 Type 2 diabetes mellitus with diabetic chronic kidney disease; E11.39 Type 2 diabetes mellitus with other diabetic ophthalmic complication; R31.0 Gross hematuria; D63.8 Anemia in other chronic diseases classified elsewhere; I70.0 Atherosclerosis of aorta; E03.9 Hypothyroidism, unspecified; E78.5 Hyperlipidemia, unspecified; N39.41 Urge incontinence; T36.8X5A Adverse effect of other systemic antibiotics, initial encounter; T45.515A Adverse effect of anticoagulants, initial encounter; H40.9 Unspecified glaucoma; H42 Glaucoma in diseases classified elsewhere; H91.90 Unspecified hearing loss, unspecified ear; R79.1 Abnormal coagulation profile; M21.372 Foot drop, left foot; M10.9 Gout, unspecified; R26.9 Unspecified abnormalities of gait and mobility; Z79.84 Long term (current) use of oral hypoglycemic drugs; Z79.01 Long term (current) use of anticoagulants; Z79.890 Hormone replacement therapy; Z79.899 Other long term (current) drug therapy; Z85.51 Personal history of malignant neoplasm of bladder; Z89.022 Acquired absence of left finger(s); Z98.890 Other specified postprocedural states; Z87.442 Personal history of urinary calculi; Z87.440 Personal history of urinary (tract) infections; Z92.21 Personal history of antineoplastic chemotherapy; Z90.6 Acquired absence of other parts of urinary tract; Z86.73 Personal history of transient ischemic attack (TIA), and cerebral infarction without residual deficits; Z71.3 Dietary counseling and surveillance; Z87.891 Personal history of nicotine dependence; Z91.018 Allergy to other foods; Z80.9 Family history of malignant neoplasm, unspecified; Z86.69 Personal history of other diseases of the nervous system and sense organs
CPT/HCPCS: 36415; 36556; 70450; 71045; 71046; 76770; 80048; 80053; 80202; 81001; 82330; 82533; 82550; 82805; 83605; 83735; 84100; 84153; 84484; 85025; 85610; 85730; 87040; 87070; 87077; 87086; 87186; 87205; 87324; 87502; 93005; 93306; 94002; 94003; 94640; 94760; 96360; 96361; 99291

== ENCOUNTER 2019-05-17 17:58 | Inpatient (IN) | payer MEDICARE ==
--- NOTE | 2019-05-17 18:53 | ED ---
Recheck HPI - General Chief Complaint: Recheck/Abnormal Lab/Rx Stated Complaint: Acute renal failure Time Seen by Provider: 05/17/19 18:21 Source: patient, EMS Mode of arrival: EMS Limitations: no limitations - History of Present Illness Initial Comments: 78-year-old male patient presents to the emergency department today for evaluation of altered renal function. Patient is currently at [facility] for problems with his kidneys and swelling in his legs. Patient states he is having a congested cough. Denies any fever or chills. Denies shortness of breath. Patient states he feels well currently. Labs reviewed and show elevation in his BUN and creatinine at 37 and 2.04 respectively. Patient denies any recent rash, abdominal pain, nausea, vomiting, diarrhea, constipation, back pain, numbness, tingling, dizziness, weakness, hematuria, dysuria, urinary urgency, urinary frequency, headache, visual changes, or any other complaints. - Related Data Home Medications Medication Instructions Recorded Confirmed Atenolol [Tenormin] 50 mg PO DAILY 02/18/15 05/17/19 Simvastatin [Zocor] 20 mg PO HS 02/18/15 05/17/19 Allopurinol [Zyloprim] 100 mg PO DAILY 10/26/18 05/17/19 Ergocalciferol [Vitamin D2 50,000 unit PO WE 10/26/18 05/17/19 (DRISDOL)] Oxybutynin Chloride [Ditropan] 5 mg PO BID 10/26/18 05/17/19 sitaGLIPtin [Januvia] 50 mg PO DAILY 10/26/18 05/17/19 Triamcinolone 0.1% Ointment 1 applic TOPICAL TID 02/15/19 05/17/19 [Kenalog 0.1% Ointment] glipiZIDE [Glucotrol] 10 mg PO AC-BID 02/15/19 05/17/19 Furosemide [Lasix] 40 mg PO BID 05/01/19 05/17/19 Polyethylene Glycol 3350 [Miralax] 17 gm PO DAILY 05/01/19 05/17/19 Potassium Chloride [Klor-Con 20 20 meq PO TID@0700,1300,1900 05/01/19 05/17/19 Packets] Fluticasone Nasal [place] [Flonase 2 spr EA NOSTRIL HS 05/17/19 05/17/19 Nasal [place]] Folic Acid 1 mg PO DAILY@0700 05/17/19 05/17/19 Rajwinder-Tussin 10 ml PO Q6H PRN 05/17/19 05/17/19 Levothyroxine Sodium [Synthroid] 75 mcg PO DAILY 05/17/19 05/17/19 Magnesium Oxide [Mag-Ox] 400 mg PO HS 05/17/19 05/17/19 Metolazone [Zaroxolyn] 5 mg PO DAILY 05/17/19 05/17/19 Multivitamins, Thera [Multivitamin 1 tab PO DAILY@0700 05/17/19 05/17/19 (formulary)] Pantoprazole Sodium [Protonix] 20 mg PO DAILY@0700 05/17/19 05/17/19 Tamsulosin [Flomax] 0.4 mg PO DAILY@0700 05/17/19 05/17/19 Thiamine [Vitamin B-1] 100 mg PO DAILY 05/17/19 05/17/19 Warfarin Sodium [Coumadin] 4 mg PO SUSA 05/17/19 05/17/19 Warfarin Sodium [Coumadin] 6 mg PO MOTUWETHFR 05/17/19 05/17/19 Previous Rx's Medication Instructions Recorded Albuterol Sulfate [Proair Hfa] 2 puff INHALATION RT-Q4H PRN #1 05/08/19 inhaler Allergies Allergy/AdvReac Type Severity Reaction Status Date / Time strawberry Allergy Swelling Verified 05/17/19 20:32 Review of Systems ROS Statement: Those systems with pertinent positive or pertinent negative responses have been documented in the HPI. ROS Other: All systems not noted in ROS Statement are negative. Past Medical History Past Medical History: Atrial Fibrillation, Cancer, Heart Failure, CVA/TIA, Diabetes Mellitus, Eye Disorder, Hearing Disorder / Deafness, Hyperlipidemia, Hypertension, Memory Impairment, Musculoskeletal Disorder, Renal Disease, Thyroid Disorder Additional Past Medical History / Comment(s): Chronic stage III kidney disease, history of bladder cancer stage III underwent transurethral resection on with subsequent intravesicular chemotherapy, recurrent UTIs with E. coli, gout, chronic atrial fibrillation hypertension, hyperlipidemia, diabetes mellitus, CVA, congestion heart failure, glaucoma, chronic lower extremity edema, moves around without walker and he has also used hearing aids. History of left drop foot History of Any Multi-Drug Resistant Organisms: None Reported Date of last positivie culture/infection: 2018 MDRO Source:: stool Additional Past Surgical History / Comment(s): Finger surgery - TRAUMATIC AMPUTATIONS LT 2 FINGERS. COLONOSCOPY. Hemorrhoidectomy, transurethral resection of bladder tumors (11/01/18), TUR of bladder tumor scars 12/2018 Past Anesthesia/Blood Transfusion Reactions: No Reported Reaction, Family History of Problems w/ Anesthesia Additional Past Anesthesia/Blood Transfusion Reaction / Comment(s): SON HAD FLUID IN LUNGS WITH 1 SURGERY. Past Psychological History: No Psychological Hx Reported Smoking Status: Former smoker Past Alcohol Use History: None Reported Past Drug Use History: None Reported - Past Family History Daughter(s) Family Medical History: Cancer General Exam Limitations: no limitations General appearance: alert, in no apparent distress, other (Physical well- developed, well-nourished adult male patient in no acute distress. Vital signs upon presentation are temperature 97.2F, pulse 67, respirations 20, blood pressure 115/69, pulse ox 96% on room air.) Eye exam: Present: normal appearance, PERRL, EOMI. Absent: scleral icterus, conjunctival injection, periorbital swelling ENT exam: Present: normal exam, normal oropharynx, mucous membranes moist Respiratory exam: Present: normal lung sounds bilaterally. Absent: respiratory distress, wheezes, rales, rhonchi, stridor Cardiovascular Exam: Present: regular rate, normal rhythm, normal heart sounds. Absent: systolic murmur, diastolic murmur, rubs, gallop, clicks GI/Abdominal exam: Present: soft, normal bowel sounds. Absent: distended, tenderness, guarding, rebound, rigid Extremities exam: Present: full ROM, normal capillary refill, other (Bilateral lower extremity edema, anterior erythema skin is warm and dry. Pedal pulses 1+.). Absent: normal inspection, tenderness, pedal edema, joint swelling, calf tenderness Neurological exam: Present: alert, oriented X3, CN II-XII intact Psychiatric exam: Present: normal affect, normal mood Skin exam: Present: warm, dry, intact, normal color. Absent: rash Course Vital Signs 05/17/19 05/17/19 05/17/19 18:06 19:00 19:30 Temperature 97.2 F L Pulse Rate 67 Respiratory 20 Rate Blood Pressure 115/69 119/71 122/69 O2 Sat by Pulse 96 97 Oximetry 05/17/19 05/17/19 20:30 22:50 Temperature Pulse Rate 72 Respiratory 15 Rate Blood Pressure 124/110 118/90 O2 Sat by Pulse 100 92 L Oximetry Medical Decision Making - Medical Decision Making 78-year-old male patient presents to the emergency department today for evaluation of worsening renal function and swelling to his lower extremities. Yesterday renal function was 36 BUN and 2.0 creatinine. Today renal function is worsened to 50 BUN and 2.96 creatinine. Potassium is 5.4. BNP is 7020. Hemoglobin is 8.8 which seems chronic for the patient. Given evidence of worsening renal function and worsening heart failure reveal admit to the hospital for further evaluation and careful diuresis. Patient and family aware of plan and results and are in agreement. - Lab Data Result diagrams: 05/17/19 19:17 05/17/19 19:17 Lab Results 05/17/19 05/17/19 05/17/19 Range/Units 19:17 19:17 19:17 WBC 6.0 (3.8-10.6) k/uL RBC 3.11 L (4.30-5.90) m/uL Hgb 8.8 L (13.0-17.5) gm/dL Hct 28.2 L (39.0-53.0) % MCV 90.6 (80.0-100.0) fL MCH 28.4 (25.0-35.0) pg MCHC 31.3 (31.0-37.0) g/dL RDW 16.0 H (11.5-15.5) % Plt Count 233 (150-450) k/uL Neutrophils % 67 % Lymphocytes % 11 % Monocytes % 10 % Eosinophils % 6 % Basophils % 2 % Neutrophils # 4.0 (1.3-7.7) k/uL Lymphocytes # 0.7 L (1.0-4.8) k/uL Monocytes # 0.6 (0-1.0) k/uL Eosinophils # 0.4 (0-0.7) k/uL Basophils # 0.1 (0-0.2) k/uL Hypochromasia Slight Sodium 140 (137-145) mmol/L Potassium 5.4 H (3.5-5.1) mmol/L Chloride 104 (98-107) mmol/L Carbon Dioxide 27 (22-30) mmol/L Anion Gap 9 mmol/L BUN 50 H (9-20) mg/dL Creatinine 2.96 H (0.66-1.25) mg/dL Est GFR (CKD-EPI)AfAm 23 (>60 ml/min/1.73 sqM) Est GFR (CKD-EPI)NonAf 20 (>60 ml/min/1.73 sqM) Glucose 161 H (74-99) mg/dL Calcium 8.6 (8.4-10.2) mg/dL Total Bilirubin 0.6 (0.2-1.3) mg/dL AST 40 (17-59) U/L ALT 40 (21-72) U/L Alkaline Phosphatase 216 H (38-126) U/L NT-Pro-B Natriuret Pep 7020 pg/mL Total Protein 6.0 L (6.3-8.2) g/dL Albumin 3.1 L (3.5-5.0) g/dL - Radiology Data Radiology results: report reviewed, image reviewed Two-view x-ray of the chest was obtained. Report was reviewed in its entirety. Impression by Dr. Vasquez shows mild infiltrate and atelectasis right lower lobe improved compared to old exam. No obvious heart failure. Disposition Clinical Impression: Acute on chronic renal failure, Hyperkalemia, CHF (congestive heart failure) Disposition: ADMITTED IP TO THIS [facility] Condition: Serious Decision to Admit Reason: Admit from EC Decision Date: 05/17/19 Decision Time: 22:11
--- NOTE | 2019-05-17 19:52 | XR ---
EXAMINATION TYPE: XR chest 2V DATE OF EXAM: 05/17/2019 COMPARISON: 05/07/2019 HISTORY: Cough and congestion TECHNIQUE: Frontal and lateral views of the chest are obtained. FINDINGS: There is an enlarged heart. There is some mild linear infiltrate and atelectasis right low er lobe. There are no hilar masses. Bony thorax is intact. IMPRESSION: There is some mild infiltrate and atelectasis right lower lobe improved compared to old exam. No obvious heart failure.
[2019-05-17 19:54] LABS: Albumin 3.1 g/dL (3.5-5.0); Calcium 8.6 mg/dL (8.4-10.2); Potassium 5.4 mmol/L (3.5-5.1); Total Bilirubin 0.6 mg/dL (0.2-1.3)
[2019-05-17 19:58] LABS: Basophils # (A) 0.1 k/uL (0-0.2); Basophils % (A) 2 %; Eosinophils # (A) 0.4 k/uL (0-0.7); Eosinophils % (A) 6 %; HCT 28.2 % (39.0-53.0); HGB 8.8 gm/dL (13.0-17.5); Hypochromasia Slight; Lymphocytes # (A) 0.7 k/uL (1.0-4.8); Lymphocytes % (A) 11 %; MCH 28.4 pg (25.0-35.0); MCHC 31.3 g/dL (31.0-37.0); MCV 90.6 fL (80.0-100.0); Mean Platelet Volume 7.7; Monocytes # (A) 0.6 k/uL (0-1.0); Monocytes % (A) 10 %; Neutrophils % (A) 67 %; Platelet Count 233 k/uL (150-450); RBC 3.11 m/uL (4.30-5.90)
[2019-05-17] MEDS ORDERED: NALOXONE 0.4 MG/ML 1 ML VIAL IV PRN (22:06)
[2019-05-17] MEDS ORDERED: FUROSEMIDE 10 MG/ML 10 ML VIAL IV STA (22:39)
[2019-05-18] MEDS ORDERED: ALBUTEROL NEBULIZED 2.5 MG/3 ML INHALATION PRN (01:00)
[2019-05-18] MEDS ORDERED: guaiFENesin SYRUP 100MG/5ML 200 MG/10 ML CUP PO PRN (01:15)
[2019-05-18 02:48] LABS: INR 3.1 (<1.2); Prothrombin Time 30.1 sec (9.0-12.0)
[2019-05-18] MEDS: LEVOTHYROXINE 75 MCG TAB PO SCH (06:30)
[2019-05-18 07:17] LABS: Glucose,Whole Blood 114 mg/dL (75-99)
[2019-05-18 08:02] LABS: Albumin 2.9 g/dL (3.5-5.0); Calcium 8.4 mg/dL (8.4-10.2); Total Bilirubin 0.6 mg/dL (0.2-1.3); Total Protein 5.6 g/dL (6.3-8.2)
[2019-05-18] MEDS: OXYBUTYNIN CHLORIDE 5 MG TAB PO SCH ×2 (08:47→20:26)
[2019-05-18] MEDS: FOLIC ACID 1 MG TAB PO SCH (08:47)
[2019-05-18] MEDS: PANTOPRAZOLE 40 MG TABLET PO SCH (08:47)
[2019-05-18] MEDS: MULTIVITAMINS, THERA 1 EACH TAB PO SCH (08:47)
[2019-05-18] MEDS: ALLOPURINOL 100 MG TAB PO SCH (08:47)
[2019-05-18] MEDS: TAMSULOSIN 0.4 MG CAP.ER.24H PO SCH (08:48)
[2019-05-18] MEDS: THIAMINE 100 MG TAB PO SCH (08:48)
[2019-05-18] MEDS: TRIAMCINOLONE ACET 0.1% OINTMENT 15 GM TUBE TOPICAL SCH ×3 (08:49→21:30)
[2019-05-18] MEDS: POLYETHYLENE GLYCOL 3350 17 GM POWD.PACK PO SCH (08:49)
[2019-05-18] MEDS: ATENOLOL 50 MG TAB PO SCH (08:52)
[2019-05-18] MEDS ORDERED: METOLAZONE 5 MG TAB PO SCH (09:00)
[2019-05-18 09:04] LABS: Basophils # (A) 0.2 k/uL (0-0.2); Basophils % (A) 3 %; Eosinophils # (A) 0.3 k/uL (0-0.7); Eosinophils % (A) 6 %; HCT 26.6 % (39.0-53.0); HGB 8.3 gm/dL (13.0-17.5); Hypochromasia Moderate; Lymphocytes # (A) 0.7 k/uL (1.0-4.8); Lymphocytes % (A) 13 %; MCH 28.4 pg (25.0-35.0); MCHC 31.1 g/dL (31.0-37.0); MCV 91.1 fL (80.0-100.0); Mean Platelet Volume 7.8; Monocytes # (A) 0.5 k/uL (0-1.0); Monocytes % (A) 10 %; Neutrophils # (A) 3.4 k/uL (1.3-7.7); Neutrophils % (A) 65 %; Platelet Count 217 k/uL (150-450); RBC 2.92 m/uL (4.30-5.90); RDW 15.9 % (11.5-15.5); WBC 5.3 k/uL (3.8-10.6)
[2019-05-18] MEDS: glipiZIDE 10 MG TAB PO SCH ×2 (09:19→17:18)
[2019-05-18] MEDS: LINAGLIPTIN 5 MG TABLET PO SCH (09:19)
[2019-05-18 11:44] LABS: Glucose,Whole Blood 98 mg/dL (75-99)
--- NOTE | 2019-05-18 14:38 | P.NPCON ---
History of Present Illness - Reason for Consult Consult date: 05/18/19 acute renal failure - Chief Complaint Acute kidney injury - History of Present Illness Referred to the hospital from urology office because of confusion. As per the nursing staff he was also lethargic in the morning but currently he is not lethargic and answering questions. Very poor historian. He says he was sick. Denies any nausea vomiting diarrhea. He had congestion with cough while he was in the [facility]. No recent contrast studies. He has diastolic CHF and takes Lasix and metolazone at home. Recently had TURP by urology. He has chronic kidney disease stage 3/4 with a baseline creatinine of 2.0 MG per DL. Review of Systems Constitutional: Reports as per HPI Past Medical History Past Medical History: Atrial Fibrillation, Cancer, Heart Failure, CVA/TIA, Diabetes Mellitus, Eye Disorder, Hearing Disorder / Deafness, Hyperlipidemia, Hypertension, Memory Impairment, Musculoskeletal Disorder, Renal Disease, Thyroid Disorder Additional Past Medical History / Comment(s): Chronic stage III kidney disease, history of bladder cancer stage III underwent transurethral resection on 01/03/2019 with subsequent intravesicular chemotherapy, recurrent UTIs with E. coli, gout, chronic atrial fibrillation hypertension, hyperlipidemia, diabetes mellitus, CVA, congestion heart failure, glaucoma, chronic lower extremity edema, moves around without walker and he has also used hearing aids. History of left drop foot History of Any Multi-Drug Resistant Organisms: None Reported Date of last positivie culture/infection: 2017 MDRO Source:: stool Additional Past Surgical History / Comment(s): Finger surgery - TRAUMATIC AMPUTATIONS LT 2 FINGERS. COLONOSCOPY. Hemorrhoidectomy, transurethral resection of bladder tumors (11/01/18), TUR of bladder tumor scars 12/2018 Past Anesthesia/Blood Transfusion Reactions: No Reported Reaction, Family History of Problems w/ Anesthesia Additional Past Anesthesia/Blood Transfusion Reaction / Comment(s): SON HAD FLUID IN LUNGS WITH 1 SURGERY. Past Psychological History: No Psychological Hx Reported Smoking Status: Former smoker Past Alcohol Use History: None Reported Past Drug Use History: None Reported - Past Family History Daughter(s) Family Medical History: Cancer Medications and Allergies Home Medications Medication Instructions Recorded Confirmed Type Atenolol [Tenormin] 50 mg PO DAILY 02/18/15 05/17/19 History Simvastatin [Zocor] 20 mg PO HS 02/18/15 05/17/19 History Allopurinol [Zyloprim] 100 mg PO DAILY 10/26/18 05/17/19 History Ergocalciferol [Vitamin D2 50,000 unit PO WE 10/26/18 05/17/19 History (DRISDOL)] Oxybutynin Chloride [Ditropan] 5 mg PO BID 10/26/18 05/17/19 History sitaGLIPtin [Januvia] 50 mg PO DAILY 10/26/18 05/17/19 History Triamcinolone 0.1% Ointment 1 applic TOPICAL TID 02/15/19 05/17/19 History [Kenalog 0.1% Ointment] glipiZIDE [Glucotrol] 10 mg PO AC-BID 02/15/19 05/17/19 History Furosemide [Lasix] 40 mg PO BID 05/01/19 05/17/19 History Polyethylene Glycol 3350 [Miralax] 17 gm PO DAILY 05/01/19 05/17/19 History Potassium Chloride [Klor-Con 20 20 meq PO TID@0700,1300,1900 05/01/19 05/17/19 History Packets] Albuterol Sulfate [Proair Hfa] 2 puff INHALATION RT-Q4H PRN #1 05/08/19 05/17/19 Rx inhaler Fluticasone Nasal [place] [Flonase 2 spr EA NOSTRIL HS 05/17/19 05/17/19 History Nasal [place]] Folic Acid 1 mg PO DAILY@0700 05/17/19 05/17/19 History Rajwinder-Tussin 10 ml PO Q6H PRN 05/17/19 05/17/19 History Levothyroxine Sodium [Synthroid] 75 mcg PO DAILY 05/17/19 05/17/19 History Magnesium Oxide [Mag-Ox] 400 mg PO HS 05/17/19 05/17/19 History Metolazone [Zaroxolyn] 5 mg PO DAILY 05/17/19 05/17/19 History Multivitamins, Thera [Multivitamin 1 tab PO DAILY@0700 05/17/19 05/17/19 History (formulary)] Pantoprazole Sodium [Protonix] 20 mg PO DAILY@0700 05/17/19 05/17/19 History Tamsulosin [Flomax] 0.4 mg PO DAILY@0700 05/17/19 05/17/19 History Thiamine [Vitamin B-1] 100 mg PO DAILY 05/17/19 05/17/19 History Warfarin Sodium [Coumadin] 4 mg PO SUSA 05/17/19 05/17/19 History Warfarin Sodium [Coumadin] 6 mg PO MOTUWETHFR 05/17/19 05/17/19 History Allergies Allergy/AdvReac Type Severity Reaction Status Date / Time strawberry Allergy Swelling Verified 05/17/19 20:32 Physical Exam Vitals: Vital Signs Temp Pulse Pulse Resp BP BP Pulse Ox 05/18/19 05:00 97.6 F 72 20 93/60 99 05/18/19 00:00 15 05/17/19 22:50 72 15 118/90 92 L 05/17/19 21:00 98.2 F 67 18 98/62 95 05/17/19 20:30 124/110 100 05/17/19 19:30 122/69 05/17/19 19:00 119/71 97 05/17/19 18:06 97.2 F L 67 20 115/69 96 Intake and Output 05/17/19 05/18/19 05/18/19 22:59 06:59 14:59 Intake Total 400 Balance 400 Intake: Oral 400 Other: Voiding Method Bedpan Incontinent Diaper Incontinent # Voids 8 # Bowel Movements 1 Weight 111.584 kg 104.78 kg 104.78 kg No acute distress S1-S2 heard Decreased breath sounds Abdomen distended 2+ lower extremity edema Results - Lab Results Most recent lab results Calcium 8.4 mg/dL (8.4-10.2) 05/18/19 07:17 05/18/19 07:17 05/18/19 07:17 Assessment and Plan Assessment: #1 acute kidney injury suspect ischemic ATN with low blood pressure and type I cardiorenal syndrome. 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 #3 systolic and diastolic CHF with pulmonary hypertension #4 anemia with chronic kidney disease #5 low normal blood pressures #6 height hyperkalemia improved #7 metabolic alkalosis #8 anemia with chronic kidney disease. Plan: #1 restart back on Lasix 40 mg IV 3 times a day. #2 BladderScan, postvoid of 27 ML's. #3 add midodrine for low blood pressures. #4 check urine analysis, fena and fe-urea and renal ultrasound. #5 check iron studies and phosphorus and labs in the morning
--- NOTE | 2019-05-18 15:59 | US ---
EXAMINATION TYPE: US renals and bladder DATE OF EXAM: 05/18/2019 COMPARISON: 05/01/2019 CLINICAL HISTORY: clyde. Uncooperative patient. Suboptimal visualization of bladder due to patient wanting test to end Unable to visualized left kidney due to patient being uncooperative Limited visualization due to bowel gas and patient position EXAM MEASUREMENTS: Right Kidney: 11.0 x 4.2 x 5.2 cm Left Kidney: Unknown Right Kidney: limited visualization. Lower pole echogenic focus- 1.0 x 0.8 cm Left Kidney: Unable to visualize Bladder: Limited visualization. Possible echogenic lesion seen within bladder- 0.8 x 1.2 cm. No fol ey. Suggest supplementary imaging? Bilateral Jets not seen There is no evidence for hydronephrosis at this point in time. No nephrolithiasis is seen. No willie s are identified. The urinary bladder is anechoic. Bilateral ureteral jets are seen. IMPRESSION: Left kidney is not identified. Right kidney shows no hydronephrosis. There is echogenic focus of 10 m m at could be a nonobstructing calculus. Left kidney unchanged compared to last exam. Echogenic area in the bladder is possibly shadowing and could be bladder calculus.
[2019-05-18 17:04] LABS: Glucose,Whole Blood 157 mg/dL (75-99)
[2019-05-18] MEDS: FUROSEMIDE 10 MG/ML 4 ML VIAL IV SCH (17:12)
[2019-05-18] MEDS: MIDODRINE 5 MG TAB PO SCH (17:12)
[2019-05-18] MEDS: INSULIN ASPART (NovoLOG) 100 UNIT/ML VIAL SQ SCH ×2 (17:16→21:30)
--- NOTE | 2019-05-18 17:50 | HP ---
HISTORY AND PHYSICAL DATE OF SERVICE: 05/18/2019 CHIEF COMPLAINT: Shortness of breath, leg swelling and change in mental status. HISTORY OF PRESENT ILLNESS: This 78-year-old gentleman with a past medical history of multiple medical problems including atrial fibrillation, history of CHF, CVA, TIA, diabetes type 2, hypertension, hyperlipidemia, memory impairment, musculoskeletal disorder, being followed by Dr. Kramer in the ECF, was recently admitted to [facility] complaining of acute UTI. The patient had acute respiratory failure and multiple other medical problems. The patient also had old right frontal cortical infarct also. The patient was taken to the ECF and during the ECF, the patient is found to be currently progressively confused and bilateral leg swelling. The patient has renal failure which is worsening. The patient has stage IV renal failure, as baseline too which is fluctuating as well. The patient also had right leg wound also. The patient taken to [facility] and was admitted for further evaluation and treatment. Chest x-ray showed evidence of cardiomegaly and some minimal stranding. Otherwise, currently the patient is confused, unable to give a coherent history. Most of the history taken from my discussion with staff, ER and discussion and also review of the chart at this time. The patient evaluated by Dr. Carpenter' office and directed the patient to the ER. PAST MEDICAL HISTORY: History of recent UTI, renal failure, atrial fibrillation, CVA, CHF, hypertension, hyperlipidemia, chronic kidney disease stage 3. MEDICATIONS: Home medications are: 1. Januvia 50 mg p.o. daily. 2. Glucotrol 10 mg a.c. b.i.d. 3. Coumadin 6 mg Monday, Monday, Monday, and Monday and 4 mg Monday and . 4. Kenalog 1 application t.i.d. 5. Vitamin B1 100 mg daily. 6. Flomax 0.4 daily. 7. Zocor 20 mg q.h.s. 8. Klor-Con 20 mEq p.o. t.i.d. 9. MiraLAX 17 g p.o. daily. 10.Protonix 20 mg daily. 11.Ditropan 5 mg p.o. b.i.d. 12.Multivitamins one p.o. daily. 13.Zaroxolyn 5 mg p.o. daily. 14.Magnesium oxide 400 mg q.h.s. 15.Synthroid 75 mcg p.o. daily. 16.Geritussin. 17.Lasix 40 mg p.o. b.i.d. 18.Folic acid 1 mg daily. 19.Flonase. 20.Vitamin D2 50,000 p.o. Monday. 21.Tenormin 50 mg p.o. daily. 22.Zyloprim 100 mg p.o. daily. 23.ProAir HFA 2 puffs q.4 p.r.n. ALLERGIES: STRAWBERRY. FAMILY HISTORY: History of cancer in the family. SOCIAL HISTORY: Previous history of smoking. No history of current smoking. REVIEW OF SYSTEMS: Could not be taken. The patient is confused. PHYSICAL EXAMINATION: The patient is confused. Pulse is 72. Blood pressure 93/60. Respirations 20. Temperature 97.6, pulse ox 98% on 2 L. HEENT: Conjunctivae normal. Oral mucosa dry. NECK is no jugular venous distention. No carotid bruit. No lymph node enlargement. CARDIOVASCULAR SYSTEM: S1, S2 muffled. No S3, no S4. Ejection systolic murmur. RESPIRATORY: Breath sounds diminished in the bases. A few scattered rhonchi and crackles. ABDOMEN: Soft, obese. LEGS: Bilateral leg edema. Right leg ulcer also present. NERVOUS SYSTEM: Higher functions as mentioned earlier. Moves all 4 limbs. No focal motor or sensory deficits. LYMPHATICS: No lymph nodes palpable in the neck, axillae or groin. SKIN: No ulcer, rash or bleeding. JOINTS: No active deforming arthropathy. LABS: WBC 5.2, hemoglobin is 8.3, sodium 140, potassium 5, creatinine 3.20. UA noted. ASSESSMENT: 1. Acute on chronic renal failure with possible acute tubular necrosis. 2. Chronic kidney disease stage 4 baseline. 3. Change in mental status acute metabolic encephalopathy, acute on chronic. 4. Congestive heart failure with chronic systolic dysfunction, ejection fraction 45-50 percent. 5. Cardiomegaly. 6. Right leg wound. 7. Bilateral leg swelling. 8. History atrial fibrillation. 9. History of cerebrovascular accident, transient ischemic attack with old right frontal cortical infarct with diffuse cerebral atrophy. 10.History of dementia. 11.Diabetes mellitus type 2. 12.Hard of hearing. 13.Hypertension. 14.Hyperlipidemia. 15.Hypothyroidism. 16.History of bladder cancer, stage III, status post TURP and subsequent intravesicular chemotherapy. 17.History of gout. 18.History of chronic atrial fibrillation. 19.History of glaucoma. 20.History of left footdrop. 21.Obesity with body mass of 37.3. 22.FULL CODE. RECOMMENDATIONS AND DISCUSSION: The patient is 78-year-old gentleman who presented with multiple complex medical issues, we will monitor the patient closely, continue the current medications, management and symptomatic treatment. Monitor fluid and electrolytes balance closely. Empiric antibiotics. Obtain cultures. Obtain Nephrology and Cardiology evaluation. Monitor blood sugars closely. Guarded prognosis because of multiple complex medical issues. Further recommendations to follow. We will continue to monitor and monitor PT, INR closely. Hold Coumadin for now. Overall prognosis guarded because of multiple complex medical issues. All charts reviewed at length and further recommendations to follow. MMODL / IJN: [id number] /
[2019-05-18] MEDS: ATORVASTATIN 10 MG TAB PO SCH (20:26)
[2019-05-18] MEDS: MAGNESIUM OXIDE 400 MG TAB PO SCH (20:26)
[2019-05-18 20:33] LABS: Glucose,Whole Blood 172 mg/dL (75-99)
[2019-05-19] MEDS: FUROSEMIDE 10 MG/ML 4 ML VIAL IV SCH ×3 (00:51→21:44)
[2019-05-19] MEDS: LEVOTHYROXINE 75 MCG TAB PO SCH (05:26)
[2019-05-19 07:31] LABS: Glucose,Whole Blood 104 mg/dL (75-99)
[2019-05-19] MEDS: MIDODRINE 5 MG TAB PO SCH ×3 (07:44→17:50)
[2019-05-19] MEDS: OXYBUTYNIN CHLORIDE 5 MG TAB PO SCH ×2 (07:44→21:44)
[2019-05-19] MEDS: FOLIC ACID 1 MG TAB PO SCH (07:45)
[2019-05-19] MEDS: glipiZIDE 10 MG TAB PO SCH ×2 (07:45→17:50)
[2019-05-19] MEDS: INSULIN ASPART (NovoLOG) 100 UNIT/ML VIAL SQ SCH ×4 (07:45→21:47)
[2019-05-19] MEDS: LINAGLIPTIN 5 MG TABLET PO SCH (07:45)
[2019-05-19] MEDS: ALLOPURINOL 100 MG TAB PO SCH (07:45)
[2019-05-19] MEDS: MULTIVITAMINS, THERA 1 EACH TAB PO SCH (07:45)
[2019-05-19] MEDS: PANTOPRAZOLE 40 MG TABLET PO SCH (07:45)
[2019-05-19] MEDS: TAMSULOSIN 0.4 MG CAP.ER.24H PO SCH (07:45)
[2019-05-19] MEDS: THIAMINE 100 MG TAB PO SCH (07:45)
[2019-05-19] MEDS: TRIAMCINOLONE ACET 0.1% OINTMENT 15 GM TUBE TOPICAL SCH ×3 (07:46→21:52)
[2019-05-19] MEDS: POLYETHYLENE GLYCOL 3350 17 GM POWD.PACK PO SCH (07:46)
[2019-05-19] MEDS: ATENOLOL 50 MG TAB PO SCH (07:47)
[2019-05-19 08:00] LABS: Basophils # (A) 0.1 k/uL (0-0.2); Basophils % (A) 1 %; Eosinophils # (A) 0.3 k/uL (0-0.7); Eosinophils % (A) 5 %; HCT 26.9 % (39.0-53.0); HGB 8.2 gm/dL (13.0-17.5); Hypochromasia Marked; Lymphocytes # (A) 0.7 k/uL (1.0-4.8); Lymphocytes % (A) 12 %; MCH 28.1 pg (25.0-35.0); MCHC 30.4 g/dL (31.0-37.0); MCV 92.3 fL (80.0-100.0); Mean Platelet Volume 7.1; Monocytes # (A) 0.5 k/uL (0-1.0); Monocytes % (A) 9 %; Neutrophils # (A) 3.9 k/uL (1.3-7.7); Neutrophils % (A) 69 %; Platelet Count 201 k/uL (150-450); RBC 2.91 m/uL (4.30-5.90); RDW 15.6 % (11.5-15.5); WBC 5.7 k/uL (3.8-10.6)
[2019-05-19 08:01] LABS: INR 2.6 (<1.2); Prothrombin Time 25.1 sec (9.0-12.0)
[2019-05-19 08:08] LABS: Albumin 2.8 g/dL (3.5-5.0); Calcium 8.3 mg/dL (8.4-10.2); Phosphorus 5.3 mg/dL (2.5-4.5); Potassium 4.9 mmol/L (3.5-5.1); Total Bilirubin 0.6 mg/dL (0.2-1.3); Total Protein 5.6 g/dL (6.3-8.2)
[2019-05-19 11:11] LABS: Appearance,Urine Cloudy (Clear); Bacteria,Urine Rare /hpf; Bilirubin,Urine Negative (Negative); Blood,Urine Small (Negative); Color,Urine Light Yellow; Glucose,Urine (UA) Negative (Negative); Ketones,Urine Negative (Negative); Leukocyte Esterase,Urine Large (Negative); Mucus,Urine Rare /hpf; Nitrite,Urine Negative (Negative); Protein,Urine Negative (Negative); RBC,Urine 48 /hpf (0-5); Specific Gravity,Urine 1.009 (1.001-1.035); Squamous Epithelial Cell,Urine 1 /hpf (0-4); Urobilinogen,Urine <2.0 mg/dL (<2.0); WBC,Urine >182 /hpf (0-5)
--- NOTE | 2019-05-19 11:13 | P.PN ---
Subjective Progress Note Date: 05/19/19 Seen and examined for the follow-up of acute kidney injury. Alert awake. Feels better today. No nausea vomiting diarrhea. He is incontinent unable to measure his urine output. Objective - Vital Signs Vital signs: Vital Signs Temp 98.3 F 05/19/19 06:42 Pulse 78 05/19/19 06:42 Resp 20 05/19/19 06:42 BP 100/60 05/19/19 06:42 Pulse Ox 99 05/19/19 06:42 Intake & Output 05/18/19 05/19/19 05/19/19 19:59 06:59 18:59 Intake Total Output Total Balance Weight Intake: Oral Output: Post Void Residual Other: Voiding Method Incontinent # Voids - Exam No acute distress S1-S2 heard Decreased breath sounds Abdomen soft Lower extremity edema - Labs CBC & Chem 7: 05/19/19 07:23 05/19/19 07:23 Labs: Abnormal Lab Results - Last 24 Hours (Table) 05/18/19 05/18/19 05/19/19 Range/Units 17:02 20:29 07:23 RBC (4.30-5.90) m/uL Hgb (13.0-17.5) gm/dL Hct (39.0-53.0) % MCHC (31.0-37.0) g/dL RDW (11.5-15.5) % Lymphocytes # (1.0-4.8) k/uL PT 25.1 H (9.0-12.0) sec INR 2.6 H (<1.2) Carbon Dioxide (22-30) mmol/L BUN (9-20) mg/dL Creatinine (0.66-1.25) mg/dL Glucose (74-99) mg/dL POC Glucose (mg/dL) 157 H 172 H (75-99) mg/dL Uric Acid (3.5-8.5) mg/dL Calcium (8.4-10.2) mg/dL Phosphorus (2.5-4.5) mg/dL Alkaline Phosphatase (38-126) U/L Total Protein (6.3-8.2) g/dL Albumin (3.5-5.0) g/dL 05/19/19 05/19/19 05/19/19 Range/Units 07:23 07:23 07:29 RBC 2.91 L (4.30-5.90) m/uL Hgb 8.2 L (13.0-17.5) gm/dL Hct 26.9 L (39.0-53.0) % MCHC 30.4 L (31.0-37.0) g/dL RDW 15.6 H (11.5-15.5) % Lymphocytes # 0.7 L (1.0-4.8) k/uL PT (9.0-12.0) sec INR (<1.2) Carbon Dioxide 32 H (22-30) mmol/L BUN 51 H (9-20) mg/dL Creatinine 3.77 H (0.66-1.25) mg/dL Glucose 104 H (74-99) mg/dL POC Glucose (mg/dL) 104 H (75-99) mg/dL Uric Acid 12.0 H (3.5-8.5) mg/dL Calcium 8.3 L (8.4-10.2) mg/dL Phosphorus 5.3 H (2.5-4.5) mg/dL Alkaline Phosphatase 186 H (38-126) U/L Total Protein 5.6 L (6.3-8.2) g/dL Albumin 2.8 L (3.5-5.0) g/dL Microbiology - Last 24 Hours (Table) 05/18/19 15:00 Anaerobic Culture - Preliminary Leg - Right 05/18/19 15:00 Wound Culture - Preliminary Leg - Right Assessment and Plan Assessment: #1 acute kidney injury suspect ischemic ATN with low blood pressure and type I cardiorenal syndrome. 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 #3 systolic and diastolic CHF with pulmonary hypertension #4 anemia with chronic kidney disease #5 low normal blood pressures #6 mild hyperkalemia improved #7 metabolic alkalosis #8 anemia with chronic kidney disease. #9 recent BPH with underlying prostate cancer Plan: #1 continue Lasix, decreased to 40 mg IV twice a day. #2 continue with midodrine for hemodynamic support. #3 urine studies pending, including fena and fe-urea. #4 renal ultrasound noted, unable to visualize the left kidney. Urology on the case.
[2019-05-19 12:01] LABS: Glucose,Whole Blood 171 mg/dL (75-99)
[2019-05-19 17:10] LABS: Glucose,Whole Blood 122 mg/dL (75-99)
--- NOTE | 2019-05-19 17:29 | P.GSCN ---
History of Present Illness Consult date: 05/19/19 Reason for Consult: FARZANEH History of present illness: Mr Monterroso is 78 yo male admitted to the hospital with FARZANEH, his creat is elevated to 3.7 from a baseline of 2-2.2. He has hx of bladder cancer and follow us up with Dr Comer. He S/P TURBT, he underwent surveillance cystoscopy which was WNL. He has urinary incontinence at baseline, but able to void on his Own and his PVR is 23 mL. On admission he underwent a RBUS which showed no hydronephro sis in the right kidney but left kidney was not evaluated Review of Systems - Constitutional Denies chills, Denies fever - Cardiovascular Reports leg edema, Denies chest pain - Gastrointestinal Denies abdominal pain, Denies nausea - Genitourinary Reports incontinence, Denies hematuria - Neurological Reports confusion, Denies weakness Past Medical History Past Medical History: Atrial Fibrillation, Cancer, Heart Failure, CVA/TIA, Diabetes Mellitus, Eye Disorder, Hearing Disorder / Deafness, Hyperlipidemia, Hypertension, Memory Impairment, Musculoskeletal Disorder, Renal Disease, Thyroid Disorder Additional Past Medical History / Comment(s): Chronic stage III kidney disease, history of bladder cancer stage III underwent transurethral resection on 01/03/2019 with subsequent intravesicular chemotherapy, recurrent UTIs with E. coli, gout, chronic atrial fibrillation hypertension, hyperlipidemia, diabetes mellitus, CVA, congestion heart failure, glaucoma, chronic lower extremity edema, moves around without walker and he has also used hearing aids. History of left drop foot History of Any Multi-Drug Resistant Organisms: None Reported Year Discovered:: 2018 MDRO Source:: stool Additional Past Surgical History / Comment(s): Finger surgery - TRAUMATIC AMPUTATIONS LT 2 FINGERS. COLONOSCOPY. Hemorrhoidectomy, transurethral resection of bladder tumors (11/01/18), TUR of bladder tumor scars 12/2018 Past Anesthesia/Blood Transfusion Reactions: No Reported Reaction, Family History of Problems w/ Anesthesia Additional Past Anesthesia/Blood Transfusion Reaction / Comm: SON HAD FLUID IN LUNGS WITH 1 SURGERY. Past Psychological History: No Psychological Hx Reported Smoking Status: Former smoker Past Alcohol Use History: None Reported Past Drug Use History: None Reported - Past Family History Daughter(s) Family Medical History: Cancer Medications and Allergies Home Medications Medication Instructions Recorded Confirmed Type Atenolol [Tenormin] 50 mg PO DAILY 02/18/15 05/17/19 History Simvastatin [Zocor] 20 mg PO HS 02/18/15 05/17/19 History Allopurinol [Zyloprim] 100 mg PO DAILY 10/26/18 05/17/19 History Ergocalciferol [Vitamin D2 50,000 unit PO WE 10/26/18 05/17/19 History (DRISDOL)] Oxybutynin Chloride [Ditropan] 5 mg PO BID 10/26/18 05/17/19 History sitaGLIPtin [Januvia] 50 mg PO DAILY 10/26/18 05/17/19 History Triamcinolone 0.1% Ointment 1 applic TOPICAL TID 02/15/19 05/17/19 History [Kenalog 0.1% Ointment] glipiZIDE [Glucotrol] 10 mg PO AC-BID 02/15/19 05/17/19 History Furosemide [Lasix] 40 mg PO BID 05/01/19 05/17/19 History Polyethylene Glycol 3350 [Miralax] 17 gm PO DAILY 05/01/19 05/17/19 History Potassium Chloride [Klor-Con 20 20 meq PO TID@0700,1300,1900 05/01/19 05/17/19 History Packets] Albuterol Sulfate [Proair Hfa] 2 puff INHALATION RT-Q4H PRN #1 05/08/19 05/17/19 Rx inhaler Fluticasone Nasal [place] [Flonase 2 spr EA NOSTRIL HS 05/17/19 05/17/19 History Nasal [place]] Folic Acid 1 mg PO DAILY@0700 05/17/19 05/17/19 History Rajwinder-Tussin 10 ml PO Q6H PRN 05/17/19 05/17/19 History Levothyroxine Sodium [Synthroid] 75 mcg PO DAILY 05/17/19 05/17/19 History Magnesium Oxide [Mag-Ox] 400 mg PO HS 05/17/19 05/17/19 History Metolazone [Zaroxolyn] 5 mg PO DAILY 05/17/19 05/17/19 History Multivitamins, Thera [Multivitamin 1 tab PO DAILY@0700 05/17/19 05/17/19 History (formulary)] Pantoprazole Sodium [Protonix] 20 mg PO DAILY@0700 05/17/19 05/17/19 History Tamsulosin [Flomax] 0.4 mg PO DAILY@0700 05/17/19 05/17/19 History Thiamine [Vitamin B-1] 100 mg PO DAILY 05/17/19 05/17/19 History Warfarin Sodium [Coumadin] 4 mg PO SUSA 05/17/19 05/17/19 History Warfarin Sodium [Coumadin] 6 mg PO MOTUWETHFR 05/17/19 05/17/19 History Allergies Allergy/AdvReac Type Severity Reaction Status Date / Time strawberry Allergy Swelling Verified 05/17/19 20:32 Surgical - Exam Vital Signs Temp Pulse Resp BP Pulse Ox 97.2 F L 67 20 115/69 96 05/17/19 18:06 05/17/19 18:06 05/17/19 18:06 05/17/19 18:06 05/17/19 18:06 - General no distress, no pain - ENT no hearing loss, no congestion - Respiratory normal expansion, normal respiratory effort - Abdomen Abdomen: soft, non tender - Genitourinary other (No circumcised phallus, bilateral descended testes, no tenderness. Ev idence of skin irritation secondary to urinary incontenince ) - Psychiatric oriented to person Results - Labs 05/19/19 07:23 05/19/19 07:23 Abnormal Lab Results - Last 24 Hours (Table) 05/18/19 05/19/19 05/19/19 Range/Units 20:29 07:23 07:23 RBC 2.91 L (4.30-5.90) m/uL Hgb 8.2 L (13.0-17.5) gm/dL Hct 26.9 L (39.0-53.0) % MCHC 30.4 L (31.0-37.0) g/dL RDW 15.6 H (11.5-15.5) % Lymphocytes # 0.7 L (1.0-4.8) k/uL PT 25.1 H (9.0-12.0) sec INR 2.6 H (<1.2) Carbon Dioxide (22-30) mmol/L BUN (9-20) mg/dL Creatinine (0.66-1.25) mg/dL Glucose (74-99) mg/dL POC Glucose (mg/dL) 172 H (75-99) mg/dL Uric Acid (3.5-8.5) mg/dL Calcium (8.4-10.2) mg/dL Phosphorus (2.5-4.5) mg/dL Alkaline Phosphatase (38-126) U/L Total Protein (6.3-8.2) g/dL Albumin (3.5-5.0) g/dL Urine Blood (Negative) Ur Leukocyte Esterase (Negative) Urine RBC (0-5) /hpf Urine WBC (0-5) /hpf Urine WBC Clumps (None) /hpf Urine Bacteria (None) /hpf Urine Mucus (None) /hpf 05/19/19 05/19/19 05/19/19 Range/Units 07:23 07:29 10:05 RBC (4.30-5.90) m/uL Hgb (13.0-17.5) gm/dL Hct (39.0-53.0) % MCHC (31.0-37.0) g/dL RDW (11.5-15.5) % Lymphocytes # (1.0-4.8) k/uL PT (9.0-12.0) sec INR (<1.2) Carbon Dioxide 32 H (22-30) mmol/L BUN 51 H (9-20) mg/dL Creatinine 3.77 H (0.66-1.25) mg/dL Glucose 104 H (74-99) mg/dL POC Glucose (mg/dL) 104 H (75-99) mg/dL Uric Acid 12.0 H (3.5-8.5) mg/dL Calcium 8.3 L (8.4-10.2) mg/dL Phosphorus 5.3 H (2.5-4.5) mg/dL Alkaline Phosphatase 186 H (38-126) U/L Total Protein 5.6 L (6.3-8.2) g/dL Albumin 2.8 L (3.5-5.0) g/dL Urine Blood Small H (Negative) Ur Leukocyte Esterase Large H (Negative) Urine RBC 48 H (0-5) /hpf Urine WBC >182 H (0-5) /hpf Urine WBC Clumps Many H (None) /hpf Urine Bacteria Rare H (None) /hpf Urine Mucus Rare H (None) /hpf 05/19/19 05/19/19 Range/Units 11:59 17:09 RBC (4.30-5.90) m/uL Hgb (13.0-17.5) gm/dL Hct (39.0-53.0) % MCHC (31.0-37.0) g/dL RDW (11.5-15.5) % Lymphocytes # (1.0-4.8) k/uL PT (9.0-12.0) sec INR (<1.2) Carbon Dioxide (22-30) mmol/L BUN (9-20) mg/dL Creatinine (0.66-1.25) mg/dL Glucose (74-99) mg/dL POC Glucose (mg/dL) 171 H 122 H (75-99) mg/dL Uric Acid (3.5-8.5) mg/dL Calcium (8.4-10.2) mg/dL Phosphorus (2.5-4.5) mg/dL Alkaline Phosphatase (38-126) U/L Total Protein (6.3-8.2) g/dL Albumin (3.5-5.0) g/dL Urine Blood (Negative) Ur Leukocyte Esterase (Negative) Urine RBC (0-5) /hpf Urine WBC (0-5) /hpf Urine WBC Clumps (None) /hpf Urine Bacteria (None) /hpf Urine Mucus (None) /hpf Microbiology - Last 24 Hours (Table) 05/19/19 10:05 Urine Culture - Preliminary Urine,Voided 05/18/19 15:00 Gram Stain - Preliminary Leg - Right Wound Culture - Preliminary 05/18/19 15:00 Anaerobic Culture - Preliminary Leg - Right Diabetes panel 05/19/19 Range/Units 07:23 Sodium 140 (137-145) mmol/L Potassium 4.9 (3.5-5.1) mmol/L Chloride 100 (98-107) mmol/L Carbon Dioxide 32 H (22-30) mmol/L BUN 51 H (9-20) mg/dL Creatinine 3.77 H (0.66-1.25) mg/dL Glucose 104 H (74-99) mg/dL Calcium 8.3 L (8.4-10.2) mg/dL AST 29 (17-59) U/L ALT 41 (21-72) U/L Alkaline Phosphatase 186 H (38-126) U/L Total Protein 5.6 L (6.3-8.2) g/dL Albumin 2.8 L (3.5-5.0) g/dL Calcium panel 05/19/19 Range/Units 07:23 Calcium 8.3 L (8.4-10.2) mg/dL Phosphorus 5.3 H (2.5-4.5) mg/dL Albumin 2.8 L (3.5-5.0) g/dL Pituitary panel 05/19/19 Range/Units 07:23 Sodium 140 (137-145) mmol/L Potassium 4.9 (3.5-5.1) mmol/L Chloride 100 (98-107) mmol/L Carbon Dioxide 32 H (22-30) mmol/L BUN 51 H (9-20) mg/dL Creatinine 3.77 H (0.66-1.25) mg/dL Glucose 104 H (74-99) mg/dL Calcium 8.3 L (8.4-10.2) mg/dL Adrenal panel 05/19/19 Range/Units 07:23 Sodium 140 (137-145) mmol/L Potassium 4.9 (3.5-5.1) mmol/L Chloride 100 (98-107) mmol/L Carbon Dioxide 32 H (22-30) mmol/L BUN 51 H (9-20) mg/dL Creatinine 3.77 H (0.66-1.25) mg/dL Glucose 104 H (74-99) mg/dL Calcium 8.3 L (8.4-10.2) mg/dL Total Bilirubin 0.6 (0.2-1.3) mg/dL AST 29 (17-59) U/L ALT 41 (21-72) U/L Alkaline Phosphatase 186 H (38-126) U/L Total Protein 5.6 L (6.3-8.2) g/dL Albumin 2.8 L (3.5-5.0) g/dL - Imaging US - kidney/bladder: report reviewed (Normal right kidney) Assessment and Plan Assessment: 78 yo male with hx of CKD he is admitted with FARZANEH. He has hx of Bladder cancer S/P TURBT with Dr Comer. Had surveillance cysto on 05/17 which was WNL. He has chronic urinary incontinence, PVR 23 mL. Plan: -Repeat RBUS, Left kidney was not evaluated for Hydronephrosis -Would not recommend clark placement for urinary incontinence given patient low PVR, but Ok to place Clark if needed for accurate I/O. -Can F/U with Dr Comer as an outpatient for continued bladder cancer Surveillance
[2019-05-19 20:40] LABS: Glucose,Whole Blood 161 mg/dL (75-99)
--- NOTE | 2019-05-19 21:41 | PN ---
PROGRESS NOTE DATE OF SERVICE: 05/19/2019 This 78-year-old gentleman who was admitted with acute on chronic renal failure with possible acute tubular necrosis, had a creatinine of 3.77 at this time. The patient is slightly fluid overloading or overloaded per Nephrology. The patient was on IV Lasix twice daily. The patient feels much better. Sensorium has improved. Cultures are negative so far. The lab jara, hemoglobin is 8.2, INR is 2.6, uric acid is 12. PAST MEDICAL HISTORY: Reviewed. REVIEW OF SYSTEMS: Cardiovascular system: No angina or palpitations. RESPIRATORY: As mentioned earlier. GASTROINTESTINAL: As mentioned earlier. no dysuria. NERVOUS SYSTEM: No numbness or weakness. CURRENT MEDICATIONS: Reviewed and include: 1. Ventolin inhaler q.4h p.r.n. 2. Zyloprim 100 mg p.o. daily. 3. Tenormin 50 mg p.o. daily. 4. Lipitor 10 mg q.h.s. 5. Rocephin 1 g daily. 6. Vitamin D2 50,000 daily. 7. Folic acid 1 mg daily. 8. Lasix 40 mg IV b.i.d. 9. Glipizide 10 mg b.i.d. 10.Robitussin 200 mg q.6h p.r.n. 11.NovoLog. 12.Synthroid 75 mcg p.o. daily. 13.Tradjenta 5 mg daily. 14.Magnesium oxide 400 mg q.h.s. 15.ProAmatine. 16.Multivitamins. 17.Narcan. 18.Mycostatin. 19.Ditropan. 20.Protonix. 21.MiraLAX. 22.Flomax. 23.Vitamin B1. 24.Kenalog. PHYSICAL EXAMINATION: Patient is alert, oriented x3. Pulse 71. Blood pressure 114/60, respiration 15, temperature 98.2, pulse ox 98% on room air. HEENT: Conjunctivae normal. NECK: No JVD. CARDIOVASCULAR: S1, S2 muffled. RESPIRATION: Breath sounds diminished in the bases. A few scattered rhonchi and crackles. ABDOMEN: Soft, obese, nontender. LEGS: No edema. No swelling. NERVOUS SYSTEM: No focal deficits. LAB STUDIES: WBC 5.7, hemoglobin is 8.2. Other labs are noted. ASSESSMENT: 1. Acute on chronic renal failure with possible acute tubular necrosis with fluid overload. 2. Chronic kidney stage 4 baseline. 3. Change in mental status, acute metabolic encephalopathy, acute on chronic. 4. Congestive heart failure with chronic systolic dysfunction, ejection fraction 45-50 percent with no acute exacerbation. 5. Cardiomegaly. 6. Right leg wound. 7. Bilateral leg swelling. 8. History of atrial fibrillation. 9. History of cerebrovascular accident, transient ischemic attack with old right frontal cortical infarct with diffuse cerebral atrophy. 10.History of dementia. 11.Diabetes mellitus type 2. 12.Hard of hearing. 13.Hypertension. 14.Hyperlipidemia. 15.Hypothyroidism. 16.History of bladder cancer, stage III, status post TURP and subsequent intravesicular chemotherapy. 17.Urinary incontinence. 18.History of gout. 19.History of chronic atrial fibrillation. 20.Glaucoma. 21.History of left footdrop. 22.Obesity with body mass index 37.6. 23.FULL CODE. RECOMMENDATIONS AND DISCUSSION: Recommend to continue current medications, monitoring, management and symptomatic treatment. Otherwise, at this time, I recommend continue with IV Lasix and I would also recommend monitor fluid and electrolytes balance closely. Urology evaluation because of the continued persistent incontinence. Continue the rest of medications. Guarded prognosis because of multiple complex medical conditions. Further recommendations to follow. MMODL / IJN: [id number] /
[2019-05-19] MEDS: MAGNESIUM OXIDE 400 MG TAB PO SCH (21:44)
[2019-05-19] MEDS: ATORVASTATIN 10 MG TAB PO SCH (21:44)
[2019-05-19] MEDS: NYSTATIN 100,000 UNIT/GM POWD 15 GM TOPICAL SCH (21:49)
[2019-05-20] MEDS: LEVOTHYROXINE 75 MCG TAB PO SCH (05:36)
[2019-05-20 07:27] LABS: Glucose,Whole Blood 87 mg/dL (75-99)
[2019-05-20] MEDS: MIDODRINE 5 MG TAB PO SCH ×3 (08:06→17:00)
[2019-05-20] MEDS: OXYBUTYNIN CHLORIDE 5 MG TAB PO SCH ×2 (08:07→22:20)
[2019-05-20] MEDS: MULTIVITAMINS, THERA 1 EACH TAB PO SCH (08:07)
[2019-05-20] MEDS: FUROSEMIDE 10 MG/ML 4 ML VIAL IV SCH (08:07)
[2019-05-20] MEDS: INSULIN ASPART (NovoLOG) 100 UNIT/ML VIAL SQ SCH ×4 (08:07→22:33)
[2019-05-20] MEDS: TAMSULOSIN 0.4 MG CAP.ER.24H PO SCH (08:07)
[2019-05-20] MEDS: THIAMINE 100 MG TAB PO SCH (08:07)
[2019-05-20] MEDS: FOLIC ACID 1 MG TAB PO SCH (08:07)
[2019-05-20] MEDS: PANTOPRAZOLE 40 MG TABLET PO SCH (08:07)
[2019-05-20] MEDS: ALLOPURINOL 100 MG TAB PO SCH (08:07)
[2019-05-20] MEDS: TRIAMCINOLONE ACET 0.1% OINTMENT 15 GM TUBE TOPICAL SCH ×3 (08:08→22:21)
[2019-05-20] MEDS: POLYETHYLENE GLYCOL 3350 17 GM POWD.PACK PO SCH (08:08)
[2019-05-20] MEDS: NYSTATIN 100,000 UNIT/GM POWD 15 GM TOPICAL SCH ×2 (08:08→22:20)
[2019-05-20] MEDS: ATENOLOL 50 MG TAB PO SCH (08:08)
[2019-05-20 09:00] LABS: Basophils # (A) 0.2 k/uL (0-0.2); Basophils % (A) 3 %; Eosinophils # (A) 0.3 k/uL (0-0.7); Eosinophils % (A) 4 %; HCT 27.7 % (39.0-53.0); HGB 8.6 gm/dL (13.0-17.5); Hypochromasia Marked; Lymphocytes # (A) 0.7 k/uL (1.0-4.8); Lymphocytes % (A) 10 %; MCH 28.4 pg (25.0-35.0); MCHC 31.1 g/dL (31.0-37.0); MCV 91.3 fL (80.0-100.0); Mean Platelet Volume 6.9; Monocytes # (A) 0.7 k/uL (0-1.0); Monocytes % (A) 10 %; Neutrophils # (A) 4.8 k/uL (1.3-7.7); Neutrophils % (A) 71 %; Platelet Count 226 k/uL (150-450); RBC 3.03 m/uL (4.30-5.90); RDW 15.7 % (11.5-15.5); WBC 6.8 k/uL (3.8-10.6)
[2019-05-20 09:06] LABS: INR 1.6 (<1.2); Prothrombin Time 16.4 sec (9.0-12.0)
[2019-05-20 09:21] LABS: Calcium 8.6 mg/dL (8.4-10.2); Potassium 4.4 mmol/L (3.5-5.1)
[2019-05-20] MEDS: LINAGLIPTIN 5 MG TABLET PO SCH (10:40)
[2019-05-20] MEDS: glipiZIDE 10 MG TAB PO SCH ×2 (10:40→17:00)
[2019-05-20 10:50] LABS: Glucose,Whole Blood 128 mg/dL (75-99)
[2019-05-20 12:04] LABS: Glucose,Whole Blood 169 mg/dL (75-99)
[2019-05-20] MEDS ORDERED: INSULIN ASPART (NovoLOG) 100 UNIT/ML VIAL SQ ONE (12:08)
--- NOTE | 2019-05-20 15:42 | US ---
EXAMINATION TYPE: US renal LT DATE OF EXAM: 05/20/2019 COMPARISON: US CLINICAL HISTORY: FARZANEH. EXAM MEASUREMENTS: Right Kidney: 11.0 x 5.2 x 4.2cm scanned 2 days prior Left Kidney: 9.4 x 5.4 x 4.7 cm Morbidly obese patient scanned in chair. Right Kidney: scanned 2 days prior, not scanned today Left Kidney: Inferior pole and portion of mid completely obscured by bowel gas, at least moderate hy dronephrosis. Bladder: scanned 2 days prior *Incidental finding splenomegaly. The spleen measures 15.4 cm in longitudinal dimension. IMPRESSION: 1. Obscured left kidney, there is at least moderate hydronephrosis. Cortical renal thinning of chroni c medical renal disease is seen. 2. Incidentally splenomegaly.
--- NOTE | 2019-05-20 16:42 | PN ---
PROGRESS NOTE The patient is seen for followup for acute kidney injury. Serum creatinine is at 3.84, which is up from 2.96 initially. Currently patient is maintained on IV Lasix 40 mg q.12 hours. He is incontinent, but has had good urine output. PHYSICAL EXAMINATION: On examination today, blood pressure was 99/62, heart rate 68 per minute, he is afebrile. Examination of the heart S1, S2. Examination of the lungs, bilateral breath sounds are heard. Abdomen is soft, non-tender. Examination of lower extremities show edema 2+ bilaterally. 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 LABS: Show hemoglobin 8.6, sodium 139, potassium 4.4, BUN 54, serum creatinine 3.84. ASSESSMENT: 1. Acute kidney injury, nonoliguric. Renal function is slightly worse. The patient is currently being diuresed. There are no nephrotoxic agents on board and no urinary retention noted. Etiology is hypoperfusion and type 1 cardiorenal syndrome. 2. Chronic kidney disease stage 3 to 4, secondary to diabetic nephropathy. Baseline creatinine about 2. 3. Congestive heart failure, systolic. 4. Anemia with chronic kidney disease. 5. Benign prostatic hypertrophy. 6. Volume overload, currently being diuresed. PLAN: Continue with the IV Lasix for now as patient has significant edema. Continue with midodrine. Avoid hypotension. No need for Fong catheter placement. Repeat labs in a.m. MMODL / IJN: [id number] /
[2019-05-20 16:53] LABS: Glucose,Whole Blood 166 mg/dL (75-99)
[2019-05-20] MEDS ORDERED: WARFARIN 5 MG TAB PO SCH (18:00)
--- NOTE | 2019-05-20 18:53 | PN ---
PROGRESS NOTE DATE OF SERVICE: 05/20/2019 This 78 -year-old gentleman was admitted with acute on chronic renal failure, also had fluid overload. The patient received IV diuretics per Nephrology. Dr. Eldridge is following the patient closely and ultrasound was noted. The patient being closely monitored at this time. The creatinine has slightly worsened. PT/OT evaluated the patient closely. Urology has seen the patient. Recommended continue the current medications. No Fong catheter indicated at this time. The patient has urinary incontinence. PHYSICAL EXAM: Alert and oriented x2. Pulse 68. Blood pressure 99/60, respiration 18, temperature 97.2, pulse ox 94% on 2 L. HEENT is conjunctivae normal. NECK: No JVD. CARDIOVASCULAR: S1, S2 muffled. RESPIRATION: Breath sounds diminished in the bases. Scattered rhonchi and crackles. ABDOMEN is soft, obese. LEGS: No edema. No swelling. CENTRAL NERVOUS SYSTEM: Diffusely weak. LABS: WBC 6.8, hemoglobin is 8.2, INR 1.6, creatinine 3.84. ASSESSMENT: 1. Acute on chronic renal failure with possible acute tubular necrosis with fluid overload on IV diuresis. 2. Chronic kidney stage 4 baseline. 3. Change in mental status acute metabolic encephalopathy, acute on chronic, multifactorial. 4. Congestive heart failure with chronic systolic dysfunction, ejection fraction 45- 50 percent with no acute exacerbation. 5. Cardiomegaly. 6. Right leg wound. 7. Bilateral leg swelling. 8. History of atrial fibrillation, chronic. 9. History of cerebrovascular incident/ transient ischemic attack with old right frontal cortical infarct with diffuse cerebral atrophy. 10.History of dementia. 11.Diabetes mellitus type 2. 12.Hard of hearing. 13.Hypertension. 14.Hyperlipidemia. 15.Hypothyroidism. 16.History of bladder cancer, stage III, status post TURP and subsequent intravesical chemotherapy. 17.Urinary incontinence. 18.History of gout. 19.History of chronic atrial fibrillation. 20.Glaucoma. 21.History of left footdrop. 22.Obesity with body mass index of 37.6. 23.FULL CODE. RECOMMENDATIONS AND DISCUSSION: Recommend to continue current medications, management and symptomatic treatment. Otherwise, at this time, I recommend continue with current medications. Monitor closely. Repeat labs. Continue the diuresis. Further recommendations to follow. MMODL / IJN: [id number] /
[2019-05-20 20:52] LABS: Glucose,Whole Blood 151 mg/dL (75-99)
[2019-05-20] MEDS: MAGNESIUM OXIDE 400 MG TAB PO SCH (22:20)
[2019-05-20] MEDS: ATORVASTATIN 10 MG TAB PO SCH (22:20)
[2019-05-21] MEDS: FUROSEMIDE 10 MG/ML 4 ML VIAL IV SCH ×3 (00:44→21:33)
[2019-05-21] MEDS: LEVOTHYROXINE 75 MCG TAB PO SCH (05:29)
[2019-05-21 07:20] LABS: Glucose,Whole Blood 98 mg/dL (75-99)
[2019-05-21] MEDS: INSULIN ASPART (NovoLOG) 100 UNIT/ML VIAL SQ SCH ×4 (07:23→21:36)
[2019-05-21] MEDS: ALLOPURINOL 100 MG TAB PO SCH (08:17)
[2019-05-21] MEDS: PANTOPRAZOLE 40 MG TABLET PO SCH (08:17)
[2019-05-21] MEDS: MULTIVITAMINS, THERA 1 EACH TAB PO SCH (08:17)
[2019-05-21] MEDS: FOLIC ACID 1 MG TAB PO SCH (08:17)
[2019-05-21] MEDS: TAMSULOSIN 0.4 MG CAP.ER.24H PO SCH (08:17)
[2019-05-21] MEDS: THIAMINE 100 MG TAB PO SCH (08:17)
[2019-05-21] MEDS: MIDODRINE 5 MG TAB PO SCH ×3 (08:17→16:49)
[2019-05-21] MEDS: glipiZIDE 10 MG TAB PO SCH ×2 (08:17→16:49)
[2019-05-21] MEDS: LINAGLIPTIN 5 MG TABLET PO SCH (08:18)
[2019-05-21] MEDS: OXYBUTYNIN CHLORIDE 5 MG TAB PO SCH ×2 (08:18→21:33)
[2019-05-21] MEDS: ATENOLOL 50 MG TAB PO SCH (08:18)
[2019-05-21] MEDS: TRIAMCINOLONE ACET 0.1% OINTMENT 15 GM TUBE TOPICAL SCH ×3 (08:19→21:43)
[2019-05-21] MEDS: NYSTATIN 100,000 UNIT/GM POWD 15 GM TOPICAL SCH (08:20)
[2019-05-21] MEDS: POLYETHYLENE GLYCOL 3350 17 GM POWD.PACK PO SCH (08:20)
[2019-05-21 09:14] LABS: INR 1.4 (<1.2); Prothrombin Time 13.9 sec (9.0-12.0)
[2019-05-21 09:25] LABS: Calcium 8.5 mg/dL (8.4-10.2); Potassium 4.2 mmol/L (3.5-5.1)
[2019-05-21 09:58] LABS: Basophils # (A) 0.1 k/uL (0-0.2); Basophils % (A) 1 %; Eosinophils # (A) 0.3 k/uL (0-0.7); Eosinophils % (A) 5 %; HCT 27.3 % (39.0-53.0); HGB 8.5 gm/dL (13.0-17.5); Hypochromasia Moderate; Lymphocytes # (A) 0.7 k/uL (1.0-4.8); Lymphocytes % (A) 11 %; MCH 28.6 pg (25.0-35.0); MCHC 31.2 g/dL (31.0-37.0); MCV 91.6 fL (80.0-100.0); Mean Platelet Volume 6.6; Monocytes # (A) 0.8 k/uL (0-1.0); Monocytes % (A) 13 %; Neutrophils # (A) 4.1 k/uL (1.3-7.7); Neutrophils % (A) 66 %; Platelet Count 204 k/uL (150-450); RBC 2.98 m/uL (4.30-5.90); RDW 15.7 % (11.5-15.5); WBC 6.3 k/uL (3.8-10.6)
[2019-05-21 11:46] LABS: Glucose,Whole Blood 177 mg/dL (75-99)
[2019-05-21 16:33] LABS: Glucose,Whole Blood 134 mg/dL (75-99)
[2019-05-21] MEDS ORDERED: WARFARIN 3 MG TAB PO ONE (18:00)
--- NOTE | 2019-05-21 18:12 | US ---
EXAMINATION TYPE: US venous doppler duplex LE RT DATE OF EXAM: 05/21/2019 6:06 PM COMPARISON: NONE CLINICAL HISTORY: swelling , r/o DVT. SIDE PERFORMED: TECHNIQUE: The lower extremity deep venous system is examined utilizing real time linear array sonog phuong with graded compression, doppler sonography and color-flow sonography. VESSELS IMAGED: External Iliac Vein (EIV) Common Femoral Vein Deep Femoral Vein Greater Saphenous Vein * Femoral Vein Popliteal Vein Small Saphenous Vein * Proximal Calf Veins (* superficial vessels) Right Leg: IMPRESSION: There is a complex popliteal cyst. No evidence of deep venous thrombosis in the right leg . Exam was somewhat limited.
[2019-05-21 20:31] LABS: Glucose,Whole Blood 170 mg/dL (75-99)
[2019-05-21] MEDS: ATORVASTATIN 10 MG TAB PO SCH (21:33)
[2019-05-21] MEDS: MAGNESIUM OXIDE 400 MG TAB PO SCH (21:33)
--- NOTE | 2019-05-21 21:55 | PN ---
PROGRESS NOTE DATE OF SERVICE: 05/21/2019 This 78-year-old gentleman who was admitted after acute on chronic renal failure is being closely monitored at this time. Renal ultrasound is noted. Venous Doppler showed a complex popliteal cyst. No evidence of DVT, right leg. Renal ultrasound was reviewed which showed obscured left kidney with moderate hydronephrosis. Urology recommended outpatient followup. No chest pain. No palpitations. No fever. PHYSICAL EXAMINATION: Alert and oriented x2. Pulse 77, blood pressure 118/69, respirations 16, temperature 98.8, pulse ox 97% on 2 L. HEENT: Conjunctivae normal. NECK: No jugular venous distention. CARDIOVASCULAR SYSTEM: S1, S2 muffled. RESPIRATORY SYSTEM: Breath sounds diminished at the bases. A few scattered rhonchi and crackles. ABDOMEN: Soft, non-tender. No mass palpable. LEGS: No edema. No swelling. NERVOUS SYSTEM: No focal deficit. LABS: WBC 6.3, hemoglobin 8.5. INR is 1.4. Sodium 137, potassium 4.2. Creatinine 3.68. Glucose is 128. ASSESSMENT: 1. Acute on chronic renal failure with possible acute tubular necrosis with fluid overload, on IV diuresis. 2. Chronic kidney disease, stage IV baseline. 3. Change in mental status, acute metabolic encephalopathy, acute on chronic, multifactorial. 4. Congestive heart failure with chronic systolic dysfunction, ejection fraction 40% to 50%, with no acute exacerbation. 5. Cardiomegaly. 6. Right leg wound. 7. Bilateral leg swelling. 8. History of atrial fibrillation, chronic. 9. History of cerebrovascular accident, transient ischemic attack with old right frontal cortical infarct with diffuse cerebral atrophy. 10.History of dementia. 11.Diabetes mellitus, type 2. 12.Hard of hearing. 13.Hypertension. 14.Hyperlipidemia. 15.Hypothyroidism. 16.History of bladder cancer, stage III, status post transurethral resection of prostate and subsequent intravesical chemotherapy. 17.Urinary incontinence. 18.History of gout. 19.History of chronic atrial fibrillation. 20.Glaucoma. 21.History of left footdrop. 22.Obesity with body mass index of 37.6. 23.FULL CODE. RECOMMENDATIONS AND DISCUSSION: In this 78-year-old gentleman who presented with multiple complex medical issues, we will monitor the patient closely, continue the current medications, continue symptomatic treatment. Otherwise at this time I would recommend monitoring the creatinine closely. Closely follow with Nephrology. Increase ambulation. Possible ECF rehab. Guarded prognosis. Discussed with the family at length, who understands. Further recommendations to follow. MMJOHNATHON / IJN: [id number] /
--- NOTE | 2019-05-21 22:40 | PN ---
PROGRESS NOTE The patient is seen for followup for acute kidney injury. Currently patient is being diuresed. He is maintained on IV push Lasix. He has significant lower extremity edema. Renal function is slightly better today. Serum creatinine peaked at 3.8 yesterday. It is down to 3.6 today. The patient has been voiding on his own. There was no evidence of urine retention earlier on 05/18/2019. He has been incontinent with large amounts of urine. EXAM: On examination, patient is comfortable, awake. He is not in any acute distress. This morning when he was seen, blood pressure was 117/67, heart rate of 70 per minute. He is afebrile. Examination of the heart S1, S2. Examination of the lungs, decreased breath sounds at bases. ABDOMEN: Soft. Morbidly obese. Examination of lower extremities shows bilateral extremities to be wrapped. There is significant edema noted as well. LABS: From today show sodium 137, potassium 4.2, BUN 56, serum creatinine 3.68. ASSESSMENT: 1. Volume overload currently improving. Continue with the IV Lasix. 2. Chronic kidney disease, stage 3 to IV, secondary to diabetic nephropathy. Baseline creatinine around 2. 3. Acute kidney injury nonoliguric mainly cardiorenal and hypoperfusion. PLAN: Continue current dose of IV Lasix. MMODL / IJN: [id number] /
--- NOTE | 2019-05-21 22:50 | P.CONS ---
History of Present Illness - Reason for Consult Consult date: 05/21/19 Right leg wound and cellulitis Requesting physician: Terry Muñoz - Chief Complaint Right leg swelling and wound x few days - History of Present Illness Patient is a 78 year old male currently at a [facility] undergoing rehabilitation after the patient had did have problem with his kidney function patient did have her labs done at that facility and was noticed to have a bun of 27 and a creatinine of 2.08 for the patient has been sent to the ER for further evaluation currently being managed by nephrology and urology services patient also noticed to have more swelling in his right lower extremity however the patient denies significant pain to the right leg area, more of a discomfort and did have slight warmth to the right leg area patient also have a wound on the right medial leg area which has been cultured with did shows Staphylococcus epidermidis the patient has been started on Rocephin and infection disease was consulted for further recommendation regarding antibiotic therapy Review of Systems Positive point has been mentioned in the HPI rest of the systems are negative Past Medical History Past Medical History: Atrial Fibrillation, Cancer, Heart Failure, CVA/TIA, Diabetes Mellitus, Eye Disorder, Hearing Disorder / Deafness, Hyperlipidemia, Hypertension, Memory Impairment, Musculoskeletal Disorder, Renal Disease, Thyroid Disorder Additional Past Medical History / Comment(s): Chronic stage III kidney disease, history of bladder cancer stage III underwent transurethral resection on 01/03/2019 with subsequent intravesicular chemotherapy, recurrent UTIs with E. coli, gout, chronic atrial fibrillation hypertension, hyperlipidemia, diabetes mellitus, CVA, congestion heart failure, glaucoma, chronic lower extremity edema, moves around without walker and he has also used hearing aids. History of left drop foot History of Any Multi-Drug Resistant Organisms: None Reported Year Discovered:: None MDRO Source:: None Additional Past Surgical History / Comment(s): Finger surgery - TRAUMATIC AMPUTATIONS LT 2 FINGERS. COLONOSCOPY. Hemorrhoidectomy, transurethral resection of bladder tumors (11/01/18), TUR of bladder tumor scars 12/2018 Past Anesthesia/Blood Transfusion Reactions: No Reported Reaction, Family H istory of Problems w/ Anesthesia Additional Past Anesthesia/Blood Transfusion Reaction / Comm: SON HAD FLUID IN LUNGS WITH 1 SURGERY. Past Psychological History: No Psychological Hx Reported Smoking Status: Former smoker Past Alcohol Use History: None Reported Past Drug Use History: None Reported - Past Family History Daughter(s) Family Medical History: Cancer Medications and Allergies Home Medications Medication Instructions Recorded Confirmed Type Atenolol [Tenormin] 50 mg PO DAILY 02/18/15 05/17/19 History Simvastatin [Zocor] 20 mg PO HS 02/18/15 05/17/19 History Allopurinol [Zyloprim] 100 mg PO DAILY 10/26/18 05/17/19 History Ergocalciferol [Vitamin D2 50,000 unit PO WE 10/26/18 05/17/19 History (DRISDOL)] Oxybutynin Chloride [Ditropan] 5 mg PO BID 10/26/18 05/17/19 History sitaGLIPtin [Januvia] 50 mg PO DAILY 10/26/18 05/17/19 History Triamcinolone 0.1% Ointment 1 applic TOPICAL TID 02/15/19 05/17/19 History [Kenalog 0.1% Ointment] glipiZIDE [Glucotrol] 10 mg PO AC-BID 02/15/19 05/17/19 History Furosemide [Lasix] 40 mg PO BID 05/01/19 05/17/19 History Polyethylene Glycol 3350 [Miralax] 17 gm PO DAILY 05/01/19 05/17/19 History Potassium Chloride [Klor-Con 20 20 meq PO TID@0700,1300,1900 05/01/19 05/17/19 History Packets] Albuterol Sulfate [Proair Hfa] 2 puff INHALATION RT-Q4H PRN #1 05/08/19 05/17/19 Rx inhaler Fluticasone Nasal [place] [Flonase 2 spr EA NOSTRIL HS 05/17/19 05/17/19 History Nasal [place]] Folic Acid 1 mg PO DAILY@0700 05/17/19 05/17/19 History Rajwinder-Tussin 10 ml PO Q6H PRN 05/17/19 05/17/19 History Levothyroxine Sodium [Synthroid] 75 mcg PO DAILY 05/17/19 05/17/19 History Magnesium Oxide [Mag-Ox] 400 mg PO HS 05/17/19 05/17/19 History Metolazone [Zaroxolyn] 5 mg PO DAILY 05/17/19 05/17/19 History Multivitamins, Thera [Multivitamin 1 tab PO DAILY@0700 05/17/19 05/17/19 History (formulary)] Pantoprazole Sodium [Protonix] 20 mg PO DAILY@0700 05/17/19 05/17/19 History Tamsulosin [Flomax] 0.4 mg PO DAILY@0700 05/17/19 05/17/19 History Thiamine [Vitamin B-1] 100 mg PO DAILY 05/17/19 05/17/19 History Warfarin Sodium [Coumadin] 4 mg PO SUSA 05/17/19 05/17/19 History Warfarin Sodium [Coumadin] 6 mg PO MOTUWETHFR 05/17/19 05/17/19 History Allergies Allergy/AdvReac Type Severity Reaction Status Date / Time strawberry Allergy Swelling Verified 05/17/19 20:32 Physical Exam Vitals: Vital Signs Temp Pulse Resp BP Pulse Ox 05/21/19 13:15 98.8 F 77 16 118/69 97 05/21/19 05:00 98.2 F 20 117/67 99 05/21/19 00:16 99.7 F H 85 20 112/60 92 L 05/20/19 22:00 99.6 F 79 20 100/55 92 L Intake and Output 05/21/19 05/21/19 05/21/19 06:59 14:59 22:59 Intake Total 200 540 Output Total 1 Balance 199 540 Intake: Oral 200 540 Output: Stool 1 Other: Voiding Method Incontinent # Voids 5 1 GENERAL DESCRIPTION: An elderly male lying in bed, no distress. No tachypnea or accessory muscle of respiration use. HEENT: Shows Pallor , no scleral icterus. Oral mucous membrane is dry. No pharyngeal erythema or thrush NECK: Trachea central, no thyromegaly. LUNGS: Unlabored breathing. Decreased breath sound at the base. No wheeze or crackle. HEART: S1, S2, regular rate and rhythm. No loud murmur ABDOMEN: Soft, no tenderness , guarding or rigidity, no organomegaly EXTREMITIES: Right leg with diffuse swelling and redness slightly warm to touch with a wound on the right medial lower leg with no significant slough tissue or any foul-smelling drainage SKIN: No rash, no masses palpable. NEUROLOGICAL: The patient is awake, alert, oriented x3, mood and affect normal. Results CBC & Chem 7: 05/21/19 08:39 05/21/19 08:39 Labs: Abnormal Lab Results - Last 24 Hours (Table) 05/20/19 05/21/19 05/21/19 Range/Units 20:49 08:39 08:39 RBC 2.98 L (4.30-5.90) m/uL Hgb 8.5 L (13.0-17.5) gm/dL Hct 27.3 L (39.0-53.0) % RDW 15.7 H (11.5-15.5) % Lymphocytes # 0.7 L (1.0-4.8) k/uL PT 13.9 H (9.0-12.0) sec INR 1.4 H (<1.2) Chloride (98-107) mmol/L Carbon Dioxide (22-30) mmol/L BUN (9-20) mg/dL Creatinine (0.66-1.25) mg/dL Glucose (74-99) mg/dL POC Glucose (mg/dL) 151 H (75-99) mg/dL 05/21/19 05/21/19 05/21/19 Range/Units 08:39 11:37 16:30 RBC (4.30-5.90) m/uL Hgb (13.0-17.5) gm/dL Hct (39.0-53.0) % RDW (11.5-15.5) % Lymphocytes # (1.0-4.8) k/uL PT (9.0-12.0) sec INR (<1.2) Chloride 96 L (98-107) mmol/L Carbon Dioxide 32 H (22-30) mmol/L BUN 56 H (9-20) mg/dL Creatinine 3.68 H (0.66-1.25) mg/dL Glucose 128 H (74-99) mg/dL POC Glucose (mg/dL) 177 H 134 H (75-99) mg/dL Microbiology - Last 24 Hours (Table) 05/18/19 15:00 Gram Stain - Final Leg - Right Wound Culture - Final Staphylococcus haemolyticus 05/18/19 15:00 Anaerobic Culture - Preliminary Leg - Right 05/18/19 15:03 Blood Culture - Preliminary Blood No Growth after 48 hours Assessment and Plan Assessment: 1-patient with right lower extremity swelling redness or warmth to touch with a wound on her right lower medial leg area likely from ruptured blister from his fluid overload with concern for cellulitis likely from gram-positive skin parul that he strept, positive culture with staph epidermidis likely skin parul and not infection pathogen 2-patient with renal insufficiency and high risk of nephrotoxicity from some antibiotics Plan: 1-we will obtain ultrasound of the right leg to make sure no evidence of any DVT 2-discontinue Rocephin 3-start the patient cefazolin 2 g every 8 hours 4-dry protective dressing to the right lower medial leg wound area We will follow on clinical condition and cultures to further adjust medication if needed Thank you for this consultation will follow this patient with you
[2019-05-22] MEDS: NYSTATIN 100,000 UNIT/GM POWD 15 GM TOPICAL SCH ×2 (00:46→08:00)
[2019-05-22] MEDS: MULTIVITAMINS, THERA 1 EACH TAB PO SCH (06:05)
[2019-05-22] MEDS: FOLIC ACID 1 MG TAB PO SCH (06:05)
[2019-05-22] MEDS: LEVOTHYROXINE 75 MCG TAB PO SCH (06:05)
[2019-05-22] MEDS: TAMSULOSIN 0.4 MG CAP.ER.24H PO SCH (06:05)
[2019-05-22] MEDS: PANTOPRAZOLE 40 MG TABLET PO SCH (06:05)
[2019-05-22 07:10] LABS: Glucose,Whole Blood 63 mg/dL (75-99)
[2019-05-22 07:22] LABS: Glucose,Whole Blood 72 mg/dL (75-99)
[2019-05-22] MEDS: glipiZIDE 10 MG TAB PO SCH ×2 (07:46→17:57)
[2019-05-22] MEDS: INSULIN ASPART (NovoLOG) 100 UNIT/ML VIAL SQ SCH ×3 (07:46→17:53)
[2019-05-22] MEDS: OXYBUTYNIN CHLORIDE 5 MG TAB PO SCH (07:54)
[2019-05-22] MEDS: THIAMINE 100 MG TAB PO SCH (07:54)
[2019-05-22] MEDS: ALLOPURINOL 100 MG TAB PO SCH (07:55)
[2019-05-22] MEDS: ATENOLOL 50 MG TAB PO SCH (07:55)
[2019-05-22] MEDS: MIDODRINE 5 MG TAB PO SCH ×3 (07:55→17:57)
[2019-05-22] MEDS: LINAGLIPTIN 5 MG TABLET PO SCH (07:57)
[2019-05-22] MEDS: ERGOCALCIFEROL 50,000 UNIT CAP PO SCH (07:58)
[2019-05-22] MEDS: FUROSEMIDE 10 MG/ML 4 ML VIAL IV SCH (07:59)
[2019-05-22] MEDS: TRIAMCINOLONE ACET 0.1% OINTMENT 15 GM TUBE TOPICAL SCH ×2 (08:00→17:57)
[2019-05-22] MEDS: POLYETHYLENE GLYCOL 3350 17 GM POWD.PACK PO SCH (08:00)
[2019-05-22 09:13] LABS: INR 1.5 (<1.2); Prothrombin Time 15.1 sec (9.0-12.0)
[2019-05-22 09:41] LABS: Calcium 8.6 mg/dL (8.4-10.2)
[2019-05-22 11:48] LABS: Glucose,Whole Blood 122 mg/dL (75-99)
[2019-05-22 16:54] LABS: Glucose,Whole Blood 127 mg/dL (75-99)
[2019-05-22] MEDS ORDERED: WARFARIN 3 MG TAB PO ONE (18:00)
--- NOTE | 2019-05-22 18:26 | PN ---
PROGRESS NOTE DATE OF SERVICE: 05/22/2019 REASON FOR FOLLOWUP: Right leg wound and cellulitis. INTERVAL HISTORY: The patient is currently afebrile. The patient is breathing comfortably. Denies having any chest pain or cough. No nausea or vomiting. No abdominal pain or pain to the right leg area. PHYSICAL EXAMINATION: Blood pressure 109/64 with a pulse of 74, temperature 99.3. He is 96% on room air. General description is an elderly male up in the chair in no distress. RESPIRATORY SYSTEM: Unlabored breathing. Clear to auscultation anteriorly. HEART: S1, S2. Regular rate and rhythm. ABDOMEN: Soft. No tenderness. Right leg swelling persists. Redness slightly decreased. No drainage. LABS: Creatinine 3.60. INR is 1.5. DIAGNOSTIC IMPRESSION AND PLAN: Patient with right leg wound with secondary cellulitis. Patient is currently covered with Cefazolin; to continue. Aris wrap to the leg to keep some of the swelling down or keep it elevated. Continue with supportive care. MMODL / IJN: [id number] /
--- NOTE | 2019-05-22 19:32 | PN ---
PROGRESS NOTE Patient is seen for followup for acute kidney injury. He is currently being diuresed. The patient remains with significant edema. Renal function is fairly stable, with creatinine at 3.6. Patient is also being treated for cellulitis of his lower extremities. PHYSICAL EXAMINATION: On examination today, blood pressure this morning was 105/63, heart rate of 74 per minute. He is afebrile. EXAMINATION OF THE HEART: S1 and S2. EXAMINATION OF LUNGS: Decreased breath sounds at bases. ABDOMEN: Soft. Morbidly obese. Examination of lower extremities shows edema 3+ bilaterally with erythema noted as well. SECURITIES CONSULTANT exam is grossly intact. LABS: Sodium 135, potassium 4.0. BUN 56, serum creatinine 3.6. ASSESSMENT: 1. Acute kidney injury, cardiorenal. Renal function fairly stable. Continue to diurese patient. 2. Lower extremity cellulitis, maintained on cefazolin. 3. Chronic kidney disease, stage IIIB to IV, secondary to diabetic nephropathy. Baseline creatinine around 2. 4. Obesity. PLAN: Continue to diurese patient. MMODL / IJN: [id number] /
--- NOTE | 2019-05-22 19:59 | PN ---
PROGRESS NOTE DATE OF SERVICE: 05/22/2019. This 78-year-old gentleman who was admitted with acute on chronic renal failure possible acute tubular necrosis and fluid overload also had some IV diuresis. The venous Doppler is negative for DVT. No chest pain. No palpitations. No fever. The creatinine is stable around 3.[address] Eldridge is following the patient closely. EXAM: Alert and oriented x3. Pulse 74. Blood pressure 190/64, respiration 20, temperature 99.3, pulse ox 97% on room air. HEENT: Conjunctivae normal. NECK: No JVD. CARDIOVASCULAR: S1, S2 muffled. RESPIRATORY: Breath sounds diminished in the bases. A few scattered rhonchi. ABDOMEN: Soft. LEGS: Minimal edema. Nervous system: No focal deficits. LABS: WBC noted. Sodium 130. Potassium 4. ASSESSMENT: 1. Acute on chronic renal failure with possible acute tubular necrosis with fluid overload on IV diuresis. 2. Chronic kidney stage 4 baseline. 3. Change in mental status, acute metabolic encephalopathy, acute on chronic, multifactorial. 4. Congestive heart failure with chronic systolic dysfunction ejection fraction 40 to 50 percent with no acute exacerbation. 5. Cardiomegaly. 6. Right leg wound. 7. History of bilateral leg swelling. 8. History of atrial fibrillation, chronic. 9. History of cerebrovascular accident, transient ischemic attack with old right frontal cortical infarct with diffuse cerebral atrophy. 10.History of dementia. 11.Diabetes mellitus type 2. 12.Hard of hearing. 13.Hypertension. 14.Hyperlipidemia. 15.Hypothyroidism. 16.History of bladder cancer, stage III, status post TURP and as well as subsequent intravesical chemotherapy. 17.Urinary incontinence. 18.History of gout. 19.History of chronic atrial fibrillation. 20.Glaucoma. 21.History of left footdrop. 22.Obesity with body mass index of 37.6. 23.FULL CODE. RECOMMENDATIONS AND DISCUSSION: Recommend to continue current medications, management and symptomatic treatment. Otherwise, at this time, I would recommend monitor fluid and electrolytes balance closely. Follow closely with cardiology. Diuretics changed to p.o. and the patient is improving. Possible ECF rehab soon. Further recommendations to follow. MMODL / IJN: [id number] /
[2019-05-22 20:55] LABS: Glucose,Whole Blood 144 mg/dL (75-99)
[2019-05-23] MEDS: FUROSEMIDE 10 MG/ML 4 ML VIAL IV SCH ×3 (00:06→21:26)
[2019-05-23] MEDS: ATORVASTATIN 10 MG TAB PO SCH ×2 (00:06→21:26)
[2019-05-23] MEDS: OXYBUTYNIN CHLORIDE 5 MG TAB PO SCH ×3 (00:06→21:26)
[2019-05-23] MEDS: INSULIN ASPART (NovoLOG) 100 UNIT/ML VIAL SQ SCH ×5 (00:06→21:27)
[2019-05-23] MEDS: MAGNESIUM OXIDE 400 MG TAB PO SCH ×2 (00:08→21:26)
[2019-05-23] MEDS: NYSTATIN 100,000 UNIT/GM POWD 15 GM TOPICAL SCH ×3 (00:11→21:27)
[2019-05-23] MEDS: TRIAMCINOLONE ACET 0.1% OINTMENT 15 GM TUBE TOPICAL SCH ×4 (00:11→21:28)
[2019-05-23] MEDS: MULTIVITAMINS, THERA 1 EACH TAB PO SCH (06:35)
[2019-05-23] MEDS: PANTOPRAZOLE 40 MG TABLET PO SCH (06:35)
[2019-05-23] MEDS: TAMSULOSIN 0.4 MG CAP.ER.24H PO SCH (06:35)
[2019-05-23] MEDS: LEVOTHYROXINE 75 MCG TAB PO SCH (06:36)
[2019-05-23] MEDS: FOLIC ACID 1 MG TAB PO SCH (06:36)
[2019-05-23] MEDS: glipiZIDE 10 MG TAB PO SCH ×2 (07:42→17:12)
[2019-05-23] MEDS: ALLOPURINOL 100 MG TAB PO SCH (07:43)
[2019-05-23] MEDS: LINAGLIPTIN 5 MG TABLET PO SCH (07:43)
[2019-05-23] MEDS: THIAMINE 100 MG TAB PO SCH (07:43)
[2019-05-23] MEDS: MIDODRINE 5 MG TAB PO SCH ×3 (07:43→17:12)
[2019-05-23] MEDS: ATENOLOL 50 MG TAB PO SCH (07:43)
[2019-05-23] MEDS: POLYETHYLENE GLYCOL 3350 17 GM POWD.PACK PO SCH (07:45)
[2019-05-23 07:48] LABS: Glucose,Whole Blood 60 mg/dL (75-99)
[2019-05-23 08:09] LABS: INR 1.8 (<1.2); Prothrombin Time 18.1 sec (9.0-12.0)
[2019-05-23 08:20] LABS: Glucose,Whole Blood 65 mg/dL (75-99)
[2019-05-23 08:20] LABS: Glucose,Whole Blood 93 mg/dL (75-99)
--- NOTE | 2019-05-23 09:39 | P.PN ---
Progress Note - Text Progress Note Date: 05/23/19 Mr. Monterroso's serum creatinine level remains elevated. His urine culture was negative. He denies hematuria and flank pain. Ultrasound suggested the presence of left hydronephrosis. A computed tomography scan has been ordered for further evaluation.
--- NOTE | 2019-05-23 11:02 | P.PN ---
Subjective Patient is seen in follow-up for acute kidney injury on chronic any disease. Creatinine 3.6 as of yesterday. Labs from today are pending. No vomiting or diarrhea. Admits to good urine output. Currently maintained on Lasix 40 mg IV twice daily. Vital signs are stable. General: The patient appeared well nourished and normally developed. HEENT: Head exam is unremarkable. Neck is without jugular venous distension. LUNGS: Lungs are clear to auscultation and percussion. Breath sounds decreased. HEART: Rate and Rhythm are regular. First and second heart sounds normal. No murmurs, rubs or gallops. ABDOMEN: Abdominal exam reveals normal bowel sounds. Non-tender and non- distended. No evidence of peritonitis. EXTREMITITES: 1+ edema. Erythema noted. Objective - Vital Signs Vital signs: Vital Signs Temp 97.9 F 05/23/19 09:30 Pulse 72 05/23/19 09:30 Resp 18 05/23/19 09:30 BP 101/63 05/23/19 09:30 Pulse Ox 98 05/23/19 04:36 Intake & Output 05/22/19 05/23/19 05/23/19 18:59 06:59 18:59 Intake Total 540 750 Balance 540 750 Weight 119.4 kg Intake: Oral 540 750 Other: Voiding Method Incontinent Incontinent # Voids 3 4 4 # Bowel Movements 1 0 - Labs CBC & Chem 7: 05/21/19 08:39 05/22/19 08:35 Labs: Abnormal Lab Results - Last 24 Hours (Table) 05/22/19 05/22/19 05/22/19 Range/Units 11:46 16:52 20:50 PT (9.0-12.0) sec INR (<1.2) POC Glucose (mg/dL) 122 H 127 H 144 H (75-99) mg/dL 05/23/19 05/23/19 05/23/19 Range/Units 07:42 07:43 08:01 PT 18.1 H (9.0-12.0) sec INR 1.8 H (<1.2) POC Glucose (mg/dL) 60 L 65 L (75-99) mg/dL Microbiology - Last 24 Hours (Table) 05/18/19 15:00 Anaerobic Culture - Final Leg - Right 05/18/19 15:03 Blood Culture - Preliminary Blood No Growth after 96 hours Assessment and Plan Plan: Assessment: 1. Acute kidney injury mostly prerenal secondary to cardiorenal syndrome. Creatinine 3.6 as of yesterday. 2. Chronic kidney disease stage IV secondary to diabetic kidney disease with baseline creatinine near 2. 3. Lower extremity cellulitis maintained on IV cefazolin. 4. Left-sided hydronephrosis. Urology following. CAT scan pending. 5. Diabetes mellitus. 6. Acute on chronic systolic CHF with ejection fraction of 45-50% with moderate to severe tricuspid regurgitation and moderate pulmonary hypertension. Plan: Maintain IV Lasix 40 mg twice daily. Follow-up CAT scan. Repeat electrolytes in the morning.
[2019-05-23 12:25] LABS: Glucose,Whole Blood 149 mg/dL (75-99)
[2019-05-23 13:02] LABS: Calcium 8.5 mg/dL (8.4-10.2); Potassium 3.9 mmol/L (3.5-5.1)
--- NOTE | 2019-05-23 13:22 | CT ---
EXAMINATION TYPE: CT abdomen pelvis wo con DATE OF EXAM: 05/23/2019 HISTORY: Hydronephrosis. CT DLP: 1246 mGycm. Automated Exposure Control for Dose Reduction was Utilized. TECHNIQUE: CT scan of the abdomen and pelvis is performed without oral or IV contrast. COMPARISON: CT abdomen July 08, 2015. Ultrasound kidneys May 18 and 2018 FINDINGS: Within the limitations of a non-contrast study, the following observations are made. LUNG BASES: Cardiomegaly with tiny bilateral pleural effusions is present. There is associated bibasi lar atelectasis and/or infiltrate LIVER/GB: No significant abnormality is appreciated. PANCREAS: No significant abnormality is seen. SPLEEN: Confirmation of splenomegaly measuring 15.2 cm long axis coronal image 67. ADRENALS: Stable roughly 1.1 cm right adrenal mass effect/26 favored benign. KIDNEYS: New moderate perinephric fluid and fat stranding surrounding both kidneys. Fong catheter de compressing the bladder with eccentric wall thickening anterior left aspect measuring up to 29 mm bhupendra ge 79. Mild to moderate right-sided hydronephrosis is new from prior CT, difficult to appreciate on r ecent ultrasound. No right-sided nephrolithiasis. Persistent 9 mm left-sided renal calculus posteriorly lower pole left kidney image 67. [id number] te left-sided hydronephrosis is present fairly symmetric opposite right side new from prior CT. No ob structing ureter calculi are present bilaterally. Mild ill-defined fluid in fat stranding throughout the retroperitoneum along course of ureters into the pelvis. BOWEL: No significant abnormality is seen. GENITAL ORGANS: Suspected TURP type defect through the prostate gland axial image 86 with surrounding central calcifications. LYMPH NODES: No greater than 1cm abdominal or pelvic lymph nodes are appreciated. OSSEOUS STRUCTURES: Moderate multilevel spurring and disc space narrowing in the lumbar spine is pres ent. Grade 1 retrolisthesis L2 on L3. Facet arthropathy lower lumbar levels. OTHER: Mild to moderate diffuse soft tissue fluid or anasarca. IMPRESSION: Symmetric [id number] bilateral hydronephrosis without obstructing urinary calculi. Abnormal eccentric wall thickening to the bladder could reflect neoplasm or inflammatory process. Cor relate clinically.
[2019-05-23 16:48] LABS: Glucose,Whole Blood 136 mg/dL (75-99)
[2019-05-23] MEDS ORDERED: WARFARIN 7.5 MG TAB PO ONE (18:00)
--- NOTE | 2019-05-23 18:38 | PN ---
PROGRESS NOTE DATE OF SERVICE: 05/23/2019 This 78-year-old gentleman who was admitted with acute on chronic renal failure with possible acute tubular necrosis and fluid overload is being closely monitored at this time. The patient also had a CT scan of the abdomen and pelvis today which showed symmetrical mild to moderate bilateral hydronephrosis without any obstructing urinary calculi. Abnormal eccentric wall thickening of the bladder was also noted. The patient was also seen by Urology and Nephrology. No chest pain. No palpitations. No fever. PHYSICAL EXAMINATION: Alert and oriented x1. Pulse 70, blood pressure 105/61, respirations 16, temperature 97.8, pulse ox 98% on 2 L. HEENT: Conjunctivae normal. NECK: No jugular venous distention. CARDIOVASCULAR SYSTEM: S1, S2 muffled. RESPIRATORY SYSTEM: Breath sounds diminished at the bases. A few scattered rhonchi and crackles. ABDOMEN: Soft, obese, non-tender. LEGS: No edema. No swelling. NERVOUS SYSTEM: No focal deficit. LABS: INR 1.8. Sodium 134, creatinine 3.45. ASSESSMENT: 1. Acute on chronic renal failure with possible acute tubular necrosis with fluid overload, on IV diuresis. 2. Chronic kidney disease, stage IV baseline. 3. Change in mental status, acute metabolic encephalopathy, acute on chronic, multifactorial. 4. Congestive heart failure with chronic systolic dysfunction; ejection fraction 40% to 50%, with no acute exacerbation. 5. Cardiomegaly. 6. Right leg wound. 7. History of bilateral leg swelling. 8. History of atrial fibrillation, chronic. 9. History of cerebrovascular incident, transient ischemic attack with old right frontal cortical infarct with diffuse cerebral atrophy. 10.History of dementia. 11.Diabetes mellitus, type 2. 12.Hard of hearing. 13.Hypertension. 14.Hyperlipidemia. 15.Hypothyroidism. 16.History of bladder cancer, stage III, status post transurethral resection of prostate, as well as subsequent intravesical chemotherapy. 17.Urinary incontinence. 18.History of gout. 19.History of chronic atrial fibrillation. 20.Glaucoma. 21.History of left footdrop. 22.Obesity with body mass index of 37.6. 23.Bilateral hydronephrosis. 24.FULL CODE. RECOMMENDATIONS AND DISCUSSION: I recommend to continue current medications, continue with the monitoring, symptomatic treatment. Closely monitor with Nephrology and Urology. Guarded prognosis. ECF/AFC rehab is being considered at this time. Further recommendations to follow. MMODL / IJN: [id number] /
[2019-05-23 21:21] LABS: Glucose,Whole Blood 107 mg/dL (75-99)
--- NOTE | 2019-05-23 23:50 | PN ---
PROGRESS NOTE DATE OF SERVICE: 05/23/2019 REASON FOR FOLLOWUP: Right leg wound and cellulitis. INTERVAL HISTORY: The patient is currently afebrile. The patient has been breathing comfortably. Denies having any chest pain or cough. No nausea, no vomiting. Denies having abdominal pain or pain to the right leg area. PHYSICAL EXAMINATION: Blood pressure 105/61 with a pulse of 70, temperature 97.8. He is 98% on room air. General description is an elderly male lying in bed in no distress. RESPIRATORY SYSTEM: Unlabored breathing. Clear to auscultation anteriorly. HEART: S1, S2. Regular rate and rhythm. ABDOMEN: Soft. No tenderness. Right leg swelling and redness slightly decreased. LABS: BUN of 58, creatinine 3.45. DIAGNOSTIC IMPRESSION AND PLAN: Patient with right leg wound with secondary cellulitis. Patient is currently covered with cefazolin; to continue, finishing therapy with oral Keflex on discharge and continue with supportive care. MMODL / IJN: [id number] /
[2019-05-24] MEDS: LEVOTHYROXINE 75 MCG TAB PO SCH (05:52)
[2019-05-24 07:19] LABS: Glucose,Whole Blood 73 mg/dL (75-99)
[2019-05-24] MEDS: INSULIN ASPART (NovoLOG) 100 UNIT/ML VIAL SQ SCH ×4 (07:31→20:17)
[2019-05-24] MEDS: glipiZIDE 10 MG TAB PO SCH ×3 (07:40→16:59)
[2019-05-24] MEDS: MIDODRINE 5 MG TAB PO SCH ×4 (07:40→16:59)
[2019-05-24] MEDS: LINAGLIPTIN 5 MG TABLET PO SCH (07:40)
[2019-05-24] MEDS: ATENOLOL 50 MG TAB PO SCH (07:40)
[2019-05-24] MEDS: FOLIC ACID 1 MG TAB PO SCH (07:40)
[2019-05-24] MEDS: TAMSULOSIN 0.4 MG CAP.ER.24H PO SCH (07:40)
[2019-05-24] MEDS: THIAMINE 100 MG TAB PO SCH (07:40)
[2019-05-24] MEDS: ALLOPURINOL 100 MG TAB PO SCH (07:40)
[2019-05-24] MEDS: OXYBUTYNIN CHLORIDE 5 MG TAB PO SCH ×2 (07:40→20:17)
[2019-05-24] MEDS: PANTOPRAZOLE 40 MG TABLET PO SCH (07:40)
[2019-05-24] MEDS: POLYETHYLENE GLYCOL 3350 17 GM POWD.PACK PO SCH (07:41)
[2019-05-24] MEDS: MULTIVITAMINS, THERA 1 EACH TAB PO SCH (07:41)
[2019-05-24] MEDS: FUROSEMIDE 10 MG/ML 4 ML VIAL IV SCH (07:41)
[2019-05-24] MEDS: NYSTATIN 100,000 UNIT/GM POWD 15 GM TOPICAL SCH ×2 (07:42→21:05)
[2019-05-24] MEDS: TRIAMCINOLONE ACET 0.1% OINTMENT 15 GM TUBE TOPICAL SCH ×3 (07:42→21:05)
[2019-05-24 07:45] LABS: INR 2.5 (<1.2); Prothrombin Time 24.3 sec (9.0-12.0)
[2019-05-24 07:55] LABS: Calcium 8.4 mg/dL (8.4-10.2); Magnesium 2.3 mg/dL (1.6-2.3); Potassium 3.5 mmol/L (3.5-5.1)
[2019-05-24] MEDS: FUROSEMIDE 40 MG TAB PO SCH ×2 (09:03→16:33)
[2019-05-24 09:28] LABS: Glucose,Whole Blood 89 mg/dL (75-99)
[2019-05-24] MEDS ORDERED: ONDANSETRON ODT 4 MG TAB PO PRN (09:33)
[2019-05-24 12:14] LABS: Glucose,Whole Blood 70 mg/dL (75-99)
--- NOTE | 2019-05-24 12:39 | P.DS ---
Providers Date of admission: 05/19/19 09:09 Expected date of discharge: 05/24/19 Attending physician: Terry Muñoz Consults: 05/18/19 09:17 Consult Physician Routine Consulting Provider: Shivam Guzmán Consult Reason/Comments: elevated kidney labs Do you want consulting provider notified?: Yes 05/19/19 10:41 Consult Physician Routine Consulting Provider: Len Carpenter Consult Reason/Comments: known, acute on chronic Renal Failure Do you want consulting provider notified?: Yes 05/21/19 14:47 Consult Physician Routine Consulting Provider: Omar Gotti Consult Reason/Comments: Positive wound culture Do you want consulting provider notified?: Yes Primary care physician: [facility] Course: Final diagnosis Acute on chronic renal failure with possible acute tubular necrosis with fluid overload Chronic kidney disease, stage IV baseline Change in mental status, acute metabolic encephalopathy, acute on chronic, multifactorial Congestive heart failure with chronic systolic dysfunction; ejection fraction 40-50%, with no acute exacerbation Cardiomegaly Right leg wound History of bilateral leg swelling History of atrial fibrillation, chronic history of cerebrovascular accident, 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 with diffuse cerebral atrophy History of dementia Diabetes mellitus type 2 [place] of hearing [place] hypertension Hyperlipidemia Hypothyroidism [place] history of bladder cancer, stage III, status post transurethral resection of prostate, as well as subsequent intravesicular chemotherapy Urinary incontinence History of gout next line history of chronic atrial fibrillation Glaucoma History of left foot foot drop Obesity with body mass index of 37.6 Bilateral hydronephrosis No code Discharge disposition Patient is being discharged in a stable condition with guarded prognosis to [facility] in [place] for continued PT/OT therapy. Patient will continue on a short course of oral antibiotics in the form of Keflex per infectious disease recommendations. Total time taken is 35 minutes. History of present illness This is a 78-year-old male who was recently admitted with acute on chronic renal failure with possible acute tubular necrosis and fluid overload and is being closely monitored. Total medical consultations were following. Rehospitalization patient underwent a CAT scan of the abdomen and pelvis showing symmetrical mild to moderate bilateral hydronephrosis without any obstructing urinary calculi with an abnormal eccentric wall thickening of the bladder. Will follow-up with urology and nephrology in the outpatient setting. Patient's creatinine continue to be elevated and was being closely monitored. Today's creatinine was 3.59. Patient will need repeat labs in 2-3 days. Patient's INR is 2.5 currently and will hold his Coumadin today and may resume tomorrow and have repeat labs as well to monitor his INR level for therapeutic level to be in between 2-3. Currently patient denies any shortness of breath, chest pain, or palpitations at this time. Patient is afebrile. Patient denies any vomiting but has had some intermittent nausea this morning. Patient is currently tolerating diet. Patient was given some Zofran and will continue in the outpatient setting as needed. Today patient's condition is stable and is ready for discharge. Discussed with the family at the bedside about palliative care and they will discuss this in the outpatient setting and will discuss this with Andressa Cardoso about their options and what the facility can accommodate. Social work was also helpful with the family members and explaining palliative care. Guarded prognosis. On exam vital signs are stable. Temp is 97F, pulse is 66, respirations are 18, blood pressure is 95/54, oxygen saturation is 92% on 2 L via nasal cannula. Cardio S1 and S2 are muffled. Respiratory system shows diminished breath sounds at the bases with a few scattered crackles with no wheezing noted. Abdomen is soft, obese, and non-tender on palpation. Nervous system shows no focal deficits with mild to moderate diffuse weakness. Please refer to medication reconciliation sheet for a list of medications. Patient Condition at Discharge: Fair Plan - Discharge Summary New Discharge Prescriptions: New Cefuroxime Axetil [Ceftin] 500 mg PO BID 3 Days #6 tab Nystatin 100,000 Unit/gm Powd [Mycostatin Powder] 1 applic TOPICAL BID applic INSULIN ASPART (NovoLOG) [NovoLOG (formulary)] 0 unit SQ ACHS vial Midodrine [ProAmatine] 5 mg PO AC-TID tab Pantoprazole [Protonix] 40 mg PO DAILY@0700 tablet. Ondansetron Odt [Zofran ODT] 4 mg PO Q8HR PRN tab PRN Reason: Nausea Continue Simvastatin [Zocor] 20 mg PO HS Atenolol [Tenormin] 50 mg PO DAILY sitaGLIPtin [Januvia] 50 mg PO DAILY Oxybutynin Chloride [Ditropan] 5 mg PO BID Ergocalciferol [Vitamin D2 (DRISDOL)] 50,000 unit PO WE Allopurinol [Zyloprim] 100 mg PO DAILY Triamcinolone 0.1% Ointment [Kenalog 0.1% Ointment] 1 applic TOPICAL TID glipiZIDE [Glucotrol] 10 mg PO AC-BID Furosemide [Lasix] 40 mg PO BID Polyethylene Glycol 3350 [Miralax] 17 gm PO DAILY Potassium Chloride [Klor-Con 20 Packets] 20 meq PO TID@0700,1300,1900 Albuterol Sulfate [Proair Hfa] 2 puff INHALATION RT-Q4H PRN #1 inhaler PRN Reason: Shortness Of Breath Rajwinder-Tussin 10 ml PO Q6H PRN PRN Reason: Cough Fluticasone Nasal [place] [Flonase Nasal [place]] 2 spr EA NOSTRIL HS Folic Acid 1 mg PO DAILY@0700 Levothyroxine Sodium [Synthroid] 75 mcg PO DAILY Magnesium Oxide [Mag-Ox] 400 mg PO HS Metolazone [Zaroxolyn] 5 mg PO DAILY Multivitamins, Thera [Multivitamin (formulary)] 1 tab PO DAILY@0700 Tamsulosin [Flomax] 0.4 mg PO DAILY@0700 Thiamine [Vitamin B-1] 100 mg PO DAILY Warfarin Sodium [Coumadin] 6 mg PO MOTUWETHFR Warfarin Sodium [Coumadin] 4 mg PO SUSA Discontinued Pantoprazole Sodium [Protonix] 20 mg PO DAILY@0700 Discharge Medication List Atenolol [Tenormin] 50 mg PO DAILY 02/18/15 [History] Simvastatin [Zocor] 20 mg PO HS 02/18/15 [History] Allopurinol [Zyloprim] 100 mg PO DAILY 10/26/18 [History] Ergocalciferol [Vitamin D2 (DRISDOL)] 50,000 unit PO WE 10/26/18 [History] Oxybutynin Chloride [Ditropan] 5 mg PO BID 10/26/18 [History] sitaGLIPtin [Januvia] 50 mg PO DAILY 10/26/18 [History] Triamcinolone 0.1% Ointment [Kenalog 0.1% Ointment] 1 applic TOPICAL TID 02/15/19 [History] glipiZIDE [Glucotrol] 10 mg PO AC-BID 02/15/19 [History] Furosemide [Lasix] 40 mg PO BID 05/01/19 [History] Polyethylene Glycol 3350 [Miralax] 17 gm PO DAILY 05/01/19 [History] Potassium Chloride [Klor-Con 20 Packets] 20 meq PO TID@0700,1300,1900 05/01/19 [History] Albuterol Sulfate [Proair Hfa] 2 puff INHALATION RT-Q4H PRN #1 inhaler 05/08/19 [Rx] Fluticasone Nasal [place] [Flonase Nasal [place]] 2 spr EA NOSTRIL HS 05/17/19 [History] Folic Acid 1 mg PO DAILY@0700 05/17/19 [History] Rajwinder-Tussin 10 ml PO Q6H PRN 05/17/19 [History] Levothyroxine Sodium [Synthroid] 75 mcg PO DAILY 05/17/19 [History] Magnesium Oxide [Mag-Ox] 400 mg PO HS 05/17/19 [History] Metolazone [Zaroxolyn] 5 mg PO DAILY 05/17/19 [History] Multivitamins, Thera [Multivitamin (formulary)] 1 tab PO DAILY@0700 05/17/19 [History] Tamsulosin [Flomax] 0.4 mg PO DAILY@0700 05/17/19 [History] Thiamine [Vitamin B-1] 100 mg PO DAILY 05/17/19 [History] Warfarin Sodium [Coumadin] 4 mg PO SUSA 05/17/19 [History] Warfarin Sodium [Coumadin] 6 mg PO MOTUWETHFR 05/17/19 [History] Cefuroxime Axetil [Ceftin] 500 mg PO BID 3 Days #6 tab 05/24/19 [Rx] INSULIN ASPART (NovoLOG) [NovoLOG (formulary)] 0 unit SQ ACHS vial 05/24/19 [Rx] Midodrine [ProAmatine] 5 mg PO AC-TID tab 05/24/19 [Rx] Nystatin 100,000 Unit/gm Powd [Mycostatin Powder] 1 applic TOPICAL BID applic 05/24/19 [Rx] Ondansetron Odt [Zofran ODT] 4 mg PO Q8HR PRN tab 05/24/19 [Rx] Pantoprazole [Protonix] 40 mg PO DAILY@0700 magan. 05/24/19 [Rx] Follow up Appointment(s)/Referral(s): Travon Kramer MD [Primary Care Provider] - 1-2 days Len Carpenter MD [STAFF PHYSICIAN] - 1 Week Shivam Guzmán DO [STAFF PHYSICIAN] - 1 Week Ambulatory/Diagnostic Orders: Basic Metabolic Panel [LAB.AMB] Time Frame: 3 Days, Location: None Selected Complete Blood Count w/diff [LAB.AMB] Time Frame: 3 Days, Location: None Selected Magnesium [LAB.AMB] Time Frame: 3 Days, Location: None Selected Prothrombin Time INR [LAB.AMB] Time Frame: 1 Day, Location: None Selected Activity/Diet/Wound Care/Special Instructions: Activity as tolerated Continue current diet Continue to monitor blood sugars before meals at bedtime and treat with sliding scale Continue antibiotics until finished Follow-up with primary care provider upon discharge Help with nephrology and urology in the outpatient setting Repeat labs in 2-3 days Hold Coumadin this evening and may resume tomorrow and repeat PT/INR to maintain therapeutic level between 2-3 Discuss with Adnressa Cardoso about possible palliative care Elevate the legs while at rest Discharge Disposition: TRANSFER TO SNF/ECF
--- NOTE | 2019-05-24 13:57 | PN ---
PROGRESS NOTE DATE OF SERVICE: 05/24/2019 REASON FOR FOLLOWUP: Right leg wound with secondary cellulitis. INTERVAL HISTORY: The patient is currently afebrile. Patient is breathing comfortably. Patient denies having any chest pain or shortness of breath or cough. No nausea, vomiting. No abdominal pain or pain to the right leg area. PHYSICAL EXAMINATION: Blood pressure 95/54 with a pulse of 66, temperature 97. He is 92% on 2 L nasal cannula. General description is an elderly male up in the chair in no distress. RESPIRATORY SYSTEM: Unlabored breathing, clear to auscultation anteriorly. HEART: S1, S2. Regular rate and rhythm. ABDOMEN: Soft, no tenderness. Right leg swelling and redness has much improved. LABS: Creatinine is still at 3.59. DIAGNOSTIC IMPRESSION AND PLAN: Patient with right lower extremity wound with secondary cellulitis. Overall improvement on cefazolin. Plan is to finish therapy with oral Keflex, the dose should be 500 mg twice a day for about a week. Continue supportive care. MMODL / IJN: [id number] /
[2019-05-24 14:16] VITALS: BMI 42.5
--- NOTE | 2019-05-24 16:10 | CT ---
EXAMINATION TYPE: CT brain wo con DATE OF EXAM: 05/24/2019 COMPARISON: 05/01/2019 HISTORY: 78-year-old male confusion and altered mental status TECHNIQUE: Examination was done in axial plane without intravenous contrast. Coronal and sagittal r econstructions performed. CT DLP: 1317.8 mGycm Automated exposure control for dose reduction was used. FINDINGS: There is no evidence of acute intracranial hemorrhage, acute ischemic changes, mass, mass-effect, or extra-axial fluid collection. There is no effacement of cerebral sulci or basal subarachnoid cister ns. There is no hydrocephalus. There is no midline shift. [place]ayo-white matter distinction is preserv ed. Mild generalized supratentorial volume loss. Stable encephalomalacia anterior right paramedian fronta l lobe. Benign basal ganglionic calcifications Suspect severe atherosclerotic calcifications within the A3 segment left anterior cerebral artery. Scattered mild mucosal thickening ethmoid air cells. Mastoid air cells are well pneumatized. Right na blank septal deviation. Visualized orbits and globes appear intact. IMPRESSION: Mild generalized atrophy and old right frontal lobe infarct. Suspect stable severe atherosclerotic ca lcifications within the A3 segment left DEANNA. No acute intracranial abnormality seen.
--- NOTE | 2019-05-24 16:28 | XR ---
EXAMINATION TYPE: XR chest 1V DATE OF EXAM: 05/24/2019 COMPARISON: 05/17/2019 HISTORY: 78-year-old male assess for fluid overload, shortness of breath TECHNIQUE: Single frontal view of the chest is obtained. FINDINGS: Heart is enlarged. Perihilar densities and diffuse interstitial opacities. Left basal unde rpenetrated and not well assessed. IMPRESSION: Cardiomegaly with diffuse interstitial changes. Correlate for CHF with pulmonary vascular congestion.
[2019-05-24 16:38] LABS: Glucose,Whole Blood 84 mg/dL (75-99)
--- NOTE | 2019-05-24 16:45 | P.PN ---
Subjective Progress Note Date: 05/24/19 Principal diagnosis: This is a 78-year-old male who was recently admitted with acute on chronic renal failure with possible acute tubular necrosis and fluid overload and is being cl osely monitored at this time. Patient was being visited by family and scheduled to go to [facility] in [place] for continued rehab and was found to have a brief moment of unresponsiveness and low blood pressure this afternoon. A stat computed tomography scan of the brain and chest x-ray was ordered along with a 250 mL bolus of normal saline. CT showed mild generalized atrophy and old right frontal lobe infarct with stable severe atherosclerotic calcifications within A3 segment and left DEANNA and no acute intracranial abnormality seen. Chest x-ray is pending at this time. Blood pressure is 110/61. Will continue to monitor vital signs and labs closely. Extremely guarded prognosis. Active Medications Albuterol Sulfate (Ventolin Nebulized) 2.5 mg INHALATION RT-Q4H PRN PRN Reason: Shortness Of Breath Allopurinol (Zyloprim) 100 mg PO DAILY [facility] Last Admin: 05/24/19 07:40 Dose: 100 mg Documented by: Atenolol (Tenormin) 50 mg PO DAILY [facility] Last Admin: 05/24/19 07:40 Dose: 50 mg Documented by: Atorvastatin Calcium (Lipitor) 10 mg PO HS [facility] Last Admin: 05/23/19 21:26 Dose: 10 mg Documented by: Ergocalciferol (Vitamin D2) 50,000 unit PO We@0900 [facility] Last Admin: 05/22/19 07:58 Dose: 50,000 unit Documented by: Folic Acid (Folic Acid) 1 mg PO DAILY@0700 [facility] Last Admin: 05/24/19 07:40 Dose: 1 mg Documented by: Furosemide (Lasix) 40 mg PO BID@0900,1600 [facility] Last Admin: 05/24/19 16:33 Dose: Not Given Documented by: Glipizide (Glucotrol) 10 mg PO AC-BID [facility] Last Admin: 05/24/19 07:40 Dose: 10 mg Documented by: Guaifenesin (Robitussin) 200 mg PO Q6H PRN PRN Reason: Cough Cefazolin Sodium 2 gm/ Sodium (Chloride) 50 mls @ 100 mls/hr IVPB Q12HR [facility] Last Admin: 05/24/19 09:42 Dose: 100 mls/hr Documented by: Insulin Aspart (Novolog) 0 unit SQ ACHS [facility]; Protocol Last Admin: 05/24/19 12:24 Dose: Not Given Documented by: Levothyroxine Sodium (Synthroid) 75 mcg PO DAILY@0630 [facility] Last Admin: 05/24/19 05:52 Dose: 75 mcg Documented by: Linagliptin (Tradjenta) 5 mg PO DAILY [facility] Last Admin: 05/24/19 07:40 Dose: 5 mg Documented by: Magnesium Oxide (Mag-Ox) 400 mg PO HS [facility] Last Admin: 05/23/19 21:26 Dose: 400 mg Documented by: Midodrine (Proamatine) 5 mg PO AC-TID [facility] Last Admin: 05/24/19 12:32 Dose: 5 mg Documented by: Miscellaneous Information (Coumadin Per Pharmacy) 0 each MISCELLANE DIRECTED PRN PRN Reason: Per Protocol Multivitamins (Theragran) 1 each PO DAILY@0700 [facility] Last Admin: 05/24/19 07:41 Dose: 1 each Documented by: Naloxone HCl (Narcan) 0.2 mg IV Q2M PRN PRN Reason: Opioid Reversal Nystatin (Mycostatin Powder) 1 applic TOPICAL BID [facility] Last Admin: 05/24/19 07:42 Dose: 1 applic Documented by: Ondansetron HCl (Zofran Odt) 4 mg PO Q8HR PRN PRN Reason: Nausea Last Admin: 05/24/19 09:42 Dose: 4 mg Documented by: Oxybutynin Chloride (Ditropan) 5 mg PO BID [facility] Last Admin: 05/24/19 07:40 Dose: 5 mg Documented by: Pantoprazole Sodium (Protonix) 40 mg PO DAILY@0700 [facility] Last Admin: 05/24/19 07:40 Dose: 40 mg Documented by: Polyethylene Glycol (Miralax) 17 gm PO DAILY [facility] Last Admin: 05/24/19 07:41 Dose: 17 gm Documented by: Tamsulosin HCl (Flomax) 0.4 mg PO DAILY@0700 [facility] Last Admin: 05/24/19 07:40 Dose: 0.4 mg Documented by: Thiamine HCl (Vitamin B-1) 100 mg PO DAILY [facility] Last Admin: 05/24/19 07:40 Dose: 100 mg Documented by: Triamcinolone Acetonide (Kenalog) 1 applic TOPICAL TID [facility] Last Admin: 05/24/19 07:42 Dose: 1 applic Documented by: Warfarin Sodium (Coumadin) 4 mg PO ONCE ONE Stop: 05/24/19 18:01 Objective - Vital Signs Vital signs: Vital Signs Temp 98.0 F 05/24/19 13:45 Pulse 74 05/24/19 15:27 Resp 20 05/24/19 13:45 BP 110/61 05/24/19 15:27 Pulse Ox 98 05/24/19 13:45 Intake & Output 05/23/19 05/24/19 05/24/19 18:59 06:59 18:59 Intake Total 550 Output Total 1 Balance -1 550 Weight 119.4 kg Intake: Oral 550 Output: Stool 1 Other: Voiding Method Incontinent Incontinent Incontinent # Voids 3 5 3 # Bowel Movements 1 2 0 - Exam Gen: This is a 78-year-old male sitting up in bed in no acute distress. Temp is 98F, pulse is 71, respirations are 20, blood pressure after 250 mL bolus is 110/61, oxygen saturation is 98% on 2 L via nasal cannula. HEENT: Head is atraumatic, normocephalic. Pupils equal, round. Sclerae is anicteric. NECK: Supple. No JVD. No lymphadenopathy. No thyromegaly. LUNGS: Breath sounds diminished at the bases with a few scattered rhonchi and crackles noted. No intercostal retractions. HEART: Cardio S1, S2 are muffled. ABDOMEN: Soft. Obese. Bowel sounds are present. No masses. No tenderness. EXTREMITIES: No pedal edema. No calf tenderness. NEUROLOGICAL: Patient is awake, alert and oriented x 2-3. Cranial nerves 2 through 12 are grossly intact. - Labs CBC & Chem 7: 05/21/19 08:39 05/24/19 07:05 Labs: Abnormal Lab Results - Last 24 Hours (Table) 05/23/19 05/23/19 05/24/19 Range/Units 16:46 21:17 07:05 PT 24.3 H (9.0-12.0) sec INR 2.5 H (<1.2) Sodium (137-145) mmol/L Chloride (98-107) mmol/L Carbon Dioxide (22-30) mmol/L BUN (9-20) mg/dL Creatinine (0.66-1.25) mg/dL Glucose (74-99) mg/dL POC Glucose (mg/dL) 136 H 107 H (75-99) mg/dL 05/24/19 05/24/19 05/24/19 Range/Units 07:05 07:15 12:12 PT (9.0-12.0) sec INR (<1.2) Sodium 135 L (137-145) mmol/L Chloride 89 L (98-107) mmol/L Carbon Dioxide 34 H (22-30) mmol/L BUN 60 H (9-20) mg/dL Creatinine 3.59 H (0.66-1.25) mg/dL Glucose 61 L (74-99) mg/dL POC Glucose (mg/dL) 73 L 70 L (75-99) mg/dL Microbiology - Last 24 Hours (Table) 05/18/19 15:03 Blood Culture - Preliminary Blood No Growth after 120 hours Assessment and Plan Assessment: Acute on chronic renal failure with possible acute tubular necrosis with fluid overload Brief period of unresponsiveness with hypotension, rule out possible stroke Hypotension Chronic kidney disease, stage IV baseline Change in mental status, acute metabolic encephalopathy, acute on chronic, multifactorial Congestive heart failure with chronic systolic dysfunction; ejection fraction 40-50%, with no acute exacerbation Cardiomegaly Right leg wound History of bilateral leg swelling History of atrial fibrillation, chronic history of cerebrovascular accident, 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 Patient experienced a brief moment of unresponsiveness with hypotension and a CAT scan of the brain was done showing no evidence of acute intracranial hemorrhage, acute ischemic changes, mass, mass effect, or extra-axial fluid collection with mild generalized atrophy and old right frontal lobe infarct. a repeat chest x-ray was ordered and shows cardiomegaly with diffuse interstitial changes, correlate for CHF with pulmonary vascular congestion. Patient received a 250 mL bolus of normal saline for the hypotension and blood pressure is currently 105/57. Neurology was consulted and is pending at this time. Neuro checks ordered every 4 hours. Will continue to monitor vital signs and labs closely. Extremely guarded prognosis. Further recommendations to follow.
[2019-05-24] MEDS: WARFARIN 2 MG TAB PO ONE ×2 (16:55→16:59)
--- NOTE | 2019-05-24 16:55 | P.PN ---
Progress Note - Text Progress Note Date: 05/24/19 Mr. Monterroso's condition has failed to improve. His creatinine level was 3.59. The computed tomography scan showed left anterior bladder wall thickening. There was evidence of bilateral hydronephrosis as well as perinephric fluid collection and fat stranding. There may be an element of obstruction, so a Fong catheter will be placed. I am concerned that the bladder wall thickening may represent residual bladder cancer, and I will proceed with a transurethral resection of this if his condition improves.
[2019-05-24 20:13] LABS: Glucose,Whole Blood 85 mg/dL (75-99)
[2019-05-24] MEDS: MAGNESIUM OXIDE 400 MG TAB PO SCH (20:16)
[2019-05-24] MEDS: ATORVASTATIN 10 MG TAB PO SCH (20:16)
[2019-05-25] MEDS: LEVOTHYROXINE 75 MCG TAB PO SCH (05:41)
[2019-05-25 07:12] LABS: Glucose,Whole Blood 106 mg/dL (75-99)
[2019-05-25] MEDS: INSULIN ASPART (NovoLOG) 100 UNIT/ML VIAL SQ SCH ×4 (08:06→21:07)
[2019-05-25] MEDS: ATENOLOL 50 MG TAB PO SCH (08:09)
[2019-05-25] MEDS: FUROSEMIDE 40 MG TAB PO SCH (08:09)
[2019-05-25] MEDS: NYSTATIN 100,000 UNIT/GM POWD 15 GM TOPICAL SCH ×2 (08:11→21:06)
[2019-05-25] MEDS: TRIAMCINOLONE ACET 0.1% OINTMENT 15 GM TUBE TOPICAL SCH ×3 (08:11→21:07)
[2019-05-25] MEDS: POLYETHYLENE GLYCOL 3350 17 GM POWD.PACK PO SCH (08:18)
[2019-05-25] MEDS: PANTOPRAZOLE 40 MG TABLET PO SCH (08:19)
[2019-05-25] MEDS: THIAMINE 100 MG TAB PO SCH (08:19)
[2019-05-25] MEDS: MULTIVITAMINS, THERA 1 EACH TAB PO SCH (08:19)
[2019-05-25] MEDS: OXYBUTYNIN CHLORIDE 5 MG TAB PO SCH ×2 (08:19→21:06)
[2019-05-25] MEDS: glipiZIDE 10 MG TAB PO SCH ×2 (08:19→16:57)
[2019-05-25] MEDS: ALLOPURINOL 100 MG TAB PO SCH (08:19)
[2019-05-25] MEDS: LINAGLIPTIN 5 MG TABLET PO SCH (08:19)
[2019-05-25] MEDS: FOLIC ACID 1 MG TAB PO SCH (08:19)
[2019-05-25] MEDS: MIDODRINE 5 MG TAB PO SCH ×3 (08:19→16:57)
[2019-05-25] MEDS: TAMSULOSIN 0.4 MG CAP.ER.24H PO SCH (08:19)
[2019-05-25 08:33] LABS: Prothrombin Time 29.3 sec (9.0-12.0)
--- NOTE | 2019-05-25 10:01 | P.PN ---
Progress Note - Text Progress Note Date: 05/25/19 The patient is afebrile. He was confused yesterday and his confusion appeared to improve after a catheter was inserted. The catheter drained approximately 500 mL. It's unclear whether this was a true cause and effect. Urine draining from the bladder is yellow with some sediment. It's unclear if the patient will be transferred to a longterm on Monday. At some point Dr. Carpenter was considering repeat cystoscopy due to the abnormal computed tomography scan that this could be set up as an outpatient later.
[2019-05-25 10:37] LABS: Calcium 8.3 mg/dL (8.4-10.2); Potassium 3.6 mmol/L (3.5-5.1)
[2019-05-25 11:46] LABS: Glucose,Whole Blood 183 mg/dL (75-99)
--- NOTE | 2019-05-25 12:19 | P.PN ---
Subjective this is a pleasant 78 years old male with past medical history of congestive heart failure, atrial fibrillation, CVA/TIA, diabetes mellitus, hearing disorder/deafness, hyperlipidemia, hypertension, memory impairment, chronic kidney disease stage IV, hypothyroidism, urinary bladder cancer stage III, underwent transurethral resection on 01/03/2019 with subsequent intravesicular chemotherapy, recurrent UTI as per daughter at bedside patient was more confused yesterday and sleepy. Also his blood pressure was on the low side yesterday, however both of these are improved today as his blood pressure is 101/62 compared to 91/47 yesterday after he got some small bolus of IV fluid. Also the daughterthinks the patient is more awake today although he is not back to his normal state but is improving gradually as per daughter. Patient himself is alert and awake and oriented to place and person and his disease, however he a drowsy patient had CAT scan of the head yesterday showing old frontal stroke with left DEANNA calcification. Patient has negative DVT in the right leg and the chest x- ray was showing CHF. Patient was placed on IV Lasix today by the nephrology team Objective - Vital Signs Vital signs: Vital Signs Temp 97.4 F L 05/25/19 06:06 Pulse 96 05/25/19 06:06 Resp 20 05/25/19 06:06 BP 101/62 05/25/19 06:06 Pulse Ox 96 05/25/19 06:06 Intake & Output 05/24/19 05/25/19 05/25/19 18:59 06:59 18:59 Output Total 1301 Balance -1301 Weight 119.4 kg 122 kg Output: Urine 1300 Stool 1 Other: Voiding Method Incontinent Incontinent Indwelling Catheter # Voids 3 # Bowel Movements 0 0 - Exam -GENERAL: The patient is alert and oriented x2-3, drowsy,not in any acute distress. Well developed, well nourished. HEENT: Pupils are round and equally reacting to light. EOMI. No scleral icterus. No conjunctival pallor. Normocephalic, atraumatic. No pharyngeal erythema. No thyromegaly. CARDIOVASCULAR: S1 and S2 present. No murmurs, rubs, or gallops. PULMONARY: Chest is clear to auscultation, no wheezing or crackles. -ABDOMEN: Soft, nontender, nondistended, normoactive bowel sounds. No palpable organomegaly. Fong catheter is in place MUSCULOSKELETAL: No joint swelling or deformity. -EXTREMITIES: No cyanosis, clubbing, or pedal edema. right leg is mildly warm and right NEUROLOGICAL: Gross neurological examination did not reveal any focal deficits. SKIN: No rashes. no petechiae. - Labs CBC & Chem 7: 05/21/19 08:39 05/25/19 07:48 Labs: Abnormal Lab Results - Last 24 Hours (Table) 05/24/19 05/25/19 05/25/19 Range/Units 12:12 07:09 07:48 PT 29.3 H (9.0-12.0) sec INR 3.0 H (<1.2) Sodium (137-145) mmol/L Chloride (98-107) mmol/L Carbon Dioxide (22-30) mmol/L BUN (9-20) mg/dL Creatinine (0.66-1.25) mg/dL POC Glucose (mg/dL) 70 L 106 H (75-99) mg/dL Calcium (8.4-10.2) mg/dL 05/25/19 05/25/19 Range/Units 07:48 11:42 PT (9.0-12.0) sec INR (<1.2) Sodium 134 L (137-145) mmol/L Chloride 90 L (98-107) mmol/L Carbon Dioxide 34 H (22-30) mmol/L BUN 65 H (9-20) mg/dL Creatinine 3.55 H (0.66-1.25) mg/dL POC Glucose (mg/dL) 183 H (75-99) mg/dL Calcium 8.3 L (8.4-10.2) mg/dL Microbiology - Last 24 Hours (Table) 05/18/19 15:03 Blood Culture - Final Blood No Growth after 144 hours Assessment and Plan Assessment: History of bladder cancer, stage III with transurethral resection on 01/03/2019. Status post chemotherapy Bilateral [id number] hydronephrosis right lower extremity cellulitis with wound metabolic encephalopathy secondary to above chronic paroxysmal atrial fibrillation on Coumadin chronic kidney disease, stage IV with possible worsening creatinine Chronic paroxysmal atrial fibrillation Congestive heart failure, chronic Diabetes mellitus Hearing disorders/deafness Hyperlipidemia Hypertension Memory impairment Plan: this is a pleasant 78 years old male who presents with lack cellulitis and bilateral hydronephrosis, patient is followed closely by ID, urology and nephrology team. Patient also to continue on warfarin for now and INR is 3.0, so we will needs lower doses of coumadine today. The recommendation by nephrology and urology team. Patient has Fong catheter. Continue with antibiotics as per ID team. Continue with oxygen therapy patient might benefit from neurological evaluation however there is no neurology service during the weekend had recurrent at this time and since patient is improving I don't think we'll need to be transferred for urgent neurology evaluation, we'll continue to follow Labs and medication were reviewed.. Continue same treatment. Continue with symptomatic treatment. Resume home medication. Monitor lytes and vitals. DVT and GI prophylaxis. Further recommendations of the clinical course of the patient DVT prophylaxis:on coumadine GI Prophylaxis: Pepcid PT/OT: Pending Prognosis is guarded
--- NOTE | 2019-05-25 12:56 | PN ---
PROGRESS NOTE DATE OF SERVICE: 05/25/2019 REASON FOR FOLLOWUP: Right lower extremity cellulitis. INTERVAL HISTORY: The patient is currently afebrile. Patient is breathing comfortably. The patient denies having any chest pain. No cough. No nausea, vomiting. No abdominal pain or any worsening pain to the right leg area. PHYSICAL EXAMINATION: Blood pressure 101/52 with a pulse of 96, temperature 97.4. He is 96% on 2 L nasal cannula. General description is an elderly male lying in bed in no distress. Respiratory system: Unlabored breathing. Clear to auscultation anteriorly. Heart S1, S2. Regular rate and rhythm. Abdomen soft, no tenderness. Right leg swelling persists but has slightly decreased. LABS: Creatinine 3.55. DIAGNOSTIC IMPRESSION AND PLAN: Patient with a right lower extremity swelling with mild cellulitis. The patient is currently covered with Cefazolin to continue ( ) with oral Keflex. Monitor clinical course closely. Continue supportive care. MMODL / IJN: [id number] /
--- NOTE | 2019-05-25 16:01 | PN ---
PROGRESS NOTE Patient is seen for followup for acute kidney injury. Yesterday, patient was hypotensive. His mentation was altered as well. He had a Fong catheter placed and about 500 mL of urine was obtained initially. The patient's blood pressure remains slightly on the lower side. His chest x-ray from yesterday continues to show pulmonary vascular congestion. Mentation seems to be close to baseline this morning. PHYSICAL EXAMINATION: On examination, blood pressure was 101/62, heart rate 96 per minute, he is afebrile. Examination of the heart S1, S2. Examination of the lungs, decreased breath sounds at bases. Abdomen is soft, nontender, obese. Examination lower extremities shows bilateral lower extremity edema which seems to be decreasing with dryness of the skin noted bilaterally. LABS: Sodium 134, potassium 3.6, BUN 65, creatinine 3.5 mg/dL, calcium 8.3. ASSESSMENT: 1. Acute kidney injury, mainly cardiorenal, renal function fairly stable. There was component of urine retention for which patient has a Fong catheter currently. 2. Volume overload, maintained on IV Lasix which I will continue for now and switch back to IV Lasix for the weekend as chest x-ray continues to show significant congestive heart failure. 3. Altered mentation associated with hypoperfusion and hypotension. Currently, Tenormin is on hold. Patient is maintained on midodrine which we will continue. 4. Type 2 diabetes. 5. Lower extremity cellulitis, maintained on cefazolin. PLAN: Switch to IV push Lasix. Repeat labs in a.m. Continue with the Fong catheter. Continue Flomax. MMODL / IJN: [id number] /
[2019-05-25 16:55] LABS: Glucose,Whole Blood 91 mg/dL (75-99)
[2019-05-25] MEDS ORDERED: WARFARIN 2 MG TAB PO ONE (18:00)
[2019-05-25] MEDS: FUROSEMIDE 10 MG/ML 4 ML VIAL IV SCH (21:06)
[2019-05-25] MEDS: ATORVASTATIN 10 MG TAB PO SCH (21:06)
[2019-05-25] MEDS: MAGNESIUM OXIDE 400 MG TAB PO SCH (21:06)
[2019-05-25 21:07] LABS: Glucose,Whole Blood 110 mg/dL (75-99)
[2019-05-26 01:56] LABS: Appearance,Urine Cloudy (Clear); Bilirubin,Urine Negative (Negative); Blood,Urine Moderate (Negative); Color,Urine Yellow; Glucose,Urine (UA) Negative (Negative); Hyphae Yeast, Urine Rare /hpf; Ketones,Urine Negative (Negative); Leukocyte Esterase,Urine Large (Negative); Mucus,Urine Rare /hpf; Nitrite,Urine Negative (Negative); PH, Urine 5.5 (5.0-8.0); Protein,Urine 1+ (Negative); RBC,Urine 80 /hpf (0-5); Specific Gravity,Urine 1.015 (1.001-1.035); Squamous Epithelial Cell,Urine 1 /hpf (0-4); Urobilinogen,Urine <2.0 mg/dL (<2.0)
[2019-05-26] MEDS: LEVOTHYROXINE 75 MCG TAB PO SCH (05:40)
[2019-05-26 07:23] LABS: Glucose,Whole Blood 72 mg/dL (75-99)
[2019-05-26] MEDS: INSULIN ASPART (NovoLOG) 100 UNIT/ML VIAL SQ SCH ×4 (07:39→21:02)
[2019-05-26] MEDS: glipiZIDE 10 MG TAB PO SCH ×3 (07:39→17:41)
[2019-05-26 08:48] LABS: Prothrombin Time 28.8 sec (9.0-12.0)
[2019-05-26 08:54] LABS: Calcium 8.3 mg/dL (8.4-10.2); Potassium 3.6 mmol/L (3.5-5.1)
--- NOTE | 2019-05-26 09:04 | P.PN ---
Progress Note - Text Progress Note Date: 05/26/19 The patient is afebrile. He appears to remain intermittently confused. He denies any complaints at the present time. His urine is grossly clear. Creatinine is stable at 3.6. He will be contacted by Dr. Carpenter so that cystoscopy can be set up to reevaluate the anterior bladder wall.
[2019-05-26 09:16] LABS: HCT 26.2 % (39.0-53.0); HGB 8.1 gm/dL (13.0-17.5); Hypochromasia Slight; MCH 27.8 pg (25.0-35.0); MCV 89.6 fL (80.0-100.0); Mean Platelet Volume 7.5; Platelet Count 161 k/uL (150-450); RBC 2.92 m/uL (4.30-5.90)
[2019-05-26] MEDS: POLYETHYLENE GLYCOL 3350 17 GM POWD.PACK PO SCH (09:19)
[2019-05-26] MEDS: MULTIVITAMINS, THERA 1 EACH TAB PO SCH (09:19)
[2019-05-26] MEDS: FOLIC ACID 1 MG TAB PO SCH (09:19)
[2019-05-26] MEDS: ATENOLOL 50 MG TAB PO SCH (09:20)
[2019-05-26] MEDS: MIDODRINE 5 MG TAB PO SCH ×3 (09:20→17:42)
[2019-05-26] MEDS: THIAMINE 100 MG TAB PO SCH (09:20)
[2019-05-26] MEDS: PANTOPRAZOLE 40 MG TABLET PO SCH (09:20)
[2019-05-26] MEDS: ALLOPURINOL 100 MG TAB PO SCH (09:20)
[2019-05-26] MEDS: LINAGLIPTIN 5 MG TABLET PO SCH (09:20)
[2019-05-26] MEDS: FUROSEMIDE 10 MG/ML 4 ML VIAL IV SCH (09:20)
[2019-05-26] MEDS: TAMSULOSIN 0.4 MG CAP.ER.24H PO SCH (09:20)
[2019-05-26] MEDS: NYSTATIN 100,000 UNIT/GM POWD 15 GM TOPICAL SCH ×2 (09:21→21:02)
[2019-05-26] MEDS: TRIAMCINOLONE ACET 0.1% OINTMENT 15 GM TUBE TOPICAL SCH ×3 (09:21→21:02)
[2019-05-26] MEDS: OXYBUTYNIN CHLORIDE 5 MG TAB PO SCH ×2 (09:21→21:02)
--- NOTE | 2019-05-26 09:53 | P.PN ---
Subjective this is a pleasant 78 years old male with past medical history of congestive heart failure, atrial fibrillation, CVA/TIA, diabetes mellitus, hearing disorder/deafness, hyperlipidemia, hypertension, memory impairment, chronic kidney disease stage IV, hypothyroidism, urinary bladder cancer stage III, underwent transurethral resection on 01/03/2019 with subsequent intravesicular chemotherapy, recurrent UTI as per daughter at bedside patient was more confused yesterday and sleepy. Also his blood pressure was on the low side yesterday, however both of these are improved today as his blood pressure is 101/62 compared to 91/47 yesterday after he got some small bolus of IV fluid. Also the daughterthinks the patient is more awake today although he is not back to his normal state but is improving gradually as per daughter. Patient himself is alert and awake and oriented to place and person and his disease, however he a drowsy patient had CAT scan of the head yesterday showing old frontal stroke with left DEANNA calcification. Patient has negative DVT in the right leg and the chest x- ray was showing CHF. Patient was placed on IV Lasix today by the nephrology team 05/26/2019 Patient is awake, even better than yesterday. He could remember me from yesterday. He knows he is in the hospital but he could not name the hospital, also he is disoriented to date but he can't recognize Mr. Mosqueda as the president. He denies any other new complaints. No chest pain or dyspnea. No abdominal pain and his tolerating diet well. No nausea vomiting. Patient blood pressure remains on the low side, currently 92/50, after Lasix has been started yesterday by nephrology team. Labs showing stable hemoglobin at 8.1, INR still 3.0. Creatinine still 3.6. Potassium 3.6 as well and sodium 135. Glucose on the low side at 60. Right leg wound is growing Staphylococcus hemolyticus and urine culture showing E. coli. Patient currently on ceftazidime as per ID team recommendation. No IV fluids. Right leg wound looks stable and no more signs of cellulitis in his right leg other than chronic discoloration with light brown on both lower extremities Objective - Vital Signs Vital signs: Vital Signs Temp 99.2 F 05/26/19 03:41 Pulse 71 05/26/19 03:41 Resp 20 05/26/19 03:41 BP 92/50 05/26/19 03:41 Pulse Ox 94 L 05/26/19 03:41 Intake & Output 05/25/19 05/26/19 05/26/19 18:59 06:59 18:59 Intake Total 540 Output Total 400 901 Balance 140 -901 Intake: Oral 540 Output: Urine 400 900 Stool 1 Other: Voiding Method Indwelling Catheter Indwelling Catheter - Exam -GENERAL: The patient is alert and oriented x2-3, drowsy,not in any acute distress. Well developed, well nourished. HEENT: Pupils are round and equally reacting to light. EOMI. No scleral icterus. No conjunctival pallor. Normocephalic, atraumatic. No pharyngeal erythema. No thyromegaly. CARDIOVASCULAR: S1 and S2 present. No murmurs, rubs, or gallops. PULMONARY: Chest is clear to auscultation, no wheezing or crackles. -ABDOMEN: Soft, nontender, nondistended, normoactive bowel sounds. No palpable organomegaly. Fong catheter is in place MUSCULOSKELETAL: No joint swelling or deformity. -EXTREMITIES: No cyanosis, clubbing, or pedal edema. right leg is with improvement redness and swelling and tenderness. Ulcer on the medial side of the right leg looks dry with no purulent discharge NEUROLOGICAL: Gross neurological examination did not reveal any focal deficits. SKIN: No rashes. no petechiae. - Labs CBC & Chem 7: 05/26/19 08:02 05/26/19 08:02 Labs: Abnormal Lab Results - Last 24 Hours (Table) 05/25/19 05/25/19 05/25/19 Range/Units 07:48 11:42 21:03 RBC (4.30-5.90) m/uL Hgb (13.0-17.5) gm/dL Hct (39.0-53.0) % RDW (11.5-15.5) % PT (9.0-12.0) sec INR (<1.2) Sodium 134 L (137-145) mmol/L Chloride 90 L (98-107) mmol/L Carbon Dioxide 34 H (22-30) mmol/L BUN 65 H (9-20) mg/dL Creatinine 3.55 H (0.66-1.25) mg/dL Glucose (74-99) mg/dL POC Glucose (mg/dL) 183 H 110 H (75-99) mg/dL Calcium 8.3 L (8.4-10.2) mg/dL Urine Protein (Negative) Urine Blood (Negative) Ur Leukocyte Esterase (Negative) Urine RBC (0-5) /hpf Urine WBC (0-5) /hpf Urine WBC Clumps (None) /hpf Urine Mucus (None) /hpf 05/25/19 05/26/19 05/26/19 Range/Units 21:31 07:20 08:02 RBC (4.30-5.90) m/uL Hgb (13.0-17.5) gm/dL Hct (39.0-53.0) % RDW (11.5-15.5) % PT 28.8 H (9.0-12.0) sec INR 3.0 H (<1.2) Sodium (137-145) mmol/L Chloride (98-107) mmol/L Carbon Dioxide (22-30) mmol/L BUN (9-20) mg/dL Creatinine (0.66-1.25) mg/dL Glucose (74-99) mg/dL POC Glucose (mg/dL) 72 L (75-99) mg/dL Calcium (8.4-10.2) mg/dL Urine Protein 1+ H (Negative) Urine Blood Moderate H (Negative) Ur Leukocyte Esterase Large H (Negative) Urine RBC 80 H (0-5) /hpf Urine WBC >182 H (0-5) /hpf Urine WBC Clumps Many H (None) /hpf Urine Mucus Rare H (None) /hpf 05/26/19 05/26/19 Range/Units 08:02 08:02 RBC 2.92 L (4.30-5.90) m/uL Hgb 8.1 L (13.0-17.5) gm/dL Hct 26.2 L (39.0-53.0) % RDW 16.0 H (11.5-15.5) % PT (9.0-12.0) sec INR (<1.2) Sodium 135 L (137-145) mmol/L Chloride 89 L (98-107) mmol/L Carbon Dioxide 37 H (22-30) mmol/L BUN 68 H (9-20) mg/dL Creatinine 3.60 H (0.66-1.25) mg/dL Glucose 60 L (74-99) mg/dL POC Glucose (mg/dL) (75-99) mg/dL Calcium 8.3 L (8.4-10.2) mg/dL Urine Protein (Negative) Urine Blood (Negative) Ur Leukocyte Esterase (Negative) Urine RBC (0-5) /hpf Urine WBC (0-5) /hpf Urine WBC Clumps (None) /hpf Urine Mucus (None) /hpf Assessment and Plan Assessment: Urinary retention, status post Fong catheter. History of bladder cancer, stage III with transurethral resection on 01/03/2019. Status post chemotherapy Bilateral [id number] hydronephrosis right lower extremity cellulitis with wound metabolic encephalopathy secondary to above chronic paroxysmal atrial fibrillation on Coumadin chronic kidney disease, stage IV with possible worsening creatinine Chronic paroxysmal atrial fibrillation Congestive heart failure, chronic Diabetes mellitus Hearing disorders/deafness Hyperlipidemia Hypertension Memory impairment Plan: this is a pleasant 78 years old male who presents with lack cellulitis and bilateral hydronephrosis, patient is followed closely by ID, urology and nephrology team. Patient also to continue on warfarin for now and INR is 3.0, so we will needs lower doses of coumadine today. The recommendation by nephrology and urology team. Patient has Fong catheter. Continue with antibiotics as per ID team. Continue with oxygen therapy. Monitor his vitals patient might benefit from neurological evaluation however there is no neurology service during the weekend had recurrent at this time and since patient is improving I don't think we'll need to be transferred for urgent neurology e valuation, we'll continue to follow Labs and medication were reviewed.. Continue same treatment. Continue with symptomatic treatment. Resume home medication. Monitor lytes and vitals. DVT and GI prophylaxis. Further recommendations of the clinical course of the patient DVT prophylaxis:on coumadine GI Prophylaxis: Pepcid PT/OT: Pending Prognosis is guarded
--- NOTE | 2019-05-26 10:27 | PN ---
PROGRESS NOTE Patient is seen for followup for acute kidney injury on top of chronic kidney disease. The patient has an indwelling Fong catheter. He remains on IV push Lasix. Blood pressure had been low yesterday, which remains slightly on the lower side. Overall, patient states he is feeling better. PHYSICAL EXAMINATION: This morning, blood pressure was 92/50, heart rate 71 per minute. He is afebrile. Examination of the heart S1, S2. Examination of the lungs, bilateral breath sounds are heard. ABDOMEN: Soft, nontender. Examination of lower extremities shows edema 2+ bilaterally. [employer] exam shows mentation is improved. Patient is moving all 4 extremities. LAB: Show sodium 135, potassium 3.6, BUN of 68, creatinine 3.6, hemoglobin 8.1 g/dL. ASSESSMENT: 1. Acute kidney injury, cardiorenal with an element of urine retention currently maintained on IV Lasix. I will decrease the Lasix to p.o. 2. Bilateral lower extremity edema and hypervolemia, currently improved. 3. Left lower extremity cellulitis, now improved. 4. Altered mentation seems to have improved as well. 5. Urine retention currently with indwelling Fong catheter. 6. Hypotension maintained on midodrine. The cortisol level was 15 on 05/19/2019, so we do not need to repeat it. MMODL / IJN: [id number] /
[2019-05-26 12:14] LABS: Glucose,Whole Blood 233 mg/dL (75-99)
[2019-05-26 12:36] LABS: Eosinophils # (M) 0.15 k/uL (0-0.7); Lymphocytes # (M) 0.35 k/uL (1.0-4.8); Monocytes # (M) 0.85 k/uL (0-1.0); Neutrophils % (M) 73 %; Nucleated Red Blood Cells 0 /100 WBC (0-0); Total Cells Counted 100
[2019-05-26 12:40] LABS: Anisocytosis (M) Present
[2019-05-26 17:11] LABS: Glucose,Whole Blood 72 mg/dL (75-99)
[2019-05-26] MEDS: FUROSEMIDE 40 MG TAB PO SCH (17:41)
[2019-05-26] MEDS ORDERED: WARFARIN 2 MG TAB PO ONE (18:00)
--- NOTE | 2019-05-26 18:47 | PN ---
PROGRESS NOTE DATE OF SERVICE: 05/26/2019 REASON FOR FOLLOWUP: 1. Right leg wound and cellulitis. 2. Positive UA, possibly Fong colonization. INTERVAL HISTORY: The patient is currently afebrile. Patient has been breathing comfortably. The patient denies having any chest pain, cough. No nausea, vomiting. No abdominal pain or any pain to the right leg area. PHYSICAL EXAMINATION: Blood pressure is 106/58 with a pulse of 67, temperature 97. He is 99% on 3 L nasal cannula. General description is an elderly male lying in bed in no distress. Respiratory system: Unlabored breathing, clear to auscultation anteriorly. Heart S1, S2. Regular rate and rhythm. The right leg with swelling, minimal redness. LABS: Hemoglobin 8.1, white count 5.3, BUN of 16, creatinine 3.0. Repeat urine is positive but it has been obtained from the Fong catheter. DIAGNOSTIC IMPRESSION AND PLAN: 1. Patient with right leg wound and cellulitis and did have evidence of fluid overload and overall improvement on cefazolin. Plan is to finish therapy with oral Keflex 500 mg b.i.d. for about 5-7 days. 2. Positive UA, likely from Fong catheter with no symptom, negative urinary tract infection. Fong catheter should be changed and repeat UA to be obtained. MMODL / IJN: [id number] /
[2019-05-26 20:33] LABS: Glucose,Whole Blood 87 mg/dL (75-99)
[2019-05-26] MEDS: MAGNESIUM OXIDE 400 MG TAB PO SCH (21:02)
[2019-05-26] MEDS: ATORVASTATIN 10 MG TAB PO SCH (21:02)
[2019-05-27] MEDS: LEVOTHYROXINE 75 MCG TAB PO SCH (05:41)
[2019-05-27 07:39] LABS: Glucose,Whole Blood 179 mg/dL (75-99)
[2019-05-27] MEDS: FUROSEMIDE 40 MG TAB PO SCH ×2 (08:07→15:36)
[2019-05-27] MEDS: MIDODRINE 5 MG TAB PO SCH ×3 (08:07→17:05)
[2019-05-27] MEDS: ALLOPURINOL 100 MG TAB PO SCH (08:07)
[2019-05-27] MEDS: FOLIC ACID 1 MG TAB PO SCH (08:07)
[2019-05-27] MEDS: glipiZIDE 10 MG TAB PO SCH ×2 (08:07→17:05)
[2019-05-27] MEDS: TAMSULOSIN 0.4 MG CAP.ER.24H PO SCH (08:07)
[2019-05-27] MEDS: LINAGLIPTIN 5 MG TABLET PO SCH (08:07)
[2019-05-27] MEDS: THIAMINE 100 MG TAB PO SCH (08:07)
[2019-05-27] MEDS: MULTIVITAMINS, THERA 1 EACH TAB PO SCH (08:07)
[2019-05-27] MEDS: PANTOPRAZOLE 40 MG TABLET PO SCH (08:07)
[2019-05-27] MEDS: OXYBUTYNIN CHLORIDE 5 MG TAB PO SCH ×2 (08:07→22:10)
[2019-05-27] MEDS: POLYETHYLENE GLYCOL 3350 17 GM POWD.PACK PO SCH (08:09)
[2019-05-27] MEDS: INSULIN ASPART (NovoLOG) 100 UNIT/ML VIAL SQ SCH ×4 (08:17→22:15)
[2019-05-27] MEDS: NYSTATIN 100,000 UNIT/GM POWD 15 GM TOPICAL SCH ×2 (08:18→22:16)
[2019-05-27] MEDS: TRIAMCINOLONE ACET 0.1% OINTMENT 15 GM TUBE TOPICAL SCH ×3 (08:19→22:16)
[2019-05-27] MEDS: ATENOLOL 25 MG TAB PO SCH (08:22)
[2019-05-27 08:47] LABS: Calcium 8.3 mg/dL (8.4-10.2); Potassium 3.4 mmol/L (3.5-5.1)
[2019-05-27 08:52] LABS: HCT 25.6 % (39.0-53.0); HGB 8.4 gm/dL (13.0-17.5); Hypochromasia Slight; MCH 29.4 pg (25.0-35.0); MCHC 32.7 g/dL (31.0-37.0); Mean Platelet Volume 7.4; Platelet Count 182 k/uL (150-450); RBC 2.85 m/uL (4.30-5.90); RDW 15.9 % (11.5-15.5); WBC 6.2 k/uL (3.8-10.6)
[2019-05-27 08:53] LABS: INR 2.7 (<1.2); Prothrombin Time 26.5 sec (9.0-12.0)
[2019-05-27] MEDS ORDERED: LEVOFLOXACIN 500MG-D5W PMX 500 MG in DEXTROSE/WATER 1 100ML.BAG IVPB STA (09:27)
[2019-05-27 09:40] LABS: Eosinophils # (M) 0.12 k/uL (0-0.7); Lymphocytes # (M) 0.93 k/uL (1.0-4.8); Monocytes # (M) 0.74 k/uL (0-1.0); Neutrophils % (M) 71 %; Nucleated Red Blood Cells 0 /100 WBC (0-0); Total Cells Counted 100
[2019-05-27 09:42] LABS: Anisocytosis (M) Present
[2019-05-27 09:44] LABS: Polychromasia Present
[2019-05-27 12:39] LABS: Glucose,Whole Blood 312 mg/dL (75-99)
[2019-05-27] MEDS ORDERED: POTASSIUM CHLORIDE ER 20 MEQ TAB.ER PO STA (13:12)
--- NOTE | 2019-05-27 14:05 | PN ---
PROGRESS NOTE Patient is seen for followup for acute kidney injury. This morning he was sitting up in bed. He was having his breakfast. Patient has had good urine output. His Lasix was switched to p.o. yesterday. Blood pressure this morning 90/55, heart rate 71 per minute, patient is afebrile. Examination of the heart S1, S2. Examination of the lungs, decreased breath sounds at bases. Abdomen is soft, nontender. Examination of the lower extremities shows chronic skin changes, 2+ edema seems to have decreased. LABS: Show hemoglobin 8.4, sodium 136, potassium 3.4, BUN 67, creatinine 3.35. ASSESSMENT: 1. Acute kidney injury, cardiorenal, currently improving. Patient also had an element of urine retention, currently with indwelling Fong catheter. Lasix has been switched to p.o. 2. Hypokalemia secondary to diuresis. We will replace. 3. Lower extremity cellulitis, maintained on cefazolin. 4. Altered mentation, currently improved. 5. Volume overload, now improved. 6. Chronic kidney disease stage III to IV, secondary to diabetic nephropathy. Baseline creatinine around 2 mg/dL. PLAN: Continue with p.o. Lasix, replace potassium, repeat labs in a.m. MMODL / IJN: [id number] /
--- NOTE | 2019-05-27 14:55 | P.PN ---
Progress Note - Text Progress Note Date: 05/27/19 Mr. Monterroso is feeling better today. He denies pain. The Fong catheter is draining clear yellow urine. Approximately 500 mL of urine was obtained upon Fong catheter placement on 05/24/2019. The creatinine level remained stable over the weekend, but today was somewhat improved (3.35). Will leave Fong catheter in place for now. Once his overall condition is improved, he may benefit from cystoscopy, bilateral retrograde pyelograms, possible stent placement, and bladder biopsy.
--- NOTE | 2019-05-27 15:53 | PN ---
PROGRESS NOTE DATE OF SERVICE: 05/27/2019 REASON FOR FOLLOWUP: Right lower extremity cellulitis. INTERVAL HISTORY: The patient is currently afebrile. The patient is breathing comfortably. The patient denies having any chest pain or cough. No abdominal pain. Still has some swelling in the legs, but redness has improved. No diarrhea. PHYSICAL EXAMINATION: Blood pressure is 94/56, pulse of 64, temperature 97.6. He is 98% on 2 L nasal cannula. General description is an elderly male up in the chair in no distress. RESPIRATORY SYSTEM: Unlabored breathing. Clear to auscultation anteriorly. HEART: S1, S2. Regular rate and rhythm. ABDOMEN: Soft. No tenderness. Right leg swelling persists. Redness has improved. LABS: Hemoglobin 8.4, white count 6.2, BUN of 67, creatinine 3.35. DIAGNOSTIC IMPRESSION AND PLAN: Patient with a right leg wound with secondary cellulitis. The patient is currently covered with Cefazolin. Aris wrap should be applied to keep some of the swelling down. Family at the bedside. Their questions were answered. MMODL / IJN: [id number] /
[2019-05-27 17:30] LABS: Glucose,Whole Blood 146 mg/dL (75-99)
[2019-05-27] MEDS ORDERED: WARFARIN 3 MG TAB PO ONE (18:00)
--- NOTE | 2019-05-27 19:02 | P.CNNES ---
History of Present Illness Consult date: 05/27/19 Requesting physician: Terry Muñoz Reason for Consult: Altered mental status History of Present Illness: Patient is a 78-year-old male admitted on 05/17/2019 for worsening renal functions and swelling of the lower extremities patient was diagnosed with acute on chronic renal failure and CHF with hyperkalemia. Patient also was diagnosed with Sophia albicans UTI and right lower extremity wound with secondary cellulitis. Patient is on antibiotics. Patient was ready to be transferred to rehab facility, when he had a brief moment of unresponsiveness and low blood pressure 82/44 on 05/24/2019. Computed tomography scan of the head was done, which revealed no acute process. There is generalized atrophy and old right frontal lobe infarct with stable severe atherosclerotic calcification within A3 segment left DEANNA. No acute intracranial abnormality seen. There is scattered mild mucosal thickening Ethmoid air cells. Patient had a 2-D echo on 05/01/2019 which revealed atrial fibrillation. There is severe concentric LVH. EF is between 45-50%. Right ventricle is severely enlarged. Patient's hemoglobin A1c is 6.8 on 04/02/2019. Patient states he has history of diabetes for about 30 years. Patient's UA from 05/25/2019 showed large amount of leukocyte Estrace and more than 182 WBCs and many WBC clumps. Urine cultures grew 50,000-100,000 Sophia albicans on 05/25/2019. Patient is also on cefazolin for cellulitis. Infections disease is on board. Patient states that he lives by himself. He does have chronic left leg weakness. He still manages by himself with a cane and a walker. Review of Systems Positive for mild shortness of breath, significant peripheral edema, mild confusion. Denies any problems with speech or swallow. Patient has slightly decreased hearing. Denies any problem with the vision. Denies diplopia, slurred speech or facial droop. Left leg weakness. Past Medical History Past Medical History: Atrial Fibrillation, Cancer, Heart Failure, CVA/TIA, Diabetes Mellitus, Eye Disorder, Hearing Disorder / Deafness, Hyperlipidemia, Hypertension, Memory Impairment, Musculoskeletal Disorder, Renal Disease, Thy roid Disorder Additional Past Medical History / Comment(s): Chronic stage III kidney disease, history of bladder cancer stage III underwent transurethral resection on 01/03/2019 with subsequent intravesicular chemotherapy, recurrent UTIs with E. coli, gout, chronic atrial fibrillation hypertension, hyperlipidemia, diabetes mellitus, CVA, congestion heart failure, glaucoma, chronic lower extremity edema, moves around without walker and he has also used hearing aids. History of left drop foot History of Any Multi-Drug Resistant Organisms: None Reported Date of last positivie culture/infection: None MDRO Source:: None Additional Past Surgical History / Comment(s): Finger surgery - TRAUMATIC AMPUTATIONS LT 2 FINGERS. COLONOSCOPY. Hemorrhoidectomy, transurethral rese ction of bladder tumors (11/01/18), TUR of bladder tumor scars 12/2018 Past Anesthesia/Blood Transfusion Reactions: No Reported Reaction, Family History of Problems w/ Anesthesia Additional Past Anesthesia/Blood Transfusion Reaction / Comment(s): SON HAD FLUID IN LUNGS WITH 1 SURGERY. Past Psychological History: No Psychological Hx Reported Smoking Status: Former smoker Past Alcohol Use History: None Reported Past Drug Use History: None Reported - Past Family History Daughter(s) Family Medical History: Cancer Medications and Allergies Home Medications Medication Instructions Recorded Confirmed Type Atenolol [Tenormin] 50 mg PO DAILY 02/18/15 05/17/19 History Simvastatin [Zocor] 20 mg PO HS 02/18/15 05/17/19 History Allopurinol [Zyloprim] 100 mg PO DAILY 10/26/18 05/17/19 History Ergocalciferol [Vitamin D2 50,000 unit PO WE 10/26/18 05/17/19 History (DRISDOL)] Oxybutynin Chloride [Ditropan] 5 mg PO BID 10/26/18 05/17/19 History sitaGLIPtin [Januvia] 50 mg PO DAILY 10/26/18 05/17/19 History Triamcinolone 0.1% Ointment 1 applic TOPICAL TID 02/15/19 05/17/19 History [Kenalog 0.1% Ointment] glipiZIDE [Glucotrol] 10 mg PO AC-BID 02/15/19 05/17/19 History Furosemide [Lasix] 40 mg PO BID 05/01/19 05/17/19 History Polyethylene Glycol 3350 [Miralax] 17 gm PO DAILY 05/01/19 05/17/19 History Potassium Chloride [Klor-Con 20 20 meq PO TID@0700,1300,1900 05/01/19 05/17/19 History Packets] Albuterol Sulfate [Proair Hfa] 2 puff INHALATION RT-Q4H PRN #1 05/08/19 05/17/19 Rx inhaler Fluticasone Nasal [place] [Flonase 2 spr EA NOSTRIL HS 05/17/19 05/17/19 History Nasal [place]] Folic Acid 1 mg PO DAILY@0700 05/17/19 05/17/19 History Rajwinder-Tussin 10 ml PO Q6H PRN 05/17/19 05/17/19 History Levothyroxine Sodium [Synthroid] 75 mcg PO DAILY 05/17/19 05/17/19 History Magnesium Oxide [Mag-Ox] 400 mg PO HS 05/17/19 05/17/19 History Metolazone [Zaroxolyn] 5 mg PO DAILY 05/17/19 05/17/19 History Multivitamins, Thera [Multivitamin 1 tab PO DAILY@0700 05/17/19 05/17/19 History (formulary)] Tamsulosin [Flomax] 0.4 mg PO DAILY@0700 05/17/19 05/17/19 History Thiamine [Vitamin B-1] 100 mg PO DAILY 05/17/19 05/17/19 History Warfarin Sodium [Coumadin] 4 mg PO SUSA 05/17/19 05/17/19 History Warfarin Sodium [Coumadin] 6 mg PO MOTUWETHFR 05/17/19 05/17/19 History Cephalexin [Keflex] 500 mg PO Q6HR 7 Days #28 cap 05/24/19 Rx INSULIN ASPART (NovoLOG) [NovoLOG 0 unit SQ ACHS vial 05/24/19 Rx (formulary)] Midodrine [ProAmatine] 5 mg PO AC-TID tab 05/24/19 Rx Nystatin 100,000 Unit/gm Powd 1 applic TOPICAL BID applic 05/24/19 Rx [Mycostatin Powder] Ondansetron Odt [Zofran ODT] 4 mg PO Q8HR PRN tab 05/24/19 Rx Pantoprazole [Protonix] 40 mg PO DAILY@0700 tablet. 05/24/19 Rx Allergies Allergy/AdvReac Type Severity Reaction Status Date / Time strawberry Allergy Swelling Verified 05/17/19 20:32 Physical Examination - Vital Signs Vital Signs: Vital Signs Temp Pulse Resp BP Pulse Ox 05/27/19 14:27 97.6 F 64 16 94/56 98 05/27/19 07:00 97.9 F 71 15 90/55 98 05/26/19 22:02 97.5 F L 61 18 114/67 96 Intake and Output 05/27/19 05/27/19 05/27/19 06:59 14:59 22:59 Output Total 925 1100 Balance -925 -1100 Output: Urine 925 1100 Other: Voiding Method Indwelling Catheter Indwelling Catheter Weight 122 kg On examination patient is an elderly male, moderately obese, laying in his recliner. Patient appears to be in mild respiratory distress. Speech and language functions are normal. Attention and concentration fund of knowledge appears adequate. Patient knows that it is May, but could not tell the year. He states is in [facility] in [place]. He knows his date of and the current age and name of the current [facility] president. On cranial nerve examination his pupils are small, uncertain if reactive, as patient could not tolerate bright light. Visual sanchez are full. Extraocular muscles are intact. Face is symmetric and tongue protrudes the midline. On muscle strength testing the strength is normal in both arms. In the lower limbs his right ankle appears normal, he has weakness of the left foot in all direction. His hip flexion is relatively better on the right as compared to the left. Patient states that his left leg is weak for long time. Reflexes are diminished and plantars are equivocal. Results Patient has been anemic with most recent hemoglobin 8.4, INR 2.7, sodium 136. BUN 67, creatinine 3.35. Hemoglobin A1c 6.8 on 04/02/2019. TSH was elevated 6.89 on 04/20/2018. - Laboratory Findings CBC and BMP: 05/27/19 07:27 05/27/19 07:27 Abnormal Lab Findings: Abnormal Labs 05/17/19 05/17/19 05/18/19 19:17 19:17 01:42 RBC 3.11 L Hgb 8.8 L Hct 28.2 L MCHC RDW 16.0 H Lymphocytes # 0.7 L Lymphocytes # (Manual) PT 30.1 H INR 3.1 H Sodium Potassium 5.4 H Chloride Carbon Dioxide BUN 50 H Creatinine 2.96 H Glucose 161 H POC Glucose (mg/dL) Uric Acid Calcium Phosphorus Alkaline Phosphatase 216 H Total Protein 6.0 L Albumin 3.1 L Urine Protein Urine Blood Ur Leukocyte Esterase Urine RBC Urine WBC Urine WBC Clumps Urine Bacteria Urine Mucus 05/18/19 05/18/19 05/18/19 07:15 07:17 07:17 RBC 2.92 L Hgb 8.3 L Hct 26.6 L MCHC RDW 15.9 H Lymphocytes # 0.7 L Lymphocytes # (Manual) PT INR Sodium Potassium Chloride Carbon Dioxide BUN 49 H Creatinine 3.20 H Glucose 110 H POC Glucose (mg/dL) 114 H Uric Acid Calcium Phosphorus Alkaline Phosphatase 196 H Total Protein 5.6 L Albumin 2.9 L Urine Protein Urine Blood Ur Leukocyte Esterase Urine RBC Urine WBC Urine WBC Clumps Urine Bacteria Urine Mucus 05/18/19 05/18/19 05/19/19 17:02 20:29 07:23 RBC Hgb Hct MCHC RDW Lymphocytes # Lymphocytes # (Manual) PT 25.1 H INR 2.6 H Sodium Potassium Chloride Carbon Dioxide BUN Creatinine Glucose POC Glucose (mg/dL) 157 H 172 H Uric Acid Calcium Phosphorus Alkaline Phosphatase Total Protein Albumin Urine Protein Urine Blood Ur Leukocyte Esterase Urine RBC Urine WBC Urine WBC Clumps Urine Bacteria Urine Mucus 05/19/19 05/19/19 05/19/19 07:23 07:23 07:29 RBC 2.91 L Hgb 8.2 L Hct 26.9 L MCHC 30.4 L RDW 15.6 H Lymphocytes # 0.7 L Lymphocytes # (Manual) PT INR Sodium Potassium Chloride Carbon Dioxide 32 H BUN 51 H Creatinine 3.77 H Glucose 104 H POC Glucose (mg/dL) 104 H Uric Acid 12.0 H Calcium 8.3 L Phosphorus 5.3 H Alkaline Phosphatase 186 H Total Protein 5.6 L Albumin 2.8 L Urine Protein Urine Blood Ur Leukocyte Esterase Urine RBC Urine WBC Urine WBC Clumps Urine Bacteria Urine Mucus 05/19/19 05/19/19 05/19/19 10:05 11:59 17:09 RBC Hgb Hct MCHC RDW Lymphocytes # Lymphocytes # (Manual) PT INR Sodium Potassium Chloride Carbon Dioxide BUN Creatinine Glucose POC Glucose (mg/dL) 171 H 122 H Uric Acid Calcium Phosphorus Alkaline Phosphatase Total Protein Albumin Urine Protein Urine Blood Small H Ur Leukocyte Esterase Large H Urine RBC 48 H Urine WBC >182 H Urine WBC Clumps Many H Urine Bacteria Rare H Urine Mucus Rare H 05/19/19 05/20/19 05/20/19 20:36 08:11 08:11 RBC 3.03 L Hgb 8.6 L Hct 27.7 L MCHC RDW 15.7 H Lymphocytes # 0.7 L Lymphocytes # (Manual) PT 16.4 H INR 1.6 H Sodium Potassium Chloride Carbon Dioxide BUN Creatinine Glucose POC Glucose (mg/dL) 161 H Uric Acid Calcium Phosphorus Alkaline Phosphatase Total Protein Albumin Urine Protein Urine Blood Ur Leukocyte Esterase Urine RBC Urine WBC Urine WBC Clumps Urine Bacteria Urine Mucus 05/20/19 05/20/19 05/20/19 08:11 10:38 11:53 RBC Hgb Hct MCHC RDW Lymphocytes # Lymphocytes # (Manual) PT INR Sodium Potassium Chloride Carbon Dioxide BUN 54 H Creatinine 3.84 H Glucose POC Glucose (mg/dL) 128 H 169 H Uric Acid Calcium Phosphorus Alkaline Phosphatase Total Protein Albumin Urine Protein Urine Blood Ur Leukocyte Esterase Urine RBC Urine WBC Urine WBC Clumps Urine Bacteria Urine Mucus 05/20/19 05/20/19 05/21/19 16:40 20:49 08:39 RBC Hgb Hct MCHC RDW Lymphocytes # Lymphocytes # (Manual) PT 13.9 H INR 1.4 H Sodium Potassium Chloride Carbon Dioxide BUN Creatinine Glucose POC Glucose (mg/dL) 166 H 151 H Uric Acid Calcium Phosphorus Alkaline Phosphatase Total Protein Albumin Urine Protein Urine Blood Ur Leukocyte Esterase Urine RBC Urine WBC Urine WBC Clumps Urine Bacteria Urine Mucus 05/21/19 05/21/19 05/21/19 08:39 08:39 11:37 RBC 2.98 L Hgb 8.5 L Hct 27.3 L MCHC RDW 15.7 H Lymphocytes # 0.7 L Lymphocytes # (Manual) PT INR Sodium Potassium Chloride 96 L Carbon Dioxide 32 H BUN 56 H Creatinine 3.68 H Glucose 128 H POC Glucose (mg/dL) 177 H Uric Acid Calcium Phosphorus Alkaline Phosphatase Total Protein Albumin Urine Protein Urine Blood Ur Leukocyte Esterase Urine RBC Urine WBC Urine WBC Clumps Urine Bacteria Urine Mucus 05/21/19 05/21/19 05/22/19 16:30 20:20 07:08 RBC Hgb Hct MCHC RDW Lymphocytes # Lymphocytes # (Manual) PT INR Sodium Potassium Chloride Carbon Dioxide BUN Creatinine Glucose POC Glucose (mg/dL) 134 H 170 H 63 L Uric Acid Calcium Phosphorus Alkaline Phosphatase Total Protein Albumin Urine Protein Urine Blood Ur Leukocyte Esterase Urine RBC Urine WBC Urine WBC Clumps Urine Bacteria Urine Mucus 05/22/19 05/22/19 05/22/19 07:21 08:35 08:35 RBC Hgb Hct MCHC RDW Lymphocytes # Lymphocytes # (Manual) PT 15.1 H INR 1.5 H Sodium 135 L Potassium Chloride 92 L Carbon Dioxide BUN 56 H Creatinine 3.60 H Glucose 106 H POC Glucose (mg/dL) 72 L Uric Acid Calcium Phosphorus Alkaline Phosphatase Total Protein Albumin Urine Protein Urine Blood Ur Leukocyte Esterase Urine RBC Urine WBC Urine WBC Clumps Urine Bacteria Urine Mucus 05/22/19 05/22/19 05/22/19 11:46 16:52 20:50 RBC Hgb Hct MCH RDW Lymphocytes # Lymphocytes # (Manual) PT INR Sodium Potassium Chloride Carbon Dioxide BUN Creatinine Glucose POC Glucose (mg/dL) 122 H 127 H 144 H Uric Acid Calcium Phosphorus Alkaline Phosphatase Total Protein Albumin Urine Protein Urine Blood Ur Leukocyte Esterase Urine RBC Urine WBC Urine WBC Clumps Urine Bacteria Urine Mucus 05/23/19 05/23/19 05/23/19 07:42 07:43 07:[address] [facility] RDW Lymphocytes # Lymphocytes # (Manual) PT 18.1 H INR 1.8 H Sodium 134 L Potassium Chloride 90 L Carbon Dioxide 33 H BUN 58 H Creatinine 3.45 H Glucose 57 L POC Glucose (mg/dL) 60 L Uric Acid Calcium Phosphorus Alkaline Phosphatase Total Protein Albumin Urine Protein Urine Blood Ur Leukocyte Esterase Urine RBC Urine WBC Urine WBC Clumps Urine Bacteria Urine Mucus 05/23/19 05/23/19 05/23/19 08:01 12:21 16:46 RBC Hgb Hct MCH RDW Lymphocytes # Lymphocytes # (Manual) PT INR Sodium Potassium Chloride Carbon Dioxide BUN Creatinine Glucose POC Glucose (mg/dL) 65 L 149 H 136 H Uric Acid Calcium Phosphorus Alkaline Phosphatase Total Protein Albumin Urine Protein Urine Blood Ur Leukocyte Esterase Urine RBC Urine WBC Urine WBC Clumps Urine Bacteria Urine Mucus 05/23/19 05/24/19 05/24/19 21:17 07:05 07:05 RBC Hgb Hct MCH RDW Lymphocytes # Lymphocytes # (Manual) PT 24.3 H INR 2.5 H Sodium 135 L Potassium Chloride 89 L Carbon Dioxide 34 H BUN 60 H Creatinine 3.59 H Glucose 61 L POC Glucose (mg/dL) 107 H Uric Acid Calcium Phosphorus Alkaline Phosphatase Total Protein Albumin Urine Protein Urine Blood Ur Leukocyte Esterase Urine RBC Urine WBC Urine WBC Clumps Urine Bacteria Urine Mucus 05/24/19 05/24/19 05/25/19 07:15 12:12 07:09 RBC Hgb Hct MCHC RDW Lymphocytes # Lymphocytes # (Manual) PT INR Sodium Potassium Chloride Carbon Dioxide BUN Creatinine Glucose POC Glucose (mg/dL) 73 L 70 L 106 H Uric Acid Calcium Phosphorus Alkaline Phosphatase Total Protein Albumin Urine Protein Urine Blood Ur Leukocyte Esterase Urine RBC Urine WBC Urine WBC Clumps Urine Bacteria Urine Mucus 05/25/19 05/25/19 05/25/19 07:48 07:48 11:42 RBC Hgb Hct MCHC RDW Lymphocytes # Lymphocytes # (Manual) PT 29.3 H INR 3.0 H Sodium 134 L Potassium Chloride 90 L Carbon Dioxide 34 H BUN 65 H Creatinine 3.55 H Glucose POC Glucose (mg/dL) 183 H Uric Acid Calcium 8.3 L Phosphorus Alkaline Phosphatase Total Protein Albumin Urine Protein Urine Blood Ur Leukocyte Esterase Urine RBC Urine WBC Urine WBC Clumps Urine Bacteria Urine Mucus 05/25/19 05/25/19 05/26/19 21:03 21:31 07:20 RBC Hgb Hct MCH RDW Lymphocytes # Lymphocytes # (Manual) PT INR Sodium Potassium Chloride Carbon Dioxide BUN Creatinine Glucose POC Glucose (mg/dL) 110 H 72 L Uric Acid Calcium Phosphorus Alkaline Phosphatase Total Protein Albumin Urine Protein 1+ H Urine Blood Moderate H Ur Leukocyte Esterase Large H Urine RBC 80 H Urine WBC >182 H Urine WBC Clumps Many H Urine Bacteria Urine Mucus Rare H 05/26/19 05/26/19 05/26/19 08:02 08:02 08:02 RBC 2.92 L Hgb 8.1 L Hct 26.2 L MCHC RDW 16.0 H Lymphocytes # Lymphocytes # (Manual) 0.35 L PT 28.8 H INR 3.0 H Sodium 135 L Potassium Chloride 89 L Carbon Dioxide 37 H BUN 68 H Creatinine 3.60 H Glucose 60 L POC Glucose (mg/dL) Uric Acid Calcium 8.3 L Phosphorus Alkaline Phosphatase Total Protein Albumin Urine Protein Urine Blood Ur Leukocyte Esterase Urine RBC Urine WBC Urine WBC Clumps Urine Bacteria Urine Mucus 05/26/19 05/26/19 05/27/19 12:11 17:08 07:26 RBC Hgb Hct MCHC RDW Lymphocytes # Lymphocytes # (Manual) PT INR Sodium Potassium Chloride Carbon Dioxide BUN Creatinine Glucose POC Glucose (mg/dL) 233 H 72 L 179 H Uric Acid Calcium Phosphorus Alkaline Phosphatase Total Protein Albumin Urine Protein Urine Blood Ur Leukocyte Esterase Urine RBC Urine WBC Urine WBC Clumps Urine Bacteria Urine Mucus 05/27/19 05/27/19 05/27/19 07:27 07:27 07:27 RBC 2.85 L Hgb 8.4 L Hct 25.6 L MCHC RDW 15.9 H Lymphocytes # Lymphocytes # (Manual) 0.93 L PT 26.5 H INR 2.7 H Sodium 136 L Potassium 3.4 L Chloride 90 L Carbon Dioxide 38 H BUN 67 H Creatinine 3.35 H Glucose POC Glucose (mg/dL) Uric Acid Calcium 8.3 L Phosphorus Alkaline Phosphatase Total Protein Albumin Urine Protein Urine Blood Ur Leukocyte Esterase Urine RBC Urine WBC Urine WBC Clumps Urine Bacteria Urine Mucus 05/27/19 05/27/19 12:28 17:10 RBC Hgb Hct MCHC RDW Lymphocytes # Lymphocytes # (Manual) PT INR Sodium Potassium Chloride Carbon Dioxide BUN Creatinine Glucose POC Glucose (mg/dL) 312 H 146 H Uric Acid Calcium Phosphorus Alkaline Phosphatase Total Protein Albumin Urine Protein Urine Blood Ur Leukocyte Esterase Urine RBC Urine WBC Urine WBC Clumps Urine Bacteria Urine Mucus Assessment and Plan Assessment: * Altered mental status, possibly due to metabolic encephalopathy. Patient had transient hypotension, also possibly vasovagal related to UTI and acute kidney injury or other cardiovascular or pharmacologic causes. * Left lower extremity cellulitis, currently on cefazolin * Acute on chronic renal failure. * Diabetes * Morbid obesity * Atrial fibrillation, currently on Coumadin with therapeutic INR. * Chronic left leg weakness Plan: * We will check carotid Doppler to rule out carotid stenosis. * Patient is currently on cefazolin for cellulitis. He may need treatment for candidal UTI. * Patient apparently has been started on midodrine. * We will check TSH as previously it was abnormal a year ago. * Management of other medical conditions as per IM and other specialties. * Thank you very much for allowing me to participate in care of your patient.
[2019-05-27 21:17] LABS: Glucose,Whole Blood 170 mg/dL (75-99)
[2019-05-27] MEDS: ATORVASTATIN 10 MG TAB PO SCH (22:09)
[2019-05-27] MEDS: MAGNESIUM OXIDE 400 MG TAB PO SCH (22:10)
[2019-05-28] MEDS: LEVOTHYROXINE 75 MCG TAB PO SCH (06:01)
[2019-05-28 07:32] LABS: Glucose,Whole Blood 120 mg/dL (75-99)
[2019-05-28] MEDS: INSULIN ASPART (NovoLOG) 100 UNIT/ML VIAL SQ SCH ×4 (08:07→21:15)
[2019-05-28] MEDS: TAMSULOSIN 0.4 MG CAP.ER.24H PO SCH (08:19)
[2019-05-28] MEDS: POLYETHYLENE GLYCOL 3350 17 GM POWD.PACK PO SCH (08:20)
[2019-05-28] MEDS: THIAMINE 100 MG TAB PO SCH (08:20)
[2019-05-28] MEDS: ATENOLOL 25 MG TAB PO SCH (08:20)
[2019-05-28] MEDS: ALLOPURINOL 100 MG TAB PO SCH (08:20)
[2019-05-28] MEDS: MIDODRINE 5 MG TAB PO SCH ×3 (08:20→16:45)
[2019-05-28] MEDS: glipiZIDE 10 MG TAB PO SCH ×2 (08:20→16:45)
[2019-05-28] MEDS: FUROSEMIDE 40 MG TAB PO SCH ×2 (08:20→16:45)
[2019-05-28] MEDS: PANTOPRAZOLE 40 MG TABLET PO SCH (08:20)
[2019-05-28] MEDS: FOLIC ACID 1 MG TAB PO SCH (08:20)
[2019-05-28] MEDS: LINAGLIPTIN 5 MG TABLET PO SCH (08:20)
[2019-05-28] MEDS: MULTIVITAMINS, THERA 1 EACH TAB PO SCH (08:20)
[2019-05-28] MEDS: OXYBUTYNIN CHLORIDE 5 MG TAB PO SCH ×2 (08:20→21:09)
[2019-05-28] MEDS: TRIAMCINOLONE ACET 0.1% OINTMENT 15 GM TUBE TOPICAL SCH ×3 (08:21→21:10)
[2019-05-28] MEDS: NYSTATIN 100,000 UNIT/GM POWD 15 GM TOPICAL SCH ×2 (08:21→21:09)
--- NOTE | 2019-05-28 08:27 | P.PN ---
Subjective this is a pleasant 78 years old male with past medical history of congestive heart failure, atrial fibrillation, CVA/TIA, diabetes mellitus, hearing disorder/deafness, hyperlipidemia, hypertension, memory impairment, chronic kidney disease stage IV, hypothyroidism, urinary bladder cancer stage III, underwent transurethral resection on 01/03/2019 with subsequent intravesicular chemotherapy, recurrent UTI as per daughter at bedside patient was more confused yesterday and sleepy. Also his blood pressure was on the low side yesterday, however both of these are improved today as his blood pressure is 101/62 compared to 91/47 yesterday after he got some small bolus of IV fluid. Also the daughterthinks the patient is more awake today although he is not back to his normal state but is improving gradually as per daughter. Patient himself is alert and awake and oriented to place and person and his disease, however he a drowsy patient had CAT scan of the head yesterday showing old frontal stroke with left DEANNA calcification. Patient has negative DVT in the right leg and the chest x- ray was showing CHF. Patient was placed on IV Lasix today by the nephrology team 05/26/2019 Patient is awake, even better than yesterday. He could remember me from yesterday. He knows he is in the hospital but he could not name the hospital, also he is disoriented to date but he can't recognize Mr. Mosqueda as the president. He denies any other new complaints. No chest pain or dyspnea. No abdominal pain and his tolerating diet well. No nausea vomiting. Patient blood pressure remains on the low side, currently 92/50, after Lasix has been started yesterday by nephrology team. Labs showing stable hemoglobin at 8.1, INR still 3.0. Creatinine still 3.6. Potassium 3.6 as well and sodium 135. Glucose on the low side at 60. Right leg wound is growing Staphylococcus hemolyticus and urine culture showing E. coli. Patient currently on ceftazidime as per ID team recommendation. No IV fluids. Right leg wound looks stable and no more signs of cellulitis in his right leg other than chronic discoloration with light brown on both lower extremities 05/27/2019 Patient remains awake but drowsy, he is oriented to place as heis in the [facility] however he cannot remember his illness. No other new complaints like no chest pain or dyspnea. No abdominal pain or suprapubic tenderness over his blood pressure was on the low side this morning with 90/55 after he was started on IV Lasix, we will lower his atenolol dose from 40 down to 25 mg daily as repeat EKG from this morning showing atrial fibrillation with slow heart rate at [address]-T changes, has incomplete right bundle branch block and QTC of 441. Labs from this morning are still pending. Sugar controlled. Patient felt cold and extra blanket was provided however his temperature is 97.9. Repeat urinalysis is abnormal, repeat urine culture is still pending. Currently patient on cefazolin for UTI and right leg cellulitis which is improving significantly. 05/28/2019 Patient is more awake and oriented today although is a little bit tired and lethargic. He knows he is in the hospital and the name of the president and he knows why he is in the hospital however is disoriented to time, patient is very oriented. He denies chest pain or dyspnea. No other new complaints. Fong catheter still in place. Neurology evaluated the patient yesterday and recommended carotid Doppler. Urine culture showing Sophia, infectious disease on board and patient is already on cefazolin. Patient also on warfarin and follow-up INR. He is on oral Lasix [address] of the head showing old frontal stroke and left DEANNA calcification. DVT is negative in the right leg. Right leg wound is growing staph hemolyticus. Labs from this morning are pending Objective - Vital Signs Vital signs: Vital Signs Temp 98.7 F 05/28/19 05:00 Pulse 78 05/28/19 05:00 Resp 20 05/28/19 05:00 BP 104/70 05/28/19 05:00 Pulse Ox 92 L 05/28/19 05:00 Intake & Output 05/27/19 05/28/19 05/28/19 18:59 06:59 18:59 Intake Total 500 Output Total 1100 600 Balance -1100 -100 Weight 122 kg 117.5 kg Intake: Oral 500 Output: Urine 1100 600 Stool 0 Other: Voiding Method Indwelling Catheter Indwelling Catheter # Voids 0 # Bowel Movements 1 - Exam -GENERAL: The patient is alert and oriented x2-3, drowsy,not in any acute distress. Well developed, well nourished. HEENT: Pupils are round and equally reacting to light. EOMI. No scleral icterus. No conjunctival pallor. Normocephalic, atraumatic. No pharyngeal erythema. No thyromegaly. CARDIOVASCULAR: S1 and S2 present. No murmurs, rubs, or gallops. PULMONARY: Chest is clear to auscultation, no wheezing or crackles. -ABDOMEN: Soft, nontender, nondistended, normoactive bowel sounds. No palpable organomegaly. Fong catheter is in place MUSCULOSKELETAL: No joint swelling or deformity. -EXTREMITIES: No cyanosis, clubbing, or pedal edema. right leg is with improvement redness and swelling and tenderness. Ulcer on the medial side of the right leg looks dry with no purulent discharge NEUROLOGICAL: Gross neurological examination did not reveal any focal deficits. SKIN: No rashes. no petechiae. - Labs CBC & Chem 7: 05/27/19 07:27 05/27/19 07:27 Labs: Abnormal Lab Results - Last 24 Hours (Table) 05/27/19 05/27/19 05/27/19 Range/Units 07:27 07:27 07:27 RBC 2.85 L (4.30-5.90) m/uL Hgb 8.4 L (13.0-17.5) gm/dL Hct 25.6 L (39.0-53.0) % RDW 15.9 H (11.5-15.5) % Lymphocytes # (Manual) 0.93 L (1.0-4.8) k/uL PT 26.5 H (9.0-12.0) sec INR 2.7 H (<1.2) Sodium 136 L (137-145) mmol/L Potassium 3.4 L (3.5-5.1) mmol/L Chloride 90 L (98-107) mmol/L Carbon Dioxide 38 H (22-30) mmol/L BUN 67 H (9-20) mg/dL Creatinine 3.35 H (0.66-1.25) mg/dL POC Glucose (mg/dL) (75-99) mg/dL Calcium 8.3 L (8.4-10.2) mg/dL 05/27/19 05/27/19 05/27/19 Range/Units 12:28 17:10 21:04 RBC (4.30-5.90) m/uL Hgb (13.0-17.5) gm/dL Hct (39.0-53.0) % RDW (11.5-15.5) % Lymphocytes # (Manual) (1.0-4.8) k/uL PT (9.0-12.0) sec INR (<1.2) Sodium (137-145) mmol/L Potassium (3.5-5.1) mmol/L Chloride (98-107) mmol/L Carbon Dioxide (22-30) mmol/L BUN (9-20) mg/dL Creatinine (0.66-1.25) mg/dL POC Glucose (mg/dL) 312 H 146 H 170 H (75-99) mg/dL Calcium (8.4-10.2) mg/dL 05/28/19 Range/Units 07:19 RBC (4.30-5.90) m/uL Hgb (13.0-17.5) gm/dL Hct (39.0-53.0) % RDW (11.5-15.5) % Lymphocytes # (Manual) (1.0-4.8) k/uL PT (9.0-12.0) sec INR (<1.2) Sodium (137-145) mmol/L Potassium (3.5-5.1) mmol/L Chloride (98-107) mmol/L Carbon Dioxide (22-30) mmol/L BUN (9-20) mg/dL Creatinine (0.66-1.25) mg/dL POC Glucose (mg/dL) 120 H (75-99) mg/dL Calcium (8.4-10.2) mg/dL Microbiology - Last 24 Hours (Table) 05/25/19 21:31 Urine Culture - Final Urine,Catheterized Sophia albicans Assessment and Plan Assessment: Urinary retention, status post Fong catheter. History of bladder cancer, stage III with transurethral resection on 01/03/2019. Status post chemotherapy Bilateral [id number] hydronephrosis Acute urinary tract infection Acute kidney injury, chronic chronic kidney disease stage IV-V right lower extremity cellulitis with wound metabolic encephalopathy secondary to above, including urinary problem with acute kidney injury and UTI chronic paroxysmal atrial fibrillation on Coumadin chronic kidney disease, stage IV with possible worsening creatinine Chronic paroxysmal atrial fibrillation Congestive heart failure, chronic Diabetes mellitus Hearing disorders/deafness Hyperlipidemia Hypertension Memory impairment Plan: this is a pleasant 78 years old male who presents with lack cellulitis and bilateral hydronephrosis, patient is followed closely by ID, urology and nephrology team. Patient also to continue on warfarin for now and monitor INR. The recommendation by nephrology and urology team. Patient has Fong catheter. Continue with antibiotics as per ID team. Continue with oxygen therapy. Monitor his vitals. Follow-up recommendation by neurologist including carotid Doppler Patient mental status changes mostly due to his renal problems including acute on chronic kidney disease and UTI besides urinary retention and hydronephrosis Labs and medication were reviewed.. Continue same treatment. Continue with symptomatic treatment. Resume home medication. Monitor lytes and vitals. DVT and GI prophylaxis. Further recommendations of the clinical course of the patient DVT prophylaxis:on coumadine GI Prophylaxis: Pepcid PT/OT: Pending Prognosis is guarded
[2019-05-28 11:38] LABS: Glucose,Whole Blood 139 mg/dL (75-99)
[2019-05-28 11:55] LABS: INR 3.2 (<1.2); Prothrombin Time 31.2 sec (9.0-12.0)
[2019-05-28 11:59] LABS: HCT 26.4 % (39.0-53.0); HGB 8.3 gm/dL (13.0-17.5); Hypochromasia Moderate; MCH 28.4 pg (25.0-35.0); MCHC 31.6 g/dL (31.0-37.0); Mean Platelet Volume 6.7; Platelet Count 182 k/uL (150-450); RBC 2.93 m/uL (4.30-5.90); RDW 15.8 % (11.5-15.5); WBC 5.4 k/uL (3.8-10.6)
--- NOTE | 2019-05-28 12:37 | CDI ---
Documentation Clarification Form Date: 05/28/2019 12:22:34 PM From: Yana Gatica RN, CCDS Admit Date: 05/19/2019 9:09:00 AM Patient Name: Artie Monterroso Visit Number: [id number] ATTENTION: The Clinical Documentation Specialists (CDI) and [facility] Coding Staff appreciate your assistance in clarifying documentation. Please respond to the clarification below the line at the bottom and electronically sign. The CDI & [facility] Coding staff will review the response and follow-up if needed. Please note: Queries are made part of the Legal Health Record. If you have any questions, please contact the author of this message via ITS. Dr. Terry Muñoz A diagnosis of anemia lacks specificity to accurately reflect your patients severity of condition and clarification is needed. History/Risk Factors: Stage 3 baldder CA, s/p chemo, Acute UTI, CKD stage 4, metabolic encephalophy, FARZANEH, UTI, chronic proximal Atrial fibrillation on home Coumadin, Clinical indicators: Hemoglobin: 8.8/8.3/8.2/8.6/8.5/8.1/8.4/8.3 Hematocrit: 28.2/26.6/26.9/7.7/27.3/26.2/25.6/26.4 Treatment: Monitoring labs Coumadin titration In order to capture the severity of condition, please clarify the type of anemia and etiology if known: Acute on chronic blood loss anemia Chronic blood loss anemia Iron deficiency anemia Drug induced anemia Anemia due to malignancy Nutritional anemia Anemia of chronic kidney disease Unable to determine Other, please specify (Last Revision: April 2017) Unable to determine, no anemia workup MTDD
[2019-05-28 12:39] LABS: Calcium 8.5 mg/dL (8.4-10.2); Potassium 3.6 mmol/L (3.5-5.1)
[2019-05-28 12:41] LABS: Basophils # (M) 0.05 k/uL (0-0.2); Eosinophils # (M) 0.22 k/uL (0-0.7); Lymphocytes # (M) 0.59 k/uL (1.0-4.8); Monocytes # (M) 0.86 k/uL (0-1.0); Neutrophils % (M) 68 %; Nucleated Red Blood Cells 0 /100 WBC (0-0); Poikilocytosis (M) Present; Total Cells Counted 100
--- NOTE | 2019-05-28 13:58 | US ---
EXAMINATION TYPE: US carotid duplex BILAT DATE OF EXAM: 05/28/2019 COMPARISON: NONE CLINICAL HISTORY: Syncope. EXAM MEASUREMENTS: RIGHT: Peak Systolic Velocity (PSV) cm/sec ----- Right CCA: 67.2 ----- Right ICA: 98.2 ----- Right ECA: 130.7 ICA/CCA ratio: 1.5 RIGHT: End Diastole cm/sec ----- Right CCA: 12.8 ----- Right ICA: 15.4 ----- Right ECA: 11.1 LEFT: Peak Systolic Velocity (PSV) cm/sec ----- Left CCA: 82.7 ----- Left ICA: 139.7 ----- Left ECA: 65.9 ICA/CCA ratio: 1.7 LEFT: End Diastole cm/sec ----- Left CCA: 16.7 ----- Left ICA: 27.4 ----- Left ECA: 7.6 VERTEBRALS (direction of flow): Right Vertebral: Antegrade Left Vertebral: Antegrade Rhythm: Arrhythmia Technically difficult exam. Patient had difficulty tolerating exam. Exam done in chair. 2nd attempt. First set of pictures are from attempting exam last night. Calcified plaque bilateral bulbs. tortuous left ICA IMPRESSION: 1. No significant hemodynamic stenosis as visualized. 2. Cardiac dysrhythmia Criteria for Assigning % of Stenosis / Diameter reduction (Estimation based on the indirect measurements of the internal carotid artery velocities (ICA PSV). 1. Normal (no stenosis)=ICA PSV < 125 cm/s: ratio < 2.0: ICA EDV<40 cm/s. 2. Less than 50% stenosis=ICA PSV < 125 cm/s: ratio < 2.0: ICA EDV<40 cm/s. 3. 50 to 69% stenosis=ICA PSV of 125 to 230 cm/s: ration 2.0 ? 4.0: ICA EDV 40-100 cm/s. 4. Greater than 70% stenosis to near occlusion= ICA PSV > 230 cm/s: ratio > 4.0: ICA EDV > 100 cm/s. 5. Near occlusion= ICA PSV velocities may be low or undetectable: variable ratio and ICA EDV. 6. Total occlusion=unable to detect flow.
--- NOTE | 2019-05-28 14:05 | PN ---
PROGRESS NOTE Patient is seen for follow up for acute kidney injury on top of chronic kidney disease. Renal function is fairly stable. Creatinine is down to 2.9. Patient's diuretics have been switched to p.o. He has an indwelling Fong catheter and he has been voiding well. PHYSICAL EXAMINATION: On examination today, blood pressure was 104/70, heart rate 78 per minute, he is afebrile. Examination of the heart S1, S2. Examination of the lungs, decreased breath sounds at the bases. Abdomen is soft. Morbidly obese. Examination of the lower extremities shows chronic skin changes, edema 2+ bilaterally. LABS: Sodium 134, potassium 3.6, chloride 90, BUN 37, CO2 is 37, BUN 66, creatinine 2.9, hemoglobin 8.3 g/dL. ASSESSMENT: 1. Acute kidney injury, cardiorenal, currently improved. 2. Volume overload, now improved. 3. Cellulitis, lower extremity, maintained on antibiotics and improving. 4. Hypokalemia associated with diuresis, now improved. 5. Chronic kidney disease stage IV, secondary to diabetic nephropathy. Baseline creatinine around 2 mg/dL. 6. Cardiomyopathy, ejection fraction 45%-50% percent with moderate to severe tricuspid regurgitation and moderate pulmonary hypertension. PLAN: Continue current dose of oral Lasix. MMODL / IJN: [id number] /
[2019-05-28] MEDS: FLUCONAZOLE 100 MG TAB PO SCH (14:39)
--- NOTE | 2019-05-28 15:29 | PN ---
PROGRESS NOTE DATE OF SERVICE: 05/28/2019 REASON FOR FOLLOWUP: Right lower extremity cellulitis. INTERVAL HISTORY: The patient has currently in AFIB. The patient has been breathing comfortably. Patient denies having any chest pain. No shortness of breath, no cough. No nausea, vomiting or pain to the right leg area. PHYSICAL EXAMINATION: Blood pressure is 104/70 with a pulse of 78, temperature 98.7, he is 92% on room air. General description is an elderly male, up in the bed in no distress. RESPIRATORY SYSTEM: Unlabored breathing, clear to auscultation anteriorly. HEART: S1, S2. Regular rate and rhythm. ABDOMEN: Soft. LEGS: Has been wrapped up, no obvious drainage on the dressing. LABS: Hemoglobin 8.1, white count of 4.4, BUN of 66, creatinine is 2.90. DIAGNOSTIC IMPRESSION AND PLAN: 1. Patient with right lower extremity wound with secondary cellulitis likely streptococcal disease. The patient is currently on Cefazolin to finish out a short course of oral Keflex. 2. Positive urine cultures with Sophia albicans, possible Fong colonization with the UTI. Will give a short course of oral Diflucan. Continue supportive care. MMODL / IJN: [id number] /
--- NOTE | 2019-05-28 16:06 | P.PN ---
Subjective Progress Note Date: 05/28/19 Patient offers no new complaints. He is sitting comfortably in the recliner chair. He has a Fong's catheter in place. Patient tells me that his left leg is weak since he was involved in an accident in [facility]. He slipped on the floor which had oil, and injured his left knee. This happened 20 years ago. He lives by himself. He has a walker, manages by himself. He denies any concerns about memory functions. Denies any history of strokes. Patient had a carotid Doppler which was normal, with no significant stenosis. TSH is normal 2.86. Objective - Vital Signs Vital signs: Vital Signs Temp 97.8 F 05/28/19 14:16 Pulse 70 05/28/19 14:16 Resp 17 05/28/19 14:16 BP 86/50 05/28/19 14:16 Pulse Ox 93 L 05/28/19 14:16 Intake & Output 05/27/19 05/28/19 05/28/19 18:59 06:59 18:59 Intake Total 500 Output Total 1100 600 900 Balance -1100 -100 -900 Weight 122 kg 117.5 kg Intake: Oral 500 Output: Urine 1100 600 900 Stool 0 Other: Voiding Method Indwelling Catheter Indwelling Catheter Indwelling Catheter # Voids 0 # Bowel Movements 1 - Exam On examination patient is alert and awake in no distress. He states it's June and could not tell the year. He states that he is in [facility] in [place]. He knows name of the current president. Speech and language functions are normal. He has positive visuospatial apraxia, positive palmomental reflex bilaterally. Visual sanchez are full and face is symmetric. Muscle strength is normal in the arms. No tremors of outstretched hands. No metabolic/myoclonic jerks. - Labs CBC & Chem 7: 05/28/19 11:22 05/28/19 11:22 Labs: Abnormal Lab Results - Last 24 Hours (Table) 05/27/19 05/27/19 05/28/19 Range/Units 17:10 21:04 07:19 RBC (4.30-5.90) m/uL Hgb (13.0-17.5) gm/dL Hct (39.0-53.0) % RDW (11.5-15.5) % Lymphocytes # (Manual) (1.0-4.8) k/uL PT (9.0-12.0) sec INR (<1.2) Sodium (137-145) mmol/L Chloride (98-107) mmol/L Carbon Dioxide (22-30) mmol/L BUN (9-20) mg/dL Creatinine (0.66-1.25) mg/dL Glucose (74-99) mg/dL POC Glucose (mg/dL) 146 H 170 H 120 H (75-99) mg/dL 05/28/19 05/28/19 05/28/19 Range/Units 11:22 11:22 11:22 RBC 2.93 L (4.30-5.90) m/uL Hgb 8.3 L (13.0-17.5) gm/dL Hct 26.4 L (39.0-53.0) % RDW 15.8 H (11.5-15.5) % Lymphocytes # (Manual) 0.59 L (1.0-4.8) k/uL PT 31.2 H (9.0-12.0) sec INR 3.2 H (<1.2) Sodium 134 L (137-145) mmol/L Chloride 90 L (98-107) mmol/L Carbon Dioxide 37 H (22-30) mmol/L BUN 66 H (9-20) mg/dL Creatinine 2.90 H (0.66-1.25) mg/dL Glucose 126 H (74-99) mg/dL POC Glucose (mg/dL) (75-99) mg/dL 05/28/19 Range/Units 11:26 RBC (4.30-5.90) m/uL Hgb (13.0-17.5) gm/dL Hct (39.0-53.0) % RDW (11.5-15.5) % Lymphocytes # (Manual) (1.0-4.8) k/uL PT (9.0-12.0) sec INR (<1.2) Sodium (137-145) mmol/L Chloride (98-107) mmol/L Carbon Dioxide (22-30) mmol/L BUN (9-20) mg/dL Creatinine (0.66-1.25) mg/dL Glucose (74-99) mg/dL POC Glucose (mg/dL) 139 H (75-99) mg/dL Microbiology - Last 24 Hours (Table) 05/25/19 21:31 Urine Culture - Final Urine,Catheterized Sophia albicans Assessment and Plan Assessment: * Altered mental status, possibly due to metabolic encephalopathy. Patient had transient hypotension, also possibly vasovagal related to UTI and acute kidney injury or other cardiovascular or pharmacologic causes. * Left lower extremity cellulitis, currently on cefazolin * Acute on chronic renal failure. * Diabetes * Morbid obesity * Atrial fibrillation, currently on Coumadin with therapeutic INR. * Chronic left leg weakness Plan: * Carotid Doppler showed no carotid stenosis. * Patient is currently on cefazolin for cellulitis. He may need treatment for candidal UTI. * Patient apparently has been started on midodrine. * If the memory concerns continue to be a problem, then he should follow up with neurologist as an outpatient to rule out underlying cognitive impairment. I suspect he may have mild cognitive impairment. * Management of other medical conditions as per IM and other specialties. * Neurologically clear otherwise.
[2019-05-28 17:22] LABS: Glucose,Whole Blood 161 mg/dL (75-99)
[2019-05-28] MEDS ORDERED: WARFARIN 0.5 MG TAB PO ONE (18:00)
[2019-05-28 20:32] LABS: INR 3.1 (<1.2); Prothrombin Time 30.2 sec (9.0-12.0)
[2019-05-28 20:56] LABS: Glucose,Whole Blood 196 mg/dL (75-99)
[2019-05-28] MEDS: MAGNESIUM OXIDE 400 MG TAB PO SCH (21:09)
[2019-05-28] MEDS: ATORVASTATIN 10 MG TAB PO SCH (21:09)
[2019-05-28 21:57] VITALS: RESP 20
[2019-05-28] MEDS ORDERED: WARFARIN 2 MG TAB PO ONE (22:15)
[2019-05-29 04:59] VITALS: TEMP 98
[2019-05-29] MEDS: LEVOTHYROXINE 75 MCG TAB PO SCH (05:43)
[2019-05-29] MEDS: PANTOPRAZOLE 40 MG TABLET PO SCH (06:00)
[2019-05-29] MEDS: FOLIC ACID 1 MG TAB PO SCH (06:00)
[2019-05-29] MEDS: TAMSULOSIN 0.4 MG CAP.ER.24H PO SCH (06:00)
[2019-05-29] MEDS: MULTIVITAMINS, THERA 1 EACH TAB PO SCH (06:00)
[2019-05-29 07:38] LABS: Glucose,Whole Blood 106 mg/dL (75-99)
[2019-05-29] MEDS: ALLOPURINOL 100 MG TAB PO SCH (08:23)
[2019-05-29] MEDS: OXYBUTYNIN CHLORIDE 5 MG TAB PO SCH (08:23)
[2019-05-29] MEDS: FUROSEMIDE 40 MG TAB PO SCH (08:23)
[2019-05-29] MEDS: MIDODRINE 5 MG TAB PO SCH ×2 (08:23→12:53)
[2019-05-29] MEDS: THIAMINE 100 MG TAB PO SCH (08:23)
[2019-05-29] MEDS: LINAGLIPTIN 5 MG TABLET PO SCH (08:23)
[2019-05-29] MEDS: glipiZIDE 10 MG TAB PO SCH (08:23)
[2019-05-29] MEDS: ATENOLOL 25 MG TAB PO SCH (08:23)
[2019-05-29] MEDS: POLYETHYLENE GLYCOL 3350 17 GM POWD.PACK PO SCH (08:24)
[2019-05-29] MEDS: NYSTATIN 100,000 UNIT/GM POWD 15 GM TOPICAL SCH (08:24)
[2019-05-29] MEDS: INSULIN ASPART (NovoLOG) 100 UNIT/ML VIAL SQ SCH ×2 (08:24→12:27)
[2019-05-29] MEDS: TRIAMCINOLONE ACET 0.1% OINTMENT 15 GM TUBE TOPICAL SCH (08:25)
[2019-05-29] MEDS: ERGOCALCIFEROL 50,000 UNIT CAP PO SCH (09:25)
[2019-05-29 09:51] LABS: Anisocytosis Slight; Basophils # (A) 0.1 k/uL (0-0.2); Basophils % (A) 2 %; Eosinophils # (A) 0.3 k/uL (0-0.7); Eosinophils % (A) 6 %; HGB 8.6 gm/dL (13.0-17.5); Hypochromasia Slight; Lymphocytes # (A) 0.5 k/uL (1.0-4.8); Lymphocytes % (A) 10 %; MCH 27.5 pg (25.0-35.0); MCHC 30.7 g/dL (31.0-37.0); MCV 89.6 fL (80.0-100.0); Monocytes # (A) 0.5 k/uL (0-1.0); Monocytes % (A) 11 %; Neutrophils # (A) 3.1 k/uL (1.3-7.7); Neutrophils % (A) 69 %; Platelet Count 191 k/uL (150-450); RBC 3.12 m/uL (4.30-5.90); RDW 16.2 % (11.5-15.5); WBC 4.5 k/uL (3.8-10.6)
[2019-05-29 09:57] LABS: Prothrombin Time 29.1 sec (9.0-12.0)
[2019-05-29 10:59] VITALS: BP 122/68; PULSE 74
[2019-05-29 11:36] LABS: Calcium 8.4 mg/dL (8.4-10.2); Potassium 3.4 mmol/L (3.5-5.1)
--- NOTE | 2019-05-29 12:41 | P.PN ---
Progress Note - Text Progress Note Date: 05/29/19 Mr. Monterroso continues to feel better. He denies pain. The Fong catheter is draining clear yellow urine. Approximately 500 mL of urine was obtained upon Fong catheter placement on 05/24/2019. The creatinine level remained stable over the weekend, but has improved daily throughout the week and today is 2.81. A urine culture has shown holly, which likely represents simple colonization. Will leave Ofng catheter in place for now. Once his overall condition is improved, he may benefit from cystoscopy, bilateral retrograde pyelograms, possible stent placement, and bladder biopsy.
[2019-05-29] MEDS: FLUCONAZOLE 100 MG TAB PO SCH (12:53)
--- NOTE | 2019-05-29 14:51 | PN ---
PROGRESS NOTE DATE OF SERVICE: 05/29/2019 REASON FOR FOLLOWUP: 1. Right lower extremity cellulitis. 2. Possible urinary tract. INTERVAL HISTORY: The patient is currently afebrile. The patient is breathing comfortably. Denies having any chest pain or cough. No nausea, vomiting, abdominal pain. No pain to the right leg area. PHYSICAL EXAMINATION: Blood pressure 120/60 with a pulse of 74, temperature of 98 he is 93% on room air. General description is an elderly male, lying in bed in no distress. RESPIRATORY SYSTEM: Unlabored breathing, clear to auscultation anteriorly. HEART: S1, S2. Regular rate and rhythm. Abdomen and legs are currently wrapped up. No obvious drainage on the dressing. LABS: Hemoglobin is 8.6, white count 4.5. BUN of 25, creatinine is 2.81. DIAGNOSTIC IMPRESSION AND PLAN: 1. Patient with a right lower extremity wound with cellulitis. This did have diffuse cellulitis likely streptococcal disease currently covered with Cefazolin and short course of oral Ceftin oral Keflex on discharge. 2. Positive culture with Sophia present for colonization versus a mild cystitis on a short course of oral Diflucan. Continue supportive care. MMODL / IJN: [id number] /
--- NOTE | 2019-05-29 15:33 | PN ---
PROGRESS NOTE Patient is seen for followup for acute kidney injury on chronic kidney disease. He is currently doing fairly well. No significant complaints this morning. PHYSICAL EXAMINATION: Blood pressure was 122/68, heart rate 74 per minute, he is afebrile. Examination of the heart S1, S2. Examination of the lungs, decreased breath sounds at bases. Examination of the lower extremities shows bilateral extremities to be wrapped. LABS: Show sodium of 135, potassium 3.4, chloride 90, BUN 65, creatinine 2.8 mg/dL, hemoglobin 8.6. ASSESSMENT: 1. Acute kidney injury cardiorenal, currently improving. 2. Volume overload, improved post diuresis. 3. Hypokalemia associated with use of diuretics, being replaced. 4. Urine retention currently with indwelling Fong catheter to follow up with Urology as outpatient. 5. Anemia of chronic disease. 6. Chronic kidney disease, NKF stage IV, secondary to diabetic nephropathy, baseline creatinine around 2. 7. Cardiomyopathy, ejection fraction 45%-50% with moderate to severe tricuspid regurgitation and moderate pulmonary hypertension. 8. Cellulitis, lower extremity, maintained on antibiotics and improved. PLAN: Patient is stable for discharge. Monitor electrolytes and renal function as outpatient. Continue with loop diuretics post discharge. MMODL / IJN: [id number] /
[2019-05-29] MEDS ORDERED: WARFARIN 2 MG TAB PO ONE (18:00)
== END 2019-05-29 13:25 | DRG 682 ==
LOC: EC 17:58 → 4MS4W 22:11 → OBSVTOIN 05-19 09:09
PROVIDERS: ADMIT Hospitalist; ATTEND Hospitalist
DX: N17.0 Acute kidney failure with tubular necrosis (principal); G93.41 Metabolic encephalopathy; E87.3 Alkalosis; I13.2 Hypertensive heart and chronic kidney disease with heart failure and with stage 5 chronic kidney disease, or end stage renal disease; I42.9 Cardiomyopathy, unspecified; I48.20 Chronic atrial fibrillation, unspecified; I50.42 Chronic combined systolic (congestive) and diastolic (congestive) heart failure; L03.115 Cellulitis of right lower limb; L03.116 Cellulitis of left lower limb; D63.1 Anemia in chronic kidney disease; E03.9 Hypothyroidism, unspecified; E11.22 Type 2 diabetes mellitus with diabetic chronic kidney disease; E66.01 Morbid (severe) obesity due to excess calories; E78.5 Hyperlipidemia, unspecified; E87.5 Hyperkalemia; E87.6 Hypokalemia; F03.90 Unspecified dementia, unspecified severity, without behavioral disturbance, psychotic disturbance, mood disturbance, and anxiety; H40.9 Unspecified glaucoma; H91.90 Unspecified hearing loss, unspecified ear; I07.1 Rheumatic tricuspid insufficiency; I27.20 Pulmonary hypertension, unspecified; I48.0 Paroxysmal atrial fibrillation; M71.20 Synovial cyst of popliteal space [Baker], unspecified knee; N13.6 Pyonephrosis; N18.5 Chronic kidney disease, stage 5; N40.0 Benign prostatic hyperplasia without lower urinary tract symptoms; R32 Unspecified urinary incontinence; T50.2X5A Adverse effect of carbonic-anhydrase inhibitors, benzothiadiazides and other diuretics, initial encounter; Z68.37 Body mass index [BMI] 37.0-37.9, adult; Z79.01 Long term (current) use of anticoagulants; Z79.4 Long term (current) use of insulin; Z79.890 Hormone replacement therapy; Z79.899 Other long term (current) drug therapy; Z80.9 Family history of malignant neoplasm, unspecified; Z85.46 Personal history of malignant neoplasm of prostate; Z85.51 Personal history of malignant neoplasm of bladder; Z86.73 Personal history of transient ischemic attack (TIA), and cerebral infarction without residual deficits; Z87.440 Personal history of urinary (tract) infections; Z87.891 Personal history of nicotine dependence; Z90.79 Acquired absence of other genital organ(s); Z92.21 Personal history of antineoplastic chemotherapy; E87.70 Fluid overload, unspecified; Z79.51 Long term (current) use of inhaled steroids
CPT/HCPCS: 36415; 70450; 71045; 71046; 74176; 76770; 76775; 80048; 80053; 81001; 82533; 82570; 83735; 83880; 84100; 84300; 84443; 84540; 84550; 85025; 85610; 87040; 87070; 87075; 87077; 87086; 87186; 87205; 93005; 93880; 94760; 96374; 99285